=== PATIENT | male | born 1970 | race Caucasian/White ===

== ENCOUNTER 2020-06-04 15:12 | Outpatient (REF) | payer OTHER, SELFPAY | END 2020-06-04 15:13 | disposition home or self-care (01) | LOC: HO.LAB 15:12 | PROVIDERS: Visit Provider Internal Medicine | DX: Z20.822 Contact with and (suspected) exposure to COVID-19 (principal) | CPT/HCPCS: 36415; C9803; U0003 ==

== ENCOUNTER 2020-06-11 20:03 | Emergency (ER) | payer OTHER, SELFPAY ==
[2020-06-11 21:06] VITALS: BP 132/78; PULSE 81; RESP 17; TEMP 36.4; O2SAT 95; BMI 33.2
--- NOTE | 2020-06-11 21:37 | CT_ITS ---
EXAMINATION: CT ABDOMEN AND PELVIS WITHOUT CONTRAST CLINICAL INFORMATION: Left flank pain and hematuria. COMPARISON: None TECHNIQUE: Multidetector volumetric imaging was performed from the superior aspect of the liver through the pubic symphysis. Sagittal and coronal reformatted images were obtained on the technologist's workstation. This CT examination was performed using dose optimization techniques as appropriate, variously including the following: *Automated exposure control. *Adjustment of mA and/or kV according to patient size (this includes techniques or standardized protocols for targeted exams where dose is matched to indication/reason for exam; i.e. extremities or head). *Use of iterative reconstruction technique. DLP: 806 mGy-cm FINDINGS: LUNG BASES: The visualized lung bases are unremarkable. LIVER, GALLBLADDER, AND BILIARY TREE: The liver is normal in size, shape, and attenuation. No focal hepatic lesion or biliary ductal dilatation is present. The gallbladder is unremarkable with no evidence of radiopaque gallstones, gallbladder wall thickening, or obvious pericholecystic inflammatory changes. PANCREAS: Unremarkable. SPLEEN: Unremarkable. ADRENAL GLANDS: There is mild asymmetric thickening of the left adrenal gland along with a 1.5 cm nodule at the apex. This measures about 15 Hounsfield units and is consistent with a benign adenoma. KIDNEYS AND URETERS: The kidneys are normal in size, shape, and attenuation. No hydronephrosis, hydroureter, or calculi seen. No perinephric stranding. BLADDER: Nearly empty but otherwise unremarkable. No bladder calculi are seen. A tiny urachal remnant is present. GASTROINTESTINAL TRACT: The small and large bowel are unremarkable. The appendix is unremarkable. ABDOMINAL WALL: No significant hernia is appreciated. Tiny bilateral inguinal hernias are present with only fat. LYMPH NODES: No retroperitoneal lymphadenopathy. Some minimally prominent precaval node seen in the peripancreatic region. VASCULAR: Minimal calcific atherosclerotic changes are present without aneurysm. PELVIC VISCERA: Prostate and seminal vesicles appear normal. OSSEOUS STRUCTURES: Degenerative changes present in the spine most marked at L1-L2 with large Schmorl's node superior endplate of L2. No gross bony destructive lesions seen. There is mild anterior wedging of T10 and T11. CT/CT abdomen pelvis wo con IMPRESSION: 1. An acute cause for the patient's left flank pain and hematuria has not been found. No renal calculi or hydronephrosis is present. 2. Incidental note made of benign left adrenal adenoma, degenerative changes in the spine, mildly prominent peripancreatic lymph node.
--- NOTE | 2020-06-11 21:42 | ED.GENADULT ---
HPI - General Adult General Chief complaint: Extremity Problem Stated complaint: leg pain Time Seen by Provider: 06/11/20 21:27 Source: patient Mode of arrival: ambulatory Limitations: no limitations History of Present Illness HPI narrative: 50 yo male with past medical history of bells palsy, hypoglycemia, cardiac disease here with complaints of left buttocks pain which radiates to left groin/thigh x 2 weeks. Also c/o hematuria. NO clots or difficulty urinating or dysuria. No fevers/chills. No vomiting or diarrhea. No incontinence. Onset (ago): week(s) Related Data Previous Rx's Medication Instructions Recorded cyclobenzaprine 10 mg PO TID PRN #20 tab 06/11/20 dexamethasone [Decadron] 4 mg PO DAILY #5 tab 06/11/20 lidocaine [Lidoderm] 1 patch TOPICAL DAILY #15 ea 06/11/20 oxycodone 5 mg PO Q6H PRN #10 tab 06/11/20 Allergies Allergy/AdvReac Type Severity Reaction Status Date / Time aspirin AdvReac Gastrointestinal Verified 06/11/20 21:05 Upset Review of Systems Review of Systems: Yes all other systems are reviewed and are negative Constitutional: Constitutional: Reports no additional constitutional complaints, Denies body ache(s), Denies chills, Denies fever(s), Denies headache(s) and Denies weakness Eyes: Eyes: Reports no additional eye complaints and Denies change in vision ENT: Reports system reviewed and no additional complaints, except as documented, Denies dizziness, Denies headache(s), Denies nasal congestion, Denies nasal discharge and Denies neck pain Cardiovascular: Cardiovascular: Reports no additional cardiovascular complaints, Denies chest pain, Denies leg edema and Denies dyspnea Respiratory: Respiratory: Reports no additional respiratory complaints, Denies cough and Denies dyspnea Gastrointestinal: Gastrointestinal: Reports no additional gastrointestinal complaints, Denies abdominal pain, Denies diarrhea, Denies nausea and Denies vomiting Genitourinary: Genitourinary: Reports hematuria and Denies urinary incontinence Musculoskeletal: Musculoskeletal: Reports no additional musculoskeletal complaints, Reports back pain, Denies arthralgias, Denies joint swelling, Denies neck pain, Reports numbness and Denies tingling Integumentary/Breasts: Skin/Breast: Reports system reviewed and no additional complaints, except as docu and Denies rash Neurologic: Reports system reviewed and no additional complaints, except as documented, Denies Abnormal speech present, Denies dizziness, Denies headache(s), Reports numbness, Denies tingling and Denies weakness PMFSH Past Medical History Attestation statement: The following information was validated with the patient. Source: old records reviewed and nursing notes reviewed Medical History Valverde's palsy Heart disease Hypoglycemia Surgical History H/O right knee surgery Social History Social History Smoking Status: Never smoker Use of substances other than those prescribed or required for medical reasons: Yes Substance Use Type: Marijuana Substance Use Type Other:: BUYS PAIN MED OCCASSIONALLY ON THE STREETS. Advance Directives: No Advance Directives Information Provided: Yes Physical Exam Vital Signs: Vital Signs: Last Vital Signs Temp 97.1 F 06/11/20 22:36 Pulse 66 06/11/20 22:36 Resp 17 06/11/20 22:36 BP 140/67 H 06/11/20 22:36 Pulse Ox 97 06/11/20 22:36 Body Mass Index 33.2 Const: General: cooperative, healthy appearing, comfortable and no acute distress Orientation/consciousness: patient oriented x3 Limitations: no limitations HENMT: Head: Yes normal to inspection Ears: hearing grossly normal bilaterally General nose exam: Normal external nose present Face and sinus: Yes normal facial exam Mouth: Normal oral and palatal mucosa present Throat: Yes posterior oropharynx normal Eyes: General: appearance normal, both eyes and all related structures Pupils: Equal, round and reactive pupils present Neck: Neck: Yes normal visual inspection Chest: Chest palpation & inspection: normal inspection of the chest Resp: Effort & Inspection: normal respiratory effort Auscultation: clear to auscultation bilaterally Cardio: Rate: regular rate Rhythm: regular rhythm Peripheral pulses: Peripheral pulses 2+ throughout GI: Inspection: Yes normal to inspection Palpation (GI): Soft to palpation and nontender Auscultation: normal bowel sounds : Other: deferred exam by patient General: Yes no CVA tenderness Back/Spine/Pelvis: Other: pain on palpation over left buttocks and left lateral hip, worsened with straight leg raise Back: no CVA tenderness Thoracic/Lumbar Spine: thoracic and lumbar spine normal to inspection Skin: General skin exam: no rashes or lesions noted Neuro: General: patient oriented x3, no focal motor deficits and normal sensation to monofilament Cranial nerves: Yes CN's II-XII intact bilaterally, Yes Equal, round and reactive pupils present, Yes Bilaterally intact EOM present, Yes Nystagmus not present, Yes Normal facial strength present, Yes Midline tongue present and Yes Normal gag reflex present Cognition (Neuro): normal cognition Speech: No Abnormal speech present Gait exam (Neuro): Normal gait present Motor exam (neuro): 5/5 motor strength present throughout Sensory Exam: Normal double simultaneous stimulation for sensation Extrem: General: Yes normal to inspection Course Course Course Narrative: 50 yo male here with left buttocks/low back pain which radiates to left hip/thigh x 2 weeks with intermittent hematuria. No fevers, chills, vomiting, diarrhea. No injury or trauma. Will need UA, CT A/P and analgesia. 2340-UA shows no signs of microscopic hematuria. CT shows 1. An acute cause for the patient's left flank pain and hematuria has not been found. No renal calculi or hydronephrosis is present. 2. Incidental note made of benign left adrenal adenoma, degenerative changes in the spine, mildly prominent peripancreatic lymph node. Pain is improved after receiving IM Toradol, IM morphine and Lidoderm patch here. Likely lumbar sprain vs hip flexor strain vs psoas strain. Radiation of pain with intermittent paresthesias also raise concern for sciatica. No neurological deficits or red flag symptoms. Reviewed worrisome signs and symptoms when to return to the emergency department. Comfortable discharge home. Medical Decision Making MDM Narrative Medical decision making narrative: renal colic, lumbar strain, uti, pyelo, sciatica, hip flexor vs psoas strain Lab Data Labs: Lab Results 06/11/20 Range/Units 22:26 Urine Color YELLOW Urine Appearance CLEAR Urine pH 6.0 (5.0-8.0) Ur Specific [place] >= 1.030 H (1.005-1.025) Urine Protein NEG (NEG-TRACE) MG/DL Urine Glucose (UA) NEG (NEG) MG/DL Urine Ketones NEG (NEG) MG/DL Urine Blood NEG (NEG) Urine Nitrite NEG (NEG) Ur Leukocyte Esterase NEG (NEG) Imaging Data CT scan - abdomen: Attestation: I personally reviewed and interpreted this imaging study as follows: Radiologist's impression: EXAMINATION: CT ABDOMEN AND PELVIS WITHOUT CONTRAST CLINICAL INFORMATION: Left flank pain and hematuria. COMPARISON: None TECHNIQUE: Multidetector volumetric imaging was performed from the superior aspect of the liver through the pubic symphysis. Sagittal and coronal reformatted images were obtained on the technologist's workstation. This CT examination was performed using dose optimization techniques as appropriate, variously including the following: *Automated exposure control. *Adjustment of mA and/or kV according to patient size (this includes techniques or standardized protocols for targeted exams where dose is matched to indication/reason for exam; i.e. extremities or head). *Use of iterative reconstruction technique. DLP: 806 mGy-cm FINDINGS: LUNG BASES: The visualized lung bases are unremarkable. LIVER, GALLBLADDER, AND BILIARY TREE: The liver is normal in size, shape, and attenuation. No focal hepatic lesion or biliary ductal dilatation is present. The gallbladder is unremarkable with no evidence of radiopaque gallstones, gallbladder wall thickening, or obvious pericholecystic inflammatory changes. PANCREAS: Unremarkable. SPLEEN: Unremarkable. ADRENAL GLANDS: There is mild asymmetric thickening of the left adrenal gland along with a 1.5 cm nodule at the apex. This measures about 15 Hounsfield units and is consistent with a benign adenoma. KIDNEYS AND URETERS: The kidneys are normal in size, shape, and attenuation. No hydronephrosis, hydroureter, or calculi seen. No perinephric stranding. BLADDER: Nearly empty but otherwise unremarkable. No bladder calculi are seen. A tiny urachal remnant is present. GASTROINTESTINAL TRACT: The small and large bowel are unremarkable. The appendix is unremarkable. ABDOMINAL WALL: No significant hernia is appreciated. Tiny bilateral inguinal hernias are present with only fat. LYMPH NODES: No retroperitoneal lymphadenopathy. Some minimally prominent precaval node seen in the peripancreatic region. VASCULAR: Minimal calcific atherosclerotic changes are present without aneurysm. PELVIC VISCERA: Prostate and seminal vesicles appear normal. OSSEOUS STRUCTURES: Degenerative changes present in the spine most marked at L1-L2 with large Schmorl's node superior endplate of L2. No gross bony destructive lesions seen. There is mild anterior wedging of T10 and T11. CT/CT abdomen pelvis wo con IMPRESSION: 1. An acute cause for the patient's left flank pain and hematuria has not been found. No renal calculi or hydronephrosis is present. 2. Incidental note made of benign left adrenal adenoma, degenerative changes in the spine, mildly prominent peripancreatic lymph node. Discharge Plan Discharge Clinical Impression: Sciatica, Strain of flexor muscle of left hip Patient Disposition: Home, Self-Care Instructions: Sciatica (ED), Hip Sprain (ED) Additional Instructions: Heat or ice Gentle stretching Prescriptions: New lidocaine [Lidoderm] 5 % adhesive patch,medicated 1 patch topical DAILY Qty: 15 RF: 0 cyclobenzaprine 10 mg tablet 10 mg PO TID PRN (Reason: muscle spasm) Qty: 20 RF: 0 oxycodone 5 mg tablet 5 mg PO Q6H PRN (Reason: pain) Qty: 10 RF: 0 dexamethasone [Decadron] 4 mg tablet 4 mg PO DAILY Qty: 5 RF: 0 Referrals: Christopher Mercado MD [Physician] - 2 days Interventions: ED Discharge Assessment Last Done: 06/11/20 23:40 Discharge Date/Time: 06/11/20 23:40
[2020-06-11 22:17] VITALS: RESP 18
[2020-06-11] MEDS: Morphine Sulfate 4 MG/ML CARTRIDGE IM (22:17)
[2020-06-11] MEDS: Ketorolac Tromethamine 60 MG/2 ML VIAL IM (22:17)
[2020-06-11] MEDS: Lidocaine 4 % Patch ADH..PATCH 1 PATCH TRANSDERMA (22:18)
[2020-06-11 22:35] LABS: Glucose Urine UA NEG (NEG); Leukocyte Esterase Urine NEG (NEG); Nitrite Urine NEG (NEG); Specific Gravity - Urine >= 1.030 (1.005-1.025); Urine Blood NEG (NEG); Urine Ketones NEG (NEG); Urine Protein NEG (NEG-TRACE)
[2020-06-11 22:36] VITALS: BP 140/67; PULSE 66; RESP 17; TEMP 36.2; O2SAT 97
[2020-06-11 22:36] LABS: Appearance Urine CLEAR; Color Urine YELLOW
== END 2020-06-11 23:40 | disposition home or self-care (01) ==
PROVIDERS: Nurse Practitioner Family; Emergency Provider Emergency Medicine Emergency Medical Services; PCP Internal Medicine
DX: M54.32 Sciatica, left side (principal); S76.012A Strain of muscle, fascia and tendon of left hip, initial encounter; X58.XXXA Exposure to other specified factors, initial encounter; Y93.9 Activity, unspecified; Y92.9 Unspecified place or not applicable; Y99.9 Unspecified external cause status
CPT/HCPCS: 74176; 81003; 96372; 99284; J1885; J2270

== ENCOUNTER 2020-10-18 10:03 | Emergency (ER) | payer OTHER, SELFPAY ==
--- NOTE | ~2020-10-18 | XR_ITS ---
EXAMINATION: XR CHEST CLINICAL INFORMATION: Shortness of breath. COMPARISON: None TECHNIQUE: 2 views of the chest were obtained. FINDINGS: No significant abnormality is noted involving the heart, lungs, mediastinum, bony thorax or soft tissues. XR/XR chest 2V IMPRESSION: No acute cardiopulmonary process.
--- NOTE | ~2020-10-18 | CT_ITS ---
EXAMINATION: CT ANGIOGRAM OF THE CHEST WITH AND WITHOUT CONTRAST (CT PULMONARY ANGIOGRAM FOR PE) CLINICAL INFORMATION: Reason for Exam pt c chest tightness/sob/le edema ? pe COMPARISON: None TECHNIQUE: Prior to contrast administration, noncontrast localization images were obtained. Subsequently, multidetector volumetric imaging was performed from the thoracic inlet to below the diaphragms following the administration of 80 mL Omnipaque 350 intravenous contrast. No contrast reaction reported Sagittal, coronal, and MIP oblique sagittal reformatted images were obtained on the CT workstation, uploaded to PACS, and reviewed. This CT examination was performed using dose optimization techniques as appropriate, variously including the following: *Automated exposure control *Adjustment of mA and/or kV according to patient size (this includes techniques or standardized protocols for targeted exams where dose is matched to indication/reason for exam; i.e. extremities or head) *Use of iterative reconstruction technique Total exam dose-length product 558 mGy-cm FINDINGS: QUALITY OF STUDY/CONTRAST BOLUS: Satisfactory. PULMONARY ARTERIES: No central or segmental pulmonary emboli. THORACIC AORTA: No aneurysm or dissection. LUNG: There is mild centrilobular emphysema without any acute process. There are a few scattered pulmonary nodules. A 2 mm nodule right upper lobe anterior segment image 122/8, 3 mm nodule right upper lobe image 164/8, 3 mm nodular thickening along the right minor fissure axial image 239/8, 4 mm pleural-based nodule left lower lobe axial image 303/8, 3 mm nodule right middle lobe axial image 312/8, 4 mm nodule right lower lobe axial image 339/8 and tumor nodule right lower lobe axial image 355/8. PLEURA: No pleural effusion or pneumothorax. MEDIASTINUM: Normal heart size. No pericardial effusion. No hilar or mediastinal lymphadenopathy. No evidence of septal bowing or right heart strain. CHEST WALL/AXILLA: No axillary or internal mammary lymphadenopathy. There is bilateral mild gynecomastia. OSSEOUS STRUCTURES: Degenerative disc changes and ventral spondylosis dorsal spine. UPPER ABDOMEN: Visualized liver, spleen, pancreas and bilateral adrenal glands are unremarkable. No reflux of contrast into the hepatic veins to suggest elevated right heart pressures. CT/CT angio chest PE protocol IMPRESSION: No evidence of PE. No evidence of aortic dissection or aneurysm. Multiple small pulmonary nodules in the range of 2 to 4 mm. This could be inflammatory or infectious etiology. Recommend follow-up as per Jacob guidelines. Mild bilateral gynecomastia. VTE: negative
--- NOTE | ~2020-10-18 | US_ITS ---
EXAMINATION: US VENOUS ULTRASOUND WITH DOPPLER LOWER EXTREMITY, BILATERAL CLINICAL INFORMATION: SOB, chest tightness and edema. COMPARISON: None TECHNIQUE: Ultrasound of the deep veins is performed from the hip to the calf with compression sonography and color and pulse Doppler assessment. Spectral analysis with color-flow imaging is performed. FINDINGS: RIGHT: There is normal venous compression and respiratory variation and augmented flow. The visualized common femoral vein, superficial femoral vein, profunda femoral vein, popliteal vein, and the trifurcation region shows no evidence of deep venous thrombosis. There is no significant popliteal fossa cyst. LEFT: There is normal venous compression and respiratory variation and augmented flow. The visualized common femoral vein, superficial femoral vein, profunda femoral vein, popliteal vein, and the trifurcation region shows no evidence of deep venous thrombosis. There is no significant popliteal fossa cyst. If the patient's symptoms persist, followup ultrasound in 5 days 7 days might be of value to exclude proximal propagation from a non-visualized calf vein. US/US venous duplex LE BI IMPRESSION: No DVT demonstrated in the bilateral lower extremity.
[2020-10-18 10:42] VITALS: BP 181/86; PULSE 86; RESP 16; TEMP 36.9; O2SAT 97; BMI 36.4
--- NOTE | 2020-10-18 10:47 | ECG_ITS ---
Test Reason : SOB Blood Pressure : / mmHG Vent. Rate : 084 BPM Atrial Rate : 084 BPM P-R Int : 124 ms QRS Dur : 092 ms QT Int : 380 ms P-R-T Axes : 054 047 036 degrees QTc Int : 449 ms Normal sinus rhythm Normal ECG No previous ECGs available Referred By: Ana Loera Electronically Signed By:Noe Berman
[2020-10-18 10:50] VITALS: BP 181/86; PULSE 81; RESP 16; O2SAT 96
[2020-10-18 11:34] LABS: MANUAL DIFF FLAG NO
[2020-10-18 11:38] LABS: Basophils Absolute Auto 0.1 X10*3/uL (0.0-0.2); Basophils Percent Auto 0.6 % (0-2); Eosinophils Absolute Auto 0.3 X10*3/uL (0.0-0.4); Eosinophils Percent Auto 2.9 % (0-4); Hematocrit 39.7 % (42-52); Hemoglobin 13.6 g/dl (14.0-18.0); Imm Gran Abs Auto 0.03 X10*3/uL (0.00-0.03); Imm Gran Pct Auto 0.3 % (0.0-0.4); Lymphocytes Absolute Auto 1.6 X10*3/uL (1.2-4.9); Lymphocytes Percent Auto 17.6 % (20-40); Mean Corpuscular HGB Conc 34.3 g/dl (31.0-36.0); Mean Corpuscular Hemoglobin 29.2 pg (27.0-33.0); Mean Corpuscular Volume 85.2 fL (80-98); Mean Platelet Volume 11.3 fL (9.4-12.4); Monocytes Absolute Auto 0.7 X10*3/uL (0.1-1.2); Monocytes Percent Auto 7.5 % (2-11); Neutrophils Absolute Auto 6.4 X10*3/uL (2.0-8.3); Neutrophils Percent Auto 71.1 % (45-73); Platelet Count 224 X10*3/uL (160-400); Red Blood Count 4.66 X10*6/uL (4.60-5.80); Red Cell Distribution Width 13.2 % (11.0-16.0); White Blood Count 8.9 X10*3/uL (4.8-10.8)
[2020-10-18] MEDS: Furosemide 40 MG/4 ML VIAL IVPUSH (11:42)
[2020-10-18] MEDS: methylPREDNISolone Sod Succ 125 MG/2 ML VIAL IVPUSH (11:42)
[2020-10-18] MEDS: Ketorolac Tromethamine 30 MG/ML VIAL IVPUSH (11:42)
[2020-10-18 11:43] LABS: INTERNATIONAL NORM RATIO 1.1 (0.9-1.1); Prothrombin Time 13.2 SEC (10.8-13.0)
[2020-10-18 12:02] LABS: Alanine Aminotransferase 26 U/L (0-40); Albumin Level 4.6 g/dL (3.5-5.0); Alkaline Phosphatase 86 U/L (39-117); Anion Gap 11 (12-20); Aspartate Amino Transferase 21 U/L (5-37); Bilirubin Total 0.5 mg/dL (0.0-1.0); Blood Urea Nitrogen 13 mg/dL (9-16); Calcium 9.9 mg/dL (8.4-10.2); Carbon Dioxide 30 mmol/L (22-29); Chloride 104 mmol/L (96-108); Creatinine Clr Calc Pharmacy 159.7; Estimated Glomerular Filt Rate > 60; Glucose Random 95 mg/dL (60-115); Magnesium 1.8 mg/dL (1.6-2.6); Potassium 4.4 mmol/L (3.3-5.1); Sodium 141 mmol/L (135-145); Total Protein 7.4 g/dL (6.5-8.0)
[2020-10-18 12:05] LABS: B Type Natriuretic Peptide 70 pg/mL (<100); Troponin-I High Sensitivity < 3.5 ng/L (<3.5-35.0)
[2020-10-18 13:17] LABS: Glucose Urine UA NEG (NEG); Leukocyte Esterase Urine NEG (NEG); Nitrite Urine NEG (NEG); Specific Gravity - Urine 1.015 (1.005-1.025); Urine Blood NEG (NEG); Urine Ketones NEG (NEG); Urine Protein NEG (NEG-TRACE)
[2020-10-18 13:19] LABS: Appearance Urine CLEAR; Color Urine YELLOW
[2020-10-18] MEDS: iohexoL 350 MG/ML 100 ML INFUS..BTL IV (13:34)
--- NOTE | 2020-10-18 13:35 | ED.SOB ---
HPI - SOB/Dyspnea General Chief Complaint: Dyspnea Stated Complaint: SOB Time Seen by Provider: 10/18/20 10:37 Source: patient Mode of arrival: ambulatory Limitations: no limitations History of Present Illness HPI Narrative: 50-year-old male with a past medical history of hypertension who has not taken his blood pressure medication in over a year presenting to the ED with complaints of shortness of breath, dyspnea on exertion, orthopnea with associated lower extremity edema, weight gain unsure how many lb and unable to button his pants for the past 3 days worse today. Denies any dizziness, lightheadedness, change in vision, nausea/vomiting, abdominal pain, diarrhea, constipation, black or bloody stools. Patient denies recent travel on long plane train or car ride, recent immobilization, recent surgery, hypercoagulation disorder, cancer, estrogen usage or any other symptoms complaints or concerns at this time. MD elicited complaint: shortness of breath, pain with inspiration and chest pain Pertinent past history: other (Hypertension) Onset (ago): day(s) (Three days) Timing: constant Severity: moderate Exacerbating factors: lying flat, exertion, movement, inspiration, talking and deep breaths Relieving factors: nothing Known history of: other (Hypertension) Associated symptoms: chest pain, pain with inspiration and orthopnea Treatment prior to arrival: none Related Data Home oxygen amount: none Previous Rx's Medication Instructions Recorded cyclobenzaprine 10 mg PO TID PRN #20 tab 06/11/20 dexamethasone [Decadron] 4 mg PO DAILY #5 tab 06/11/20 lidocaine [Lidoderm] 1 patch TOPICAL DAILY #15 ea 06/11/20 oxycodone 5 mg PO Q6H PRN #10 tab 06/11/20 azithromycin See Rx Instructions .ROUTE 10/18/20 .COMPLEX #6 tab cyclobenzaprine 10 mg PO Q8H #10 tab 10/18/20 furosemide [Lasix] 20 mg PO QAM #30 tab 10/18/20 lidocaine HCl [Aspercreme 1 appl TOPICAL BID PRN #120 g 10/18/20 (lidocaine HCl)] prednisone 40 mg PO DAILY 5 Days #10 tab 10/18/20 Allergies Allergy/AdvReac Type Severity Reaction Status Date / Time aspirin AdvReac Gastrointestinal Verified 06/11/20 21:05 Upset Review of Systems Review of Systems: Constitutional : No Weight loss, No Fever, No Chills, No Night Sweats, No Fatigue, No Malaise ENT/Mouth : No Hearing loss, No Ear Pain, No Nasal Congestion, No Sinus Pain, No Hoarseness, No sore throat, No Rhinorrhea, No Swallowing Difficulty Eyes: No Eye Pain, No Swelling, No Redness, No Foreign Body, No Discharge, No Vision Changes Cardiovascular : Positive shortness of breath/dyspnea on exertion/orthopnea/lower extremity edema/swelling, No Palpitations Respiratory : No Cough, No Sputum, No Wheezing, No Dyspnea Gastrointestinal : No Nausea, No Vomiting, No Diarrhea, No abdominal Pain, No Hematochezia, No Melena Genitourinary : No irregular bleeding, No Dysuria, No Urinary Frequency, No Hematuria, No Urinary Incontinence, No Urgency, No Flank Pain, No Urinary Flow Changes, No Hesitancy Musculoskeletal : No joint pain, No Myalgias, No Joint Swelling Skin : No Skin Lesions, No rash Neuro : No Weakness, No Numbness, No Paresthesias, No Loss of Consciousness, No Dizziness, No Headache Psych : No Anxiety/Panic, No Depression, No SI/HI/AH/VH Heme/Lymph: No Bruising, No Bleeding,No Lymphadenopathy Endocrine : No Polyuria, No Polydipsia, No Temperature Intolerance Yes all other systems are reviewed and are negative [facility] Past Medical History Attestation statement: The following information was validated with the patient. Medical History Valverde's palsy Heart disease Hypoglycemia Surgical History H/O right knee surgery Social History Social History Alcohol intake: never Smoked in Last 30 Days: No Use of substances other than those prescribed or required for medical reasons: Yes Substance Use Type: Marijuana Substance Use Frequency: Daily Advance Directives: Yes Advance Directives Information Provided: No Advance Directives on File: No Physical Exam Vital Signs: Vital Signs: Last Vital Signs Temp 98.4 F 10/18/20 10:42 Pulse 66 10/18/20 14:28 Resp 15 10/18/20 14:28 BP 158/75 H 10/18/20 14:28 Pulse Ox 96 10/18/20 14:28 Body Mass Index 36.4 vital signs have been reviewed as normal and appeared to be correct. Blood pressure hypertensive at 181/86. Heart rate normal. Respiration rate normal. Temperature normal. Oxygen saturation normal. Appearance: Alert. Oriented X3. No acute distress. Head: Normal external exam. Normocephalic. Eyes: PERRLA. EOMI. Conjunctiva and sclera normal. Eyelids normal. ENT: Pharynx normal. Uvula midline. Moist mucous membranes. Neck: Normal inspection. Neck supple. FROM. No adenopathy. No meningeal signs. CVS: Normal heart rate and rhythm. Heart sound normal. No murmurs noted. Pulses normal throughout. Respiratory: No respiratory distress. Painless inspiration. Breath sounds normal. No wheezes/rales/rhonchi noted. Chest nontender. No accessory muscle usage noted or decreased air movement noted. Abdomen: Soft and nontender. Nondistended. No guarding. No rigidity. Bowel sounds normal in all 4 quadrants. No distention noted. No organomegaly noted. No visible injury noted. No rebound tenderness. Negative Rovsing sign. Negative obturator's sign. Negative psoas sign. Negative Pink sign. Back: No CVA tenderness. Full range of motion noted. Skin: Skin warm and dry. Normal skin color. Normal skin turgor. No rashes/lesions/lacerations noted. Extremities: Positive bilateral +3 lower extremity pitting edema. No calf tenderness noted bilaterally. Extremities exhibit normal range of motion. Extremities nontender. Neuro: Oriented X 3. No motor deficit. No sensory deficit. Reflexes normal. Normal steady gait. Course Course Course Narrative: 14:40pm - labs returned and all within normal limits including troponin and BNP. UA within normal limits no evidence of UTI. COVID/RSV/flu negative. EKG normal sinus rhythm no acute ischemic changes are noted. CTA of chest for PE revealed pulmonary nodules otherwise no evidence of a PE or any other acute processes. Therefore print the CT scan results out and gave a copy to the patient reported that he needs to follow up with his PCP for repeat imaging due to the pulmonary nodules. Bilateral venous duplex ultrasound of lower extremity negative for DVT or any other acute processes. - therefore patient most likely pedal edema blood pressure improved after the 40 mg of Lasix. I will start the patient back on Lasix and instructed to follow up with primary care provider. Patient understands agrees with this plan. MDM - SOB/Dyspnea MDM Narrative Medical decision making narrative: 10:47am - 50-year-old male with a past medical history of uncontrolled hypertension presenting to the ED with complaints of shortness of breath, dyspnea on exertion, orthopnea, chest tightness with associated lower extremity edema, weight gain unsure how many lb and unable to button his pants for the past 3 days worse today. Plan: Labs, chest x-ray, CT angio of chest for PE, EKG, bilateral venous duplex ultrasound then re-evaluate. Medical Records Attestation: I reviewed the patient's medical records. Lab Data Attestation: I reviewed the patient's lab results. Result diagrams: 10/18/20 11:26 10/18/20 11:26 Labs: Lab Results 10/18/20 10/18/20 10/18/20 Range/Units 11:26 11:26 11:26 WBC 8.9 (4.8-10.8) X10*3/uL RBC 4.66 (4.60-5.80) X10*6/uL Hgb 13.6 L (14.0-18.0) g/dl Hct 39.7 L (42-52) % MCV 85.2 (80-98) fL MCH 29.2 (27.0-33.0) pg MCHC 34.3 (31.0-36.0) g/dl RDW 13.2 (11.0-16.0) % Plt Count 224 (160-400) X10*3/uL MPV 11.3 (9.4-12.4) fL Immature Gran % (Auto) 0.3 (0.0-0.4) % Neut % (Auto) 71.1 (45-73) % Lymph % (Auto) 17.6 L (20-40) % [place] % (Auto) 7.5 (2-11) % Eos % (Auto) 2.9 (0-4) % Baso % (Auto) 0.6 (0-2) % Lymph # (Auto) 1.6 (1.2-4.9) X10*3/uL [place] # (Auto) 0.7 (0.1-1.2) X10*3/uL Eos # (Auto) 0.3 (0.0-0.4) X10*3/uL Baso # (Auto) 0.1 (0.0-0.2) X10*3/uL Abs Immat Gran (auto) 0.03 (0.00-0.03) X10*3/uL Absolute Neuts (auto) 6.4 (2.0-8.3) X10*3/uL Absolute Nucleated RBC 0.000 (0.0-0.012) X10*3/uL Nucleated RBC % (auto) 0.0 (0.0-0.2) /100WBC PT 13.2 H (10.8-13.0) SEC INR 1.1 (0.9-1.1) Sodium (135-145) mmol/L Potassium (3.3-5.1) mmol/L Chloride (96-108) mmol/L Carbon Dioxide (22-29) mmol/L Anion Gap (12-20) BUN (9-16) mg/dL Creatinine (0.5-1.4) mg/dL Estim Creat Clear Calc Estimated GFR Random Glucose (60-115) mg/dL Calcium (8.4-10.2) mg/dL Magnesium 1.8 (1.6-2.6) mg/dL Total Bilirubin (0.0-1.0) mg/dL AST (5-37) U/L ALT (0-40) U/L Alkaline Phosphatase (39-117) U/L Troponin I High Sens (<3.5-35.0) ng/L B-Natriuretic Peptide (<100) pg/mL Total Protein (6.5-8.0) g/dL Albumin (3.5-5.0) g/dL Urine Color Urine Appearance Urine pH (5.0-8.0) Ur Specific [place] (1.005-1.025) Urine Protein (NEG-TRACE) MG/DL Urine Glucose (UA) (NEG) MG/DL Urine Ketones (NEG) MG/DL Urine Blood (NEG) Urine Nitrite (NEG) Ur Leukocyte Esterase (NEG) Coronavirus (PCR) (Negative) Influenza Type A (PCR) (Negative) Influenza Type B (PCR) (Negative) RSV RNA Qual (PCR) (Negative) 10/18/20 10/18/20 10/18/20 Range/Units 11:26 11:26 13:03 WBC (4.8-10.8) X10*3/uL RBC (4.60-5.80) X10*6/uL Hgb (14.0-18.0) g/dl Hct (42-52) % MCV (80-98) fL MCH (27.0-33.0) pg MCHC (31.0-36.0) g/dl RDW (11.0-16.0) % Plt Count (160-400) X10*3/uL MPV (9.4-12.4) fL Immature Gran % (Auto) (0.0-0.4) % Neut % (Auto) (45-73) % Lymph % (Auto) (20-40) % [place] % (Auto) (2-11) % Eos % (Auto) (0-4) % Baso % (Auto) (0-2) % Lymph # (Auto) (1.2-4.9) X10*3/uL [place] # (Auto) (0.1-1.2) X10*3/uL Eos # (Auto) (0.0-0.4) X10*3/uL Baso # (Auto) (0.0-0.2) X10*3/uL Abs Immat Gran (auto) (0.00-0.03) X10*3/uL Absolute Neuts (auto) (2.0-8.3) X10*3/uL Absolute Nucleated RBC (0.0-0.012) X10*3/uL Nucleated RBC % (auto) (0.0-0.2) /100WBC PT (10.8-13.0) SEC INR (0.9-1.1) Sodium 141 (135-145) mmol/L Potassium 4.4 (3.3-5.1) mmol/L Chloride 104 (96-108) mmol/L Carbon Dioxide 30 H (22-29) mmol/L Anion Gap 11 L (12-20) BUN 13 (9-16) mg/dL Creatinine 0.69 (0.5-1.4) mg/dL Estim Creat Clear Calc 159.7 Estimated GFR > 60 Random Glucose 95 (60-115) mg/dL Calcium 9.9 (8.4-10.2) mg/dL Magnesium (1.6-2.6) mg/dL Total Bilirubin 0.5 (0.0-1.0) mg/dL AST 21 (5-37) U/L ALT 26 (0-40) U/L Alkaline Phosphatase 86 (39-117) U/L Troponin I High Sens < 3.5 (<3.5-35.0) ng/L B-Natriuretic Peptide 70 (<100) pg/mL Total Protein 7.4 (6.5-8.0) g/dL Albumin 4.6 (3.5-5.0) g/dL Urine Color YELLOW Urine Appearance CLEAR Urine pH 6.0 (5.0-8.0) Ur Specific [place] 1.015 (1.005-1.025) Urine Protein NEG (NEG-TRACE) MG/DL Urine Glucose (UA) NEG (NEG) MG/DL Urine Ketones NEG (NEG) MG/DL Urine Blood NEG (NEG) Urine Nitrite NEG (NEG) Ur Leukocyte Esterase NEG (NEG) Coronavirus (PCR) (Negative) Influenza Type A (PCR) (Negative) Influenza Type B (PCR) (Negative) RSV RNA Qual (PCR) (Negative) 10/18/20 Range/Units 13:04 WBC (4.8-10.8) X10*3/uL RBC (4.60-5.80) X10*6/uL Hgb (14.0-18.0) g/dl Hct (42-52) % MCV (80-98) fL MCH (27.0-33.0) pg MCHC (31.0-36.0) g/dl RDW (11.0-16.0) % Plt Count (160-400) X10*3/uL MPV (9.4-12.4) fL Immature Gran % (Auto) (0.0-0.4) % Neut % (Auto) (45-73) % Lymph % (Auto) (20-40) % [place] % (Auto) (2-11) % Eos % (Auto) (0-4) % Baso % (Auto) (0-2) % Lymph # (Auto) (1.2-4.9) X10*3/uL [place] # (Auto) (0.1-1.2) X10*3/uL Eos # (Auto) (0.0-0.4) X10*3/uL Baso # (Auto) (0.0-0.2) X10*3/uL Abs Immat Gran (auto) (0.00-0.03) X10*3/uL Absolute Neuts (auto) (2.0-8.3) X10*3/uL Absolute Nucleated RBC (0.0-0.012) X10*3/uL Nucleated RBC % (auto) (0.0-0.2) /100WBC PT (10.8-13.0) SEC INR (0.9-1.1) Sodium (135-145) mmol/L Potassium (3.3-5.1) mmol/L Chloride (96-108) mmol/L Carbon Dioxide (22-29) mmol/L Anion Gap (12-20) BUN (9-16) mg/dL Creatinine (0.5-1.4) mg/dL Estim Creat Clear Calc Estimated GFR Random Glucose (60-115) mg/dL Calcium (8.4-10.2) mg/dL Magnesium (1.6-2.6) mg/dL Total Bilirubin (0.0-1.0) mg/dL AST (5-37) U/L ALT (0-40) U/L Alkaline Phosphatase (39-117) U/L Troponin I High Sens (<3.5-35.0) ng/L B-Natriuretic Peptide (<100) pg/mL Total Protein (6.5-8.0) g/dL Albumin (3.5-5.0) g/dL Urine Color Urine Appearance Urine pH (5.0-8.0) Ur Specific [place] (1.005-1.025) Urine Protein (NEG-TRACE) MG/DL Urine Glucose (UA) (NEG) MG/DL Urine Ketones (NEG) MG/DL Urine Blood (NEG) Urine Nitrite (NEG) Ur Leukocyte Esterase (NEG) Coronavirus (PCR) NEGATIVE (Negative) Influenza Type A (PCR) NEGATIVE (Negative) Influenza Type B (PCR) NEGATIVE (Negative) RSV RNA Qual (PCR) NEGATIVE (Negative) Imaging Data Chest x-ray: Attestation: I personally reviewed and interpreted this imaging study as follows: Radiologist's impression: FINDINGS: No significant abnormality is noted involving the heart, lungs, mediastinum, bony thorax or soft tissues. XR/XR chest 2V IMPRESSION: No acute cardiopulmonary process. Bilateral venous duplex ultrasound of lower extremity: Attestation: I personally reviewed and interpreted this imaging study as follows: Radiologist's impression: RIGHT: There is normal venous compression and respiratory variation and augmented flow. The visualized common femoral vein, superficial femoral vein, profunda femoral vein, popliteal vein, and the trifurcation region shows no evidence of deep venous thrombosis. There is no significant popliteal fossa cyst. LEFT: There is normal venous compression and respiratory variation and augmented flow. The visualized common femoral vein, superficial femoral vein, profunda femoral vein, popliteal vein, and the trifurcation region shows no evidence of deep venous thrombosis. There is no significant popliteal fossa cyst. If the patient's symptoms persist, followup ultrasound in 5 days 7 days might be of value to exclude proximal propagation from a non-visualized calf vein. US/US venous duplex LE BI IMPRESSION: No DVT demonstrated in the bilateral lower extremity. CT angio chest for PE: Attestation: I personally reviewed and interpreted this imaging study as follows: Radiologist's impression: FINDINGS: QUALITY OF STUDY/CONTRAST BOLUS: Satisfactory. PULMONARY ARTERIES: No central or segmental pulmonary emboli. THORACIC AORTA: No aneurysm or dissection. LUNG: There is mild centrilobular emphysema without any acute process. There are a few scattered pulmonary nodules. A 2 mm nodule right upper lobe anterior segment image 122/8, 3 mm nodule right upper lobe image 164/8, 3 mm nodular thickening along the right minor fissure axial image 239/8, 4 mm pleural-based nodule left lower lobe axial image 303/8, 3 mm nodule right middle lobe axial image 312/8, 4 mm nodule right lower lobe axial image 339/8 and tumor nodule right lower lobe axial image 355/8. PLEURA: No pleural effusion or pneumothorax. MEDIASTINUM: Normal heart size. No pericardial effusion. No hilar or mediastinal lymphadenopathy. No evidence of septal bowing or right heart strain. CHEST WALL/AXILLA: No axillary or internal mammary lymphadenopathy. There is bilateral mild gynecomastia. OSSEOUS STRUCTURES: Degenerative disc changes and ventral spondylosis dorsal spine. UPPER ABDOMEN: Visualized liver, spleen, pancreas and bilateral adrenal glands are unremarkable. No reflux of contrast into the hepatic veins to suggest elevated right heart pressures. CT/CT angio chest PE protocol IMPRESSION: No evidence of PE. No evidence of aortic dissection or aneurysm. Multiple small pulmonary nodules in the range of 2 to 4 mm. This could be inflammatory or infectious etiology. Recommend follow-up as per Jacob guidelines. Mild bilateral gynecomastia. VTE: negative ECG Data Attestation: I personally reviewed and interpreted this ECG as follows: ECG interpretation date: 10/18/20 ECG interpretation time: 10:09 Interpretation: Normal sinus rhythm with ventricular rate of 84 with normal SD interval normal QRS duration and the QT/QTC interval. No acute ischemic changes are noted. No prior EKGs in our system to Compare to at this time. Discharge Plan Discharge Clinical Impression: Pedal edema, Incidental pulmonary nodule Patient Disposition: Home, Self-Care Instructions: Pulmonary Nodules (ED), Edema (ED) Additional Instructions: I gave you a copy of your CT scan results. You had incidental finding of pulmonary nodules. I am treating you with antibiotics although you should follow-up with the honeycomb blanket maker for repeat imaging in 6-12 weeks. Return if any new or worsening symptoms. You should also follow-up with Dr. Pettit the nurse esthetician for hypertension/pedal edema. Prescriptions: New furosemide [Lasix] 20 mg tablet 20 mg PO QAM Qty: 30 RF: 0 lidocaine HCl [Aspercreme (lidocaine HCl)] 4 % cream 1 appl topical BID PRN (Reason: pain) Qty: 120 RF: 0 cyclobenzaprine 10 mg tablet 10 mg PO Q8H Qty: 10 RF: 0 azithromycin 250 mg tablet See Rx Instructions .ROUTE .COMPLEX Qty: 6 RF: 0 prednisone 20 mg tablet 40 mg PO DAILY 5 Days Qty: 10 RF: 0 No Action lidocaine [Lidoderm] 5 % adhesive patch,medicated 1 patch topical DAILY Qty: 15 RF: 0 cyclobenzaprine 10 mg tablet 10 mg PO TID PRN (Reason: muscle spasm) Qty: 20 RF: 0 oxycodone 5 mg tablet 5 mg PO Q6H PRN (Reason: pain) Qty: 10 RF: 0 dexamethasone [Decadron] 4 mg tablet 4 mg PO DAILY Qty: 5 RF: 0 Referrals: Noel Dallas MD [Physician] - 2 days Jorge A Pettit MD [Physician] - 2 days Stand Alone Forms: Work/School Release Print Language: Pashto
[2020-10-18 14:28] VITALS: BP 158/75; PULSE 66; RESP 15; O2SAT 96
[2020-10-18 14:30] LABS: Influenza A PCR NEGATIVE (Negative); Influenza B PCR NEGATIVE (Negative); Resp Syncy Virus RNA Qual PCR NEGATIVE (Negative); SARS COV2 PCR INHOUSE NEGATIVE (Negative)
== END 2020-10-18 15:29 | disposition home or self-care (01) ==
PROVIDERS: Physician Assistant Medical; Emergency Provider Emergency Medicine
DX: R60.0 Localized edema (principal); R91.8 Other nonspecific abnormal finding of lung field; Z20.822 Contact with and (suspected) exposure to COVID-19; N62 Hypertrophy of breast; I10 Essential (primary) hypertension
CPT/HCPCS: 0241U; 36415; 71046; 71275; 80053; 81003; 83735; 83880; 84484; 85025; 85610; 93005; 93970; 96374; 96375; 99285; J1885; J1940; J2930; Q9967

== ENCOUNTER → 2020-10-25 09:43 | Outpatient (BNVA) | payer OTHER, SELFPAY | PROVIDERS: Visit Provider Internal Medicine Pulmonary Disease | DX: R06.00 Dyspnea, unspecified (principal); R91.8 Other nonspecific abnormal finding of lung field; J43.9 Emphysema, unspecified | CPT/HCPCS: 99202 ==

== ENCOUNTER 2020-11-06 15:56 | Outpatient (REF) | payer OTHER, SELFPAY | END 2020-11-06 15:57 | disposition home or self-care (01) | LOC: HO.RESP 15:56 | PROVIDERS: Visit Provider Internal Medicine Pulmonary Disease | DX: R06.00 Dyspnea, unspecified (principal) | CPT/HCPCS: 94060; 94727; 94729 ==

== ENCOUNTER → 2020-11-08 07:49 | Outpatient (REF) | payer OTHER, SELFPAY ==
--- NOTE | 2020-11-08 07:51 | CA_ITS ---
Transthoracic Echocardiogram Patient (Last, First, Middle): Anthony Cartwright M Gender: Male Date of : 1970 Age: 50 Procedure Date: 11/08/2020 Procedure Type: Transthoracic Echocardiogram Location: OP Height: 175.26 cm Weight: 102.06 kg BSA: 2.17 m2 Heart Rate: bpm BP: 150 / 90 mmHg Tax Clerk: LATA Referring MD: Maximilian Armenta MD Elevator Examiner And Adjuster: Jorge A Pettit MD Symptoms: R06.00 - Dyspnea, unspecified Study Quality: Fair ECG Rhythm: Sinus Conclusions: - 1. Normal LV systolic function with impaired relaxation filling pattern with regional wall motion abnormality in the RCA territory 2. Normal cardiac valvular Doppler 3. Normal RV systolic pressure 4. No gross pericardial effusion Findings Left Ventricle Normal left ventricular size, thickness, and systolic function. The visually estimated ejection fraction is between 55-60%. Spectral Doppler is indicative of an impaired relaxation filling pattern. E/E prime ratio is <8, consistent with normal filling pressures. Evidence suggests grade I (mild) diastolic dysfunction. Wall Motion Rest Echo Findings The basal inferior, mid inferior, basal inferoseptal, and basal inferolateral segments are akinetic. All other scored wall segments showed normal motion. Right Ventricle Normal right ventricular cavity size and systolic function. Atria Both atria are normal in size. There is lipomatous hypertrophy of the interatrial septum. There is no evidence of interatrial shunt. Aortic Valve There is mild calcification of the aortic valve. There is no aortic valve stenosis. There is no aortic valve regurgitation. Mitral Valve Normal mitral valve structure and function. There is no mitral valve regurgitation. There is no mitral valve stenosis. Pulmonic Valve The pulmonic valve was not well visualized. Tricuspid Valve Likely normal tricuspid valve structure and function. There is trace tricuspid valve regurgitation. The right ventricular systolic pressure is normal. The right ventricular systolic pressure is 17 mmHg. Normal right atrial pressure. There is no evidence of pulmonary hypertension. Great Vessels All visible segments of the aorta are normal in size. The pulmonary artery was not well visualized. Small plaque is seen in the sino tubular ridge. Venous The inferior vena cava is normal in size and collapses greater than 50% with inspiration. Pericardium/Pleural There is no evidence of pericardial effusion. Prior Study Comparison No prior study available for comparison. Measurements M-Mode Liner Measurements Normals - Women/Men AOV Cusps: 1.80 1.5-2.6 cm/m2 2D Linear Measurements IVSd: 1.24 0.6-0.9/0.6-1.0 cm LVIDd: 5.59 3.9-5.3/4.2-5.9 cm LVIDd Index: 2.58 2.4-3.2/2.2-3.1 cm/m2 LVIDs: 4.09 2.0-3.6 cm LVPWd: 1.07 0.7-1.1 cm Ao Root: 3.40 2.1-3.5 cm LA Diam: 4.20 2.7-3.8/3.0-4.0 cm LAIDs Index: 1.94 1.5-2.3 cm/m2 LV Mass: 331.10 67-162/88-224 g LV Mass Index: 152.58 43-95/49-115 g/m2 LVOT Diam: 2.50 3.0+(-)1.3 cm 2D Systolic Function EF 4C: 58.50 >55% EF 2C: 63.10 >55% EF BiP: 60.90 >55% Mitral Valve MV Pk E: 0.73 MV PK A: 0.72 MV Decel Time: 246.00 E/A: 1.00 E'Lateral: 15.20 E'Medial: 9.46 E/E' Med: 7.70 E/E' Lat: 4.80 PHT: 72.00 MVA PHT: 3.06 Decel Travis: 2.97 Aortic Valve AoV Pk Ramón: 1.75 AoV Mn Ramón: 1.28 AoV VTI: 0.38 AoV Pk Grad: 12.00 Aov Mn Grad: 7.00 MATEO Cont.VTI: 2.60 LVOT LVOT Pk Ramón: 1.10 LVOT Mn Ramón: 0.66 LVOT VTI: 0.20 LVOT Pk Grad: 5.00 LVOT Mn Grad: 2.00 LVOT Diam: 2.50 LVOT Area: 4.91 Diastolic Function MV Pk E: 0.73 MV Pk A: 0.72 E/A: 1.00 E'Medial: 9.46 E/E' Med: 7.70 E' Laterial: 15.20 E/E' Lat: 4.80 Tricuspid Valve TR Pk Ramón: 1.86 TR Pk Grad: 14.00 RA Press: 3.00 RVSP: 17.00 Great Vessels Aorta Ao Root-2D: 3.40 2.0-3.7 cm Ao Asc: 3.00 2.1-3.4 cm Pulmonary Valve PV Pk Ramón: 1.07 Peak PV Grad: 5.00 Updated in Other Vendor System with Status of Final Jorge A Pettit MD electronically signed on 11/08/2020 12:02:47 PM with status of Final
== END ==
LOC: HO.CARD 07:49
PROVIDERS: Visit Provider Internal Medicine Pulmonary Disease
DX: R06.00 Dyspnea, unspecified (principal)
CPT/HCPCS: 93306

== ENCOUNTER → 2020-11-21 15:42 | Outpatient (BNVA) | payer OTHER, SELFPAY | PROVIDERS: Visit Provider Internal Medicine Pulmonary Disease | DX: J43.9 Emphysema, unspecified (principal); R91.8 Other nonspecific abnormal finding of lung field; R06.00 Dyspnea, unspecified; R60.0 Localized edema; Z87.891 Personal history of nicotine dependence; Z88.6 Allergy status to analgesic agent | CPT/HCPCS: 99212 ==

== ENCOUNTER → 2021-03-05 15:38 | Outpatient (BNVA) | payer OTHER, SELFPAY | PROVIDERS: Visit Provider Internal Medicine Pulmonary Disease | DX: J43.9 Emphysema, unspecified (principal); R60.0 Localized edema; R91.8 Other nonspecific abnormal finding of lung field; R06.00 Dyspnea, unspecified | CPT/HCPCS: 99212 ==

== ENCOUNTER 2021-04-23 14:39 | Outpatient (REF) | payer OTHER, SELFPAY ==
--- NOTE | ~2021-04-23 | CT_ITS ---
EXAMINATION: CT CHEST WITHOUT CONTRAST CLINICAL INFORMATION: Follow-up pulmonary nodules COMPARISON: Previous chest x-ray and chest CTA October 2020 TECHNIQUE: Multidetector volumetric CT imaging of the chest was done. Axial MIP volume rendering provided. Sagittal and coronal reformatted images were obtained. This CT examination was performed using dose optimization techniques as appropriate, variously including the following: *Automated exposure control *Adjustment of mA and/or kV according to patient size (this includes techniques or standardized protocols for targeted exams where dose is matched to indication/reason for exam; i.e. extremities or head) *Use of iterative reconstruction technique DLP: 247 mGy-cm FINDINGS: LUNGS: The small pulmonary nodules are stable. Largest pulmonary nodule measures 4 mm in the right lower lobe axial image 371 series 5. No new pulmonary nodule is seen. MEDIASTINUM: There is a 1.9 cm left thyroid nodule that is stable. The heart does not appear enlarged. There is coronary artery calcification. There is no pericardial effusion. The thoracic aorta is normal in caliber. PLEURA: There is no pleural effusion. No pleural mass or thickening. AXILLA: There are are small bilateral axillary lymph nodes. There is bilateral gynecomastia. This appears unchanged. UPPER ABDOMEN: Unremarkable. OSSEOUS STRUCTURES: There are severe degenerative changes of the spine. CT/CT chest wo con IMPRESSION: Stable small pulmonary nodules or micronodules. According to the UPDATED 2017 Fleischner Society recommendations, the advised follow-up imaging for a 6 mm nodule: Low risk, no chest CT follow-up and high risk, optional chest CT follow-up in one year. 1.9 cm left thyroid nodule. Follow-up thyroid ultrasound recommended. Coronary artery calcification. Fleischner guidelines were followed.
== END 2021-04-23 14:40 | disposition home or self-care (01) ==
LOC: HO.CT 14:39
PROVIDERS: Visit Provider Internal Medicine Pulmonary Disease
DX: R91.8 Other nonspecific abnormal finding of lung field (principal)
CPT/HCPCS: 71250

== ENCOUNTER 2021-04-30 15:55 | Outpatient (REF) | payer OTHER, SELFPAY ==
[2021-04-30 17:12] LABS: Anion Gap 18 (12-20); Blood Urea Nitrogen 16 mg/dL (9-16); Calcium 9.9 mg/dL (8.4-10.2); Carbon Dioxide 30 mmol/L (22-29); Chloride 96 mmol/L (96-108); Estimated Glomerular Filt Rate > 60; Glucose Random 93 mg/dL (60-115); Potassium 3.5 mmol/L (3.3-5.1); Sodium 140 mmol/L (135-145)
== END 2021-04-30 15:56 | disposition home or self-care (01) ==
LOC: HO.LAB 15:55
PROVIDERS: Visit Provider Internal Medicine Pulmonary Disease
DX: J43.9 Emphysema, unspecified (principal); R60.0 Localized edema; R91.8 Other nonspecific abnormal finding of lung field
CPT/HCPCS: 36415; 80048; 99212

== ENCOUNTER 2021-06-14 06:29 | Emergency (ER) | payer OTHER, SELFPAY ==
--- NOTE | 2021-06-14 | ECG_ITS ---
Test Reason : ABDOMINAL PAIN Blood Pressure : / mmHG Vent. Rate : 078 BPM Atrial Rate : 078 BPM P-R Int : 134 ms QRS Dur : 090 ms QT Int : 400 ms P-R-T Axes : 074 053 033 degrees QTc Int : 456 ms Normal sinus rhythm Normal ECG When compared with ECG of 18-OCT-2020 10:09, No significant change was found Referred By: Generic ED Physician Electronically Signed By:CHARISSA KEVIN MD
--- NOTE | ~2021-06-14 | CT_ITS ---
EXAMINATION: CT ABDOMEN AND PELVIS WITHOUT CONTRAST CLINICAL INFORMATION: Left flank pain COMPARISON: Previous CT of the abdomen and pelvis May 2020 TECHNIQUE: Multidetector volumetric imaging was performed from the superior aspect of the liver through the pubic symphysis. Sagittal and coronal reformatted images were obtained on the technologist's workstation. This CT examination was performed using dose optimization techniques as appropriate, variously including the following: *Automated exposure control *Adjustment of mA and/or kV according to patient size (this includes techniques or standardized protocols for targeted exams where dose is matched to indication/reason for exam; i.e. extremities or head) *Use of iterative reconstruction technique DLP: 897 mGy-cm FINDINGS: LUNG BASES: The visualized lung bases are unremarkable. LIVER, GALLBLADDER, AND BILIARY TREE: The liver is normal in size, shape, and attenuation. No focal hepatic lesion or biliary ductal dilatation is present. The gallbladder is unremarkable with no evidence of radiopaque gallstones, gallbladder wall thickening, or obvious pericholecystic inflammatory changes. PANCREAS: Unremarkable. SPLEEN: Unremarkable. ADRENAL GLANDS: There is a stable 1.2 x 1.5 cm low-attenuation left adrenal nodule axial image 23 series 3. This probably represents a benign adenoma. The right adrenal gland is normal. KIDNEYS AND URETERS: The kidneys are normal in size, shape, and attenuation. No hydronephrosis, hydroureter, or calculi seen. No perinephric stranding. BLADDER: Unremarkable. GASTROINTESTINAL TRACT: The small and large bowel are unremarkable. The appendix is unremarkable. ABDOMINAL WALL: There is a small umbilical hernia containing fat. There is fat seen in both inguinal canals. LYMPH NODES: Normal. VASCULAR: Unremarkable. PELVIC VISCERA: Unremarkable. OSSEOUS STRUCTURES: There is scoliosis and degenerative changes of the spine. There is question of a Schmorl's node versus mild compression fracture of the left superior endplate of the L2 vertebral body that is unchanged. CT/CT abdomen pelvis wo con IMPRESSION: No acute findings. Stable small low-attenuation left adrenal nodule probably representing a benign adenoma. Fleischner guidelines were followed.
[2021-06-14 07:01] VITALS: BP 166/84; PULSE 92; RESP 18; TEMP 36.5; O2SAT 95; BMI 38.4
[2021-06-14 07:33] LABS: MANUAL DIFF FLAG NO
[2021-06-14 07:35] LABS: Basophils Absolute Auto 0.1 X10*3/uL (0.0-0.2); Basophils Percent Auto 0.8 % (0-2); Eosinophils Absolute Auto 0.2 X10*3/uL (0.0-0.4); Hematocrit 42.3 % (42.0-52.0); Hemoglobin 14.3 g/dl (14.0-18.0); Imm Gran Abs Auto 0.04 X10*3/uL (0.00-0.03); Imm Gran Pct Auto 0.4 % (0.0-0.4); Lymphocytes Absolute Auto 1.4 X10*3/uL (1.2-4.9); Lymphocytes Percent Auto 13.4 % (20-40); Mean Corpuscular HGB Conc 33.8 g/dl (31.0-36.0); Mean Corpuscular Hemoglobin 28.7 pg (27.0-33.0); Mean Corpuscular Volume 84.8 fL (80.0-98.0); Monocytes Absolute Auto 0.4 X10*3/uL (0.1-1.2); Monocytes Percent Auto 3.8 % (2-11); Neutrophils Absolute Auto 8.1 x10*3/uL (2.0-8.3); Neutrophils Percent Auto 79.6 % (45-73); Platelet Count 248 X10*3/uL (160-400); Red Blood Count 4.99 X10*6/uL (4.60-5.80); Red Cell Distribution Width 13.8 % (11.0-16.0); White Blood Count 10.1 X10*3/uL (4.8-10.8)
--- NOTE | 2021-06-14 07:42 | ED_ITS ---
HPI - General Adult General Chief complaint: General Medical Stated complaint: lower back pain into stomach & testicles Time Seen by Provider: 06/14/21 07:42 Source: patient Mode of arrival: ambulatory Limitations: no limitations History of Present Illness HPI narrative: left back pain radiating into the left groin. Patient had a similar problem. 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 He has had back pain for a year but at 6pm last night his pain went into his abdomen and left lower abdominal pain. The abdominal pain is new. Patient has a cardiac nurse, told he has renal failure. Onset (ago): week(s) Location: back Radiation: abdomen and flank Severity: moderate Quality: aching and sharp Pain Consistency: constant Associated symptoms: denies other symptoms Related Data Previous Rx's Medication Instructions Recorded cyclobenzaprine 10 mg tablet 10 mg PO TID PRN #20 tab 06/11/20 lidocaine 5 % topical patch 1 patch TOPICAL DAILY #15 ea 06/11/20 (Lidoderm) oxycodone 5 mg tablet 5 mg PO Q6H PRN #10 tab 06/11/20 cyclobenzaprine 10 mg tablet 10 mg PO Q8H #10 tab 10/18/20 lidocaine HCl 4 % topical cream 1 appl TOPICAL BID PRN #120 g 10/18/20 (Aspercreme (lidocaine HCl)) umeclidinium 62.5 mcg-vilanterol 1 inh INHALATION DAILY 30 Days #1 10/25/20 25 mcg/actuation powdr for ea inhalation (Anoro Ellipta) furosemide 40 mg tablet 80 mg PO DAILY 90 Days #180 tab 04/30/21 potassium chloride 10 mEq 10 meq PO DAILY #30 cap 06/04/21 capsule,extended release cyclobenzaprine 10 mg tablet 10 mg PO TID #10 tab 06/14/21 naproxen 500 mg tablet (Naprosyn) 500 mg PO BID #20 tab 06/14/21 Allergies Allergy/AdvReac Type Severity Reaction Status Date / Time aspirin AdvReac Gastrointestinal Verified 06/14/21 07:01 Upset Review of Systems Verdana 4l Constitutional: Verdana 4d Constitutional: Verdana 4d Verdana 4d Reports no additional constitutional complaints Verdana 4l Eyes: Verdana 4d Verdana 4d Eyes: Verdana 4d Reports no additional eye complaints Verdana 4l ENT: Verdana 4d Denies dizziness Verdana 4l Cardiovascular: Verdana 4d Cardiovascular: Verdana 4d Verdana 4d Reports no additional cardiovascular complaints Verdana 4l Respiratory: Verdana 4d Verdana 4d Respiratory: Verdana 4d Reports as per HPI Verdana 4l Gastrointestinal: Verdana 4d Gastrointestinal: Verdana 4d Verdana 4d Reports no additional gastrointestinal complaints Verdana 4l Musculoskeletal: Verdana 4d Musculoskeletal: Verdana 4d Verdana 4d Reports no additional musculoskeletal complaints Verdana 4l Integumentary/Breasts: Verdana 4d Skin/Breast: Verdana 4d Verdana 4d Denies rash Verdana 4l Neurologic: Verdana 4d Reports system reviewed and no additional complaints, except as documented, Denies dizziness and Denies Sensory deficit (Neuro) Verdana 4l Psychiatric: Verdana 4d Verdana 4d Psychiatric: Verdana 4d Denies anxiety PMFSH Past Medical History Medical History Valverde's palsy Congestive heart failure Heart disease Hypoglycemia Surgical History H/O right knee surgery Social History Social History Alcohol intake: current Alcohol intake frequency: does not drink Smoked in Last 30 Days: No Substance Use Type: Marijuana Advance Directives: No Advance Directives Information Provided: No Physical Exam Verdana 4l Vital Signs: Verdana 4d Verdana 4d Vital Signs: Verdana 4d Verdana 4Bd Last Vital Signs Verdana 4d Medical Manager New 4d Medical Manager New 4d Temp 97.7 F 06/14/21 07:01 Medical Manager New 4d Pulse 56 06/14/21 09:43 Medical Manager New 4d Resp 18 06/14/21 09:43 BP 130/68 06/14/21 09:43 Pulse Ox 95 06/14/21 09:43 BMI result Body Mass Index 38.4 Const: Other: obese male in pain, leaning forward Nutritional Appearance: obese Orientation/consciousness: oriented to person and patient oriented x3 Limitations: no limitations HENMT: Head: Yes normal to inspection Ears: external ears normal General nose exam: Normal external nose present Mouth: Normal oral and palatal mucosa present and oropharynx normal Throat: Yes posterior oropharynx normal Eyes: General: appearance normal, both eyes and all related structures Neck: Other: supple Neck: Yes normal visual inspection Chest: Chest palpation & inspection: normal inspection of the chest Resp: Auscultation: clear to auscultation bilaterally Cardio: Jugular venous distension: no JVD Rate: regular rate Rhythm: regular rhythm Heart sounds: S1 normal heart sound present and S2 normal heart sound present GI: Inspection: Yes normal to inspection Palpation (GI): Soft to palpation, nontender and No hepatosplenomegaly present Auscultation: normal bowel sounds : General: Yes no CVA tenderness Back/Spine/Pelvis: Back: no CVA tenderness Skin: General skin exam: no rashes or lesions noted Neuro: General: oriented to person and patient oriented x3 Cranial nerves: Yes CN's II-XII intact bilaterally Motor exam (neuro): 5/5 motor strength present throughout Sensory Exam: No Sensory deficit (Neuro) Extrem: General: Yes normal to inspection Psych: Appearance: grossly normal Course Course Course Narrative: CT/CT abdomen pelvis wo con IMPRESSION: No acute findings. Stable small low-attenuation left adrenal nodule probably representing a benign adenoma. ? Fleischner guidelines were followed. Reevaluation(s) Reevaluation #1: Patient with negative labs, UA and CT. My impression is muscular pain, will dc on NSAIDs and flexeril Time: 10:42 Medical Decision Making Lab Data Result diagrams: 06/14/21 07:57 06/14/21 07:29 Labs: Lab Results 06/14/21 06/14/21 06/14/21 Range/Units 07:29 07:29 07:29 WBC 10.1 (4.8-10.8) X10*3/uL RBC 4.99 (4.60-5.80) X10*6/uL Hgb 14.3 (14.0-18.0) g/dl Hct 42.3 (42.0-52.0) % MCV 84.8 (80.0-98.0) fL MCH 28.7 (27.0-33.0) pg MCHC 33.8 (31.0-36.0) g/dl RDW 13.8 (11.0-16.0) % Plt Count 248 (160-400) X10*3/uL MPV 11.0 (9.4-12.4) fL Immature Gran % (Auto) 0.4 (0.0-0.4) % Neut % (Auto) 79.6 H (45-73) % Lymph % (Auto) 13.4 L (20-40) % Emanuel % (Auto) 3.8 (2-11) % Eos % (Auto) 2.0 (0-4) % Baso % (Auto) 0.8 (0-2) % Lymph # (Auto) 1.4 (1.2-4.9) X10*3/uL Emanuel # (Auto) 0.4 (0.1-1.2) X10*3/uL Eos # (Auto) 0.2 (0.0-0.4) X10*3/uL Baso # (Auto) 0.1 (0.0-0.2) X10*3/uL Abs Immat Gran (auto) 0.04 H (0.00-0.03) X10*3/uL Absolute Neuts (auto) 8.1 (2.0-8.3) x10*3/uL Absolute Nucleated RBC 0.000 (0.0-0.012) X10*3/uL Nucleated RBC % (auto) 0.0 (0.0-0.2) /100WBC Sodium 140 (135-145) mmol/L Potassium 4.3 D (3.3-5.1) mmol/L Chloride 104 (96-108) mmol/L Carbon Dioxide 29 (22-29) mmol/L Anion Gap 11 L (12-20) BUN 19 H (9-16) mg/dL Creatinine 0.92 (0.5-1.4) mg/dL Estim Creat Clear Calc 121.7 Estimated GFR > 60 Random Glucose 122 H (60-115) mg/dL Calcium 9.6 (8.4-10.2) mg/dL Total Bilirubin 0.4 (0.0-1.0) mg/dL Direct Bilirubin < 0.2 (0.0-0.5) mg/dL AST 17 (5-37) U/L ALT 19 (0-40) U/L Alkaline Phosphatase 108 D (39-117) U/L B-Natriuretic Peptide 14 (<100) pg/mL Total Protein 7.9 (6.5-8.0) g/dL Albumin 4.5 (3.5-5.0) g/dL Urine Color Urine Appearance Urine pH (5.0-8.0) Ur Specific [place] (1.005-1.025) Urine Protein (NEG-TRACE) MG/DL Urine Glucose (UA) (NEG) MG/DL Urine Ketones (NEG) MG/DL Urine Blood (NEG) Urine Nitrite (NEG) Ur Leukocyte Esterase (NEG) COVID-19 (PAWAN) (Negative) COVID-19 Clin Com 06/14/21 06/14/21 06/14/21 Range/Units 07:29 07:57 09:28 WBC 9.6 (4.8-10.8) X10*3/uL RBC 4.88 (4.60-5.80) X10*6/uL Hgb 13.9 L (14.0-18.0) g/dl Hct 41.2 L (42.0-52.0) % MCV 84.4 (80.0-98.0) fL MCH 28.5 (27.0-33.0) pg MCHC 33.7 (31.0-36.0) g/dl RDW 13.8 (11.0-16.0) % Plt Count 239 (160-400) X10*3/uL MPV 11.3 (9.4-12.4) fL Immature Gran % (Auto) 0.4 (0.0-0.4) % Neut % (Auto) 80.3 H (45-73) % Lymph % (Auto) 13.1 L (20-40) % Emanuel % (Auto) 3.3 (2-11) % Eos % (Auto) 2.3 (0-4) % Baso % (Auto) 0.6 (0-2) % Lymph # (Auto) 1.3 (1.2-4.9) X10*3/uL Emanuel # (Auto) 0.3 (0.1-1.2) X10*3/uL Eos # (Auto) 0.2 (0.0-0.4) X10*3/uL Baso # (Auto) 0.1 (0.0-0.2) X10*3/uL Abs Immat Gran (auto) 0.04 H (0.00-0.03) X10*3/uL Absolute Neuts (auto) 7.7 (2.0-8.3) x10*3/uL Absolute Nucleated RBC 0.000 (0.0-0.012) X10*3/uL Nucleated RBC % (auto) 0.0 (0.0-0.2) /100WBC Sodium (135-145) mmol/L Potassium (3.3-5.1) mmol/L Chloride (96-108) mmol/L Carbon Dioxide (22-29) mmol/L Anion Gap (12-20) BUN (9-16) mg/dL Creatinine (0.5-1.4) mg/dL Estim Creat Clear Calc Estimated GFR Random Glucose (60-115) mg/dL Calcium (8.4-10.2) mg/dL Total Bilirubin (0.0-1.0) mg/dL Direct Bilirubin (0.0-0.5) mg/dL AST (5-37) U/L ALT (0-40) U/L Alkaline Phosphatase (39-117) U/L B-Natriuretic Peptide (<100) pg/mL Total Protein (6.5-8.0) g/dL Albumin (3.5-5.0) g/dL Urine Color YELLOW Urine Appearance CLEAR Urine pH 6.5 (5.0-8.0) Ur Specific [place] 1.020 (1.005-1.025) Urine Protein NEG (NEG-TRACE) MG/DL Urine Glucose (UA) NEG (NEG) MG/DL Urine Ketones NEG (NEG) MG/DL Urine Blood NEG (NEG) Urine Nitrite NEG (NEG) Ur Leukocyte Esterase NEG (NEG) COVID-19 (PAWAN) Negative (Negative) COVID-19 Clin Com See Note Imaging Data CT scan - abdomen: Radiologist's impression: CT/CT abdomen pelvis wo con IMPRESSION: No acute findings. Stable small low-attenuation left adrenal nodule probably representing a benign adenoma. ? Fleischner guidelines were followed. Discharge Plan Discharge Clinical Impression: Back pain Patient Disposition: Home, Self-Care Instructions: Acute Low Back Pain (ED) Prescriptions: New naproxen [Naprosyn] 500 mg tablet 500 mg PO BID Qty: 20 0RF cyclobenzaprine 10 mg tablet 10 mg PO TID Qty: 10 0RF No Action potassium chloride 10 mEq capsule, extended release 10 meq PO DAILY Qty: 30 0RF lidocaine [Lidoderm] 5 % adhesive patch,medicated 1 patch topical DAILY Qty: 15 0RF Rx Instructions: leave on most painful area for up to 12 hrs cyclobenzaprine 10 mg tablet 10 mg PO TID PRN (Reason: muscle spasm) Qty: 20 0RF oxycodone 5 mg tablet 5 mg PO Q6H PRN (Reason: pain) Qty: 10 0RF lidocaine HCl [Aspercreme (lidocaine HCl)] 4 % cream 1 appl topical BID PRN (Reason: pain) Qty: 120 0RF cyclobenzaprine 10 mg tablet 10 mg PO Q8H Qty: 10 0RF Anoro Ellipta 62.5-25 mcg/actuation blister with device 1 inh inhalation DAILY 30 Days Qty: 1 6RF furosemide 40 mg tablet 80 mg PO DAILY 90 Days Qty: 180 2RF Referrals: Physician,None [Primary Care Provider] - 1 week
[2021-06-14 07:51] LABS: COVID-19 Test Negative (Negative)
[2021-06-14 08:00] VITALS: RESP 18
[2021-06-14 08:01] LABS: MANUAL DIFF FLAG NO
[2021-06-14 08:04] LABS: Basophils Absolute Auto 0.1 X10*3/uL (0.0-0.2); Basophils Percent Auto 0.6 % (0-2); Eosinophils Absolute Auto 0.2 X10*3/uL (0.0-0.4); Eosinophils Percent Auto 2.3 % (0-4); Hematocrit 41.2 % (42.0-52.0); Hemoglobin 13.9 g/dl (14.0-18.0); Imm Gran Abs Auto 0.04 X10*3/uL (0.00-0.03); Imm Gran Pct Auto 0.4 % (0.0-0.4); Lymphocytes Absolute Auto 1.3 X10*3/uL (1.2-4.9); Lymphocytes Percent Auto 13.1 % (20-40); Mean Corpuscular HGB Conc 33.7 g/dl (31.0-36.0); Mean Corpuscular Hemoglobin 28.5 pg (27.0-33.0); Mean Corpuscular Volume 84.4 fL (80.0-98.0); Mean Platelet Volume 11.3 fL (9.4-12.4); Monocytes Absolute Auto 0.3 X10*3/uL (0.1-1.2); Monocytes Percent Auto 3.3 % (2-11); Neutrophils Absolute Auto 7.7 x10*3/uL (2.0-8.3); Neutrophils Percent Auto 80.3 % (45-73); Platelet Count 239 X10*3/uL (160-400); Red Blood Count 4.88 X10*6/uL (4.60-5.80); Red Cell Distribution Width 13.8 % (11.0-16.0); White Blood Count 9.6 X10*3/uL (4.8-10.8)
[2021-06-14 08:05] LABS: Alanine Aminotransferase 19 U/L (0-40); Albumin Level 4.5 g/dL (3.5-5.0); Alkaline Phosphatase 108 U/L (39-117); Anion Gap 11 (12-20); Aspartate Amino Transferase 17 U/L (5-37); Bilirubin Direct < 0.2 mg/dL (0.0-0.5); Bilirubin Total 0.4 mg/dL (0.0-1.0); Blood Urea Nitrogen 19 mg/dL (9-16); Calcium 9.6 mg/dL (8.4-10.2); Carbon Dioxide 29 mmol/L (22-29); Chloride 104 mmol/L (96-108); Creatinine Clr Calc Pharmacy 121.7; Estimated Glomerular Filt Rate > 60; Glucose Random 122 mg/dL (60-115); Potassium 4.3 mmol/L (3.3-5.1); Sodium 140 mmol/L (135-145); Total Protein 7.9 g/dL (6.5-8.0)
[2021-06-14 08:09] LABS: B Type Natriuretic Peptide 14 pg/mL (<100)
[2021-06-14] MEDS: 0.9 % Sodium Chloride 1,000 ML 250 ML IVCONT (08:09)
[2021-06-14] MEDS: Ketorolac Tromethamine 30 MG/ML VIAL IVPUSH (08:10)
[2021-06-14 09:41] LABS: Appearance Urine CLEAR; Color Urine YELLOW; Glucose Urine UA NEG (NEG); Leukocyte Esterase Urine NEG (NEG); Nitrite Urine NEG (NEG); PH 6.5 (5.0-8.0); Urine Blood NEG (NEG); Urine Ketones NEG (NEG); Urine Protein NEG (NEG-TRACE)
[2021-06-14 09:43] VITALS: BP 130/68; PULSE 56; RESP 18; O2SAT 95
[2021-06-14 10:51] VITALS: BP 145/77; PULSE 53; RESP 18; O2SAT 96
== END 2021-06-14 11:03 | disposition home or self-care (01) ==
PROVIDERS: Emergency Provider Emergency Medicine
DX: M54.50 Low back pain, unspecified (principal); N50.812 Left testicular pain; N50.811 Right testicular pain; R10.9 Unspecified abdominal pain; Z20.822 Contact with and (suspected) exposure to COVID-19; Z79.899 Other long term (current) drug therapy
CPT/HCPCS: 36415; 74176; 80053; 81003; 82248; 83880; 85025; 87635; 93005; 96361; 96374; 99284; J1885

== ENCOUNTER → 2021-09-06 14:36 | Outpatient (BNVA) | payer SELFPAY | PROVIDERS: Visit Provider Physician Assistant | DX: Z02.79 Encounter for issue of other medical certificate (principal) ==

== ENCOUNTER 2022-02-17 07:50 | Emergency (ER) | payer OTHER, SELFPAY ==
--- NOTE | ~2022-02-17 | US_ITS ---
EXAMINATION: US VENOUS ULTRASOUND WITH DOPPLER LOWER EXTREMITY, RIGHT CLINICAL INFORMATION: Right leg pain and swelling. COMPARISON: None TECHNIQUE: Ultrasound of the deep veins is performed from the hip to the calf with compression sonography and color and pulse Doppler assessment. Spectral analysis with color-flow imaging is performed. FINDINGS: There is normal venous compression and respiratory variation and augmented flow. The visualized common femoral vein, superficial femoral vein, profunda femoral vein, popliteal vein, and the trifurcation region shows no evidence of deep venous thrombosis. No right popliteal cyst. Right inguinal/proximal thigh reniform lymph node measures up to 4.2 cm in long axis. Mild to moderate subcutaneous edema in the right calf. US/US venous duplex LE RT IMPRESSION: 1. No evidence for deep venous thrombosis in the visualized veins of the right lower extremity. 2. Mild to moderate subcutaneous edema. 3. Enlarged right inguinal/proximal thigh lymph nodes are nonspecific. These could be reactive, but clinical correlation and correlation with physical exam is recommended. * If these findings persist or enlarge, short-term repeat targeted soft tissue ultrasound can be performed as clinically indicated to assess for change.
[2022-02-17 07:52] VITALS: BP 122/92; PULSE 98; RESP 18; TEMP 37.5; O2SAT 99; BMI 36.9
--- NOTE | 2022-02-17 08:02 | ED.SKABFB ---
HPI - Skin/Abscess/Foreign Bdy General Chief complaint: Skin/Abscess/Foreign Body Stated complaint: R swollen/red leg Time Seen by Provider: 02/17/22 07:55 Source: patient Mode of arrival: ambulatory Limitations: no limitations History of Present Illness HPI narrative: 51 yo male with hx of HTN, on diuretics for chronic LE edema, notes since yesterday R leg is much more swollen and it is erythematous. He does wear shorts at work. He denies prior skin infection. No known hx of blood clots. Patient notes from arrival he cannot stay in the hospital due to having a sick . He agrees to treatment in ED but will not be admitted to the hospital. MD complaint: rash, lesion and discoloration Onset (ago): day(s) (1) Tetanus up to date: yes Location: RLE Severity: moderate Quality: aching and dull Pain Consistency: constant Relieving factors: immobilization Exacerbating factors: palpation Context: none Treatments prior to arrival: none Related Data Previous Rx's Medication Instructions Recorded cyclobenzaprine 10 mg tablet 10 mg PO TID PRN muscle spasm #20 06/11/20 tabs lidocaine 5 % topical patch 1 patch topical DAILY #15 ea 06/11/20 (Lidoderm) oxycodone 5 mg tablet 5 mg PO Q6H PRN pain #10 tabs 06/11/20 cyclobenzaprine 10 mg tablet 10 mg PO Q8H Muscle spasm #10 tabs 10/18/20 lidocaine HCl 4 % topical cream 1 appl topical BID PRN pain #120 10/18/20 (Aspercreme (lidocaine HCl)) grams umeclidinium 62.5 mcg-vilanterol 1 inh inhalation DAILY 30 days #1 10/25/20 25 mcg/actuation powdr for ea inhalation (Anoro Ellipta) potassium chloride 10 mEq 10 meq PO DAILY #30 caps 06/04/21 capsule,extended release cyclobenzaprine 10 mg tablet 10 mg PO TID #10 tabs 06/14/21 naproxen 500 mg tablet (Naprosyn) 500 mg PO BID #20 tabs 06/14/21 furosemide 40 mg tablet 80 mg PO DAILY 90 days #180 tabs 01/15/22 cephalexin 500 mg capsule 500 mg PO QID 7 days #28 caps 02/17/22 doxycycline monohydrate 100 mg 100 mg PO BID 7 days #14 tabs 02/17/22 tablet Allergies Allergy/AdvReac Type Severity Reaction Status Date / Time aspirin AdvReac Gastrointestinal Verified 06/14/21 07:01 Upset Review of Systems Review of Systems: Constitutional : No Fever, No Chills ENT/Mouth : No sore throat, No Rhinorrhea Eyes: No Eye Pain, No Swelling, No Redness Cardiovascular : No Chest Pain, No SOB, pos leg swelling Respiratory : No Cough, No Sputum Gastrointestinal : No Nausea, No Vomiting, No Diarrhea, No abdominal Pain Genitourinary : No Dysuria, No Hematuria Musculoskeletal : No joint pain, No Myalgias, No Joint Swelling Skin : No Skin Lesions, positive skin rash Neuro : No Weakness, No Numbness, No Headache Psych : No Anxiety, No Depression Heme/Lymph: No Bruising, No Bleeding,No Lymphadenopathy Endocrine : No Polyuria, No Polydipsia All other systems reviewed and are negative [facility] Past Medical History Attestation statement: The following information was validated with the patient. Medical History Valverde's palsy Congestive heart failure Heart disease Hypoglycemia Surgical History H/O right knee surgery Social History Social History (Updated 02/17/22 @ 08:12 by Sho Serra DO) Alcohol intake: current Alcohol intake frequency: does not drink Patient Tobacco Use Status: Never used Tobacco Substance Use Type: Marijuana Advance Directives: No Advance Directives Information Provided: Yes Physical Exam Vital Signs: Vital Signs: Last Vital Signs Temp 99.5 F 02/17/22 07:52 Pulse 98 02/17/22 07:52 Resp 18 02/17/22 07:52 BP 122/92 H 02/17/22 07:52 Pulse Ox 99 02/17/22 07:52 O2 Del Method 02/17/22 07:52 BMI result Body Mass Index 36.9 Appearance: Alert. Oriented X3. No acute distress. Eyes: Pupils equal, round and reactive to light. ENT: Pharynx normal. Neck: Normal inspection. Neck supple. CVS: Normal heart rate and rhythm. Pulses normal. Respiratory: No respiratory distress. Breath sounds normal. Abdomen: Soft and nontender. Skin: Skin warm and dry. Normal skin color. Normal skin turgor. Extremities: R leg 2+ pitting edema from knee down - erythema and hot to touch, circumferental no fluctuance or crepitus felt pain not out of proportion, distal pulses felt, L leg trace edema no rash noted Neuro: Oriented X 3. No motor deficit. No sensory deficit. MDM - Skin/Abscess/Foreign Bdy MDM Narrative Medical decision making narrative: 51 yo male with hx of HTN, on diuretics for chronic LE edema, notes since yesterday R leg is much more swollen and it is erythematous at thsi time will need labs, IV antibiotics, US to evaluate for DVT - likely cellulitis as source of issues. Patient states he is not going to stay in the hospital regardless of findings due to ill . Lab Data Result diagrams: 02/17/22 08:24 02/17/22 08:24 Labs: Lab Results 02/17/22 02/17/22 02/17/22 Range/Units 08:24 08:24 08:24 WBC 15.3 H (4.8-10.8) X10*3/uL RBC 4.59 L (4.60-5.80) X10*6/uL Hgb 13.1 L (14.0-18.0) g/dl Hct 39.5 L (42.0-52.0) % MCV 86.1 (80.0-98.0) fL MCH 28.5 (27.0-33.0) pg MCHC 33.2 (31.0-36.0) g/dl RDW 13.2 (11.0-16.0) % Plt Count 215 (160-400) X10*3/uL MPV 10.6 (9.4-12.4) fL Immature Gran % (Auto) 0.3 (0.0-0.4) % Neut % (Auto) 87.9 H (45-73) % Lymph % (Auto) 5.6 L (20-40) % [place] % (Auto) 5.6 (2-11) % Eos % (Auto) 0.3 (0-4) % Baso % (Auto) 0.3 (0-2) % Lymph # (Auto) 0.9 L (1.2-4.9) X10*3/uL [place] # (Auto) 0.9 (0.1-1.2) X10*3/uL Eos # (Auto) 0.1 (0.0-0.4) X10*3/uL Baso # (Auto) 0.0 (0.0-0.2) X10*3/uL Abs Immat Gran (auto) 0.04 H (0.00-0.03) X10*3/uL Absolute Neuts (auto) 13.5 H (2.0-8.3) x10*3/uL Absolute Nucleated RBC 0.000 (0.0-0.012) X10*3/uL Nucleated RBC % (auto) 0.0 (0.0-0.2) /100WBC Sodium 137 (135-145) mmol/L Potassium 3.9 (3.3-5.1) mmol/L Chloride 98 (96-108) mmol/L Carbon Dioxide 26 (22-29) mmol/L Anion Gap 17 (12-20) BUN 12 (9-16) mg/dL Creatinine 0.68 (0.5-1.4) mg/dL Estim Creat Clear Calc 161.3 Estimated GFR > 60 Random Glucose 146 H (60-115) mg/dL Lactic Acid 1.5 (0.5-2.0) mmol/L Calcium 9.0 D (8.4-10.2) mg/dL Total Bilirubin 0.6 (0.0-1.0) mg/dL Direct Bilirubin 0.3 (0.0-0.5) mg/dL AST 16 (5-37) U/L ALT 24 (0-40) U/L Alkaline Phosphatase 83 D (39-117) U/L B-Natriuretic Peptide (<100) pg/mL Total Protein 7.4 (6.5-8.0) g/dL Albumin 4.4 (3.5-5.0) g/dL 02/17/22 Range/Units 08:24 WBC (4.8-10.8) X10*3/uL RBC (4.60-5.80) X10*6/uL Hgb (14.0-18.0) g/dl Hct (42.0-52.0) % MCV (80.0-98.0) fL MCH (27.0-33.0) pg MCHC (31.0-36.0) g/dl RDW (11.0-16.0) % Plt Count (160-400) X10*3/uL MPV (9.4-12.4) fL Immature Gran % (Auto) (0.0-0.4) % Neut % (Auto) (45-73) % Lymph % (Auto) (20-40) % [place] % (Auto) (2-11) % Eos % (Auto) (0-4) % Baso % (Auto) (0-2) % Lymph # (Auto) (1.2-4.9) X10*3/uL [place] # (Auto) (0.1-1.2) X10*3/uL Eos # (Auto) (0.0-0.4) X10*3/uL Baso # (Auto) (0.0-0.2) X10*3/uL Abs Immat Gran (auto) (0.00-0.03) X10*3/uL Absolute Neuts (auto) (2.0-8.3) x10*3/uL Absolute Nucleated RBC (0.0-0.012) X10*3/uL Nucleated RBC % (auto) (0.0-0.2) /100WBC Sodium (135-145) mmol/L Potassium (3.3-5.1) mmol/L Chloride (96-108) mmol/L Carbon Dioxide (22-29) mmol/L Anion Gap (12-20) BUN (9-16) mg/dL Creatinine (0.5-1.4) mg/dL Estim Creat Clear Calc Estimated GFR Random Glucose (60-115) mg/dL Lactic Acid (0.5-2.0) mmol/L Calcium (8.4-10.2) mg/dL Total Bilirubin (0.0-1.0) mg/dL Direct Bilirubin (0.0-0.5) mg/dL AST (5-37) U/L ALT (0-40) U/L Alkaline Phosphatase (39-117) U/L B-Natriuretic Peptide 15 (<100) pg/mL Total Protein (6.5-8.0) g/dL Albumin (3.5-5.0) g/dL Discharge Plan Discharge Clinical Impression: Leukocytosis Qualifiers: Leukocytosis type: unspecified Qualified Code(s): D72.829 - Elevated white blood cell count, unspecified Cellulitis Qualifiers: Site of cellulitis: extremity Site of cellulitis of extremity: lower extremity Laterality: right Qualified Code(s): L03.115 - Cellulitis of right lower limb Patient Disposition: Home, Self-Care Instructions: Cellulitis (ED), Leukocytosis (ED) Additional Instructions: return to ED for any worsening symptoms or concerns no blood clot on ultrasound given the degree of swelling and redness you likely would benefit from IV antibiotics - if you do not improve on oral medications please return at any time take your medications, wear a compressive soccer sock Prescriptions: New cephalexin 500 mg capsule 500 mg PO QID 7 Days Qty: 28 0RF doxycycline monohydrate 100 mg tablet 100 mg PO BID 7 Days Qty: 14 0RF No Action potassium chloride 10 mEq capsule, extended release 10 meq PO DAILY Qty: 30 0RF furosemide 40 mg tablet 80 mg PO DAILY 90 Days Qty: 180 2RF lidocaine [Lidoderm] 5 % adhesive patch,medicated 1 patch topical DAILY Qty: 15 0RF Rx Instructions: leave on most painful area for up to 12 hrs cyclobenzaprine 10 mg tablet 10 mg PO TID PRN (Reason: muscle spasm) Qty: 20 0RF oxycodone 5 mg tablet 5 mg PO Q6H PRN (Reason: pain) Qty: 10 0RF lidocaine HCl [Aspercreme (lidocaine HCl)] 4 % cream 1 appl topical BID PRN (Reason: pain) Qty: 120 0RF cyclobenzaprine 10 mg tablet 10 mg PO Q8H Qty: 10 0RF naproxen [Naprosyn] 500 mg tablet 500 mg PO BID Qty: 20 0RF cyclobenzaprine 10 mg tablet 10 mg PO TID Qty: 10 0RF Anoro Ellipta 62.5-25 mcg/actuation blister with device 1 inh inhalation DAILY 30 Days Qty: 1 6RF Stand Alone Forms: Work/School Release
--- OUTSIDE RECORDS SUMMARY | 2022-02-17 08:09 | XMS_ITS | Continuity of Care Document ---
:1970 Author Organization [facility] Address [address] [place] [address]- Care Team Providers Name Role Phone Not on Staff, PCP Primary Care Physician Unavailable Encounter [facility] Date(s): 02/28/20 - 02/28/[address] [address]- [facility] Discharge Disposition: A-D/C Walkout Attending Physician: Not on Staff, Attending MD Admitting Physician: Not on Staff, Admitting MD Referring Physician: Not on Staff, Referring MD Allergies, Adverse Reactions, Alerts Substance Reaction Severity Status aspirin Active morphine HIVES Active Medications oxycodone 20 mg oral tablet 1 tablet = 20 mg, By Mouth, 4 times a day, 0 Refills, Maintenance, Tablet Start Date: 10/17/11 Status: OrderedOxyContin 60 mg oral tablet, extended release 1 tablet = 60 mg, By Mouth, Every 12 hours, 0 Refills, Maintenance, ER Tablet Start Date: 10/17/11 Status: Ordered Problem List Condition Effective Dates Status Health Status Informant Cellulitis(Confirmed) 10/17/11 Active Social History Social History Type Response Smoking Status Never smoker entered on: 01/26/18 Sex
[2022-02-17 08:30] LABS: MANUAL DIFF FLAG NO
[2022-02-17 08:31] LABS: Basophils Percent Auto 0.3 % (0-2); Eosinophils Absolute Auto 0.1 X10*3/uL (0.0-0.4); Eosinophils Percent Auto 0.3 % (0-4); Hematocrit 39.5 % (42.0-52.0); Hemoglobin 13.1 g/dl (14.0-18.0); Imm Gran Abs Auto 0.04 X10*3/uL (0.00-0.03); Imm Gran Pct Auto 0.3 % (0.0-0.4); Lymphocytes Absolute Auto 0.9 X10*3/uL (1.2-4.9); Lymphocytes Percent Auto 5.6 % (20-40); Mean Corpuscular HGB Conc 33.2 g/dl (31.0-36.0); Mean Corpuscular Hemoglobin 28.5 pg (27.0-33.0); Mean Corpuscular Volume 86.1 fL (80.0-98.0); Mean Platelet Volume 10.6 fL (9.4-12.4); Monocytes Absolute Auto 0.9 X10*3/uL (0.1-1.2); Monocytes Percent Auto 5.6 % (2-11); Neutrophils Absolute Auto 13.5 x10*3/uL (2.0-8.3); Neutrophils Percent Auto 87.9 % (45-73); Platelet Count 215 X10*3/uL (160-400); Red Blood Count 4.59 X10*6/uL (4.60-5.80); Red Cell Distribution Width 13.2 % (11.0-16.0); White Blood Count 15.3 X10*3/uL (4.8-10.8)
[2022-02-17 08:45] LABS: Lactic Acid 1.5 mmol/L (0.5-2.0)
[2022-02-17 08:55] LABS: B Type Natriuretic Peptide 15 pg/mL (<100)
[2022-02-17 09:09] LABS: Alanine Aminotransferase 24 U/L (0-40); Albumin Level 4.4 g/dL (3.5-5.0); Alkaline Phosphatase 83 U/L (39-117); Anion Gap 17 (12-20); Aspartate Amino Transferase 16 U/L (5-37); Bilirubin Direct 0.3 mg/dL (0.0-0.5); Bilirubin Total 0.6 mg/dL (0.0-1.0); Blood Urea Nitrogen 12 mg/dL (9-16); Carbon Dioxide 26 mmol/L (22-29); Chloride 98 mmol/L (96-108); Creatinine Clr Calc Pharmacy 161.3; Estimated Glomerular Filt Rate > 60; Glucose Random 146 mg/dL (60-115); Potassium 3.9 mmol/L (3.3-5.1); Sodium 137 mmol/L (135-145); Total Protein 7.4 g/dL (6.5-8.0)
[2022-02-17] MEDS: Piperacillin Sodium/Tazobactam 3.375 GM in 0.9 % Sodium Chloride 50 ML IV (09:50)
[2022-02-17 09:57] LABS: INTERNATIONAL NORM RATIO 1.2 (0.9-1.1); Prothrombin Time 13.4 SEC (10.0-13.1)
== END 2022-02-17 12:31 | disposition home or self-care (01) ==
PROVIDERS: Emergency Provider Emergency Medicine
DX: L03.115 Cellulitis of right lower limb (principal); D72.829 Elevated white blood cell count, unspecified; R60.0 Localized edema; I10 Essential (primary) hypertension; M79.661 Pain in right lower leg
CPT/HCPCS: 36415; 80048; 80076; 83605; 83880; 85025; 85610; 87040; 93971; 96365; 96367; 99284; J2543; J3370

== ENCOUNTER 2022-03-02 21:31 | Emergency (ER) | payer OTHER, SELFPAY ==
--- NOTE | ~2022-03-02 | US_ITS ---
EXAMINATION: US VENOUS ULTRASOUND WITH DOPPLER LOWER EXTREMITY, RIGHT CLINICAL INFORMATION: Redness COMPARISON: 02/17/2022 TECHNIQUE: Ultrasound of the deep veins is performed from the hip to the calf with compression sonography and color and pulse Doppler assessment. Spectral analysis with color-flow imaging is performed. FINDINGS: There is normal venous compression and respiratory variation and augmented flow. The visualized common femoral vein, superficial femoral vein, profunda femoral vein, popliteal vein, and the trifurcation region shows no evidence of deep venous thrombosis. There is no significant popliteal fossa cyst. Subcutaneous edema noted in the calf which limits evaluation of the calf vessels in this region. Prominent lymph node noted in the right groin measuring 4.5 x 1.6 x 4.5 cm, which may be reactive. If the patient's symptoms persist, followup ultrasound in 5 days 7 days might be of value to exclude proximal propagation from a non-visualized calf vein. US/US venous duplex LE RT IMPRESSION: 1. No DVT demonstrated in the right lower extremity. 2. Subcutaneous edema in the calf. 3. Prominent lymph node in the right groin, which may be reactive.
[2022-03-02 22:15] VITALS: BP 154/88; PULSE 93; RESP 16; TEMP 36.5; O2SAT 99; BMI 38.4
[2022-03-02 22:30] LABS: Imm Gran Abs Auto 0.05 X10*3/uL (0.00-0.03); Imm Gran Pct Auto 0.4 % (0.0-0.4); MANUAL DIFF FLAG SCAN; PLT CLUMP 1; Red Cell Distribution Width 13.3 % (11.0-16.0); SCAN SMEAR FLAG 1
[2022-03-02 22:32] LABS: Basophils Absolute Auto 0.1 X10*3/uL (0.0-0.2); Basophils Percent Auto 0.4 % (0-2); Eosinophils Absolute Auto 0.2 X10*3/uL (0.0-0.4); Eosinophils Percent Auto 1.2 % (0-4); Hematocrit 38.6 % (42.0-52.0); Lymphocytes Percent Auto 15.8 % (20-40); Mean Corpuscular HGB Conc 33.7 g/dl (31.0-36.0); Mean Corpuscular Hemoglobin 28.3 pg (27.0-33.0); Mean Corpuscular Volume 84.1 fL (80.0-98.0); Monocytes Absolute Auto 0.8 X10*3/uL (0.1-1.2); Monocytes Percent Auto 6.3 % (2-11); Neutrophils Absolute Auto 9.8 x10*3/uL (2.0-8.3); Neutrophils Percent Auto 75.9 % (45-73); Red Blood Count 4.59 X10*6/uL (4.60-5.80)
[2022-03-02 22:36] LABS: White Blood Count 12.9 X10*3/uL (4.8-10.8)
[2022-03-02 22:47] LABS: Alanine Aminotransferase 32 U/L (0-40); Albumin Level 4.5 g/dL (3.5-5.0); Alkaline Phosphatase 83 U/L (39-117); Anion Gap 18 (12-20); Aspartate Amino Transferase 20 U/L (5-37); Bilirubin Total 0.6 mg/dL (0.0-1.0); Blood Urea Nitrogen 11 mg/dL (9-16); Calcium 9.5 mg/dL (8.4-10.2); Carbon Dioxide 26 mmol/L (22-29); Chloride 102 mmol/L (96-108); Creatinine Clr Calc Pharmacy 151.3; Estimated Glomerular Filt Rate > 60; Glucose Random 129 mg/dL (60-115); Potassium 3.7 mmol/L (3.3-5.1); Sodium 142 mmol/L (135-145); Total Protein 7.5 g/dL (6.5-8.0)
[2022-03-02 22:50] LABS: Mean Platelet Volume 11.3 fL (9.4-12.4); Platelet Count 208 X10*3/uL (160-400)
[2022-03-02 22:51] LABS: SLIDE REVIEW VERIFIED
[2022-03-03 00:34] VITALS: BP 148/86; PULSE 89; RESP 16; O2SAT 100
--- NOTE | 2022-03-03 03:04 | ED_ITS ---
HPI - General Adult General Chief complaint: Extremity Injury, Lower Stated complaint: cellulitis, black holes appearing, feeling ill Time Seen by Provider: 03/03/22 01:56 Source: patient Mode of arrival: ambulatory History of Present Illness HPI narrative: 51-year-old male with history of hypertension on diuretics for chronic lower extremity edema but states that after he completed his antibiotics from his prior visit his leg is become more red and inflamed. He denies any shortness of breath or chest pain/palpitations Related Data Previous Rx's Medication Instructions Recorded cyclobenzaprine 10 mg tablet 10 mg PO TID PRN muscle spasm #20 06/11/20 tabs lidocaine 5 % topical patch 1 patch topical DAILY #15 ea 06/11/20 (Lidoderm) oxycodone 5 mg tablet 5 mg PO Q6H PRN pain #10 tabs 06/11/20 cyclobenzaprine 10 mg tablet 10 mg PO Q8H Muscle spasm #10 tabs 10/18/20 lidocaine HCl 4 % topical cream 1 appl topical BID PRN pain #120 10/18/20 (Aspercreme (lidocaine HCl)) grams umeclidinium 62.5 mcg-vilanterol 1 inh inhalation DAILY 30 days #1 10/25/20 25 mcg/actuation powdr for ea inhalation (Anoro Ellipta) potassium chloride 10 mEq 10 meq PO DAILY #30 caps 06/04/21 capsule,extended release cyclobenzaprine 10 mg tablet 10 mg PO TID #10 tabs 06/14/21 naproxen 500 mg tablet (Naprosyn) 500 mg PO BID #20 tabs 06/14/21 furosemide 40 mg tablet 80 mg PO DAILY 90 days #180 tabs 01/15/22 cephalexin 500 mg capsule 500 mg PO QID 7 days #28 caps 02/17/22 doxycycline monohydrate 100 mg 100 mg PO BID 7 days #14 tabs 02/17/22 tablet cephalexin 500 mg capsule 500 mg PO BID 10 days #20 caps 03/03/22 doxycycline hyclate 100 mg tablet 100 mg PO BID 10 days #20 tabs 03/03/22 Allergies Allergy/AdvReac Type Severity Reaction Status Date / Time aspirin AdvReac Gastrointestinal Verified 06/14/21 07:01 Upset Review of Systems Review of Systems: Pertinent positives and negatives as stated in HPI 10 point review of systems is otherwise negative. PMFSH Past Medical History Source: nursing notes reviewed Medical History Valverde's palsy Congestive heart failure Heart disease Hypoglycemia Surgical History H/O right knee surgery Social History Social History Alcohol intake: current Alcohol intake frequency: does not drink Patient Tobacco Use Status: Never used Tobacco Substance Use Type: Marijuana Advance Directives: No Advance Directives Information Provided: No Physical Exam ED Vital Signs: Vital Signs - 24 hr 03/02/22 22:15 03/03/22 00:34 03/03/22 03:17 Temperature 97.7 F 97.9 F Pulse Rate 93 89 59 Respiratory Rate 16 16 18 Blood Pressure 154/88 H 148/86 H 121/69 Pulse Oximetry 99 100 94 Oxygen Delivery Method Room Air Room Air Room Air BMI result Body Mass Index 38.4 VITAL SIGNS: Reviewed. GENERAL: Elevated BMI, Well developed, well nourished, in no acute distress. HEAD: Normocephalic/atraumatic EYES: PERRLA, EOMI EARS: Ext canals without abnormality OROPHARYNX: no oral lesions noted, posterior pharynx clear LUNGS: Normal breath sounds. No adventitious sounds or accessory muscle use. SpO2<99> CARDIOVASCULAR: Regular rate and rhythm without noted murmurs, no JVD but noted right lower extremity edema that is minimal pitting in nature ABDOMEN: Soft, non-tender, non-distended with bowel sounds. MUSCULOSKELETAL: No tenderness, deformities, or effusions noted on gross inspection. EXTREMITIES: No cyanosis, clubbing or edema; RIGHT LOWER EXTREMITY: Calf is much greater in size when compared to the left, although there is noted erythema to the lateral aspect of the right lower leg there is no warmth to touch, skin blanches well. SKIN: Inspection of the skin reveals no rashes NEUROLOGIC: Alert and oriented x 4. Strength and sensation to light touch were grossly intact x 4. Course Course Course Narrative: 51-year-old male with history and clinical presentation suggestive of cellulitis but likely resolution limited by poor circulation. Patient does have a persistent leukocytosis but denies any systemic symptoms such as fever or chill s. He completed a course of doxycycline and cephalexin. Will try patient on 2nd course and at this time increase it to 10 days. Will strongly encourage patient to follow-up with his primary care provider for further evaluation. Patient states he will not agree to admission, similar to prior presentation. Review of all investigations consistent with persistent cellulitis, will give patient course of antibiotics for 10 days and strict instructions to follow-up with his primary care provider. Medical Decision Making Lab Data Result diagrams: 03/02/22 22:23 03/02/22 22:23 Labs: Lab Results 03/02/22 03/02/22 03/02/22 Range/Units 22:23 22:23 22:23 WBC 12.9 H (4.8-10.8) X10*3/uL RBC 4.59 L (4.60-5.80) X10*6/uL Hgb 13.0 L (14.0-18.0) g/dl Hct 38.6 L (42.0-52.0) % MCV 84.1 (80.0-98.0) fL MCH 28.3 (27.0-33.0) pg MCHC 33.7 (31.0-36.0) g/dl RDW 13.3 (11.0-16.0) % Plt Count 208 (160-400) X10*3/uL MPV 11.3 (9.4-12.4) fL Immature Gran % (Auto) 0.4 (0.0-0.4) % Neut % (Auto) 75.9 H (45-73) % Lymph % (Auto) 15.8 L (20-40) % [place] % (Auto) 6.3 (2-11) % Eos % (Auto) 1.2 (0-4) % Baso % (Auto) 0.4 (0-2) % Lymph # (Auto) 2.0 (1.2-4.9) X10*3/uL [place] # (Auto) 0.8 (0.1-1.2) X10*3/uL Eos # (Auto) 0.2 (0.0-0.4) X10*3/uL Baso # (Auto) 0.1 (0.0-0.2) X10*3/uL Abs Immat Gran (auto) 0.05 H (0.00-0.03) X10*3/uL Absolute Neuts (auto) 9.8 H (2.0-8.3) x10*3/uL Absolute Nucleated RBC 0.000 (0.0-0.012) X10*3/uL Nucleated RBC % (auto) 0.0 (0.0-0.2) /100WBC Smear Tech's Comments VERIFIED D-Dimer High Sensitivty NG/ML Sodium 142 (135-145) mmol/L Potassium 3.7 (3.3-5.1) mmol/L Chloride 102 (96-108) mmol/L Carbon Dioxide 26 (22-29) mmol/L Anion Gap 18 (12-20) BUN 11 (9-16) mg/dL Creatinine 0.74 (0.5-1.4) mg/dL Estim Creat Clear Calc 151.3 Estimated GFR > 60 Random Glucose 129 H (60-115) mg/dL Calcium 9.5 (8.4-10.2) mg/dL Total Bilirubin 0.6 (0.0-1.0) mg/dL AST 20 (5-37) U/L ALT 32 (0-40) U/L Alkaline Phosphatase 83 (39-117) U/L B-Natriuretic Peptide 22 (<100) pg/mL Total Protein 7.5 (6.5-8.0) g/dL Albumin 4.5 (3.5-5.0) g/dL 03/03/22 Range/Units 03:23 WBC (4.8-10.8) X10*3/uL RBC (4.60-5.80) X10*6/uL Hgb (14.0-18.0) g/dl Hct (42.0-52.0) % MCV (80.0-98.0) fL MCH (27.0-33.0) pg MCHC (31.0-36.0) g/dl RDW (11.0-16.0) % Plt Count (160-400) X10*3/uL MPV (9.4-12.4) fL Immature Gran % (Auto) (0.0-0.4) % Neut % (Auto) (45-73) % Lymph % (Auto) (20-40) % [place] % (Auto) (2-11) % Eos % (Auto) (0-4) % Baso % (Auto) (0-2) % Lymph # (Auto) (1.2-4.9) X10*3/uL [place] # (Auto) (0.1-1.2) X10*3/uL Eos # (Auto) (0.0-0.4) X10*3/uL Baso # (Auto) (0.0-0.2) X10*3/uL Abs Immat Gran (auto) (0.00-0.03) X10*3/uL Absolute Neuts (auto) (2.0-8.3) x10*3/uL Absolute Nucleated RBC (0.0-0.012) X10*3/uL Nucleated RBC % (auto) (0.0-0.2) /100WBC Smear Tech's Comments D-Dimer High Sensitivty 454 NG/ML Sodium (135-145) mmol/L Potassium (3.3-5.1) mmol/L Chloride (96-108) mmol/L Carbon Dioxide (22-29) mmol/L Anion Gap (12-20) BUN (9-16) mg/dL Creatinine (0.5-1.4) mg/dL Estim Creat Clear Calc Estimated GFR Random Glucose (60-115) mg/dL Calcium (8.4-10.2) mg/dL Total Bilirubin (0.0-1.0) mg/dL AST (5-37) U/L ALT (0-40) U/L Alkaline Phosphatase (39-117) U/L B-Natriuretic Peptide (<100) pg/mL Total Protein (6.5-8.0) g/dL Albumin (3.5-5.0) g/dL Discharge Plan Discharge Clinical Impression: Cellulitis Patient Disposition: Home, Self-Care Instructions: Cellulitis (ED) Additional Instructions: 1. Resume all home medications as prescribed. 2. Complete the entire course of antibiotics as ordered. 3. It is very important that you follow-up with your primary care provider in the next 1-2 days for re-evaluation and further outpatient management. Return to the ER for worsening symptoms. Prescriptions: New doxycycline hyclate 100 mg tablet 100 mg PO BID 10 Days Qty: 20 0RF cephalexin 500 mg capsule 500 mg PO BID 10 Days Qty: 20 0RF No Action potassium chloride 10 mEq capsule, extended release 10 meq PO DAILY Qty: 30 0RF furosemide 40 mg tablet 80 mg PO DAILY 90 Days Qty: 180 2RF lidocaine [Lidoderm] 5 % adhesive patch,medicated 1 patch topical DAILY Qty: 15 0RF Rx Instructions: leave on most painful area for up to 12 hrs cyclobenzaprine 10 mg tablet 10 mg PO TID PRN (Reason: muscle spasm) Qty: 20 0RF oxycodone 5 mg tablet 5 mg PO Q6H PRN (Reason: pain) Qty: 10 0RF lidocaine HCl [Aspercreme (lidocaine HCl)] 4 % cream 1 appl topical BID PRN (Reason: pain) Qty: 120 0RF cyclobenzaprine 10 mg tablet 10 mg PO Q8H Qty: 10 0RF naproxen [Naprosyn] 500 mg tablet 500 mg PO BID Qty: 20 0RF cyclobenzaprine 10 mg tablet 10 mg PO TID Qty: 10 0RF cephalexin 500 mg capsule 500 mg PO QID 7 Days Qty: 28 0RF doxycycline monohydrate 100 mg tablet 100 mg PO BID 7 Days Qty: 14 0RF Anoro Ellipta 62.5-25 mcg/actuation blister with device 1 inh inhalation DAILY 30 Days Qty: 1 6RF
[2022-03-03 03:17] VITALS: BP 121/69; PULSE 59; RESP 18; TEMP 36.6; O2SAT 94
[2022-03-03 03:33] LABS: B Type Natriuretic Peptide 22 pg/mL (<100)
[2022-03-03 03:36] LABS: D Dimer High Sensitivity 454 NG/ML
[2022-03-03] MEDS: cephALEXin 500 MG CAPSULE PO (05:55)
== END 2022-03-03 05:59 | disposition home or self-care (01) ==
PROVIDERS: Emergency Provider Student in an Organized Health Care Education/Training Program
DX: L03.115 Cellulitis of right lower limb (principal); R60.0 Localized edema; D72.829 Elevated white blood cell count, unspecified; I11.0 Hypertensive heart disease with heart failure; I50.9 Heart failure, unspecified; Z79.899 Other long term (current) drug therapy; F12.90 Cannabis use, unspecified, uncomplicated
CPT/HCPCS: 36415; 80053; 83880; 85025; 85379; 87040; 93971; 99284

== ENCOUNTER 2022-04-09 20:27 | Emergency (ER) | payer OTHER, SELFPAY ==
--- NOTE | ~2022-04-09 | XR_ITS ---
EXAMINATION: XR pelvis 1-2V XR hip RT min 2V XR femur LT 2V XR tibia fibula LT 2V CLINICAL INFORMATION: Reason for Exam PAIN FOLLOWING FALL COMPARISON: None. TECHNIQUE: Single AP view of the pelvis 2 views of the right hip 3 views of the left femur 2 views of the left tib-fib XR/XR pelvis 1-2V FINDINGS/IMPRESSION: Pelvis: No acute fracture or traumatic malalignment. Pelvic ring intact. Mild bilateral sacroiliac arthrosis. Femoral heads are spherical. Soft tissues unremarkable. Right hip: No acute fracture or dislocation. Left femur: Intact left hip and knee joints. No fractures. Soft tissues unremarkable Left tib-fib: No fractures. Imaged ankle joint unremarkable. Diffuse soft tissue swelling.
--- NOTE | ~2022-04-09 | XR_ITS ---
EXAMINATION: XR pelvis 1-2V XR hip RT min 2V XR femur LT 2V XR tibia fibula LT 2V CLINICAL INFORMATION: Reason for Exam PAIN FOLLOWING FALL COMPARISON: None. TECHNIQUE: Single AP view of the pelvis 2 views of the right hip 3 views of the left femur 2 views of the left tib-fib XR/XR femur LT 2V FINDINGS/IMPRESSION: Pelvis: No acute fracture or traumatic malalignment. Pelvic ring intact. Mild bilateral sacroiliac arthrosis. Femoral heads are spherical. Soft tissues unremarkable. Right hip: No acute fracture or dislocation. Left femur: Intact left hip and knee joints. No fractures. Soft tissues unremarkable Left tib-fib: No fractures. Imaged ankle joint unremarkable. Diffuse soft tissue swelling.
--- NOTE | ~2022-04-09 | XR_ITS ---
EXAMINATION: XR pelvis 1-2V XR hip RT min 2V XR femur LT 2V XR tibia fibula LT 2V CLINICAL INFORMATION: Reason for Exam PAIN FOLLOWING FALL COMPARISON: None. TECHNIQUE: Single AP view of the pelvis 2 views of the right hip 3 views of the left femur 2 views of the left tib-fib XR/XR hip RT min 2V FINDINGS/IMPRESSION: Pelvis: No acute fracture or traumatic malalignment. Pelvic ring intact. Mild bilateral sacroiliac arthrosis. Femoral heads are spherical. Soft tissues unremarkable. Right hip: No acute fracture or dislocation. Left femur: Intact left hip and knee joints. No fractures. Soft tissues unremarkable Left tib-fib: No fractures. Imaged ankle joint unremarkable. Diffuse soft tissue swelling.
--- NOTE | ~2022-04-09 | XR_ITS ---
EXAMINATION: XR pelvis 1-2V XR hip RT min 2V XR femur LT 2V XR tibia fibula LT 2V CLINICAL INFORMATION: Reason for Exam PAIN FOLLOWING FALL COMPARISON: None. TECHNIQUE: Single AP view of the pelvis 2 views of the right hip 3 views of the left femur 2 views of the left tib-fib XR/XR tibia fibula LT 2V FINDINGS/IMPRESSION: Pelvis: No acute fracture or traumatic malalignment. Pelvic ring intact. Mild bilateral sacroiliac arthrosis. Femoral heads are spherical. Soft tissues unremarkable. Right hip: No acute fracture or dislocation. Left femur: Intact left hip and knee joints. No fractures. Soft tissues unremarkable Left tib-fib: No fractures. Imaged ankle joint unremarkable. Diffuse soft tissue swelling.
[2022-04-09 20:42] VITALS: BP 131/64; PULSE 85; RESP 14; TEMP 36.7; O2SAT 93; BMI 34.0
--- NOTE | 2022-04-09 21:47 | ED_ITS ---
HPI - General Adult General Chief complaint: Extremity Injury, Lower Stated complaint: Fall 04/04, R Hip, L leg pain Time Seen by Provider: 04/09/22 21:39 Source: patient Mode of arrival: ambulatory Limitations: no limitations History of Present Illness HPI narrative: 52-year-old male history of hypertension, substance abuse, cellulitis, pulmonary emphysema, Valverde's palsy, CHF presenting to the emergency department with complaints of right hip pain, left lower extremity pain x6 days after tripping over a railroad tracks. Patient tells me pain started status post falling while in a wright 6 days ago he tells me he fell from standing. Left foot was stuck under a railroad track, right knee and right hip fell on railroad track. Not up-to-date on tetanus. Pain is also in the lower lumbar region, patient desc ribes pain as colicky, and similar to a muscle spasm bilaterally sparing the midline. Has been able to ambulate, however reports feeling stiff. Is using no assistive devices at home. Pain has increased since the accident, taking ibuprofen at home with minimal relief. Patient admits to using 2 bags of fentanyl this morning to help relieve the pain. Denies fever, chills, shortness of breath, chest pain, numbness or tingling of any of the extremities, saddle paresthesia, incontinence of urine or feces, nausea, vomiting, diarrhea, headache, visual changes, issues with balance. Does not have a PCP. To note, when patient fell he did not hit his head or lose consciousness. Not on thinners Related Data Previous Rx's Medication Instructions Recorded cyclobenzaprine 10 mg tablet 10 mg PO TID PRN muscle spasm #20 06/11/20 tabs lidocaine 5 % topical patch 1 patch topical DAILY #15 ea 06/11/20 (Lidoderm) oxycodone 5 mg tablet 5 mg PO Q6H PRN pain #10 tabs 06/11/20 cyclobenzaprine 10 mg tablet 10 mg PO Q8H Muscle spasm #10 tabs 10/18/20 lidocaine HCl 4 % topical cream 1 appl topical BID PRN pain #120 10/18/20 (Aspercreme (lidocaine HCl)) grams umeclidinium 62.5 mcg-vilanterol 1 inh inhalation DAILY 30 days #1 10/25/20 25 mcg/actuation powdr for ea inhalation (Anoro Ellipta) potassium chloride 10 mEq 10 meq PO DAILY #30 caps 06/04/21 capsule,extended release cyclobenzaprine 10 mg tablet 10 mg PO TID #10 tabs 06/14/21 naproxen 500 mg tablet (Naprosyn) 500 mg PO BID #20 tabs 06/14/21 furosemide 40 mg tablet 80 mg PO DAILY 90 days #180 tabs 01/15/22 cephalexin 500 mg capsule 500 mg PO QID 7 days #28 caps 02/17/22 doxycycline monohydrate 100 mg 100 mg PO BID 7 days #14 tabs 02/17/22 tablet cephalexin 500 mg capsule 500 mg PO BID 10 days #20 caps 03/03/22 doxycycline hyclate 100 mg tablet 100 mg PO BID 10 days #20 tabs 03/03/22 cephalexin 500 mg tablet 500 mg PO Q6H 10 days #40 tabs 04/09/22 cyclobenzaprine 10 mg tablet 10 mg PO BEDTIME PRN muscle spasm 04/09/22 #7 tabs doxycycline hyclate 100 mg capsule 100 mg PO BID 10 days #20 caps 04/09/22 Allergies Allergy/AdvReac Type Severity Reaction Status Date / Time aspirin AdvReac Gastrointestinal Verified 06/14/21 07:01 Upset Review of Systems Review of Systems: Constitutional : No Weight loss, No Fever, No Chills, No Fatigue, No Malaise ENT/Mouth : No sore throat, No Rhinorrhea Eyes: No Eye Pain, No Swelling, No Redness Cardiovascular : No Chest Pain, No SOB, No Dyspnea on Exertion, No Orthopnea, No Edema, No Palpitations Respiratory : No Cough, No Sputum, No Wheezing Gastrointestinal : No Nausea, No Vomiting, No Diarrhea, No Constipation, No abdominal Pain, No Hematochezia, No Melena Genitourinary : No Dysuria, No Urinary Frequency, No Hematuria, Musculoskeletal : + joint pain, No Myalgias, + Joint Swelling Skin : no skin lesions, No rash, + abrasions to lower left extremities Neuro : No Weakness, No Numbness, No Dizziness, No Headache Psych : No Anxiety/Panic, No Depression All other systems reviewed and are negative Yes all other systems are reviewed and are negative PMFSH Past Medical History Attestation statement: The following information was validated with the patient. Source: old records reviewed and nursing notes reviewed Medical History Valverde's palsy Congestive heart failure Heart disease Hypoglycemia Surgical History H/O right knee surgery Social History Social History Alcohol intake: current Alcohol intake frequency: does not drink Patient Tobacco Use Status: Never used Tobacco Substance Use Type: Marijuana Advance Directives: No Advance Directives Information Provided: No Physical Exam ED Vital Signs: Vital Signs - 24 hr 04/09/22 20:42 Temperature 98.1 F Pulse Rate 85 Respiratory Rate 14 Blood Pressure 131/64 Pulse Oximetry 93 Oxygen Delivery Method Room Air BMI result Body Mass Index 34.0 vss Appearance: Alert.? Oriented X3.? No acute distress.? Head: Normocephalic, atraumatic, no step-offs or deformities. Fluctuant mass to the left maxilla. Eyes: Pupils equal, round and reactive to light.? Extraocular eye movements intact. CVS: Normal heart rate and rhythm.? Pulses normal.? Respiratory: No respiratory distress.? Breath sounds normal.? Abdomen: Soft and nontender.? Skin: Skin warm and dry.? Normal skin color.? Normal skin turgor.? Extremities: Right and left lower extremity edema, with no associated erythema on the left and very mild erythema on the right.? No calf ttp. 5/5 strength to bilateral upper and lower extremities. Reduced flexion and extension right knee joint, secondary to pain. No wrist or footdrop bilaterally. Paraspinous muscles bilaterally tender to palpation. Neuro: Oriented X 3.? No motor deficit.? No sensory deficit. CN 2-12 intact . Patient ambulating with steady gait normal coordination. Cerebellar function intact. Able to perform [id number], [id number] without difficulty. 2+ DT Rs to patellar region bilaterally. No saddle paresthesias. Course Reevaluation(s) Reevaluation #1: X-ray of tibia-fibula, pelvis, hip, femur reveals no acute fracture dislocation of the right hip. No acute fracture traumatic misalignment of the pelvic ring. No soft tissue swelling of the pelvis. Intact left hip and knee joints. No fractures of left hip and knee. Soft tissues unremarkable of the left femur. Left tib-fib no fractures imaging of ankle unremarkable. Diffuse soft tissue swelling to left tib-fib. Time: 22:26 Reevaluation #2: At this time patient will be discharged home educated on imaging results. I educated him on risk versus benefits of not obtaining imaging, explained to him that there could be missed diagnoses such as intracranial hemorrhage, stroke, fractures, dislocations or blood clots. Patient verbalizes understanding tells me he does not think he has either of these he tells me he feels fine and would like to leave without them. Educated on worrisome signs and symptoms and when t o return. Comfortable discharge home Time: 22:36 Medical Decision Making MDM Narrative Medical decision making narrative: 2144 52-year-old male presents with pain to his right hip, left thigh and pain to left lower leg s/p fall 6 days ago. When patient fell he did not his head, or lose consciousness. Not on blood thinners. Physical exam remarkable for right and left lower extremity edema without erythema. Several abrasion to left lower extremity. Lower lumbar back p araspinous muscles bilaterally tender to palpation. Reduced flexion and extension to right knee, secondary to palpation. No wrist or footdrop bilaterally. Neurovascularly intact. Ambulating with steady gait normal coordination. Neuro nonfocal. No saddle paresthesias. Likely soft tissue swelling, will obtain imaging to rule out fractures or dislocation. Unlikely cauda equina, septic joint, herniated disc, compartment syndrome, epidural abscess, cord compression. Patient's right lower extremity appears to be slightly more swollen than the left however patient recently had cellulitis he had a lower extremity DVT study done which was negative. Suggested he get a repeat ultrasound to rule out DVT however patient refusing. Due to the mechanism of injury also explained to patient he should get a head CT and cervical spine CT patient refusing. Low suspicion for stroke, posterior stroke, intracranial hemorrhage. No signs of traumatic fracture dislocation of skull or cervical spine. There is concerns for slight mild cellulitis to right lower extremity as it is erythematous and slightly warm to the touch, patient was recently treated for cellulitis of right lower extremity completed course of antibiotics however patient unlikely med compliant, reports he took most doses, will start him on doxycycline and Keflex. Advised to follow-up with PCP. Advised him to return if he changes his mind about DVT study are head CT and cervical spine CT. GCS of 15 NIH stroke scale 0 Plan at this time imaging (was ordered from triage). Medical Records Medical records reviewed: Yes I reviewed the patient's medical records. Lab Data Lab results reviewed: Yes I reviewed the patient's lab results. Critical Care Time Critical Care Time Critical Care Time: No Discharge Plan Discharge Clinical Impression: Cellulitis, Hip pain, Knee pain, Fall, Edema of both lower extremities, Left against medical advice Patient Disposition: Home, Self-Care Instructions: Cellulitis (ED), Leg Edema (ED), Knee Pain (ED), Fall Prevention (ED), Edema (ED) Additional Instructions: Take your medications as prescribed. If you were prescribed antibiotics today, it is important that you take your medication to their entirety, do not skip any doses, do not finish them early. Follow-up with your primary care provider this week. Follow-up with orthopedics. Return to the emergency department with new or worsening symptoms. Such as fevers, chills, chest pain, shortness of breath, nausea, vomiting, dizziness, headache, vision changes, lethargy In case of emergency call [address] and lower extremity DVT study. If you change your mind please return for imaging. You can take ibuprofen every 6 hours, Tylenol every 4 as needed for pain or discomfort. Cyclobenzaprine muscle relaxer has been sent to her pharmacy, please take this as prescribed can make you drowsy, please do not take while driving or operating machinery. Pelvis: No acute fracture or traumatic malalignment. Pelvic ring intact. Mild bilateral sacroiliac arthrosis. Femoral heads are spherical. Soft tissues unremarkable. ? Right hip: No acute fracture or dislocation. ? Left femur: Intact left hip and knee joints. No fractures. Soft tissues unremarkable ? Left tib-fib: No fractures. Imaged ankle joint unremarkable. Diffuse soft tissue swelling. Prescriptions: New cyclobenzaprine 10 mg tablet 10 mg PO BEDTIME PRN (Reason: muscle spasm) Qty: 7 0RF doxycycline hyclate 100 mg capsule 100 mg PO BID 10 Days Qty: 20 0RF cephalexin 500 mg tablet 500 mg PO Q6H 10 Days Qty: 40 0RF No Action potassium chloride 10 mEq capsule, extended release 10 meq PO DAILY Qty: 30 0RF furosemide 40 mg tablet 80 mg PO DAILY 90 Days Qty: 180 2RF lidocaine [Lidoderm] 5 % adhesive patch,medicated 1 patch topical DAILY Qty: 15 0RF Rx Instructions: leave on most painful area for up to 12 hrs cyclobenzaprine 10 mg tablet 10 mg PO TID PRN (Reason: muscle spasm) Qty: 20 0RF oxycodone 5 mg tablet 5 mg PO Q6H PRN (Reason: pain) Qty: 10 0RF lidocaine HCl [Aspercreme (lidocaine HCl)] 4 % cream 1 appl topical BID PRN (Reason: pain) Qty: 120 0RF cyclobenzaprine 10 mg tablet 10 mg PO Q8H Qty: 10 0RF naproxen [Naprosyn] 500 mg tablet 500 mg PO BID Qty: 20 0RF cyclobenzaprine 10 mg tablet 10 mg PO TID Qty: 10 0RF cephalexin 500 mg capsule 500 mg PO QID 7 Days Qty: 28 0RF doxycycline monohydrate 100 mg tablet 100 mg PO BID 7 Days Qty: 14 0RF doxycycline hyclate 100 mg tablet 100 mg PO BID 10 Days Qty: 20 0RF cephalexin 500 mg capsule 500 mg PO BID 10 Days Qty: 20 0RF Anoro Ellipta 62.5-25 mcg/actuation blister with device 1 inh inhalation DAILY 30 Days Qty: 1 6RF Referrals: Physician,None [Primary Care Provider] - 2 days Stand Alone Forms: Work/School Release, Against Medical Advice
[2022-04-09 22:48] VITALS: BP 137/70; PULSE 66; RESP 20; TEMP 37.2; O2SAT 999
[2022-04-09] MEDS: Ketorolac Tromethamine 30 MG/ML VIAL IM (22:51)
[2022-04-09] MEDS: Diphth,Pertus(ACell),Tet Adult 0.5 ML SYRINGE IM (22:52)
== END 2022-04-09 22:59 | disposition home or self-care (01) ==
PROVIDERS: Emergency Provider Internal Medicine
DX: S90.812A Abrasion, left foot, initial encounter (principal); R60.0 Localized edema; L03.116 Cellulitis of left lower limb; L03.115 Cellulitis of right lower limb; M25.552 Pain in left hip; M25.551 Pain in right hip; X58.XXXA Exposure to other specified factors, initial encounter; Y93.9 Activity, unspecified; Y92.9 Unspecified place or not applicable; Y99.9 Unspecified external cause status; Z79.899 Other long term (current) drug therapy
CPT/HCPCS: 72170; 73502; 73552; 73590; 90471; 90715; 96372; 99284; J1885

== ENCOUNTER 2022-09-27 19:37 | Emergency (ER) | payer OTHER, SELFPAY ==
--- NOTE | ~2022-09-27 | XR_ITS ---
EXAMINATION: XR HAND, LEFT CLINICAL INFORMATION: Left hand pain COMPARISON: None available. TECHNIQUE: PA, lateral, and oblique views of the left hand. FINDINGS: There is no evidence of acute fracture or dislocation. Mild osteoarthritic changes are noted at the first interphalangeal joint. No focal erosion. No evidence of soft tissue calcifications. Remainder of the osseous structures, joints and soft tissues are grossly unremarkable. XR/XR hand LT min 3V IMPRESSION: No evidence of acute fracture or dislocation in the left hand. 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
[2022-09-27 19:59] VITALS: BP 167/73; PULSE 82; RESP 18; TEMP 36.7; O2SAT 97; BMI 38.4
--- NOTE | 2022-09-27 20:05 | ED_ITS ---
HPI - General Adult General Chief complaint: Extremity Injury, Upper Stated complaint: fell on Left hand Time Seen by Provider: 09/27/22 21:43 History of Present Illness HPI narrative: Patient is a 52-year-old male status post accidental fall. Hit his left hand. The worse pain is over the index finger metacarpophalangeal joint. Patient denies any head injury. Not on blood thinners. No nausea no vomiting. No systemic complaints. Related Data Previous Rx's Medication Instructions Recorded cyclobenzaprine 10 mg tablet 10 mg PO TID PRN muscle spasm #20 06/11/20 tabs lidocaine 5 % topical patch 1 patch topical DAILY #15 ea 06/11/20 (Lidoderm) oxycodone 5 mg tablet 5 mg PO Q6H PRN pain #10 tabs 06/11/20 cyclobenzaprine 10 mg tablet 10 mg PO Q8H Muscle spasm #10 tabs 10/18/20 lidocaine HCl 4 % topical cream 1 appl topical BID PRN pain #120 10/18/20 (Aspercreme (lidocaine HCl)) grams umeclidinium 62.5 mcg-vilanterol 1 inh inhalation DAILY 30 days #1 10/25/20 25 mcg/actuation powdr for ea inhalation (Anoro Ellipta) potassium chloride 10 mEq 10 meq PO DAILY #30 caps 06/04/21 capsule,extended release cyclobenzaprine 10 mg tablet 10 mg PO TID #10 tabs 06/14/21 naproxen 500 mg tablet (Naprosyn) 500 mg PO BID #20 tabs 06/14/21 furosemide 40 mg tablet 80 mg PO DAILY 90 days #180 tabs 01/15/22 cephalexin 500 mg capsule 500 mg PO QID 7 days #28 caps 02/17/22 doxycycline monohydrate 100 mg 100 mg PO BID 7 days #14 tabs 02/17/22 tablet cephalexin 500 mg capsule 500 mg PO BID 10 days #20 caps 03/03/22 doxycycline hyclate 100 mg tablet 100 mg PO BID 10 days #20 tabs 03/03/22 cephalexin 500 mg tablet 500 mg PO Q6H 10 days #40 tabs 04/09/22 cyclobenzaprine 10 mg tablet 10 mg PO BEDTIME PRN muscle spasm 04/09/22 #7 tabs doxycycline hyclate 100 mg capsule 100 mg PO BID 10 days #20 caps 04/09/22 ibuprofen 400 mg tablet 400 mg PO Q6H PRN pain #20 tabs 09/27/22 Allergies Allergy/AdvReac Type Severity Reaction Status Date / Time aspirin AdvReac Gastrointestinal Verified 09/27/22 20:07 Upset Review of Systems Review of Systems: Positive pain to the left 1st MCP. No fever no chills. Yes all other systems are reviewed and are negative [facility] Past Medical History Attestation statement: The following information was validated with the patient. Medical History Valverde's palsy Congestive heart failure Heart disease Hypoglycemia Surgical History H/O right knee surgery Social History Social History Alcohol intake: current Alcohol intake frequency: does not drink Patient Tobacco Use Status: Never used Tobacco Substance Use Type: Marijuana Advance Directives: No Advance Directives Information Provided: No Physical Exam ED Vital Signs: Vital Signs - 24 hr 09/27/22 19:59 Temperature 98.1 F Pulse Rate 82 Respiratory Rate 18 Blood Pressure 167/73 H Pulse Oximetry 97 Oxygen Delivery Method Room Air BMI result Body Mass Index 38.4 Appearance: Alert. Oriented X3. No acute distress. Eyes: Pupils equal, round and reactive to light. ENT: Pharynx normal. Neck: Normal inspection. Neck supple. No lymph nodes noted. No crepitus CVS: Normal heart rate and rhythm. Pulses normal. Normal S1 and S2 Respiratory: No respiratory distress. Breath sounds normal. No Wheezing. No rales Abdomen: Soft and nontender. No rigidity. No distention. good BS x4 Skin: Skin warm and dry. Normal skin color. Normal skin turgor. Extremities: Positive minimal swelling to the left index MCP. Pain on movement flexion and extension at index MCP. More distally flexion extension at proximal IP and distal IP joint intact. Capillary refill less than 2 seconds. Skin intact. Neuro: Oriented X 3. No motor deficit. No sensory deficit. Moving all extermities. No slurred speech Course Course Course Narrative: RME- 52-year-old male presents for evaluation of left hand pain after falling by tripping over something on the ground. Patient is right handed. X-ray left hand ordered. He has a minor abrasion to left shoulder but no significant deformity. No other injuries noted Medical Decision Making Medical Decision Making MDM Narrative: X-ray of the hand was ordered as patient has pain over the index finger MCP joint on the left side. The x-ray did not show any acute fracture no malalignment. Will discharge patient home on Motrin. Rest. Close follow-up on an outpatient basis. In stable condition. Cannot rule out ligamentous injury. Motrin for pain. Follow-up with hand. Differential Diagnosis Contusion sprain of the hand fracture of the hand Independent Interpretation I performed an independent interpretation of an: Plain X-Ray Interpretation: X-ray of the hand was grossly negative Radiology Impression Discussion of test interpretation with radiology: I have reviewed the radiologist's reading. Chronic Conditions Emphysema Discharge Plan Discharge Clinical Impression: Finger sprain Patient Disposition: Home, Self-Care Instructions: Finger Sprain (ED) Prescriptions: New ibuprofen 400 mg tablet 400 mg PO Q6H PRN (Reason: pain) Qty: 20 0RF No Action potassium chloride 10 mEq capsule, extended release 10 meq PO DAILY Qty: 30 0RF furosemide 40 mg tablet 80 mg PO DAILY 90 Days Qty: 180 2RF lidocaine [Lidoderm] 5 % adhesive patch,medicated 1 patch topical DAILY Qty: 15 0RF Rx Instructions: leave on most painful area for up to 12 hrs cyclobenzaprine 10 mg tablet 10 mg PO TID PRN (Reason: muscle spasm) Qty: 20 0RF oxycodone 5 mg tablet 5 mg PO Q6H PRN (Reason: pain) Qty: 10 0RF lidocaine HCl [Aspercreme (lidocaine HCl)] 4 % cream 1 appl topical BID PRN (Reason: pain) Qty: 120 0RF cyclobenzaprine 10 mg tablet 10 mg PO Q8H Qty: 10 0RF naproxen [Naprosyn] 500 mg tablet 500 mg PO BID Qty: 20 0RF cyclobenzaprine 10 mg tablet 10 mg PO TID Qty: 10 0RF cephalexin 500 mg capsule 500 mg PO QID 7 Days Qty: 28 0RF doxycycline monohydrate 100 mg tablet 100 mg PO BID 7 Days Qty: 14 0RF doxycycline hyclate 100 mg tablet 100 mg PO BID 10 Days Qty: 20 0RF cephalexin 500 mg capsule 500 mg PO BID 10 Days Qty: 20 0RF cyclobenzaprine 10 mg tablet 10 mg PO BEDTIME PRN (Reason: muscle spasm) Qty: 7 0RF doxycycline hyclate 100 mg capsule 100 mg PO BID 10 Days Qty: 20 0RF cephalexin 500 mg tablet 500 mg PO Q6H 10 Days Qty: 40 0RF Anoro Ellipta 62.5-25 mcg/actuation blister with device 1 inh inhalation DAILY 30 Days Qty: 1 6RF Referrals: Gila Blackman MD [Physician] - 09/30/22
[2022-09-27 23:16] VITALS: BP 158/62; PULSE 78; RESP 18; O2SAT 98
== END 2022-09-27 23:14 | disposition home or self-care (01) ==
PROVIDERS: Emergency Provider Emergency Medicine Emergency Medical Services
DX: S63.651A Sprain of metacarpophalangeal joint of left index finger, initial encounter (principal); S40.212A Abrasion of left shoulder, initial encounter; W01.0XXA Fall on same level from slipping, tripping and stumbling without subsequent striking against object, initial encounter; Y93.01 Activity, walking, marching and hiking; Y92.480 Sidewalk as the place of occurrence of the external cause; Y99.9 Unspecified external cause status
CPT/HCPCS: 73130; 99283

== ENCOUNTER → 2022-12-03 07:22 | Outpatient (BNV) | payer OTHER, SELFPAY | PROVIDERS: Admitting Provider Internal Medicine; Emergency Provider Emergency Medicine; Visit Provider Internal Medicine Cardiovascular Disease | DX: I45.81 Long QT syndrome (principal) | CPT/HCPCS: 93010 ==

== ENCOUNTER 2022-12-03 07:24 | Inpatient (IN) | payer OTHER, SELFPAY ==
--- NOTE | 2022-12-03 | ECG_ITS ---
Test Reason : CHEST PAIN Blood Pressure : / mmHG Vent. Rate : 073 BPM Atrial Rate : 073 BPM P-R Int : 144 ms QRS Dur : 110 ms QT Int : 450 ms P-R-T Axes : 056 057 029 degrees QTc Int : 495 ms Normal sinus rhythm Prolonged QT Abnormal ECG When compared with ECG of 14-JUN-2021 07:19, QT has lengthened Referred By: Generic ED Physician Electronically Signed By:Noe Berman
--- NOTE | ~2022-12-03 | US_ITS ---
EXAMINATION: US VENOUS ULTRASOUND WITH DOPPLER LOWER EXTREMITY, RIGHT CLINICAL INFORMATION: Right lower extremity swelling COMPARISON: Right lower extremity DVT study 03/03/[address] abdomen pelvis 06/14/2021 TECHNIQUE: Ultrasound of the deep veins is performed from the hip to the calf with compression sonography and color and pulse Doppler assessment. Spectral analysis with color-flow imaging is performed. FINDINGS: There is normal venous compression and respiratory variation and augmented flow. The visualized common femoral vein, superficial femoral vein, profunda femoral vein, popliteal vein, and the trifurcation region shows no evidence of deep venous thrombosis. Left common femoral vein appears normal. There is no significant popliteal fossa cyst. Again seen is right groin lymph node measuring 4.3 x 1.1 x 2.6 cm within normal fatty parvez. If the patient's symptoms persist, followup ultrasound in 5 days 7 days might be of value to exclude proximal propagation from a non-visualized calf vein. US/US venous duplex LE RT IMPRESSION: No DVT demonstrated in the right lower extremity.
--- NOTE | ~2022-12-03 | XR_ITS ---
EXAMINATION: XR CHEST CLINICAL INFORMATION: Chest pain and shortness of breath COMPARISON: Chest radiograph 10/18/2020 TECHNIQUE: Frontal view of the chest was obtained. FINDINGS: No significant abnormality is noted involving the heart, lungs, mediastinum, bony thorax or soft tissues. XR/XR chest 1V IMPRESSION: Unremarkable examination.
[2022-12-03 07:26] VITALS: BP 172/71; PULSE 80; RESP 20; TEMP 36.6; O2SAT 97; BMI 36.9
--- NOTE | 2022-12-03 07:53 | ED_ITS ---
HPI - Chest Pain General Chief Complaint: Chest Pain Stated Complaint: Diff Breathing Chest Discomfort Swollen Legs Time Seen by Provider: 12/03/22 07:37 Source: patient Mode of arrival: ambulatory Limitations: no limitations History of Present Illness HPI narrative: Patient is a 52-year-old male with a past medical history of hypertension, emphysema, heart disease presenting with shortness of breath and chest pain starting last night. Patient reports in the past he has had some chest pressure with exertion that goes away after rest however now pain doesnt improve with rest, pressure is substernal non radiating. Patient reports that this chest pain/pressure started last night and has not resolved with rest. Patient reports associated nausea and vomiting, shortness of breath, chills. Patient denies fever, numbness, tingling, vision changes. Significant family cardiac history twin brother at the age of 49 from [place] and mother at a young age as well. Related Data Home Medications Medication Instructions Recorded Confirmed clonidine HCl 0.1 mg tablet 0.1 mg PO TID PRN anxiety 12/03/22 12/03/22 furosemide 40 mg tablet 80 mg PO DAILY 12/03/22 12/03/22 methadone 10 mg/mL oral 100 mg PO DAILY 12/03/22 concentrate (Methadone Intensol) Allergies Allergy/AdvReac Type Severity Reaction Status Date / Time aspirin AdvReac Gastrointestinal Verified 09/27/22 20:07 Upset Review of Systems Review of Systems: Constitutional : No Weight loss, No Fever, + Chills ENT/Mouth :? No sore throat, No Rhinorrhea Eyes: No Eye Pain, No Swelling Cardiovascular : + Chest Pain, pos SOB, + Dyspnea on Exertion, No Orthopnea, + Edema, No Palpitations Respiratory : No Cough, No Sputum Gastrointestinal :+ Nausea, + Vomiting, No Diarrhea, No abdominal Pain, No Hematochezia, No Melena Genitourinary : No Dysuria, No Urinary Frequency Musculoskeletal : No joint pain, No Myalgias, No Joint Swelling Skin : No Skin Lesions, No rash Neuro : No Weakness, No Numbness, No Dizziness, No Headache All other systems reviewed and are negative Yes all other systems are reviewed and are negative [facility] Past Medical History Attestation statement: The following information was validated with the patient. Source: old records reviewed and nursing notes reviewed Medical History Valverde's palsy Congestive heart failure Heart disease Hypoglycemia Surgical History H/O right knee surgery Social History Social History Alcohol intake: never Patient Tobacco Use Status: Never used Tobacco Smoked in Last 30 Days: No Use of substances other than those prescribed or required for medical reasons: No Substance Use Type: Marijuana Advance Directives: No Advance Directives Information Provided: Yes Physical Exam Vital Signs: Vital Signs: Last Vital Signs Temp 97.9 F 12/03/22 11:02 Pulse 67 12/03/22 14:27 Resp 14 12/03/22 14:27 BP 149/78 H 12/03/22 14:27 Pulse Ox 95 12/03/22 14:27 O2 Del Method Room Air 12/03/22 14:27 BMI result Body Mass Index 36.9 vss Appearance: Alert.? Oriented X3.? No acute distress.? Head: Normocephalic, atraumatic, no step-offs or deformities Eyes: Pupils equal, round and reactive to light.? ENT: Pharynx normal.? Neck: Normal inspection.? Neck supple.? CVS: Normal heart rate and rhythm.? Pulses normal.? Respiratory: No respiratory distress.? Breath sounds normal.? Abdomen: Soft and nontender.? Skin: Skin warm and dry.? Normal skin color.? Normal skin turgor.? Extremities:2+ non pitting edema to LLE and 3+ non piting edema to RLE.? No calf ttp. 5/5 strength to bilateral upper and lower extremities Neuro: Oriented X 3.? No motor deficit.? No sensory deficit. CN 2-12 intact Course Reevaluation(s) Reevaluation #1: CBC appears to be around patient's baseline with normocytic anemia. Chemistry potassium 3.3 oral repletion given at this time. Patient's troponin 17.4 will be repeated, EKG nonischemic however low suspicion for ACS. Patient's BNP 56, no signs of CHF or pulmonary congestion at this time on my exam. D-dimer negative. Unlikely that this is a pulmonary embolism, ultrasound of right lower extremity with no acute findings, no blood clot. Right lower extremity likely more swollen than the left likely secondary to cellulitis. Time: 09:24 Reevaluation #2: Repeat trop elevated however not meeting delta criteria, however supicious history and fam hx reached out to cardiology waiting for response. Time: 14:14 Reevaluation #3: I did speak to Cardiology who tells me that EKG is nonischemic appearing, recommends repeat EKG and troponin and these change the should be informed to discuss further plan however the stay about the same patient can be admitted to the hospital will likely require a stress test. Time: 14:15 Additional Reevaluation(s): Will start patient on oral Keflex for cellulitis to right lower extremity. Patients third trop went down will admit at this time. Medications Administered Discontinued Medications Generic Name Dose Route Start Last Admin Trade Name John PRN Reason Stop Dose Admin Aspirin 650 mg 12/03/22 14:06 12/03/22 14:30 Aspirin 325 Mg Tablet PO 12/03/22 14:07 Not Given ONCE ONE Cephalexin HCl 500 mg 12/03/22 14:16 12/03/22 14:39 Cephalexin 500 Mg Capsule PO 12/03/22 14:17 500 mg ONCE ONE Administration Enoxaparin Sodium 120 mg 12/03/22 14:34 12/03/22 15:02 Enoxaparin Sodium 120 Mg/0.8 Ml Syringe 1 mg/kg (120 mg) 12/03/22 14:35 120 mg SUBCUT Administration ONCE ONE Morphine Sulfate 2 mg 12/03/22 14:07 12/03/22 14:29 Morphine Sulfate 2 Mg/Ml Cartridge IVPUSH 12/03/22 14:08 2 mg ONCE ONE Administration Protocol Nitroglycerin 0.5 inch 12/03/22 14:07 12/03/22 14:29 Nitroglycerin 2 % Oint 1 Gm Packet TRANSDERMA 12/03/22 14:08 0.5 inch ONCE ONE Administration Potassium Chloride 40 meq 12/03/22 08:37 12/03/22 09:12 Potassium Chloride Packet 20 Meq Packet PO 12/03/22 08:38 40 meq ONCE ONE Administration Medical Decision Making Medical Decision Making [facility] Narrative: 0800 52-year-old male presents with shortness of breath and chest pain since last night. Physical exam positive for lower extremity edema bilaterally, dyspnea on exertion. Chest pain is not reproducible with palpation. Right lower extremity from the knee to the foot with erythema and warmth. Palpable pulses to the posterior tibialis and dorsalis pedis and anterior tibialis equal bilaterally.. Concerns for ACS due to patient's history and family history. Other differentials include heart failure versus pulmonary embolism versus DVT. Unlikely arterial occlusion, threatened limb, neurovascular compromise. Will rule out dysrhythmia, electrolyte abnormality, effusion, pneumonia. PERC- negative Plan: EKG, urine, troponin Differential Diagnosis Differential Diagnoses: The differential diagnosis associated with the prese ntation includes Concerns for ACS due to patient's history and family history. Other di fferentials include heart failure versus pulmonary embolism versus DVT. Unlikely arterial occlusion, threatened limb, neurovascular compromise. Will rule out dysrhythmia, electrolyte abnormality, effusion, pneumonia. Admission/Observation Consideration of admission/observation: Escalation of care including admission/observation considered unlikely Consult Healthcare Provider Management of the patient was discussed with: [employer]ning [employer]ender Lab Data MDM Lab Attestation statement: I reviewed the patient's lab results. 12/03/22 08:04 12/03/22 08:04 Labs: Lab Results 12/03/22 12/03/22 12/03/22 Range/Units 08:04 08:04 08:04 WBC 8.3 (4.8-10.8) X10*3/uL RBC 4.76 (4.60-5.80) X10*6/uL Hgb 13.3 L (14.0-18.0) g/dl Hct 39.9 L (42.0-52.0) % MCV 83.8 (80.0-98.0) fL MCH 27.9 (27.0-33.0) pg MCHC 33.3 (31.0-36.0) g/dl RDW 13.5 (11.0-16.0) % Plt Count 263 D (160-400) X10*3/uL MPV 11.1 (9.4-12.4) fL Immature Gran % (Auto) 0.4 (0.0-0.4) % Neut % (Auto) 72.3 (45-73) % Lymph % (Auto) 17.2 L (20-40) % Coffee % (Auto) 7.8 (2-11) % Eos % (Auto) 1.6 (0-4) % Baso % (Auto) 0.7 (0-2) % Lymph # (Auto) 1.4 (1.2-4.9) X10*3/uL Coffee # (Auto) 0.6 (0.1-1.2) X10*3/uL Eos # (Auto) 0.1 (0.0-0.4) X10*3/uL Baso # (Auto) 0.1 (0.0-0.2) X10*3/uL Abs Immat Gran (auto) 0.03 (0.00-0.03) X10*3/uL Absolute Neuts (auto) 6.0 (2.0-8.3) x10*3/uL Absolute Nucleated RBC 0.000 (0.0-0.012) X10*3/uL Nucleated RBC % (auto) 0.0 (0.0-0.2) /100WBC PT (10.0-13.1) SEC INR (0.9-1.1) APTT (26.0-36.4) SEC D-Dimer High Sensitivty 191 NG/ML Sodium 140 (135-145) mmol/L Potassium 3.0 L (3.3-5.1) mmol/L Chloride 100 (96-108) mmol/L Carbon Dioxide 28 (22-29) mmol/L Anion Gap 15 (12-20) BUN 9 (9-16) mg/dL Creatinine 0.83 (0.5-1.4) mg/dL Estim Creat Clear Calc 130.7 Estimated GFR > 60 Random Glucose 154 H (60-115) mg/dL Calcium 9.6 (8.4-10.2) mg/dL Magnesium 1.9 (1.6-2.6) mg/dL Total Bilirubin 0.6 (0.0-1.0) mg/dL AST 16 (5-37) U/L ALT 16 (0-40) U/L Alkaline Phosphatase 88 (39-117) U/L Troponin I High Sens (<3.5-35.0) ng/L B-Natriuretic Peptide (<100) pg/mL Total Protein 7.3 (6.5-8.0) g/dL Albumin 4.3 (3.5-5.0) g/dL Urine Color Urine Appearance Urine pH (5.0-9.0) Ur Specific [place] (1.005-1.025) Urine Protein (Neg-Trace) mg/dL Urine Glucose (UA) (Negative) mg/dL Urine Ketones (Negative) mg/dL Urine Blood (Negative) Urine Nitrite (Negative) Ur Leukocyte Esterase (Negative) Urine RBC (0-2) /HPF Urine WBC (0-5) /HPF Ur Squamous Epith Cells (0-2) /HPF Urine Bacteria (None Seen) Hyaline Casts (0-2) /LPF COVID-19 ([facility]AN) (Negative) COVID-19 Clin Com 12/03/22 12/03/22 12/03/22 Range/Units 08:04 08:04 08:39 WBC (4.8-10.8) X10*3/uL RBC (4.60-5.80) X10*6/uL Hgb (14.0-18.0) g/dl Hct (42.0-52.0) % MCV (80.0-98.0) fL MCH (27.0-33.0) pg MCHC (31.0-36.0) g/dl RDW (11.0-16.0) % Plt Count (160-400) X10*3/uL MPV (9.4-12.4) fL Immature Gran % (Auto) (0.0-0.4) % Neut % (Auto) (45-73) % Lymph % (Auto) (20-40) % Coffee % (Auto) (2-11) % Eos % (Auto) (0-4) % Baso % (Auto) (0-2) % Lymph # (Auto) (1.2-4.9) X10*3/uL Coffee # (Auto) (0.1-1.2) X10*3/uL Eos # (Auto) (0.0-0.4) X10*3/uL Baso # (Auto) (0.0-0.2) X10*3/uL Abs Immat Gran (auto) (0.00-0.03) X10*3/uL Absolute Neuts (auto) (2.0-8.3) x10*3/uL Absolute Nucleated RBC (0.0-0.012) X10*3/uL Nucleated RBC % (auto) (0.0-0.2) /100WBC PT (10.0-13.1) SEC INR (0.9-1.1) APTT (26.0-36.4) SEC D-Dimer High Sensitivty NG/ML Sodium (135-145) mmol/L Potassium (3.3-5.1) mmol/L Chloride (96-108) mmol/L Carbon Dioxide (22-29) mmol/L Anion Gap (12-20) BUN (9-16) mg/dL Creatinine (0.5-1.4) mg/dL Estim Creat Clear Calc Estimated GFR Random Glucose (60-115) mg/dL Calcium (8.4-10.2) mg/dL Magnesium (1.6-2.6) mg/dL Total Bilirubin (0.0-1.0) mg/dL AST (5-37) U/L ALT (0-40) U/L Alkaline Phosphatase (39-117) U/L Troponin I High Sens 17.4 (<3.5-35.0) ng/L B-Natriuretic Peptide 56 (<100) pg/mL Total Protein (6.5-8.0) g/dL Albumin (3.5-5.0) g/dL Urine Color Urine Appearance Urine pH (5.0-9.0) Ur Specific [place] (1.005-1.025) Urine Protein (Neg-Trace) mg/dL Urine Glucose (UA) (Negative) mg/dL Urine Ketones (Negative) mg/dL Urine Blood (Negative) Urine Nitrite (Negative) Ur Leukocyte Esterase (Negative) Urine RBC (0-2) /HPF Urine WBC (0-5) /HPF Ur Squamous Epith Cells (0-2) /HPF Urine Bacteria (None Seen) Hyaline Casts (0-2) /LPF COVID-19 ([facility]AN) Negative (Negative) COVID-19 Clin Com See Note 12/03/22 12/03/22 12/03/22 Range/Units 08:39 11:32 14:27 WBC (4.8-10.8) X10*3/uL RBC (4.60-5.80) X10*6/uL Hgb (14.0-18.0) g/dl Hct (42.0-52.0) % MCV (80.0-98.0) fL MCH (27.0-33.0) pg MCHC (31.0-36.0) g/dl RDW (11.0-16.0) % Plt Count (160-400) X10*3/uL MPV (9.4-12.4) fL Immature Gran % (Auto) (0.0-0.4) % Neut % (Auto) (45-73) % Lymph % (Auto) (20-40) % Coffee % (Auto) (2-11) % Eos % (Auto) (0-4) % Baso % (Auto) (0-2) % Lymph # (Auto) (1.2-4.9) X10*3/uL Coffee # (Auto) (0.1-1.2) X10*3/uL Eos # (Auto) (0.0-0.4) X10*3/uL Baso # (Auto) (0.0-0.2) X10*3/uL Abs Immat Gran (auto) (0.00-0.03) X10*3/uL Absolute Neuts (auto) (2.0-8.3) x10*3/uL Absolute Nucleated RBC (0.0-0.012) X10*3/uL Nucleated RBC % (auto) (0.0-0.2) /100WBC PT (10.0-13.1) SEC INR (0.9-1.1) APTT (26.0-36.4) SEC D-Dimer High Sensitivty NG/ML Sodium (135-145) mmol/L Potassium (3.3-5.1) mmol/L Chloride (96-108) mmol/L Carbon Dioxide (22-29) mmol/L Anion Gap (12-20) BUN (9-16) mg/dL Creatinine (0.5-1.4) mg/dL Estim Creat Clear Calc Estimated GFR Random Glucose (60-115) mg/dL Calcium (8.4-10.2) mg/dL Magnesium (1.6-2.6) mg/dL Total Bilirubin (0.0-1.0) mg/dL AST (5-37) U/L ALT (0-40) U/L Alkaline Phosphatase (39-117) U/L Troponin I High Sens 22.2 14.5 (<3.5-35.0) ng/L B-Natriuretic Peptide (<100) pg/mL Total Protein (6.5-8.0) g/dL Albumin (3.5-5.0) g/dL Urine Color Yellow Urine Appearance Clear Urine pH 6.0 (5.0-9.0) Ur Specific [place] <= 1.005 (1.005-1.025) Urine Protein Negative (Neg-Trace) mg/dL Urine Glucose (UA) Negative (Negative) mg/dL Urine Ketones Negative (Negative) mg/dL Urine Blood Negative (Negative) Urine Nitrite Negative (Negative) Ur Leukocyte Esterase Trace H (Negative) Urine RBC 0-2 (0-2) /HPF Urine WBC 0-5 (0-5) /HPF Ur Squamous Epith Cells 6-10 (0-2) /HPF Urine Bacteria None Seen (None Seen) Hyaline Casts 0-2 (0-2) /LPF COVID-19 ([facility]) (Negative) COVID-19 Clin Com 12/03/22 12/03/22 Range/Units 14:54 14:54 WBC 8.5 (4.8-10.8) X10*3/uL RBC 4.69 (4.60-5.80) X10*6/uL Hgb 13.2 L (14.0-18.0) g/dl Hct 39.5 L (42.0-52.0) % MCV 84.2 (80.0-98.0) fL MCH 28.1 (27.0-33.0) pg MCHC 33.4 (31.0-36.0) g/dl RDW 13.7 (11.0-16.0) % Plt Count 255 (160-400) X10*3/uL MPV 11.0 (9.4-12.4) fL Immature Gran % (Auto) (0.0-0.4) % Neut % (Auto) (45-73) % Lymph % (Auto) (20-40) % Coffee % (Auto) (2-11) % Eos % (Auto) (0-4) % Baso % (Auto) (0-2) % Lymph # (Auto) (1.2-4.9) X10*3/uL Coffee # (Auto) (0.1-1.2) X10*3/uL Eos # (Auto) (0.0-0.4) X10*3/uL Baso # (Auto) (0.0-0.2) X10*3/uL Abs Immat Gran (auto) (0.00-0.03) X10*3/uL Absolute Neuts (auto) (2.0-8.3) x10*3/uL Absolute Nucleated RBC 0.000 (0.0-0.012) X10*3/uL Nucleated RBC % (auto) 0.0 (0.0-0.2) /100WBC PT 12.1 (10.0-13.1) SEC INR 1.1 (0.9-1.1) APTT 31.5 (26.0-36.4) SEC D-Dimer High Sensitivty NG/ML Sodium (135-145) mmol/L Potassium (3.3-5.1) mmol/L Chloride (96-108) mmol/L Carbon Dioxide (22-29) mmol/L Anion Gap (12-20) BUN (9-16) mg/dL Creatinine (0.5-1.4) mg/dL Estim Creat Clear Calc Estimated GFR Random Glucose (60-115) mg/dL Calcium (8.4-10.2) mg/dL Magnesium (1.6-2.6) mg/dL Total Bilirubin (0.0-1.0) mg/dL AST (5-37) U/L ALT (0-40) U/L Alkaline Phosphatase (39-117) U/L Troponin I High Sens (<3.5-35.0) ng/L B-Natriuretic Peptide (<100) pg/mL Total Protein (6.5-8.0) g/dL Albumin (3.5-5.0) g/dL Urine Color Urine Appearance Urine pH (5.0-9.0) Ur Specific [place] (1.005-1.025) Urine Protein (Neg-Trace) mg/dL Urine Glucose (UA) (Negative) mg/dL Urine Ketones (Negative) mg/dL Urine Blood (Negative) Urine Nitrite (Negative) Ur Leukocyte Esterase (Negative) Urine RBC (0-2) /HPF Urine WBC (0-5) /HPF Ur Squamous Epith Cells (0-2) /HPF Urine Bacteria (None Seen) Hyaline Casts (0-2) /LPF COVID-19 ([facility]) (Negative) COVID-19 Clin Com Independent Interpretation I performed an independent interpretation of an: EKG (Ventricular rate of 73, CO normal, QRS normal, QT/QTC slightly prolonged, no ST elevations or inversions concerning for acute ischemia.), Plain X-Ray and Ultrasound (US/US venous duplex LE RT IMPRESSION: No DVT demonstrated in the right lower extremity.) Radiology Impression Discussion of test interpretation with radiology: I have reviewed the radiologist's reading. Core Measures AMI core measures followed: Yes Measure exclusions: not indicated Critical Care Time Critical Care Time Critical Care Time: Yes Total Critical Care Time: 45 Attestation: I attest to this time spent taking care of the patient, obtaining history, physical, reviewing labs, imaging, speaking to my attending, speaking to specialist. Discharge Plan Discharge Clinical Impression: Angina pectoris, unstable, Shortness of breath, Cellulitis, Lower extremity edema Patient Disposition: Admitted As Inpatient Additional Instructions: Take your medications as prescribed. If you were prescribed antibiotics today, it is important that you take your medication to their entirety, do not skip any doses, do not finish them early. Follow-up with your primary care provider this week. Follow up with cardiology Return to the emergency department with new or worsening symptoms. Such as fevers, chills, chest pain, shortness of breath, nausea, vomiting, dizziness, headache, vision changes, lethargy In case of emergency call 911
[2022-12-03 08:11] LABS: MANUAL DIFF FLAG NO
[2022-12-03 08:12] LABS: Basophils Absolute Auto 0.1 X10*3/uL (0.0-0.2); Basophils Percent Auto 0.7 % (0-2); Eosinophils Absolute Auto 0.1 X10*3/uL (0.0-0.4); Eosinophils Percent Auto 1.6 % (0-4); Hematocrit 39.9 % (42.0-52.0); Hemoglobin 13.3 g/dl (14.0-18.0); Imm Gran Abs Auto 0.03 X10*3/uL (0.00-0.03); Imm Gran Pct Auto 0.4 % (0.0-0.4); Lymphocytes Absolute Auto 1.4 X10*3/uL (1.2-4.9); Lymphocytes Percent Auto 17.2 % (20-40); Mean Corpuscular HGB Conc 33.3 g/dl (31.0-36.0); Mean Corpuscular Hemoglobin 27.9 pg (27.0-33.0); Mean Corpuscular Volume 83.8 fL (80.0-98.0); Mean Platelet Volume 11.1 fL (9.4-12.4); Monocytes Absolute Auto 0.6 X10*3/uL (0.1-1.2); Monocytes Percent Auto 7.8 % (2-11); Neutrophils Percent Auto 72.3 % (45-73); Platelet Count 263 X10*3/uL (160-400); Red Blood Count 4.76 X10*6/uL (4.60-5.80); Red Cell Distribution Width 13.5 % (11.0-16.0); White Blood Count 8.3 X10*3/uL (4.8-10.8)
[2022-12-03 08:22] LABS: D Dimer High Sensitivity 191 NG/ML
[2022-12-03 08:25] LABS: Alanine Aminotransferase 16 U/L (0-40); Albumin Level 4.3 g/dL (3.5-5.0); Alkaline Phosphatase 88 U/L (39-117); Anion Gap 15 (12-20); Aspartate Amino Transferase 16 U/L (5-37); Bilirubin Total 0.6 mg/dL (0.0-1.0); Blood Urea Nitrogen 9 mg/dL (9-16); Calcium 9.6 mg/dL (8.4-10.2); Carbon Dioxide 28 mmol/L (22-29); Chloride 100 mmol/L (96-108); Creatinine Clr Calc Pharmacy 130.7; Estimated Glomerular Filt Rate > 60; Glucose Random 154 mg/dL (60-115); Magnesium 1.9 mg/dL (1.6-2.6); Sodium 140 mmol/L (135-145); Total Protein 7.3 g/dL (6.5-8.0)
[2022-12-03 08:31] LABS: B Type Natriuretic Peptide 56 pg/mL (<100)
[2022-12-03 08:32] LABS: Troponin-I High Sensitivity 17.4 ng/L (<3.5-35.0)
[2022-12-03 08:36] VITALS: BP 139/79; PULSE 64; RESP 12; O2SAT 95
[2022-12-03 08:47] LABS: Appearance Urine Clear; Color Urine Yellow; Glucose Urine UA Negative (Negative); Leukocyte Esterase Urine Trace (Negative); Nitrite Urine Negative (Negative); Specific Gravity - Urine <= 1.005 (1.005-1.025); UMIC TRIGGER UACC YES; Urine Blood Negative (Negative); Urine Ketones Negative (Negative); Urine Protein Negative (Neg-Trace)
[2022-12-03 08:53] LABS: Bacteria Urine None Seen (None Seen); Hyaline Casts Urine 0-2 /LPF (0-2); RBC Urine 0-2 /HPF (0-2); WBC Urine 0-5 /HPF (0-5)
[2022-12-03 09:12] LABS: COVID-19 Test Negative (Negative); IDNOW Serial# BCCEAD1C
[2022-12-03] MEDS: Potassium Chloride Packet 20 MEQ PACKET 40 MEQ PO (09:12)
[2022-12-03 11:02] VITALS: BP 116/71; PULSE 56; RESP 16; TEMP 36.6; O2SAT 95
[2022-12-03 12:01] LABS: Troponin-I High Sensitivity 22.2 ng/L (<3.5-35.0)
[2022-12-03 13:39] VITALS: BP 153/83; PULSE 64; RESP 12; O2SAT 96
--- NOTE | 2022-12-03 14:13 | ECG_ITS ---
Test Reason : chest pain Blood Pressure : / mmHG Vent. Rate : 062 BPM Atrial Rate : 062 BPM P-R Int : 136 ms QRS Dur : 100 ms QT Int : 480 ms P-R-T Axes : 039 037 016 degrees QTc Int : 487 ms Normal sinus rhythm Prolonged QT Abnormal ECG When compared with ECG of 03-DEC-2022 07:22, No significant change was found Referred By: Maddi Mejía Electronically Signed By:Noe Berman
[2022-12-03 14:27] VITALS: BP 149/78; PULSE 67; RESP 14; O2SAT 95
[2022-12-03] MEDS: Nitroglycerin 2 % Oint 1 GM Packet 0.5 INCH TRANSDERMA (14:29)
[2022-12-03] MEDS: Morphine Sulfate 2 MG/ML CARTRIDGE IVPUSH (14:29)
[2022-12-03] MEDS: cephALEXin 500 MG CAPSULE PO (14:39)
[2022-12-03 15:00] LABS: Hematocrit 39.5 % (42.0-52.0); Hemoglobin 13.2 g/dl (14.0-18.0); Mean Corpuscular HGB Conc 33.4 g/dl (31.0-36.0); Mean Corpuscular Hemoglobin 28.1 pg (27.0-33.0); Mean Corpuscular Volume 84.2 fL (80.0-98.0); Platelet Count 255 X10*3/uL (160-400); Red Blood Count 4.69 X10*6/uL (4.60-5.80); Red Cell Distribution Width 13.7 % (11.0-16.0); White Blood Count 8.5 X10*3/uL (4.8-10.8)
[2022-12-03] MEDS: Enoxaparin Sodium 120 MG/0.8 ML SYRINGE SUBCUT (15:02)
[2022-12-03 15:03] LABS: Troponin-I High Sensitivity 14.5 ng/L (<3.5-35.0)
[2022-12-03 15:07] LABS: INTERNATIONAL NORM RATIO 1.1 (0.9-1.1); Prothrombin Time 12.1 SEC (10.0-13.1)
[2022-12-03 15:09] LABS: Partial Thromboplastin Time 31.5 SEC (26.0-36.4)
--- NOTE | 2022-12-03 15:12 | PHA.MEDREC ---
Pharmacy Consult ? Medication Reconciliation Pharmacy has completed the medication reconciliation.
--- NOTE | 2022-12-03 15:25 | PM.IMHP ---
History of Present Illness Date of Service: 12/03/22 Chief Complaint: chest pain 52 year old male with HTN, codp, unspecified heart disease, chronic lower extremity eleanor on lasix ? heart failure, strong family history of CAD, twin brother at 49 with heart attack, mother 3 years ago with heart attack, father of heart attack as well. He is here with intermitten chest pain/presure in the precordium and has been ongoing since yesterday. ECG is normal, normal troponin x 3 Review of Systems Review of Systems: Gen: no fever Resp: no sob, no cough CV: no chest, no SHEIKH, + leg edema GI: No n/v, no abd pain Neuro: No confusion PMFSH Medical History Valverde's palsy Congestive heart failure Heart disease Hypoglycemia Surgical History H/O right knee surgery Social History Alcohol intake: never Patient Tobacco Use Status: Never used Tobacco Smoked in Last 30 Days: No Use of substances other than those prescribed or required for medical reasons: No Substance Use Type: Marijuana Advance Directives: No Advance Directives Information Provided: Yes Meds Allergies Allergy/AdvReac Type Severity Reaction Status Date / Time aspirin AdvReac Gastrointestinal Verified 09/27/22 20:07 Upset Active Medications: Current Medications Cephalexin HCl (Cephalexin 500 Mg Capsule) 500 mg PO QID [facility] Pharmacy Consult (Consult Rx Perform Med Rec) 1 each MISCELLANE ONCE PRN PRN Reason: Consult order Home Medications Medication Instructions Recorded Confirmed Last Taken Type clonidine HCl 0.1 mg tablet 0.1 mg PO TID PRN anxiety 12/03/22 12/03/22 Unknown History furosemide 40 mg tablet 80 mg PO DAILY 12/03/22 12/03/22 Unknown History methadone 10 mg/mL oral 100 mg PO DAILY 12/03/22 Unknown History concentrate (Methadone Intensol) Physical Exam Vital Signs and Narrative: Vital Signs: Last Vital Signs Temp 97.9 F 12/03/22 11:02 Pulse 67 12/03/22 14:27 Resp 14 12/03/22 14:27 BP 149/78 H 12/03/22 14:27 Pulse Ox 95 12/03/22 14:27 O2 Del Method Room Air 12/03/22 14:27 BMI result Body Mass Index 36.9 Const: Other: General: AO X 3, no acute distress Resp: CTA bilateral CVS: S1,S2,RRR GI: +BS, NT, no distention Skin: No rash Neuro: motor grossly intact Psych: appropriate affect Results Labs 12/03/22 14:54 12/03/22 08:04 Labs: Laboratory Results - last 24 hr 12/03/22 12/03/22 12/03/22 08:04 08:04 08:04 MCV 83.8 MCH 27.9 MCHC 33.3 RDW 13.5 Plt Count 263 D MPV 11.1 Immature Gran % (Auto) 0.4 Neut % (Auto) 72.3 Lymph % (Auto) 17.2 L [place] % (Auto) 7.8 Eos % (Auto) 1.6 Baso % (Auto) 0.7 Lymph # (Auto) 1.4 [place] # (Auto) 0.6 Eos # (Auto) 0.1 Baso # (Auto) 0.1 Abs Immat Gran (auto) 0.03 Absolute Neuts (auto) 6.0 Absolute Nucleated RBC 0.000 Nucleated RBC % (auto) 0.0 PT INR APTT D-Dimer High Sensitivty 191 Anion Gap 15 Estim Creat Clear Calc 130.7 Estimated GFR > 60 Random Glucose 154 H Calcium 9.6 Magnesium 1.9 Total Bilirubin 0.6 AST 16 ALT 16 Alkaline Phosphatase 88 Troponin I High Sens B-Natriuretic Peptide Total Protein 7.3 Albumin 4.3 Urine Color Urine Appearance Urine pH Ur Specific [place] Urine Protein Urine Glucose (UA) Urine Ketones Urine Blood Urine Nitrite Ur Leukocyte Esterase Urine RBC Urine WBC Ur Squamous Epith Cells Urine Bacteria Hyaline Casts COVID-19 ([facility]) COVID-19 Clin Com 12/03/22 12/03/22 12/03/22 08:04 08:04 08:39 MCV MCH MCHC RDW Plt Count MPV Immature Gran % (Auto) Neut % (Auto) Lymph % (Auto) [place] % (Auto) Eos % (Auto) Baso % (Auto) Lymph # (Auto) [place] # (Auto) Eos # (Auto) Baso # (Auto) Abs Immat Gran (auto) Absolute Neuts (auto) Absolute Nucleated RBC Nucleated RBC % (auto) PT INR APTT D-Dimer High Sensitivty Anion Gap Estim Creat Clear Calc Estimated GFR Random Glucose Calcium Magnesium Total Bilirubin AST ALT Alkaline Phosphatase Troponin I High Sens 17.4 B-Natriuretic Peptide 56 Total Protein Albumin Urine Color Urine Appearance Urine pH Ur Specific [place] Urine Protein Urine Glucose (UA) Urine Ketones Urine Blood Urine Nitrite Ur Leukocyte Esterase Urine RBC Urine WBC Ur Squamous Epith Cells Urine Bacteria Hyaline Casts COVID-19 ([facility]AN) Negative COVID-19 Clin Com See Note 12/03/22 12/03/22 12/03/22 08:39 11:32 14:27 MCV MCH MCHC RDW Plt Count MPV Immature Gran % (Auto) Neut % (Auto) Lymph % (Auto) [place] % (Auto) Eos % (Auto) Baso % (Auto) Lymph # (Auto) [place] # (Auto) Eos # (Auto) Baso # (Auto) Abs Immat Gran (auto) Absolute Neuts (auto) Absolute Nucleated RBC Nucleated RBC % (auto) PT INR APTT D-Dimer High Sensitivty Anion Gap Estim Creat Clear Calc Estimated GFR Random Glucose Calcium Magnesium Total Bilirubin AST ALT Alkaline Phosphatase Troponin I High Sens 22.2 14.5 B-Natriuretic Peptide Total Protein Albumin Urine Color Yellow Urine Appearance Clear Urine pH 6.0 Ur Specific [place] <= 1.005 Urine Protein Negative Urine Glucose (UA) Negative Urine Ketones Negative Urine Blood Negative Urine Nitrite Negative Ur Leukocyte Esterase Trace H Urine RBC 0-2 Urine WBC 0-5 Ur Squamous Epith Cells 6-10 Urine Bacteria None Seen Hyaline Casts 0-2 COVID-19 ([facility]AN) COVID-19 Clin Com 12/03/22 12/03/22 14:54 14:54 MCV 84.2 MCH 28.1 MCHC 33.4 RDW 13.7 Plt Count 255 MPV 11.0 Immature Gran % (Auto) Neut % (Auto) Lymph % (Auto) [place] % (Auto) Eos % (Auto) Baso % (Auto) Lymph # (Auto) [place] # (Auto) Eos # (Auto) Baso # (Auto) Abs Immat Gran (auto) Absolute Neuts (auto) Absolute Nucleated RBC 0.000 Nucleated RBC % (auto) 0.0 PT 12.1 INR 1.1 APTT 31.5 D-Dimer High Sensitivty Anion Gap Estim Creat Clear Calc Estimated GFR Random Glucose Calcium Magnesium Total Bilirubin AST ALT Alkaline Phosphatase Troponin I High Sens B-Natriuretic Peptide Total Protein Albumin Urine Color Urine Appearance Urine pH Ur Specific [place] Urine Protein Urine Glucose (UA) Urine Ketones Urine Blood Urine Nitrite Ur Leukocyte Esterase Urine RBC Urine WBC Ur Squamous Epith Cells Urine Bacteria Hyaline Casts COVID-19 ([facility]AN) COVID-19 Clin Com Imaging Radiologist's Impressions: Impressions Venous Duplex 12/03/22 08:40 IMPRESSION: No DVT demonstrated in the right lower extremity. Chest X-Ray 12/03/22 09:35 IMPRESSION: Unremarkable examination. Assessment and Plan (1) ACS (acute coronary syndrome): Status: Acute Plan 52/m with +family history of CAD, HTN, heart disease here with chest pain with typical and atypical feature--normal ecg and negative trops x 3 plan: ACS work-up, cardiology consult, start asa, anticoagulation, check lipids opioid dependent--continue methadone after dose verified chronic leg edema not sure if heart failure, continue lasix, need for inpatient: ACS management Time Spent With Patient Time: Total time managing care of this patient today ____ minutes. Quality Stroke Does the patient have a stroke diagnosis?: No VTE Prior VTE?: No VTE Risk Level:: Medical - moderate - high VTE Device Contraindication: Treatment Not Indicated VTE Drug Contraindication: N/A - Med Ordered
[2022-12-03 16:05] VITALS: BP 128/70; PULSE 57; RESP 16; TEMP 36.8; O2SAT 95
--- NOTE | 2022-12-03 17:07 | P.DS_ITS ---
DS: Providers Provider Date of Service: 12/03/22 Date of admission: 12/03/22 15:33 Date of discharge: 12/03/22 Primary care physician: None Physician Attending physician on admission: Yoav Ford Attending physician on discharge: Yoav Ford Discharging clinician: Hina Post DS: Diagnosis Discharge Diagnosis (1) ACS (acute coronary syndrome): Status: Acute DS: Summary Hospital Course Hospital Course: HPI on admission by Dr. Ford earlier today: Chief Complaint: chest pain 52 year old male with HTN, codp, unspecified heart disease, chronic lower extremity eleanor on lasix ? heart failure, strong family history of CAD, twin brother at 49 with heart attack, mother 3 years ago with heart attack, father of heart attack as well. He is here with intermitten chest pain/presure in the precordium and has been ongoing since yesterday. ECG is normal, normal troponin x 3 Hospital course: Hospital course uneventful. Pt started on empiric lovenox and given one dose for suspected unstable angina given symptoms and concern over significant family history. Unfortunately less than 2 hours after admission, patient desires to leave. He alert and oriented x3, and is aware that he is leaving against medical advice. Chest pain has improved. He is counseled on the risk of his current condition progression to an VT which untreated could result in . He expresses understanding and AMA form is signed. He is advised to return for persistent or worsening symptoms. He is also given keflex and doxycycline x 1 week for cellutlitis RLE. Status at Discharge Functional status at discharge: independent ambulation Overall status at discharge: patient is progressing back to baseline Time Spent with Patient Time attestation: Total time managing care of this patient today ____ minutes. Discharge coordination time: Greater than 30 minutes Quality: Safe Use of Opioids Does Pt have an Active Cancer Diagnosis on the Problem List?: No Quality: Stroke Does the patient have a stroke diagnosis?: No Physical Exam Vital Signs: Vital Signs: Last Vital Signs Temp 98.3 F 12/03/22 16:05 Pulse 57 12/03/22 16:05 Resp 16 12/03/22 16:05 BP 128/70 12/03/22 16:05 Pulse Ox 95 12/03/22 16:05 O2 Del Method Room Air 12/03/22 16:05 BMI result Body Mass Index 36.9 DS: Data Data Completed and Pending Labs on day of discharge: Laboratory Results - last 24 hr 12/03/22 12/03/22 12/03/22 08:04 08:04 08:04 WBC 8.3 RBC 4.76 Hgb 13.3 L Hct 39.9 L MCV 83.8 MCH 27.9 MCHC 33.3 RDW 13.5 Plt Count 263 D MPV 11.1 Immature Gran % (Auto) 0.4 Neut % (Auto) 72.3 Lymph % (Auto) 17.2 L [place] % (Auto) 7.8 Eos % (Auto) 1.6 Baso % (Auto) 0.7 Lymph # (Auto) 1.4 [place] # (Auto) 0.6 Eos # (Auto) 0.1 Baso # (Auto) 0.1 Abs Immat Gran (auto) 0.03 Absolute Neuts (auto) 6.0 Absolute Nucleated RBC 0.000 Nucleated RBC % (auto) 0.0 PT INR APTT D-Dimer High Sensitivty 191 Sodium 140 Potassium 3.0 L Chloride 100 Carbon Dioxide 28 Anion Gap 15 BUN 9 Creatinine 0.83 Estim Creat Clear Calc 130.7 Estimated GFR > 60 Random Glucose 154 H Calcium 9.6 Magnesium 1.9 Total Bilirubin 0.6 AST 16 ALT 16 Alkaline Phosphatase 88 Troponin I High Sens B-Natriuretic Peptide Total Protein 7.3 Albumin 4.3 Urine Color Urine Appearance Urine pH Ur Specific [place] Urine Protein Urine Glucose (UA) Urine Ketones Urine Blood Urine Nitrite Ur Leukocyte Esterase Urine RBC Urine WBC Ur Squamous Epith Cells Urine Bacteria Hyaline Casts COVID-19 ([facility]) COVID-19 Clin Com 12/03/22 12/03/22 12/03/22 08:04 08:04 08:39 WBC RBC Hgb Hct MCV MCH MCHC RDW Plt Count MPV Immature Gran % (Auto) Neut % (Auto) Lymph % (Auto) [place] % (Auto) Eos % (Auto) Baso % (Auto) Lymph # (Auto) [place] # (Auto) Eos # (Auto) Baso # (Auto) Abs Immat Gran (auto) Absolute Neuts (auto) Absolute Nucleated RBC Nucleated RBC % (auto) PT INR APTT D-Dimer High Sensitivty Sodium Potassium Chloride Carbon Dioxide Anion Gap BUN Creatinine Estim Creat Clear Calc Estimated GFR Random Glucose Calcium Magnesium Total Bilirubin AST ALT Alkaline Phosphatase Troponin I High Sens 17.4 B-Natriuretic Peptide 56 Total Protein Albumin Urine Color Urine Appearance Urine pH Ur Specific [place] Urine Protein Urine Glucose (UA) Urine Ketones Urine Blood Urine Nitrite Ur Leukocyte Esterase Urine RBC Urine WBC Ur Squamous Epith Cells Urine Bacteria Hyaline Casts COVID-19 ([facility]) Negative COVID-19 Clin Com See Note 12/03/22 12/03/22 12/03/22 08:39 11:32 14:27 WBC RBC Hgb Hct MCV MCH MCHC RDW Plt Count MPV Immature Gran % (Auto) Neut % (Auto) Lymph % (Auto) [place] % (Auto) Eos % (Auto) Baso % (Auto) Lymph # (Auto) [place] # (Auto) Eos # (Auto) Baso # (Auto) Abs Immat Gran (auto) Absolute Neuts (auto) Absolute Nucleated RBC Nucleated RBC % (auto) PT INR APTT D-Dimer High Sensitivty Sodium Potassium Chloride Carbon Dioxide Anion Gap BUN Creatinine Estim Creat Clear Calc Estimated GFR Random Glucose Calcium Magnesium Total Bilirubin AST ALT Alkaline Phosphatase Troponin I High Sens 22.2 14.5 B-Natriuretic Peptide Total Protein Albumin Urine Color Yellow Urine Appearance Clear Urine pH 6.0 Ur Specific [place] <= 1.005 Urine Protein Negative Urine Glucose (UA) Negative Urine Ketones Negative Urine Blood Negative Urine Nitrite Negative Ur Leukocyte Esterase Trace H Urine RBC 0-2 Urine WBC 0-5 Ur Squamous Epith Cells 6-10 Urine Bacteria None Seen Hyaline Casts 0-2 COVID-19 ([facility]) COVID-19 Clin Com 12/03/22 12/03/22 14:54 14:54 WBC 8.5 RBC 4.69 Hgb 13.2 L Hct 39.5 L MCV 84.2 MCH 28.1 MCHC 33.4 RDW 13.7 Plt Count 255 MPV 11.0 Immature Gran % (Auto) Neut % (Auto) Lymph % (Auto) [place] % (Auto) Eos % (Auto) Baso % (Auto) Lymph # (Auto) [place] # (Auto) Eos # (Auto) Baso # (Auto) Abs Immat Gran (auto) Absolute Neuts (auto) Absolute Nucleated RBC 0.000 Nucleated RBC % (auto) 0.0 PT 12.1 INR 1.1 APTT 31.5 D-Dimer High Sensitivty Sodium Potassium Chloride Carbon Dioxide Anion Gap BUN Creatinine Estim Creat Clear Calc Estimated GFR Random Glucose Calcium Magnesium Total Bilirubin AST ALT Alkaline Phosphatase Troponin I High Sens B-Natriuretic Peptide Total Protein Albumin Urine Color Urine Appearance Urine pH Ur Specific [place] Urine Protein Urine Glucose (UA) Urine Ketones Urine Blood Urine Nitrite Ur Leukocyte Esterase Urine RBC Urine WBC Ur Squamous Epith Cells Urine Bacteria Hyaline Casts COVID-19 ([facility]) COVID-19 Clin Com Discharge Plan Discharge Anticipated Discharge Date/Time: 12/03/22 16:52 Patient Disposition: Left Against Medical Advice Discharge Diagnosis: unstable angina, cellulitis right lower extremity [place] [facility] [place] [facility] [place] Group] - 2 days Physician,None [Primary Care Provider] - Discharge Medications: Continued furosemide 40 mg tablet 80 mg PO DAILY clonidine HCl 0.1 mg tablet 0.1 mg PO TID PRN (Reason: anxiety) methadone [Methadone Intensol] 10 mg/mL Concentrate 100 mg PO DAILY No Action lisinopril 10 mg tablet 10 mg PO DAILY Qty: 30 5RF Discharge Orders: Discharge Order (Routine); Ordered 12/03/22 Ordered By: Hina Post Diet: Advance to usual diet Activity on Discharge: As tolerated Activity Restrictions/Additional Instructions: You are leaving against medical advice. You have been advised that unstable angina which your chest pain is consistent with, can progress to a heart attack or . Please return if symptoms worsen. Take keflex and doxycycline and prescribed for skin infection of the right lower leg. If worsening, please return. Take your medications as prescribed. If you were prescribed antibiotics today, it is important that you take your medication to their entirety, do not skip any doses, do not finish them early. Follow-up with your primary care provider this week. Follow up with cardiology Return to the emergency department with new or worsening symptoms. Such as fevers, chills, chest pain, shortness of breath, nausea, vomiting, dizziness, headache, vision changes, lethargy In case of emergency call 911 Care Plan Goals: as above Health Concerns: unstable angina cellultis right lower leg Plan of Treatment: leaving ama return if symptoms persist or worsen take antibiotics as prescribed as above Assessment: as above Patient Instructions: Chest Pain (ED), Cellulitis (ED), Warm Compress or Soak (ED), Shortness of Breath (ED) Discharge Date/Time: 12/03/22 17:00
--- NOTE | 2022-12-03 17:08 | PC.NURSE ---
marco arabella down to sign pt out ama, he says he cannot tolerate the noise and environment of ER
--- NOTE | 2022-12-03 17:33 | PC.NURSE ---
Pt left unit AMA, signed form with jorge bell. pt informed of risks of leaving. pt agreeable to picking up his prescriptions this evening. ambulatory to exit
[2022-12-04 07:31] LABS: Amphetamine Screen Urine Not Detected (Not Detect); Barbiturates, Urine Not Detected (Not Detect); Benzodiazepines Screen Urine Not Detected (Not Detect); Cannabinoid Screen Urine POSITIVE (Not Detect); Cocaine Screen Urine Not Detected (Not Detect); Fentanyl, urine POSITIVE (Not Detect); Opiate Screen Urine Not Detected (Not Detect); Phencyclidine Screen Urine Not Detected (Not Detect)
== END 2022-12-03 17:00 | disposition left against medical advice (07) | DRG 198 ==
LOC: HO.ED 14:18 → HO.EDOVER 15:52
PROVIDERS: Internal Medicine; Physician Assistant; Admitting Provider Internal Medicine; Emergency Provider Emergency Medicine; Visit Provider Internal Medicine
DX: I20.0 Unstable angina (principal); F11.20 Opioid dependence, uncomplicated; J43.9 Emphysema, unspecified; Z20.822 Contact with and (suspected) exposure to COVID-19; Z79.899 Other long term (current) drug therapy
CPT/HCPCS: 36415; 71045; 80053; 80307; 81001; 83735; 83880; 84484; 85025; 85027; 85379; 85610; 85730; 87635; 93005; 93971; 99219; 99285; J1650; J2270

== ENCOUNTER → 2022-12-03 15:33 | Outpatient (BNV) | payer OTHER, SELFPAY | PROVIDERS: Admitting Provider Internal Medicine; Emergency Provider Emergency Medicine; Visit Provider Internal Medicine | DX: I24.9 Acute ischemic heart disease, unspecified (principal); Z53.29 Procedure and treatment not carried out because of patient's decision for other reasons | CPT/HCPCS: 99235; 99499 ==

== ENCOUNTER 2023-01-09 13:31 | Outpatient (AMB) | payer OTHER, SELFPAY ==
[2023-01-09 13:50] VITALS: BP 160/80; PULSE 89; BMI 39.1
--- NOTE | 2023-01-09 13:50 | MHC.OFFVIS ---
Intake Vital Signs 01/09/23 13:50 Height 5 ft 9 in Weight 264 lb 8.875 oz BMI 39.1 BP 160/80 H Blood Pressure Location Lt brachial Position Sitting Pulse 89 Pulse Source Pulse Oximeter Intake Visit Reasons: [facility] ([facility])/SOB/Angina Pectoris Intake Note: npv/[facility] [place]/ed km SOB/Angina pectosis pt having chest pain and leg swelling Server Security Administrator Required: No Allergies aspirin Adverse Reaction (Verified 01/09/23 13:57) Gastrointestinal Upset Medication List - Last Reconciled 01/09/23 by DEENA Chahal clonidine HCl 0.1 mg PO TID PRN furosemide 80 mg PO DAILY lisinopril 10 mg PO DAILY methadone (Methadone Intensol) 100 mg PO DAILY HPI NPV/[facility] (KM)/SOB/Angina Pectoris HPI Details Anthony is a 52-year-old male with past medical history of hypertension, COPD, reported sleep apnea, unspecified heart disease, reported history of heart failure, family history of early CAD who was recently seen in the [facility] emergency room for chest discomfort. His troponins were negative however symptoms were suspicious and inpatient admission was being planned prior to him signing out AMA. He did have some cellulitis of his right lower extremity and was given Keflex and doxycycline. He was referred to Cardiology for further evaluation. Today he reports that has not been doing well over the last year. He tells me he is taking care of his who has a terminal illness and he has not followed through with his own medical care. He has been getting increasing shortness of breath with activity. 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 He tells me that when he walks a lot it is hard for him to breathe and talk then he will pass out. He says that he has had 2 or 3 dozen fainting episodes in the last year. When he has an episode he describes having urinary incontinence. No known history of seizures. No reported witnessed abnormal movements during his syncopal events. He has been getting tightness across his chest which occurs randomly when he is anxious or upset. When he goes for a walk or does physical activity at times he will feel zapping pains in his anterior chest and discomfort in his back between his shoulder blades. He has strong heart palpitations which occur randomly and not necessarily with his other symptoms. He has chronic swelling in his legs which he says has been for several years. His right leg swells more than his left. He describes having a history of sleep apnea and was previously told he needs to wear oxygen at night which he does not. He says in the past he was told he had heart problems but he is unclear exactly what they are. He says in the past he was on multiple medications but no longer takes any of them. He is only taking Lasix at present. He has clonidine 0.1 mg tablets which she uses for anxiety a few times a week. He tells me that his twin brother of an NM age 49. He says his mother of heart disease as well a few years ago. He states all the men on his mother side have from heart disease prior to the age of 60. Prior cigarette smoker, quit approximately 10 years ago. He does smoke marijuana daily. Denies any routine alcohol use. [facility] Medical History Valverde's palsy Congestive heart failure Heart disease Hypoglycemia Surgical History H/O right knee surgery Family History Mother CHF (congestive heart failure) Social History Alcohol intake: never Patient Tobacco Use Status: Never used Tobacco Substance Use Type: Marijuana Review of Systems Const All systems reviewed & are unremarkable except as noted in HPI and below ENT Details: Syncope Denies dizziness Card Reports chest pain, Reports chest pain at rest, Reports chest pain with activity, Denies rapid heart rate, Denies pedal edema, Denies edema, Denies leg edema, Denies lightheadedness, Denies palpitations, Denies dyspnea, Reports dyspnea on exertion and Denies orthopnea Resp Denies cough, Denies dyspnea and Reports dyspnea on exertion GI Denies hematochezia and Denies change in stool character Musc Details: Leg swelling Denies abnormal gait, Denies limited range of motion, Denies muscle cramps, Denies muscle weakness, Denies numbness, Denies radiating pain into limb, Denies stiffness and Denies tingling Neuro Denies abnormal gait, Denies dizziness, Denies numbness and Denies tingling Endo Denies palpitations Physical Exam Vital Signs: Last Vital Signs Pulse 89 01/09/23 13:50 BP 160/80 H 01/09/23 13:50 BMI result Body Mass Index 39.1 Const Other: Morbidly obese General: cooperative and no acute distress Orientation/consciousness: patient oriented x3 HEENT Head: Yes normal to inspection Neck Neck: Yes normal visual inspection and Yes no JVD Carotids: normal carotid upstroke Resp Effort & Inspection: normal respiratory effort Auscultation: clear to auscultation bilaterally, no crackles, no rales, no rhonchi and no wheezes Cardio Jugular venous distension: no JVD Rate: regular rate Rhythm: regular rhythm Heart sounds: S1 normal heart sound present, S2 normal heart sound present, no murmurs and no rubs Neuro General: patient oriented x3 Extrem Other: Nonpitting edema in lower extremities, right greater than left, mild pinkness to the skin of the right lower extremity however no concern for cellulitis at present Psych Appearance: grossly normal Mental Status: mental status grossly normal Speech and movement: Normal speech and movement present Assessment & Plan Assessment & Plan (1) Chest discomfort: Code(s): R07.89 - Other chest pain Plan: Patient describes chest discomfort as a tightness across his chest when upset or anxious. With physical activity he will get stabbing pains in his anterior chest and a discomfort between his shoulder blades. ER evaluation for chest discomfort on 12/03/2022 and he ruled out for ACS with normal troponins. EKG showed sinus rhythm with no acute ST or T-wave abnormalities, rate 62. Further evaluation with inpatient admission was planned however he signed out AMA. He does have cardiac risk factors of hypertension, smoking, family history of early CAD including his twin brother dying of NM age 49. Today he reports that he has been getting symptoms over the last year. He has not been seeking medical care until recently. He describes having a cardiac history and was on multiple meds in the past however he does not know the details of his diagnosis. At this time will update his cardiac testing including echocardiogram to assess for structural heart disease. A pharmacological nuclear stress test to evaluate for any ischemia. He reports bilateral knee discomfort and shortness of breath with walking. Also has reports of syncope when he gets very short of breath. Will check a Holter monitor to assess for any arrhythmia, bradycardia, pauses. Blood pressure is elevated today. Will add lisinopril 10 mg daily. Will plan to have him obtain a basic metabolic profile on the day he comes for his testing. Signs and symptoms of angina reviewed with him. Cardiology follow-up in 4-6 weeks, as soon as results are available. I emergency care if needed for symptoms. Instructed on light physical activity until testing is known. 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 Recommended he stay out of work until cardiac evaluation is completed. (2) Dyspnea on exertion: Code(s): R06.00 - Dyspnea, unspecified Plan: Reports of shortness of breath with physical activity including walking. BNP was 56 during recent ER evaluation. Chest x-ray was unremarkable. He does report smoking history and currently smokes marijuana daily. He also has morbid obesity. Each of these factors can contribute to shortness of breath. On examination he does not appear to have signs of decompensated heart failure however he is on Lasix 80 mg daily. Cardiac testing as above (3) Syncope: Code(s): R55 - Syncope and collapse Plan: Patient describes multiple syncopal events in the last year and even having events prior to that time. He has not sought medical attention for this. He says when he walks he gets short of breath and when he tries to talk he then passes out. Unclear if this is hypoxia related or arrhythmia related. Will check echo and Holter monitor as stated above. (4) Palpitation: Code(s): R00.2 - Palpitations Plan: As above, strong pounding heartbeats. Echo and Holter pending (5) Sleep apnea: Code(s): G47.30 - Sleep apnea, unspecified Plan: He reports prior diagnosis of sleep apnea. Was told he needed to wear oxygen at night but does not. That was years ago. He tells me he does not sleep and has to be in an upright position due to chronic back pain. He leans against the counter. He states he would not be able to do an in-hospital sleep study. Will order a home sleep study to start re-evaluation of his sleep apnea/ sleep hypoxia problem. Orders: Orders CA lexiscan stress w wandy Today R06.00 - Dyspnea, unspecified, R07.89 - Other chest pain, R55 - Syncope and collapse NM cardiolite stress test Today R06.00 - Dyspnea, unspecified, R07.89 - Other chest pain, R55 - Syncope and collapse CA echo transthoracic complete Today R06.00 - Dyspnea, unspecified, R07.89 - Other chest pain, R55 - Syncope and collapse RT home sleep study Today G47.10 - Hypersomnia, unspecified, G47.30 - Sleep apnea, unspecified ECG 3 day holter monitor Today R00.2 - Palpitations, R55 - Syncope and collapse Medications: New lisinopril 10 mg PO DAILY 30 tabs 5RF Coding Level of Care Code Est Pt Level 4 (56350) Diagnoses Chest discomfort R07.89 Dyspnea on exertion R06.00 Syncope R55 Palpitation R00.2 Sleep apnea G47.30 Time Spent (min) 40 Comment Chart review, documentation, interview, assess
== END 2023-01-09 14:57 | disposition home or self-care (01) ==
PROVIDERS: Visit Provider Nurse Practitioner Family
DX: R07.89 Other chest pain (principal); R06.00 Dyspnea, unspecified; R55 Syncope and collapse; R00.2 Palpitations; G47.30 Sleep apnea, unspecified
CPT/HCPCS: 99214

== ENCOUNTER → 2023-01-09 13:31 | Outpatient (BNVA) | payer OTHER, SELFPAY | PROVIDERS: Visit Provider Nurse Practitioner Family | DX: R07.89 Other chest pain (principal); R06.00 Dyspnea, unspecified; R55 Syncope and collapse; R00.2 Palpitations; G47.30 Sleep apnea, unspecified; Z79.899 Other long term (current) drug therapy | CPT/HCPCS: 99212 ==

== ENCOUNTER → 2023-02-12 07:48 | Outpatient (REF) | payer OTHER, SELFPAY ==
--- NOTE | ~2023-02-12 | NM_ITS ---
Lexiscan Myocardial perfusion study Indication: Chest pain, shortness of breath, assess for coronary disease and ischemia Technique: The patient was brought in for a Lexiscan perfusion study on 02/12/2023 and was injected 0.4 mg of Lexiscan intravenously. Within a minute of this injection 40 mCi of sestamibi was given intravenously. Images were obtained using the SPECT gamma camera interlaced with the gating device. Images were obtained in supine position. Resting perfusion was not performed as patient did not return after multiple attempts at scheduling. Images were processed with the software and compared side to side in short axis, horizontal long axis and vertical long axis views. Findings: Raw acquisition reviewed. The stress perfusion study showed no significant perfusion abnormality. Both uncorrected as well as CT attenuation corrected images were reviewed. The gated study shows normal LV systolic function with calculated LVEF of 58%. LV cavity is normal in size. The gated study shows normal wall thickening and contraction of segments. Resting perfusion not performed as patient did not return after multiple requests. The findings are consistent with no clear perfusion defects during stress. NM/NM wanyd perf SPECT rest or str Impression: 1. Myocardial perfusion imaging study shows probably normal myocardial perfusion based on stress acquisition only. 2. Gated LVEF is 58% during stress. EKG component of the test reported separately.
--- NOTE | 2023-02-12 07:57 | CA_ITS ---
Transthoracic Echocardiogram Patient (Last, First, Middle): Anthony Cartwright M Gender: Male Date of : 1970 Age: 52 Procedure Date: 02/12/2023 Procedure Type: Transthoracic Echocardiogram Location: OP Height: 175.26 cm Weight: 113.4 kg BSA: 2.27 m2 Heart Rate: bpm BP: 148 / 70 mmHg Slot Technician: TO Referring MD: Florecita Manning DISABILITY ATTORNEYPham General Manager Road Production: Jorge A Pettit MD Symptoms: R06.00 - Dyspnea, unspecified Study Quality: Fair/Contrast ECG Rhythm: Sinus Conclusions: - Essentially normal study Findings Procedure Information Contrast agent, definity, is being given per protocol without apparent complications. Left Ventricle Normal left ventricular size, thickness, and systolic function. The visually estimated ejection fraction is between 60-65%. Spectral Doppler is indicative of a normal filling pattern. Right Ventricle Normal right ventricular cavity size and systolic function. Atria The left atrium is likely dilated. Interatrial shunt cannot be excluded. The right atrium is normal in size. Aortic Valve The aortic valve structure and function is likely normal. There is no aortic valve stenosis. There is no aortic valve regurgitation. Mitral Valve Likely normal mitral valve structure and function. There is trace mitral valve regurgitation. There is no mitral valve stenosis. Pulmonic Valve The pulmonic valve was not well visualized. Tricuspid Valve The tricuspid valve was not well visualized. Tricuspid regurgitation envelope is inadequate for calculation of right ventricular systolic pressure. Normal right atrial pressure. Great Vessels All visible segments of the aorta are normal in size. The pulmonary artery was not well visualized. Venous The inferior vena cava is normal in size and collapses greater than 50% with inspiration. Pericardium/Pleural There is no evidence of pericardial effusion. Prior Study Comparison Changes noted compared to prior study dated: 11/08/2020. Wall motion is not apparent on this study Measurements 2D Linear Measurements IVSd: 1.10 0.6-0.9/0.6-1.0 cm LVIDd: 5.50 3.9-5.3/4.2-5.9 cm LVIDd Index: 2.42 2.4-3.2/2.2-3.1 cm/m2 LVIDs: 3.40 2.0-3.6 cm LVPWd: 1.10 0.7-1.1 cm LA Diam: 4.50 2.7-3.8/3.0-4.0 cm LAIDs Index: 1.98 1.5-2.3 cm/m2 LV Mass: 301.76 67-162/88-224 g LV Mass Index: 132.94 43-95/49-115 g/m2 LVOT Diam: 2.50 3.0+(-)1.3 cm 2D Systolic Function EF 4C: 64.10 >55% Mitral Valve MV Pk E: 0.86 MV PK A: 0.74 MV Decel Time: 233.00 E/A: 1.20 E'Lateral: 12.00 E'Medial: 11.10 E/E' Med: 7.70 E/E' Lat: 7.10 PHT: 68.00 MVA PHT: 3.24 Decel [place]: 3.68 Aortic Valve AoV Pk Ramón: 1.95 AoV Mn Ramón: 1.35 AoV VTI: 0.40 AoV Pk Grad: 15.00 Aov Mn Grad: 8.00 MATEO Cont.VTI: 3.38 LVOT LVOT Pk Ramón: 1.34 LVOT Mn Ramón: 0.89 LVOT VTI: 0.28 LVOT Pk Grad: 7.00 LVOT Mn Grad: 4.00 LVOT Diam: 2.50 LVOT Area: 4.91 Diastolic Function MV Pk E: 0.86 MV Pk A: 0.74 E/A: 1.20 E'Medial: 11.10 E/E' Med: 7.70 E' Laterial: 12.00 E/E' Lat: 7.10 Right Ventricle TAPSE (mm): 41.70 TVS' Ramón: 16.60 Tricuspid Valve RA Press: 3.00 Great Vessels Aorta Sinus of Valsalva: 3.80 2.0-3.[address] [place]: 2.80 1.7-3.4 cm Ao Asc: 3.40 2.1-3.4 cm Updated in Other Vendor System with Status of Final Jorge A Pettit MD electronically signed on 02/12/2023 12:23:50 PM with status of Final
--- NOTE | 2023-02-12 07:57 | CA_ITS ---
Acquisition Time: 2023-02-12 09:28:48 Total Exercise Time: 00:02:00 Test Indications: CP, SOB Medications: SEE H Protocol: LEXISCAN Max HR: 083 BPM 49% of Pred: 169 BPM Max BP: 148/070 mmHG Max Work Load: 1.0 METS Pharmacological stress test with Lexiscan injection, while sitting and marching in place, with mild SOB, no chest discomfort, with pause 33 sec post Lexiscan, with normotensive response to injection, with nondiagnoistic EKGs. Aminophylline 75mg IVP given to reverse Lexiscan. Nuclear images pending. Test reviewed with Dr. Pettit Referred By: Florecita Manning Overread By: Riana Cmaejo
== END ==
LOC: HO.CARD 07:48
PROVIDERS: Visit Provider Nurse Practitioner Family
DX: R07.89 Other chest pain (principal); R06.00 Dyspnea, unspecified; R55 Syncope and collapse; R00.2 Palpitations
CPT/HCPCS: 78451; 93017; 93306; A9500; J0280; J2785; Q9957

== ENCOUNTER → 2023-02-12 07:57 | Outpatient (BNV) | payer OTHER, SELFPAY | PROVIDERS: Visit Provider Internal Medicine Cardiovascular Disease | DX: R06.02 Shortness of breath (principal) | CPT/HCPCS: 93016; 93018; 93306 ==

== ENCOUNTER → 2023-08-10 08:24 | Outpatient (REF) | payer OTHER, SELFPAY ==
--- NOTE | 2023-08-10 08:28 | HM_ITS ---
* Total monitoring time 3 days. * Underlying rhythm is sinus with an average rate of 69/Min. Range 41 to 106/Min. * 2 isolated premature ventricular beats, but otherwise no significant ectopy or arrhythmias. * No significant pauses or AV blocks. * Patient marker used 9 times in association with sinus rhythm and sinus bradycardia. * Diary mentions shortness of breath on 2 occasions but no associated findings on Holter. MTDD
== END ==
LOC: HO.CARD 08:24
PROVIDERS: Visit Provider Nurse Practitioner Family
DX: R00.2 Palpitations (principal); R55 Syncope and collapse
CPT/HCPCS: 93242

== ENCOUNTER → 2023-08-10 08:28 | Outpatient (BNV) | payer OTHER, SELFPAY | PROVIDERS: Visit Provider Internal Medicine | DX: R00.1 Bradycardia, unspecified (principal) | CPT/HCPCS: 93244 ==

== ENCOUNTER 2023-08-27 08:41 | Outpatient (AMB) | payer OTHER, SELFPAY ==
[2023-08-27 09:21] VITALS: BP 150/62; PULSE 71; BMI 45.2
--- NOTE | 2023-08-27 09:21 | MHC.OFFVIS ---
Intake Vital Signs 08/27/23 09:21 Height 5 ft 9 in Weight 306 lb 0.026 oz BMI 45.2 BP 150/62 H Blood Pressure Location Rt brachial Position Sitting Pulse 71 Pulse Source Monitor Intake Visit Reasons: overdue f/u needs refill Litigation Support Analyst Required: No Allergies aspirin Adverse Reaction (Verified 08/27/23 09:23) Gastrointestinal Upset Medication List - Last Reconciled 08/27/23 by DEENA Chahal clonidine HCl 0.1 mg PO TID PRN furosemide 80 mg PO DAILY lisinopril 10 mg PO DAILY methadone (Methadone Intensol) 100 mg PO DAILY HPI overdue f/u needs refill HPI Details Anthony is a 53-year-old male with past medical history of hypertension, COPD, reported sleep apnea, unspecified heart disease, reported history of heart failure, family history of early CAD who was [place] [facility] [place] for chest discomfort. His troponins were negative however symptoms were suspicious and inpatient admission was being planned prior to him signing out AMA. He did have some cellulitis of his right lower extremity and was given Keflex and doxycycline. He was seen in outpatient cardiology consultation and a echocardiogram, stress test, Holter monitor and sleep study were ordered. On last visit he did report having syncopal type events. His last visit was 01/09/2023. Today he reports that since his last visit his , who had a terminal illness, in February 2023. He has not been taking care of himself fully since that time. He describes having approximately 12 fainting episodes since his last visit in December. He states his episodes 1st start with a strong urge to urinate then he has been told he makes a strange breathing sound. He has loss of consciousness without witnessed movements of his extremities. He does have urinary incontinence. He says after his events will remain cloudy and confused for approximately 30 minutes. He says he can bring on an episode by walking and talking at the same time. He has never seen a neurologist before. He has increasing shortness of breath with activity. He tells me that in the last year he is gained about 70 lb. He still gets zapping pains in his anterior chest and discomfort in his back between his shoulder blades. He also has pain in his low back which is chronic. He and feel strong heart palpitations which occur randomly and not necessarily with his other symptoms. He has chronic swelling in his legs which he says has been for several years. His right leg swells more than his left. He describes having a history of sleep apnea and was previously told he needs to wear oxygen at night which he does not. Prior cigarette smoker, quit approximately 10 years ago. He does smoke marijuana daily. Denies any routine alcohol use. - he does not have a PCP at this time. [facility] Medical History Congestive heart failure Heart disease Hypoglycemia Valverde's palsy Surgical History H/O right knee surgery Family History Mother CHF (congestive heart failure) Social History Alcohol intake: never Patient Tobacco Use Status: Never used Tobacco Substance Use Type: Marijuana Review of Systems Const Details: LOC episodes All systems reviewed & are unremarkable except as noted in HPI and below ENT Denies dizziness Card Reports chest pain, Denies chest pain at rest, Denies chest pain with activity, Denies rapid heart rate, Reports pedal edema, Denies edema, Reports leg edema, Denies lightheadedness, Denies palpitations, Reports dyspnea, Reports dyspnea on exertion and Denies orthopnea Resp Denies cough, Reports dyspnea and Reports dyspnea on exertion GI Denies hematochezia and Denies change in stool character Musc Details: Chronic low and mid back discomfort Denies abnormal gait, Reports limited range of motion, Reports muscle cramps, Denies muscle weakness, Denies numbness, Denies radiating pain into limb, Denies stiffness and Denies tingling Neuro Denies abnormal gait, Denies dizziness, Denies numbness and Denies tingling Endo Denies palpitations Physical Exam Vital Signs: Last Vital Signs Pulse 71 08/27/23 09:21 BP 150/62 H 08/27/23 09:21 BMI result Body Mass Index 45.2 Const Other: Morbidly obese General: cooperative and no acute distress Orientation/consciousness: patient oriented x3 HEENT Head: Yes normal to inspection Neck Neck: Yes normal visual inspection and Yes no JVD Carotids: normal carotid upstroke Resp Effort & Inspection: normal respiratory effort Auscultation: clear to auscultation bilaterally, no crackles, no rales, no rhonchi and no wheezes Cardio Jugular venous distension: no JVD Rate: regular rate Rhythm: regular rhythm Heart sounds: S1 normal heart sound present, S2 normal heart sound present, no murmurs and no rubs Neuro General: patient oriented x3 Extrem Other: Nonpitting edema in lower extremities, right greater than left, mild pinkness to the skin of the right lower extremity however no concern for cellulitis at present Psych Appearance: grossly normal Mental Status: mental status grossly normal Speech and movement: Normal speech and movement present Office Procedures EKG Details: Today, read by me, normal sinus rhythm, rate 71, QTC 452 milliseconds [id number], Complete Assessment & Plan Assessment & Plan (1) Chest discomfort: Code(s): R07.89 - Other chest pain Plan: On last visit he described chest discomfort as a tightness across his chest when upset or anxious. His discomfort can radiate through to the back between the shoulder blades. Today he reports getting zapping pains in his left chest that occur randomly. 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 ER evaluation for chest discomfort on 12/03/2022 and he ruled out for ACS with normal troponins. EKG showed sinus rhythm with no acute ST or T-wave abnormalities, rate 62. Further evaluation with inpatient admission was planned however he signed out AMA. He does have cardiac risk factors of hypertension, smoking, family history of early CAD including his twin brother dying of MS age 49. On last visit he reported having a cardiac history and was on multiple meds in the past however he does not know the details of his diagnosis or take those meds. A pharmacological nuclear stress test was done on 03/05/2023 showing normal myocardial perfusion imaging, EF 58%. An echocardiogram was done on 02/07/2023 showing normal myocardial perfusion imaging. These tests are reassuring. Reviewed results with him in detail. Will continue with risk factor modification. Benefits a weight loss reviewed with him. Increasing physical activity as tolerated. His blood pressure is elevated today at 150/62. Will increase lisinopril from 10 mg daily up to 20 mg daily. BMP and lipids in 1 week. Signs and symptoms of angina reviewed with him. Cardiology follow-up in 3 months, as soon as results are available. (2) Dyspnea on exertion: Code(s): R06.00 - Dyspnea, unspecified Plan: Reports of shortness of breath with physical activity including walking. BNP was 56 during November 2022 ER evaluation. Chest x-ray was unremarkable. He does report smoking history and currently smokes marijuana daily. He also has morbid obesity. Each of these factors can contribute to shortness of breath. On examination he does not appear to have signs of decompensated heart failure however he does have chronic leg edema which could be from venous stasis. He is on Lasix 80 mg daily. (3) Syncope: Code(s): R55 - Syncope and collapse Plan: Patient describes multiple fainting events in the last year and even having events prior to that time. Since his last visit in December he describes having at least 12 episodes. The episodes are described as above. Her symptom is usually the urge to urinate. While unconscious he does have urinary incontinence He does report being out of it for approximately 30 minutes after each event. He says he can bring on an episode by walking and talking at the same time. Holter monitor does not show arrhythmia. Echocardiogram is normal. He has not hypotensive. No clear cardiac findings for these episodes. Upon further description his episodes sound more like seizures. He has no seizure history. Will refer him to Neurology for further evaluation. Informed him that he should not be driving with a possible seizure diagnosis. (4) Palpitation: Code(s): R00.2 - Palpitations Plan: As above, strong pounding heartbeats. No concerning findings on Holter monitor. He says the Holter monitor fell off when he was having a fainting type event. Will order a cardiac event monitor for further evaluation. (5) Sleep apnea: Code(s): G47.30 - Sleep apnea, unspecified Plan: He reports prior diagnosis of sleep apnea. Was told he needed to wear oxygen at night but does not. That was years ago. He tells me he does not sleep and has to be in an upright position due to chronic back pain. He leans against the counter and sleeps on a love seat. He states he would not be able to do an in-hospital sleep study. Will order a home sleep study to start re-evaluation of his sleep apnea/ sleep hypoxia problem. Plan Time spent on chart review, documentation, interview and assessment Orders: Orders ECG 30 day event monitor Today R55 - Syncope and collapse Referrals Neurology Referral G47.30 - Sleep apnea, unspecified, R55 - Syncope and collapse, R56.9 - Unspecified convulsions Medications: New lisinopril 20 mg PO DAILY 90 tabs 1RF 90 days Discontinued lisinopril Keep cardiology appt on 08/27/23 at 9:15 AM, [address] [place] [address] Dr. Mcc[facility] Discontinued Reason: Doctor's Order 10 mg PO DAILY 30 tabs 0RF Coding Level of Care Code Est Pt Level 4 (44016) Diagnoses Chest discomfort R07.89 Dyspnea on exertion R06.00 Syncope R55 Palpitation R00.2 Sleep apnea G47.30 CPT Codes EKG - CPT: [id number], Complete ([id number]) Time Spent (min) 36
== END 2023-08-27 10:02 | disposition home or self-care (01) ==
PROVIDERS: Visit Provider Nurse Practitioner Family
DX: R07.89 Other chest pain (principal); R06.00 Dyspnea, unspecified; R55 Syncope and collapse; R00.2 Palpitations; G47.30 Sleep apnea, unspecified
CPT/HCPCS: 93010; 99214

== ENCOUNTER → 2023-08-27 08:41 | Outpatient (BNVA) | payer OTHER, SELFPAY | PROVIDERS: Visit Provider Nurse Practitioner Family | DX: R07.89 Other chest pain (principal); R06.00 Dyspnea, unspecified; R55 Syncope and collapse; R00.2 Palpitations; G47.30 Sleep apnea, unspecified | CPT/HCPCS: 93005; 99212 ==

== ENCOUNTER → 2023-09-09 10:40 | Outpatient (REF) | payer OTHER, SELFPAY ==
--- NOTE | 2023-09-09 10:43 | HM_ITS ---
* Procedure length 30 days. Wear time 20 days. * Underlying rhythm is sinus with an average rate of 70/Min. * Rare supraventricular ectopy. * Five pauses noted greater than 3 seconds; longest 5.8 seconds-during daytime hours. There is also mention of possible lead disconnect at those times, but these could be rather true pauses based on the strips. * Patient's symptoms including chest pain, fainting correlate with sinus rhythm. MTDD
== END ==
LOC: HO.CARD 10:40
PROVIDERS: Visit Provider Nurse Practitioner Family
DX: R55 Syncope and collapse (principal)
CPT/HCPCS: 93270

== ENCOUNTER → 2023-09-09 10:43 | Outpatient (BNV) | payer OTHER, SELFPAY | PROVIDERS: Visit Provider Internal Medicine | DX: I47.10 Supraventricular tachycardia, unspecified (principal); R07.9 Chest pain, unspecified | CPT/HCPCS: 93272 ==

== ENCOUNTER 2023-10-06 22:21 | Emergency (ER) | payer OTHER, SELFPAY ==
--- NOTE | ~2023-10-06 | XR_ITS ---
EXAMINATION: XR CHEST CLINICAL INFORMATION: Shortness of breath. COMPARISON: 02/03/2023 TECHNIQUE: Frontal view of the chest was obtained. FINDINGS: The cardiomediastinal silhouette is stable. There is no focal lung consolidation or pleural effusion. The bony structures and soft tissues are unremarkable. XR/XR chest 1V IMPRESSION: No acute cardiopulmonary process.
[2023-10-06 22:29] VITALS: BP 171/80; PULSE 85; RESP 20; TEMP 36.7; O2SAT 96; BMI 38.7
--- NOTE | 2023-10-06 22:36 | ECG_ITS ---
Test Reason : CHEST PAIN Blood Pressure : / mmHG Vent. Rate : 081 BPM Atrial Rate : 081 BPM P-R Int : 128 ms QRS Dur : 096 ms QT Int : 394 ms P-R-T Axes : 043 044 029 degrees QTc Int : 457 ms Normal sinus rhythm Normal ECG When compared with ECG of 03-DEC-2022 14:29, No significant change was found Referred By: Generic ED Physician Electronically Signed By:CHARISSA KEVIN MD
[2023-10-06 22:51] LABS: MANUAL DIFF FLAG NO
[2023-10-06 22:53] LABS: Basophils Absolute Auto 0.1 X10*3/uL (0.0-0.2); Basophils Percent Auto 0.9 % (0-2); Eosinophils Absolute Auto 0.5 X10*3/uL (0.0-0.4); Eosinophils Percent Auto 4.1 % (0-4); Hematocrit 38.8 % (42.0-52.0); Hemoglobin 13.4 g/dl (14.0-18.0); Imm Gran Abs Auto 0.07 X10*3/uL (0.00-0.03); Imm Gran Pct Auto 0.6 % (0.0-0.4); Lymphocytes Absolute Auto 2.9 X10*3/uL (1.2-4.9); Lymphocytes Percent Auto 23.5 % (20-40); Mean Corpuscular HGB Conc 34.5 g/dl (31.0-36.0); Mean Corpuscular Hemoglobin 29.6 pg (27.0-33.0); Mean Corpuscular Volume 85.7 fL (80.0-98.0); Mean Platelet Volume 10.2 fL (9.4-12.4); Monocytes Absolute Auto 0.9 X10*3/uL (0.1-1.2); Monocytes Percent Auto 7.3 % (2-11); Neutrophils Absolute Auto 7.7 x10*3/uL (2.0-8.3); Neutrophils Percent Auto 63.6 % (45-73); Platelet Count 263 X10*3/uL (160-400); Red Blood Count 4.53 X10*6/uL (4.60-5.80); Red Cell Distribution Width 13.5 % (11.0-16.0); White Blood Count 12.1 X10*3/uL (4.8-10.8)
[2023-10-06 23:13] LABS: Anion Gap 16 (12-20); Blood Urea Nitrogen 15 mg/dL (9-16); Calcium 9.2 mg/dL (8.4-10.2); Carbon Dioxide 28 mmol/L (22-29); Chloride 101 mmol/L (96-108); Estimated Glomerular Filt Rate > 60; Glucose Random 109 mg/dL (60-115); Potassium 3.9 mmol/L (3.3-5.1); Sodium 141 mmol/L (135-145)
[2023-10-06 23:22] LABS: Troponin-I High Sensitivity 43.5 ng/L (<3.5-35.0)
[2023-10-07 03:01] VITALS: BP 128/69; PULSE 66; RESP 12; TEMP 36.6; O2SAT 95
[2023-10-07 03:26] LABS: Troponin-I High Sensitivity 44.3 ng/L (<3.5-35.0)
[2023-10-07 04:00] VITALS: BP 142/84; PULSE 66; RESP 16; TEMP 36.4; O2SAT 95
--- NOTE | 2023-10-07 04:13 | MHC.EDTECH ---
Late Entry, Patient brought from ,changed into hospital attire,placed on the director of cardiac rehabilitation ,vitals taken.Call potter in reach
--- NOTE | 2023-10-07 05:12 | ED_ITS ---
HPI - Chest Pain General Chief Complaint: Chest Pain Stated Complaint: leg infection? 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 Patient apparently has this leg swelling for a while on 80 mg of Lasix a day ran out of his medication for last 2 days patient has loop monitor placed 1 week ago and noticed pauses about 5.5 seconds with near-syncope episode plan for pacemaker but unable to place it because of cellulitis of the right leg Related Data Home Medications ?Medication ?Instructions ?Recorded ?Confirmed clonidine HCl 0.1 mg tablet 0.1 mg PO TID PRN anxiety 12/03/22 08/27/23 furosemide 40 mg tablet 80 mg PO DAILY 12/03/22 08/27/23 methadone 10 mg/mL oral 100 mg PO DAILY 12/03/22 10/07/23 concentrate (Methadone Intensol) Previous Rx's ?Medication ?Instructions ?Recorded lisinopril 20 mg tablet 20 mg PO DAILY 90 days #90 tabs 08/27/23 doxycycline hyclate 100 mg capsule 100 mg PO BID 10 days #20 caps 10/07/23 furosemide 80 mg tablet (Lasix) 80 mg PO DAILY #30 tabs 10/07/23 Allergies Allergy/AdvReac Type Severity Reaction Status Date / Time aspirin AdvReac Gastrointestinal Verified 10/06/23 22:30 Upset PMFSH Past Medical History Medical History Congestive heart failure Heart disease Hypoglycemia Valverde's palsy Surgical History H/O right knee surgery Family History Family History Mother CHF (congestive heart failure) Social History Social History Alcohol intake: never Patient Tobacco Use Status: Never used Tobacco Smoked in Last 30 Days: No Use of substances other than those prescribed or required for medical reasons: No Substance Use Type: Marijuana Advance Directives: No Advance Directives Information Provided: No Physical Exam 2 Vital Signs: Vital Signs: Last Vital Signs Temp 0 F L 10/07/23 10:10 Pulse 0 L 10/07/23 10:10 Resp 0 L 10/07/23 10:10 BP 0/0 L 10/07/23 10:10 Pulse Ox 0 L 10/07/23 10:10 O2 Del Method Room Air 10/07/23 08:11 BMI result Body Mass Index 38.7 Appearance: Alert. Oriented X3. No acute distress. Obese falling asleep often Eyes: No pallor or icterus ENT: Pharynx normal. Oral Mucosa moist Neck: Normal inspection. Neck supple. CVS: Normal heart rate and rhythm. Pulses normal. Respiratory: No respiratory distress. Equal air entry bilateral, no wheezing/rales/rhonchi Abdomen: Soft and nontender. Bowel sounds are present, no mass palpable, Skin: Skin warm and dry. Normal skin color. Normal skin turgor. Extremities: 3+ lower extremity edema. No calf tenderness Neuro: Oriented X 3. No motor deficit. No sensory deficit.No cerebellar signs , cranial nerves II-XII intact Course Reevaluation(s) Reevaluation #1: Patient aggressive with staff, does not want to be admitted, knows that his heart is pausing and he could Time: 08:47 Medications Administered Discontinued Medications Generic Name Dose Route Start Last Admin Trade Name Freq PRN Reason Stop Dose Admin Furosemide 40 mg 10/07/23 06:34 10/07/23 10:21 Furosemide 40 Mg/4 Ml Vial IVPUSH 10/07/23 06:35 Not Given ONCE ONE Protocol Vancomycin HCl 2,000 mg in 500 mls @ 250 mls/hr 10/07/23 05:32 10/07/23 10:22 Vancomycin/Ns IV 10/07/23 07:31 Infused ONCE ONE Infusion Methadone HCl 100 mg 10/07/23 08:18 10/07/23 10:22 Methadone Hcl 20 Mg/2 Ml Oral.Conc PO 10/07/23 08:19 Not Given ONCE ONE Medical Decision Making Medical Decision Making MDM Narrative: Patient with sinus pauses up to 5.5 seconds with dizziness episodes with right leg cellulitis with leg edema will admit patient for cellulitis and pacemaker placement D-dimer was negative for DVT. Patient does have this episode whether he is awake or sleep during stay in the ER no pauses was noticed case discussed Dr. Berman will evaluate the patient and discussed the case with Dr. 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 Lab Attestation statement: I reviewed the patient's lab results. 10/06/23 22:47 10/06/23 22:47 Labs: Lab Results 10/06/23 10/07/23 10/07/23 Range/Units 22:47 02:58 06:10 WBC 12.1 H (4.8-10.8) X10*3/uL RBC 4.53 L (4.60-5.80) X10*6/uL Hgb 13.4 L (14.0-18.0) g/dl Hct 38.8 L (42.0-52.0) % MCV 85.7 (80.0-98.0) fL MCH 29.6 (27.0-33.0) pg MCHC 34.5 (31.0-36.0) g/dl RDW 13.5 (11.0-16.0) % Plt Count 263 (160-400) X10*3/uL MPV 10.2 (9.4-12.4) fL Immature Gran % (Auto) 0.6 H (0.0-0.4) % Neut % (Auto) 63.6 (45-73) % Lymph % (Auto) 23.5 (20-40) % Gila % (Auto) 7.3 (2-11) % Eos % (Auto) 4.1 H (0-4) % Baso % (Auto) 0.9 (0-2) % Lymph # (Auto) 2.9 (1.2-4.9) X10*3/uL Gila # (Auto) 0.9 (0.1-1.2) X10*3/uL Eos # (Auto) 0.5 H (0.0-0.4) X10*3/uL Baso # (Auto) 0.1 (0.0-0.2) X10*3/uL Abs Immat Gran (auto) 0.07 H (0.00-0.03) X10*3/uL Absolute Neuts (auto) 7.7 (2.0-8.3) x10*3/uL Absolute Nucleated RBC 0.000 (0.0-0.012) X10*3/uL Nucleated RBC % (auto) 0.0 (0.0-0.2) /100WBC PT 12.0 (11.1-13.3) SEC INR 1.0 (0.9-1.1) APTT 32.3 (26.0-36.8) SEC D-Dimer High Sensitivty 186 NG/ML VBG pH (7.32-7.43) VBG pCO2 mmHg VBG pO2 mmHg VBG HCO3 (22-26) mmol/L VBG O2 Saturation % VBG Base Excess mmol/L Sodium 141 (135-145) mmol/L Potassium 3.9 (3.3-5.1) mmol/L Chloride 101 (96-108) mmol/L Carbon Dioxide 28 (22-29) mmol/L Anion Gap 16 (12-20) BUN 15 (9-16) mg/dL Creatinine 0.81 (0.5-1.4) mg/dL Estim Creat Clear Calc 140.0 Estimated GFR > 60 Random Glucose 109 (60-115) mg/dL Lactic Acid 0.9 (0.5-2.0) mmol/L Calcium 9.2 (8.4-10.2) mg/dL Magnesium 2.0 (1.6-2.6) mg/dL Troponin I High Sens 43.5 H D 44.3 H (<3.5-35.0) ng/L B-Natriuretic Peptide < 10 (<100) pg/mL TSH 1.33 (0.32-4.0) uIU/mL 10/07/23 Range/Units 06:12 WBC (4.8-10.8) X10*3/uL RBC (4.60-5.80) X10*6/uL Hgb (14.0-18.0) g/dl Hct (42.0-52.0) % MCV (80.0-98.0) fL MCH (27.0-33.0) pg MCHC (31.0-36.0) g/dl RDW (11.0-16.0) % Plt Count (160-400) X10*3/uL MPV (9.4-12.4) fL Immature Gran % (Auto) (0.0-0.4) % Neut % (Auto) (45-73) % Lymph % (Auto) (20-40) % Gila % (Auto) (2-11) % Eos % (Auto) (0-4) % Baso % (Auto) (0-2) % Lymph # (Auto) (1.2-4.9) X10*3/uL Gila # (Auto) (0.1-1.2) X10*3/uL Eos # (Auto) (0.0-0.4) X10*3/uL Baso # (Auto) (0.0-0.2) X10*3/uL Abs Immat Gran (auto) (0.00-0.03) X10*3/uL Absolute Neuts (auto) (2.0-8.3) x10*3/uL Absolute Nucleated RBC (0.0-0.012) X10*3/uL Nucleated RBC % (auto) (0.0-0.2) /100WBC PT (11.1-13.3) SEC INR (0.9-1.1) APTT (26.0-36.8) SEC D-Dimer High Sensitivty NG/ML VBG pH 7.36 (7.32-7.43) VBG pCO2 56 mmHg VBG pO2 46 mmHg VBG HCO3 31 H (22-26) mmol/L VBG O2 Saturation 76.0 % VBG Base Excess 4.8 mmol/L Sodium (135-145) mmol/L Potassium (3.3-5.1) mmol/L Chloride (96-108) mmol/L Carbon Dioxide (22-29) mmol/L Anion Gap (12-20) BUN (9-16) mg/dL Creatinine (0.5-1.4) mg/dL Estim Creat Clear Calc Estimated GFR Random Glucose (60-115) mg/dL Lactic Acid (0.5-2.0) mmol/L Calcium (8.4-10.2) mg/dL Magnesium (1.6-2.6) mg/dL Troponin I High Sens (<3.5-35.0) ng/L B-Natriuretic Peptide (<100) pg/mL TSH (0.32-4.0) uIU/mL Independent Interpretation I performed an independent interpretation of an: EKG Interpretation: Normal sinus rhythm ventricular rate 81 beats per minute normal interval normal axis no acute ST T wave changes no acute ischemia Critical Care Time Critical Care Time Critical Care Time: Yes Total Critical Care Time: 55 Attestation: The patient was critically ill with a high probability of imminent or life threatening deterioration. I spent greater than ?60??minutes of discontinuous time evaluating the patient,delivering critical care at the bedside, discussing and evaluating pertinent data with consultants. Critical care time does not include time spent performing separately billable procedures or teaching. Total time spent performing critical care was 55???minutes. Discharge Plan Discharge Clinical Impression: Sick sinus syndrome, Cellulitis of leg, right Patient Disposition: Left Against Medical Advice Prescriptions: New furosemide [Lasix] 80 mg tablet 80 mg PO DAILY Qty: 30 0RF doxycycline hyclate 100 mg capsule 100 mg PO BID 10 Days Qty: 20 0RF No Action furosemide 40 mg tablet 80 mg PO DAILY clonidine HCl 0.1 mg tablet 0.1 mg PO TID PRN (Reason: anxiety) methadone [Methadone Intensol] 10 mg/mL Concentrate 100 mg PO DAILY lisinopril 20 mg tablet 20 mg PO DAILY 90 Days Qty: 90 1RF Interventions: ED Discharge Assessment Last Done: 10/07/23 10:10 Discharge Date/Time: 10/07/23 10:45 Print Language: Indonesian
[2023-10-07 06:00] VITALS: BP 131/62; PULSE 55; RESP 20; TEMP 36.5; O2SAT 95
--- NOTE | 2023-10-07 06:13 | MHC.EDTECH ---
Hourly rounds and vitals completed,Blood Cultures,and labs obtained and sent to lab. Belongings list completed and copy placed in chart.
[2023-10-07] MEDS: vancomycin/NS 2,000 MG/500 ML PLAST..BAG 250 MG IV (06:14)
[2023-10-07 06:17] LABS: Venous Blood Gas Refer to POC result
[2023-10-07 06:18] LABS: Thyroid Stimulating Hormone 1.33 uIU/mL (0.32-4.0)
[2023-10-07 06:26] LABS: VBG Base Excess 4.8 mmol/L; VBG HCO3 31 mmol/L (22-26); VBG pCO2 56 mmHg; VBG pH 7.36 (7.32-7.43); VBG pO2 46 mmHg
[2023-10-07 06:32] LABS: D Dimer High Sensitivity 186 NG/ML; Partial Thromboplastin Time 32.3 SEC (26.0-36.8)
[2023-10-07 06:43] LABS: Lactic Acid 0.9 mmol/L (0.5-2.0)
[2023-10-07 06:55] LABS: B Type Natriuretic Peptide < 10 pg/mL (<100)
[2023-10-07 08:11] VITALS: BP 132/66; PULSE 54; RESP 12; TEMP 36.4; O2SAT 92
--- NOTE | 2023-10-07 08:22 | HE.PHANOTE ---
Methadone Receives from [facility], , Ariella Celis RN. Patient receives 100mg, last received 09/22/23, and given 27 take home bottles. Per Taina, patient last took take home bottle yesterday 10/05 @ 0600.
--- NOTE | 2023-10-07 09:43 | PC.NURSE ---
This RN resumed care of patient at 0700, the patient was sitting up in a chair at this time. Dr. Peres approached this RN and asked to place pt on Cardiac pads. At this time pads placed on patient, however patient became very agitated, started voicing his frustrations about his care, and what the plan was. This RN provided emotional support to patient, and got MD/director involved Director went to bedside, at this time he started to threaten he was going to harm staff, security aware and at bedside. Pt wanting to leave AMA at this time. Pt also upset that he has not gotten his methadone, this RN got methadone ordered, and verified however patient wanted to take his home dose once he was out of here. This RN had MD send order in for lasix as patient was out at home. This RN provided emotional support in regards that I understand he does not want to worry about his heart at this time, but that we can not unfortunately ignore what is happening and just pay attention to his leg like he would wish. Pt was able to calm down with this RN, he did end up leaving ama, a rx was sent for his lasix, and pt was able to ambulate out of ED stable on RA, pt refused our methadone here as he was going to take his own at home
[2023-10-07 10:10] VITALS: BP 0/0; PULSE 0; RESP 0; TEMP -17.7; TEMP 0; O2SAT 0
--- NOTE | 2023-10-07 13:25 | P.EN_ITS ---
Event Note Date of Service: 10/07/23 Event Note: Went to see patient for admission to the hospital. Pt seen and examined around 830AM. Pt seemed upset and did not want to talk. He stated he was ready for discharged from the hospital. Explained to him the reason for hospitalization: suspected leg infection and ab normal heart rhythm. Explained to him the risks of leaving the hospital prior to treatment which include worsening infection and possible sepsis, as well as complete heart block and . Explained to him the need for evaluation by cardiology for possible pacemaker + IV antibiotics for his infection. Despite mulitple attempts, the patient does not want to be admitted to the hospital. He was able to relay back to me in layman's terms the risks of leaving prior to completion of treatment. ED provider informed of above conversation. Time Spent With Patient Time: Total time managing care of this patient today ____ minutes.
== END 2023-10-07 10:45 | disposition left against medical advice (07) ==
PROVIDERS: Emergency Provider Internal Medicine
DX: I49.5 Sick sinus syndrome (principal); L03.115 Cellulitis of right lower limb; R55 Syncope and collapse; M79.89 Other specified soft tissue disorders; J44.9 Chronic obstructive pulmonary disease, unspecified; I11.0 Hypertensive heart disease with heart failure; I50.9 Heart failure, unspecified; Z79.899 Other long term (current) drug therapy
CPT/HCPCS: 36415; 71045; 80048; 82803; 83605; 83735; 83880; 84443; 84484; 85025; 85379; 85610; 85730; 87040; 93005; 96365; 96366; 99285; J3370

== ENCOUNTER → 2023-10-06 22:36 | Outpatient (BNV) | payer OTHER, SELFPAY | PROVIDERS: Emergency Provider Internal Medicine; Visit Provider Internal Medicine Cardiovascular Disease | DX: R07.9 Chest pain, unspecified (principal) | CPT/HCPCS: 93010 ==

== ENCOUNTER 2023-12-03 08:46 | Outpatient (AMB) | payer OTHER, SELFPAY ==
[2023-12-03 08:48] VITALS: BP 134/62; PULSE 94; BMI 42.3
--- NOTE | 2023-12-03 08:48 | MHC.OFFVIS ---
Vital Signs 12/03/23 08:48 Height 5 ft 10 in Weight 294 lb 8.601 oz BMI 42.3 BP 134/62 Blood Pressure Location Lt brachial Position Sitting Pulse 94 Pulse Source Pulse Oximeter Intake Visit Reasons: 3 mth fu Allergies aspirin Adverse Reaction (Verified 12/03/23 08:50) Gastrointestinal Upset Medication List - Last Reconciled 12/03/23 by Florecita Manning, REGULATOR OPERATOR-C aspirin 81 mg PO DAILY atorvastatin 40 mg PO BEDTIME clonidine HCl 0.1 mg PO TID PRN clopidogrel 75 mg PO DAILY furosemide (Lasix) 80 mg PO DAILY lisinopril 20 mg PO DAILY metformin 500 mg PO BID methadone (Methadone Intensol) 100 mg PO DAILY HPI HPI 3 mth fu: Details: Anthony is a 53-year-old male with past medical history of hypertension, COPD, reported sleep apnea, unspecified heart disease, reported history of heart failure, family history of early CAD who was seen in the [facility] emergency room November 2022 for chest discomfort. His troponins were negative however symptoms were suspicious and inpatient admission was being planned prior to him signing out AMA. He did have some cellulitis of his right lower extremity and was given Keflex and doxycycline. He was seen in outpatient cardiology consultation and a echocardiogram, stress test which were normal. A, Holter monitor showed no concerning findings. A sleep study was ordered and not completed by him. Last December he did report having syncopal type events. He was not seen in the office between 01/09/23 and 04/10. On last visit a cardiac event monitor was ordered and it did show Sinus pauses, max 5.8 sec and he was referred to EP. Today he reports that since his last visit, He had a episode of mid chest discomfort and went to [facility] with NSTEMI, stent was placed. He also has had issues with cellulitis in his right lower extremety and recent completed a course of antibiotics. He says he had a fainting episode while at [facility] after getting up and bending over following his cardiac catheterization. He said he was told that it was just from him having the recent procedure. He was not told of any heart pauses at that time. He did see Dr. Clemente while he was at [facility]. Says he does have a follow-up with him as outpatient and is still discussing possible pacemaker placement. He says he feels faint most days. If he tries to fight it that is when he gets the urinary incontinence. Has found that if he just sits down and relaxes the loss of consciousness can be averted. He says after a fainting event he will remain cloudy and confused for approximately 30 minutes. He previously says he can bring on an episode by walking and talking at the same time. He has never seen a neurologist before. He has had issues with increasing shortness of breath with activity. He tells me that in the last year he is gained about 70 lb. He is taking diuretics daily. Since his coronary stent placement he still gets anterior chest discomfort, which can occur in the mid chest or left side. He describes it as sharp pain that comes and goes. He has no known aggravating or alleviating factors. He continues to have chronic low back pain. He has chronic swelling in his legs which he says has been for several years but recently they have increased. His right leg swells more than his left. He currently has some draining wounds on the left leg and was recently treated for cellulitis. He describes having a history of sleep apnea and was previously told he needs to wear oxygen at night which he does not. He was supposed to roll picker his equipment for home sleep study yesterday but says his car broke down. Prior cigarette smoker, quit approximately 10 years ago. He does smoke marijuana daily. Denies any routine alcohol use. - he still does not have a PCP at this time [facility] Medical History Congestive heart failure Heart disease Hypoglycemia Valverde's palsy Surgical History H/O heart artery stent H/O right knee surgery Family History Mother CHF (congestive heart failure) Social History Alcohol intake: never Patient Tobacco Use Status: Never used Tobacco Substance Use Type: Marijuana Review of Systems Const All systems reviewed & are unremarkable except as noted in HPI and below ENT Denies dizziness Card Reports chest pain, Denies chest pain at rest, Denies chest pain with activity, Denies rapid heart rate, Reports pedal edema, Denies edema, Reports leg edema, Denies lightheadedness, Denies palpitations, Reports dyspnea, Denies dyspnea on exertion and Denies orthopnea Resp Denies cough, Reports dyspnea and Denies dyspnea on exertion GI Denies hematochezia and Denies change in stool character Musc Denies abnormal gait, Reports limited range of motion, Reports muscle cramps, Denies muscle weakness, Denies numbness, Denies radiating pain into limb, Denies stiffness and Denies tingling Neuro Denies abnormal gait, Denies dizziness, Denies numbness and Denies tingling Endo Denies palpitations Physical Exam Vital Signs: Last Vital Signs Pulse 94 12/03/23 08:48 BP 134/62 12/03/23 08:48 BMI result Body Mass Index 42.3 Const Other: Morbidly obese General: cooperative and no acute distress Orientation/consciousness: patient oriented x3 HEENT Head: Yes normal to inspection Neck Neck: Yes normal visual inspection and Yes no JVD Carotids: normal carotid upstroke Resp Effort & Inspection: normal respiratory effort Auscultation: clear to auscultation bilaterally, no crackles, no rales, no rhonchi and no wheezes Cardio Jugular venous distension: no JVD Rate: regular rate Rhythm: regular rhythm Heart sounds: S1 normal heart sound present, S2 normal heart sound present, no murmurs and no rubs Neuro General: patient oriented x3 Extrem Other: bilateral tight edema of each lower leg, right > Left, with serous oozing of skin wound right lateral lower leg, some redness, recently off antibiotics. Right radial cath site well healed - palp radial pulse Psych Appearance: grossly normal Mental Status: mental status grossly normal Speech and movement: Normal speech and movement present Office Procedures EKG Details: Today, read by me, normal sinus rhythm, no acute ST or T-wave abnormalities, rate 78, QTC 471 millisecond [id number], Complete Assessment & Plan Assessment & Plan (1) Chest discomfort: Code(s): R07.89 - Other chest pain Category: Medical Plan: On prior visit he described chest discomfort as a tightness across his chest when upset or anxious. His discomfort can radiate through to the back between the shoulder blades. On last visit he reported getting zapping pains in his left chest that occur randomly. 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 ER evaluation for chest discomfort on 12/03/2022 and he ruled out for ACS with normal troponins. EKG showed sinus rhythm with no acute ST or T-wave abnormalities, rate 62. Further evaluation with inpatient admission was planned however he signed out AMA. He does have cardiac risk factors of hypertension, smoking, family history of early CAD including his twin brother dying of SC age 49. A pharmacological nuclear stress test was done on 03/05/2023 showing normal myocardial perfusion imaging, EF 58%. An echocardiogram was done on 02/07/2023 showing normal study. These tests were reassuring at that time. He was last seen here in August then tells me in October he was admitted to [facility] with chest discomfort which he describes as a cold feeling in his mid chest that persisted. He ruled in for ACS and underwent cardiac catheterization showing mid RCA 99% stenosis, angioplasty, arthrectomy and RINA placed. He does have residual PDA stenosis and ostial circumflex/ OM1 stenosis- these lesions were noted to be not ideal for PCI and recommendation was for medical therapy. He was put on aspirin and Plavix. Moderate dose atorvastatin. Today he reports that he does still get pains in his chest which he describes as mid and left-sided, intermittent, similar to some of the pain he has described in the past. This is not like the cold sensation that he presented with at the time of SC. EKG done today showing sinus rhythm with no acute ST or T-wave abnormalities, rate 78. With his known residual CAD, will add Isosorbide 30mg daily. He says at the time of his admission he was diagnosed with diabetes and was put on metformin. He has known cardiac pauses and was not put on beta-tara. At this time will have him continue with risk factor modification. Benefits a weight loss reviewed with him. Will order cardiac rehab. Signs and symptoms of angina reviewed with him. Cardiology follow-up in 1 month, sooner if needed. (2) Dyspnea on exertion: Code(s): R06.00 - Dyspnea, unspecified Category: Medical Plan: Prior Reports of shortness of breath with physical activity including walking. BNP was 56 during November 2022 ER evaluation. Chest x-ray was unremarkable. He does report smoking history and smokes marijuana daily. He also has morbid obesity. Recheck a pro BNP during recent [facility] admission was less than 36. On examination today he does appear fluid overloaded with pitting edema in his legs which has been chronic however seems more so. He is currently on Lasix 80 mg daily. He says that prior to his [facility] admission he was taking 80 mg twice daily. Will have him increase his Lasix up to b.i.d. and plan for labs in 1 week. Patient informed of this plan. Instructed on eating foods with potassium in them and keeping fluid restriction at 48 oz daily. (3) Syncope: Code(s): R55 - Syncope and collapse Category: Medical Plan: Patient describes multiple fainting events in the last year and even having events prior to that time. He states the 1st episode of a symptom is a strong urge to urinate, then he goes out. He has not had witnessed seizure-type activity. While unconscious he does have urinary incontinence He does report being out of it for approximately 30 minutes after each event. He says he can bring on an episode by walking and talking at the same time. More recently he has been able to control the symptoms somewhat if he sits and fully relaxes. Prior Holter monitor did not show arrhythmia. Echocardiogram was normal. He has not been hypotensive. A cardiac event monitor was done on 09/09/2023 for 30 days, patient wore it for 20 days and there were 5 cardiac pauses ranging from 3-5.8 seconds during daytime hours. No clear correlation to a syncopal event at this time. He also has suspected sleep apnea and unclear if he was sleeping during the daytime hours. He was referred to electrophysiology, Dr Clemente. Patient states that he have a pending follow-up with Dr Clemente and he may be having pacemaker placed. I had concerns that his episodes were related to seizures due to the urinary incontinence and prolonged recovery after events. He was referred to Neurology and does not have an appointment until February. Will keep that appointment at this time. He has no seizure history. Patient informed that he should not be driving. (4) Sleep apnea: Code(s): G47.30 - Sleep apnea, unspecified Category: Medical Plan: He reports prior diagnosis of sleep apnea. Was told he needed to wear oxygen at night but does not. That was years ago. He tells me he does not sleep and has to be in an upright position due to chronic back pain. He leans against the counter and sleeps on a love seat. He states he would not be able to do an in-hospital sleep study. Home sleep study has been ordered however patient has not completed as of yet. He says he was scheduled to pick it up yesterday and his car broke down. Will try to see if we can arrange for him to roll picker the equipment today. The importance of sleep apnea/ nocturnal hypoxia treatment reviewed with him. (5) Hospital discharge follow-up: Code(s): Z09 - Encounter for follow-up examination after completed treatment for conditions other than malignant neoplasm Category: Medical Plan: [facility] admission (6) Sinus pause: Code(s): I45.5 - Other specified heart block Category: Medical Plan: As above (7) S/P cardiac cath: Comment: 10/19/2023 left main minimal irregularities, lad mild diffuse disease, left circumflex proximal ostial 85% stenosis, 1st OM mid subsection 70% stenosis, mid RCA 99% stenosis, culprit lesion, right PDA ostial 75% stenosis, angioplasty and arthrectomy to the RCA, RINA placed, significant ostial PDA stenosis, severe ostial circumflex stenosis and OM 1 disease lesions are not ideal for PCI, recommend medical therapy and optimizing antianginal. Code(s): Z98.890 - Other specified postprocedural states Category: Surgical Plan: As above (8) NSTEMI (non-ST elevated myocardial infarction): Code(s): I21.4 - Non-ST elevation (NSTEMI) myocardial infarction Category: Medical Plan: As above (9) CAD (coronary artery disease): Code(s): I25.10 - Atherosclerotic heart disease of [place] coronary artery without angina pectoris Category: Medical Plan: New finding as above Plan Time spent on chart review, documentation, interview and assessment Orders: Orders Comprehensive [place]. Panel Fast Today I21.4 - Non-ST elevation (NSTEMI) myocardial infarction B Type Natriuretic Peptide Today R60.0 - Localized edema Complete Blood Count Auto Diff Today I25.10 - Atherosclerotic heart disease of [place] coronary artery without angina pectoris Cardiac Rehab Today I21.4 - Non-ST elevation (NSTEMI) myocardial infarction, Z98.890 - Other specified postprocedural states Lipid Panel Today I21.4 - Non-ST elevation (NSTEMI) myocardial infarction Medications: New isosorbide mononitrate ER take one daily to help with chest discomfort 30 mg PO DAILY 30 tabs 5RF Changed From furosemide (Lasix) 80 mg PO DAILY 30 tabs 0RF To furosemide (Lasix) 80 mg PO BID 90 days 180 tabs 1RF Coding Level of Care Code Est Pt Level 5 (70726) Diagnoses Chest discomfort R07.89 Dyspnea on exertion R06.00 Syncope R55 Sleep apnea G47.30 Hospital discharge follow-up Z09 Sinus pause I45.5 S/P cardiac cath Z98.890 NSTEMI (non-ST elevated myocardial infarction) I21.4 CAD (coronary artery disease) I25.10 CPT Codes EKG - CPT: 13414-[id number], Complete ([id number]) Time Spent (min) 45 Comment Complex case
== END 2023-12-03 09:37 | disposition home or self-care (01) ==
PROVIDERS: Visit Provider Nurse Practitioner Family
DX: I21.4 Non-ST elevation (NSTEMI) myocardial infarction (principal); I25.10 Atherosclerotic heart disease of native coronary artery without angina pectoris; I45.5 Other specified heart block; R07.89 Other chest pain; R06.00 Dyspnea, unspecified; R55 Syncope and collapse; G47.30 Sleep apnea, unspecified; Z09 Encounter for follow-up examination after completed treatment for conditions other than malignant neoplasm; Z98.890 Other specified postprocedural states
CPT/HCPCS: 93010; 99215

== ENCOUNTER → 2023-12-03 08:46 | Outpatient (BNVA) | payer OTHER, SELFPAY | PROVIDERS: Visit Provider Nurse Practitioner Family | DX: I45.5 Other specified heart block (principal); I21.4 Non-ST elevation (NSTEMI) myocardial infarction; I25.10 Atherosclerotic heart disease of native coronary artery without angina pectoris; R07.89 Other chest pain; R06.00 Dyspnea, unspecified; R55 Syncope and collapse; G47.30 Sleep apnea, unspecified; R60.0 Localized edema; Z99.81 Dependence on supplemental oxygen; Z98.890 Other specified postprocedural states | CPT/HCPCS: 93005; 99212 ==

== ENCOUNTER 2024-01-25 14:50 | Outpatient (AMB) | payer OTHER, SELFPAY ==
[2024-01-25 14:52] VITALS: BP 122/60; PULSE 86; BMI 40.9
--- NOTE | 2024-01-25 14:52 | A.OFFVIS_ITS ---
Vital Signs 01/25/24 14:52 Height 5 ft 10 in Weight 285 lb 4.45 oz BMI 40.9 BP 122/60 Blood Pressure Location Lt brachial Position Sitting Pulse 86 Pulse Source Pulse Oximeter Intake Visit Reasons: 3/4 wk f/up- r/s 01/06 Cook Manager Required: No Allergies aspirin Adverse Reaction (Verified 01/25/24 14:54) Gastrointestinal Upset Medication List - Last Reconciled 01/25/24 by YISEL ChahalC aspirin 81 mg PO DAILY atorvastatin 40 mg PO BEDTIME clopidogrel 75 mg PO DAILY furosemide (Lasix) 80 mg PO BID 90 days isosorbide mononitrate ER 30 mg PO DAILY lisinopril 20 mg PO DAILY metformin 500 mg PO BID methadone (Methadone Intensol) 100 mg PO DAILY HPI HPI 3/4 wk f/up- r/s 01/06: Details: Anthony is a 53-year-old male with past medical history of hypertension, COPD, reported sleep apnea, unspecified heart disease, reported history of heart failure, family history of early CAD who was seen in the [facility] emergency room November 2022 for chest discomfort. His troponins were negative however symptoms were suspicious and inpatient admission was being planned prior to him signing out AMA. He did have some cellulitis of his right lower extremity and was given Keflex and doxycycline. He was seen in outpatient cardiology consultation and a echocardiogram, stress test which were normal. A, Holter monitor showed no concerning findings. A sleep study was ordered and not completed by him. December 2022 he did report having syncopal type events. He was not seen in the office between 01/09/23 and 08/27/23. Then a cardiac event monitor was ordered and it did show Sinus pauses, max 5.8 sec and he was referred to EP. Then in November 2023 he presented to [facility] with chest discomfort, ruled in for ACS and was transferred to [facility] where he had cardiac catheterization and RINA placed to the RCA. Today he reports that he has not had any issues with recurrent chest discomfort like what he was experiencing at the time of his NSTEMI. Since last visit he has issues with recurrent cellulitis in his right lower extremety and recent again just completed a course of antibiotics. He has open wounds on his right lower extremity which drain at times. He still has episodes of brief loss of consciousness. He says the episodes still occur with a sudden urge to urinate and it feels like his breathing stops then he loses consciousness. He does get urinary incontinence and says he feels confused after the episodes for up to a half an hour. His roommate has witnessed his episodes and has told him he does not have any body movements that are seizure-like. He is still following with Dr. Clemente and says that he is going to have a pacemaker placed in [place]. They intend on doing 1 without wires. This point his episodes are occurring a few times a week. He previously stated that if he tries to just sits down and relaxes the loss of consciousness can be averted. He previously says he can bring on an episode by walking and talking at the same time. He has never seen a neurologist before. He continues to have some shortness of breath with activity. He admits to being mostly sedentary. Has gained significant weight in the last year. He is taking diuretics daily. Since his coronary stent placement he still gets anterior chest discomfort, which can occur in the mid chest or left side. He describes it as sharp pain that comes and goes. This has not increased in frequency over the last 2 months. He has no known aggravating or alleviating factors. He continues to have chronic low back pain. He has chronic swelling in right leg which he says has been for several years. He currently has some draining wounds on the right leg and was recently treated for cellulitis. He describes having a history of sleep apnea and was previously told he needs to wear oxygen at night which he does not. He did not pursue having the home sleep study. down. Prior cigarette smoker, quit approximately 10 years ago. He does smoke marijuana daily. Denies any routine alcohol use. - he still does not have a PCP at this time. [facility] Medical History Congestive heart failure Heart disease Hypoglycemia Valverde's palsy Surgical History H/O heart artery stent H/O right knee surgery Family History Mother CHF (congestive heart failure) Social History Alcohol intake: never Patient Tobacco Use Status: Never used Tobacco Substance Use Type: Marijuana Review of Systems Const All systems reviewed & are unremarkable except as noted in HPI and below ENT Denies dizziness Card Denies chest pain, Denies chest pain at rest, Denies chest pain with activity, Reports syncope, Denies rapid heart rate, Denies pedal edema, Denies edema, D enies leg edema, Denies lightheadedness, Denies palpitations, Denies dyspnea, Reports dyspnea on exertion and Denies orthopnea Resp Denies cough, Denies dyspnea and Reports dyspnea on exertion GI Denies hematochezia and Denies change in stool character Musc Details: Chronic swelling of the right lower extremity with slow healing wound, prior cellulitis Denies abnormal gait, Denies limited range of motion, Denies muscle cramps, Denies muscle weakness, Denies numbness, Denies radiating pain into limb, Denies stiffness and Denies tingling Neuro Denies abnormal gait, Denies dizziness, Reports syncope, Denies numbness and Denies tingling Endo Denies palpitations Physical Exam Vital Signs: Last Vital Signs Pulse 86 01/25/24 14:52 BP 122/60 01/25/24 14:52 BMI result Body Mass Index 40.9 Assessment & Plan Assessment & Plan (1) Chest discomfort: Code(s): R07.89 - Other chest pain Category: Medical Plan: On prior visit he described chest discomfort as a tightness across his chest when upset or anxious. His discomfort can radiate through to the back between the shoulder blades. On last visit he reported getting zapping pains in his left chest that occur randomly. 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 ER evaluation for chest discomfort on 12/03/2022 and he ruled out for ACS with normal troponins. EKG showed sinus rhythm with no acute ST or T-wave abnormalities, rate 62. Further evaluation with inpatient admission was planned however he signed out AMA. He does have cardiac risk factors of hypertension, smoking, family history of early CAD including his twin brother dying of AL age 49. A pharmacological nuclear stress test was done on 03/05/2023 showing normal myocardial perfusion imaging, EF 58%. An echocardiogram was done on 02/07/2023 showing normal study. These tests were reassuring at that time. In November 2023 he presented to [facility] with chest discomfort and ruled in for ACS. He described it as a cold feeling in his mid chest that persisted. He underwent cardiac catheterization showing mid RCA 99% stenosis, angioplasty, arthrectomy and RINA placed. He does have residual PDA stenosis and ostial circumflex/ OM1 stenosis- these lesions were noted to be not ideal for PCI and recommendation was for medical therapy. He was put on aspirin and Plavix. Moderate dose atorvastatin. Today he reports that he does still get random pains in his chest which he describes as mid and left-sided, intermittent, similar to some of the pain he has described in the past. This is not like the cold sensation that he presented with at the time of AL. Isosorbide was added last visit without significant change in his symptom. Cardiac rehab was ordered on him but they did not feel he was ready at that time. With his syncope issues will hold off on rehab presently. Will continue with med management including aspirin indefinitely. Plavix uninterrupted for at least 1 year. Continue atorvastatin with ideal LDL goal less than 70. Continue isosorbide and lisinopril. With known cardiac pauses he was not put on a beta- tara. Blood pressure today 122/60. Signs and symptoms of angina, cardiac risk factor modification discussed. Cardiology follow-up in 3 month, sooner if needed. (2) Syncope: Code(s): R55 - Syncope and collapse Category: Medical Plan: Patient describes multiple fainting events in the last year and even having events prior to that time. He states the 1st episode of a symptom is a strong urge to urinate, his feels like he can not take a breath in and then he goes out . His events have been witnessed by his current roommate and no seizure like movements reported. While unconscious he does have urinary incontinence He does report being out of it for approximately 30 minutes after each event. He says he can bring on an episode by walking and talking at the same time. More recently he has been able to control the symptoms somewhat if he sits and fully relaxes. Prior Holter monitor did not show arrhythmia. Echocardiogram was normal. He has not been hypotensive. A cardiac event monitor was done on 09/09/2023 for 30 days, patient wore it for 20 days and there were 5 cardiac p auses ranging from 3-5.8 seconds during daytime hours. No clear correlation to a syncopal event at this time. He also has suspected sleep apnea and unclear if he was sleeping during the daytime hours. He was referred to electrophysiology, Dr Clemente. Patient tells me he is going to be having a leadless pacemaker placed however no date is known yet. It is possible that these episodes are related to his cardiac pauses however patient is having more episodes than pauses seen on his event monitor. He currently tells me he will have 3-4 episodes each week. He did not report episodes at the time of the pauses were documented. I had concerns that his episodes were related to seizures due to the urinary incontinence and prolonged recovery after events. He was referred to Neurology and does not have an appointment until February. Will keep that appointment at this time. He has no seizure history. Patient informed that he should not be driving. (3) Sleep apnea: Code(s): G47.30 - Sleep apnea, unspecified Category: Medical Plan: He reports prior diagnosis of sleep apnea. Was told he needed to wear oxygen at night but does not. That was years ago. He tells me he does not sleep and has to be in an upright position due to chronic back pain. He leans against the counter and sleeps on a love seat. He states he would not be able to do an in- hospital sleep study. Home sleep study has been ordered however patient has not completed as of yet. The importance of sleep apnea/ nocturnal hypoxia treatment reviewed with him. (4) Sinus pause: Code(s): I45.5 - Other specified heart block Category: Medical Plan: As above (5) S/P cardiac cath: Comment: 10/19/2023 left main minimal irregularities, lad mild diffuse disease, left circumflex proximal ostial 85% stenosis, 1st OM mid subsection 70% stenosis, mid RCA 99% stenosis, culprit lesion, right PDA ostial 75% stenosis, angioplasty and arthrectomy to the RCA, RINA placed, significant ostial PDA stenosis, severe ostial circumflex stenosis and OM 1 disease lesions are not ideal for PCI, recommend medical therapy and optimizing antianginal. Code(s): Z98.890 - Other specified postprocedural states Category: Surgical Plan: As above (6) NSTEMI (non-ST elevated myocardial infarction): Code(s): I21.4 - Non-ST elevation (NSTEMI) myocardial infarction Category: Medical Plan: As above (7) CAD (coronary artery disease): Code(s): I25.10 - Atherosclerotic heart disease of [place] coronary artery without angina pectoris Category: Medical Plan: as above (8) Lower extremity edema: Code(s): R60.0 - Localized edema Category: Medical Plan: Patient has issues with chronic edema in his lower extremities, right greater than left. He also has had recurrent cellulitis in the right lower leg and has open wounds that are draining at times. He is self treating it with alcohol and peroxide. He tells me he typically goes to urgent care because he does not have a PCP. He has been trying to get a PCP for several months. He just finished a course of antibiotics. His right lower extremity has pinkness to the skin but does not appear overly inflamed. He has open wounds that are not draining at the moment but he says later today they will be. To help him with this I will refer him to the wound clinic as he is diabetic and has had no consistent care plan for his open skin areas. (9) Wound of lower extremity: Code(s): S81.809A - Unspecified open wound, unspecified lower leg, initial encounter Category: Medical Plan: As above Plan Time spent on chart review, documentation, interview and assessment Orders: Referrals Wound Care Referral R60.0 - Localized edema, S81.809A - Unspecified open wound, unspecified lower leg, initial encounter Coding Level of Care Code Est Pt Level 5 (45934) Diagnoses Chest discomfort R07.89 Syncope R55 Sleep apnea G47.30 Sinus pause I45.5 S/P cardiac cath Z98.890 NSTEMI (non-ST elevated myocardial infarction) I21.4 CAD (coronary artery disease) I25.10 Lower extremity edema R60.0 Wound of lower extremity S81.809A Time Spent (min) 45
== END 2024-01-25 15:22 | disposition home or self-care (01) ==
PROVIDERS: Visit Provider Nurse Practitioner Family
DX: R07.89 Other chest pain (principal); R55 Syncope and collapse; G47.30 Sleep apnea, unspecified; I45.5 Other specified heart block; Z98.890 Other specified postprocedural states; I21.4 Non-ST elevation (NSTEMI) myocardial infarction; I25.10 Atherosclerotic heart disease of native coronary artery without angina pectoris; R60.0 Localized edema; S81.809A Unspecified open wound, unspecified lower leg, initial encounter
CPT/HCPCS: 99215

== ENCOUNTER → 2024-01-25 14:50 | Outpatient (BNVA) | payer OTHER, SELFPAY | PROVIDERS: Visit Provider Nurse Practitioner Family | DX: R55 Syncope and collapse (principal); R07.89 Other chest pain; I45.5 Other specified heart block; S81.809A Unspecified open wound, unspecified lower leg, initial encounter; I25.10 Atherosclerotic heart disease of native coronary artery without angina pectoris; I25.2 Old myocardial infarction; G47.30 Sleep apnea, unspecified; R60.0 Localized edema; Z98.890 Other specified postprocedural states | CPT/HCPCS: 99212 ==

== ENCOUNTER 2024-02-01 12:45 | Outpatient (REF) | payer OTHER, SELFPAY ==
--- NOTE | 2024-02-01 12:48 | EEG_ITS ---
FINDINGS: The waking background activity consists of low voltage fast frequencies seen anteriorly intermixed posteriorly with a moderate-voltage, 9 hertz alpha. Recurrent episodes of slowing are seen in the right temporal region in the 4 to 6 hertz range of moderate voltage. Very sharp transients were seen with phase reversal at T6. There was occasional bilateral spread of the sharp activity. Photic stimulation is without activation. Drowsiness is characterized with diffuse theta slowing and light sleep stages are entered briefly. IMPRESSION: This EEG is considered mildly abnormal due to intermittent right temporal slowing and rare sharp transients in the right posterior temporal region that may correlate with an underlying structural abnormality with a seizure potential. Clinical correlation is suggested. MD DALLAS Muro/RENO / [id number]
== END 2024-02-01 12:46 | disposition home or self-care (01) ==
LOC: HO.NEURO 12:45
PROVIDERS: Visit Provider Psychiatry & Neurology Neurology
DX: R56.9 Unspecified convulsions (principal)
CPT/HCPCS: 95816

== ENCOUNTER 2024-02-02 07:30 | Outpatient (AMB) | payer OTHER, SELFPAY ==
--- NOTE | 2024-02-02 07:35 | A.OFFVIS_ITS ---
Vital Signs 02/02/24 07:36 Height 5 ft 10 in Weight 285 lb BMI 40.9 BP 134/70 Blood Pressure Location Rt brachial Position Sitting Respiration 16 Pulse 80 Pulse Source Pulse Oximeter Pulse Oximetry (%) 96 Oxygen Delivery Method Room Air Intake Visit Reasons: INP-Unspecified convulsions - Pt aware Intake Note: New pt presents for consultation for unspecified convulsions. Contract Lead Required: No Allergies aspirin Adverse Reaction (Verified 02/02/24 07:36) Gastrointestinal Upset HPI Comments Details: 53y/o Right handed male with coronary heard disease, heart failure comes for evaluation of syncope.He started having episodes of syncope about 1 year ago. It is usually when he is fatigued,urge to urinate , breath holding followed by passing out. The episode lasts for few seconds - when he wakes up he feels exhau sted. He used to be confused of why he passed out but now he knows it is due to his heart and is waiting for pacemaker.He has 2-4 episodes a week. He has urinary incontinence and tongue biting with some episodes. No abnormal movements indicative of convulsions. He has an uncle who is an epileptic and knows how seizures looks like. Most episodes are when he is sitting or standing in his house. He reports severe fatigue and daytime sleepiness. He has loud snoring , gasping arousals, insomnia - sleeps in his chair due to hip pain. He had EEG yesterday. he has h/o few concussions.No h/o heavy alcohol use. He smokes marijuana He is methadone for pain as he did not respond to other meds. [facility] Medical History (Updated 02/02/24 @ 08:15 by Dory Romo MD) Snoring Congestive heart failure Heart disease Hypoglycemia Valverde's palsy Surgical History H/O heart artery stent H/O right knee surgery Family History Mother CHF (congestive heart failure) Social History Alcohol intake: never Patient Tobacco Use Status: Never used Tobacco Substance Use Type: Marijuana Physical Exam Vital Signs: Last Vital Signs Pulse 80 02/02/24 07:36 Resp 16 02/02/24 07:36 BP 134/70 02/02/24 07:36 Pulse Ox 96 02/02/24 07:36 Oxygen Delivery Method Room Air 02/02/24 07:36 BMI result Body Mass Index 40.9 Const General: cooperative and comfortable Nutritional Appearance: obese Orientation/consciousness: patient oriented x3 Eyes Pupils: Equal, round and reactive pupils present Neuro Other: right leg edema venous stasis General: patient oriented x3, tone normal and moves all extremities Cranial nerves: Yes Facial sensation intact/muscles of mastication intact, Yes Equal, round and reactive pupils present, Yes Bilaterally intact EOM present, Yes Nystagmus not present, Yes Normal facial strength present, Yes Midline tongue present and Yes Ability to bilaterally elevate shoulders present Cognition (Neuro): normal cognition Gait exam (Neuro): Antalgic gait present Motor exam (neuro): 5/5 motor strength present throughout and Normal motor muscle tone present throughout Deep tendon reflexes (DTR's): Right triceps reflex intensity grade: 2+, Left triceps reflex intensity grade: 2+, Rt Biceps (C5, C6): 2+, Left biceps reflex intensity grade: 2+, Right brachioradialis reflex intensity grade: 2+, Left brachioradialis reflex intensity grade: 2+, Right patellar reflex intensity grade: 2+ and Left patellar reflex intensity grade: 2+ Coordination: [id number] test normal Assessment & Plan Assessment & Plan (1) Syncope: Comment: Likely cardiac ? seizure Code(s): R55 - Syncope and collapse Category: Medical Qualifiers: Encounter type: initial encounter (2) Hypersomnia: Code(s): G47.10 - Hypersomnia, unspecified Category: Medical (3) Snoring: Code(s): R06.83 - Snoring Category: Medical Plan EEG reports to review He is waiting for a pacemaker- will monitor episodes . If his episodes does not decrease with pacemaker- will do a longer EEG for evaluation. NO DRIVING F/u with cardiology Sleep study to r/o sleep apnea. Orders: Orders RT home sleep study Today G47.10 - Hypersomnia, unspecified, R06.83 - Snoring Coding Level of Care Code New Pt Level 4 (37134) Complex EM visit Add On G2211 Diagnoses Syncope R55 Encounter type: initial encounter Hypersomnia G47.10 Snoring R06.83
[2024-02-02 07:36] VITALS: BP 134/70; PULSE 80; RESP 16; O2SAT 96; BMI 40.9
== END 2024-02-02 08:20 | disposition home or self-care (01) ==
PROVIDERS: Visit Provider Psychiatry & Neurology Neurology
DX: R55 Syncope and collapse (principal); G47.10 Hypersomnia, unspecified; R06.83 Snoring
CPT/HCPCS: 99204; G2211

== ENCOUNTER → 2024-02-02 07:30 | Outpatient (BNVA) | payer OTHER, SELFPAY | PROVIDERS: Visit Provider Psychiatry & Neurology Neurology | DX: G47.10 Hypersomnia, unspecified (principal); R55 Syncope and collapse; R06.83 Snoring; Z95.0 Presence of cardiac pacemaker | CPT/HCPCS: 99202 ==

== ENCOUNTER 2024-02-24 11:06 | Outpatient (REF) | payer OTHER, SELFPAY ==
--- NOTE | ~2024-02-24 | MR_ITS ---
EXAMINATION: MR BRAIN WITHOUT CONTRAST CLINICAL INFORMATION: Unspecified convulsions; abnormal EEG ; syncopal episodes; possible seizures. COMPARISON: No priors. TECHNIQUE: MRI of the brain was obtained using routine sequences in seizure protocol without contrast. Exam performed on a 1.5 Miladys Siemens magnet. Exam submitted for review 04/26/2024 9:49 AM ENERGY EFFICIENCY SPECIALIST. FINDINGS: There is no diffusion restriction. There is no intracranial hemorrhage, acute infarction, mass effect, or edema. Ventricles, sulci, and cisterns are normal in size and configuration for patient age. No shift of midline. No abnormal hemosiderin deposition is identified. There are a numerous scattered punctate and minimally confluent foci of white matter T2 hyperintensity in the periventricular, subcortical, and hemispheric deep white matter, an central mike, nonspecific. Findings most likely represent mild to moderate small vessel ischemic changes. Configuration is not typical for inflammatory demyelination. Hippocampi bilaterally are normal in volume and signal, and are symmetric. There bilateral tiny hippocampal remnant cysts present. No heterotopic verdugo matter identified. No gross cortical dysplasia identified. No abnormal signal in the mesial temporal lobes. Midline structures appear normally formed. The pituitary gland appears normal. Posterior fossa structures appear normal. Cerebellar tonsils are appropriately located. Major flow voids are preserved within the skull base. The globes and orbital contents demonstrate no abnormalities. Paranasal sinuses are clear bilaterally. Nasal septum is midline without spur. The mastoids and tympanic cavities are normally aerated. Extracranial soft tissues demonstrate a T1 hypointense, T2 hyperintense mass in the left cheek, measuring 2.9 x 3.1 cm in axial plane, most likely a large sebaceous cyst. There is a subgaleal frontal vertex lipoma measuring approximately 2.6 x 0.3 x 2.6 cm. Immediately to the right of this and as well as posterior to this are small scalp sebaceous cysts measuring up to 0.9 cm. No suspicious bone marrow changes are evident. Mild right greater than left TM joint degenerative changes are present. Atlantoaxial joint is normal. MR/MR head/brain wo con IMPRESSION: 1. No evidence of acute intracranial hemorrhage, acute infarction, mass effect, or edema. 2. Mesial temporal lobes image normally. No hippocampal atrophy, abnormal signal, cortical dysplasia, or evidence of heterotopic verdugo matter. No imaging explanation for seizures. 3. [id number] changes of small vessel ischemia. 4. Large sebaceous cyst/epidermal inclusion cyst left cheek subcutaneous soft tissues measuring up to 2.9 x 3.1 cm. 5. Additional ancillary findings as discussed. Electronically signed by: Etienne Camejo MD 04/26/2024 11:28 AM VU
[2024-02-24 11:31] LABS: MANUAL DIFF FLAG NO
[2024-02-24 12:10] LABS: Hematocrit 37.7 % (42.0-52.0); Hemoglobin 12.7 g/dl (14.0-18.0); Red Blood Count 4.26 X10*6/uL (4.60-5.80); White Blood Count 11.2 X10*3/uL (4.8-10.8)
[2024-02-24 12:16] LABS: Basophils Absolute Auto 0.1 X10*3/uL (0.0-0.2); Basophils Percent Auto 0.8 % (0-2); Eosinophils Absolute Auto 0.6 X10*3/uL (0.0-0.4); Eosinophils Percent Auto 5.2 % (0-4); Imm Gran Abs Auto 0.07 X10*3/uL (0.00-0.03); Imm Gran Pct Auto 0.6 % (0.0-0.4); Lymphocytes Absolute Auto 2.3 X10*3/uL (1.2-4.9); Lymphocytes Percent Auto 20.2 % (20-40); Mean Corpuscular HGB Conc 33.7 g/dl (31.0-36.0); Mean Corpuscular Hemoglobin 29.8 pg (27.0-33.0); Mean Corpuscular Volume 88.5 fL (80.0-98.0); Mean Platelet Volume 10.1 fL (9.4-12.4); Monocytes Absolute Auto 0.9 X10*3/uL (0.1-1.2); Monocytes Percent Auto 7.8 % (2-11); Neutrophils Absolute Auto 7.4 x10*3/uL (2.0-8.3); Neutrophils Percent Auto 65.4 % (45-73); Platelet Count 345 X10*3/uL (160-400); Red Cell Distribution Width 14.4 % (11.0-16.0)
[2024-02-24 12:38] LABS: B Type Natriuretic Peptide 21 pg/mL (<100)
[2024-02-24 12:40] LABS: Alanine Aminotransferase 35 U/L (0-40); Albumin Level 4.1 g/dL (3.5-5.0); Alkaline Phosphatase 95 U/L (39-117); Anion Gap 12 (12-20); Aspartate Amino Transferase 24 U/L (5-37); Bilirubin Total 0.2 mg/dL (0.0-1.0); Blood Urea Nitrogen 18 mg/dL (9-16); Calcium 9.5 mg/dL (8.4-10.2); Carbon Dioxide 32 mmol/L (22-29); Chloride 101 mmol/L (96-108); Cholesterol 184 mg/dL (<200); Estimated Glomerular Filt Rate > 60; Glucose Fasting 124 mg/dL (60-99); HDL Cholesterol 30 mg/dL (>40); LDL Cholesterol Calculated 94 mg/dL (<100); Potassium 3.6 mmol/L (3.3-5.1); Sodium 141 mmol/L (135-145); Total Protein 7.9 g/dL (6.5-8.0); Triglycerides 300 mg/dL (<150)
== END 2024-02-24 11:07 | disposition home or self-care (01) ==
LOC: HO.MRI 11:06
PROVIDERS: Referring Provider Nurse Practitioner Family; Visit Provider Psychiatry & Neurology Neurology
DX: R56.9 Unspecified convulsions (principal); I24.9 Acute ischemic heart disease, unspecified; I21.4 Non-ST elevation (NSTEMI) myocardial infarction; I25.10 Atherosclerotic heart disease of native coronary artery without angina pectoris; R60.0 Localized edema; I49.5 Sick sinus syndrome
CPT/HCPCS: 36415; 70551; 80053; 80061; 83880; 85025

== ENCOUNTER → 2024-02-24 19:48 | Outpatient (BNV) | payer OTHER, SELFPAY | PROVIDERS: Referring Provider Nurse Practitioner Family; Visit Provider Radiology Diagnostic Radiology | DX: R94.01 Abnormal electroencephalogram [EEG] (principal) | CPT/HCPCS: 70551 ==

== ENCOUNTER → 2024-03-28 08:52 | Outpatient (REF) | payer OTHER, SELFPAY | LOC: HO.SL 08:52 | PROVIDERS: Visit Provider Psychiatry & Neurology Neurology | DX: R06.83 Snoring (principal); G47.10 Hypersomnia, unspecified | CPT/HCPCS: 95806 ==

== ENCOUNTER 2024-04-13 09:00 | Outpatient (RCR) | payer OTHER, SELFPAY | END 2024-05-10 12:41 | disposition home or self-care (01) | LOC: HO.WCC 09:00 | PROVIDERS: Visit Provider Surgery | DX: I87.331 Chronic venous hypertension (idiopathic) with ulcer and inflammation of right lower extremity (principal); L97.812 Non-pressure chronic ulcer of other part of right lower leg with fat layer exposed; I89.0 Lymphedema, not elsewhere classified; I25.2 Old myocardial infarction; I11.0 Hypertensive heart disease with heart failure; I50.9 Heart failure, unspecified; I73.9 Peripheral vascular disease, unspecified; I25.10 Atherosclerotic heart disease of native coronary artery without angina pectoris; Z86.718 Personal history of other venous thrombosis and embolism; Z87.891 Personal history of nicotine dependence; Z79.899 Other long term (current) drug therapy | CPT/HCPCS: 11042; 11045; 97597; 97598; 99212; 99214 ==

== ENCOUNTER → 2024-04-26 02:11 | Outpatient (BNV) | payer OTHER, SELFPAY | PROVIDERS: Visit Provider Psychiatry & Neurology Neurology | DX: G47.33 Obstructive sleep apnea (adult) (pediatric) (principal) | CPT/HCPCS: 95811 ==

== ENCOUNTER → 2024-04-26 20:30 | Outpatient (REF) | payer OTHER, SELFPAY ==
--- OUTSIDE RECORDS SUMMARY | 2024-04-27 22:34 | XMS_ITS ---
Author Name [facility] Organization Unknown Results Test Name/Text Value Interpretation Date Range Source Glucose Bld-mCnc 133mg/dL Normal [id number] 70 - 199 [facility] History of Medication Use Medication Directions Dispensed Refills Start Date End Date Stat No known medications No known medications 03/26/2024 9 active carBAMazepine XR (Tegretol XR) 200 mg 12 hr tablet Take 1 tablet (200 mg total) by mouth 2 (two) times a day. 03/24/2024 9 active acetaminophen (TYLENOL) tablet 650 mg 650 mg, oral, Every 4 hours PRN, fever - temperature GREATER than 38 C (100.4 F), Starting on Thu03/22/24 at 0829, Recovery (only) 03/24/2024 9 active clopidogreL (PLAVIX) 75 mg tablet Take 1 tablet (75 mg total) by mouth 1 (one) time each day. 03/24/2024 9 active lactated Ringer's infusion 100 mL/hr, intravenous, Continuous, Starting on Thu03/22/24 at 1130, Recovery (only) 03/24/2024 9 active atorvastatin (LIPITOR) 40 mg tablet Take 2 tablets (80 mg total) by mouth at bedtime. 03/24/2024 9 active diphenhydrAMINE (BENADRYL) injection 25 mg 25 mg, intravenous, Every 15 min PRN, itching, Starting on Thu03/22/24 at 1109, Recovery (only) 03/24/2024 9 active promethazine (PHENERGAN) tablet 25 mg [Order 1 Start] Name: promethazine (PHENERGAN) tablet 25 mg Signed Summary: 25 mg, oral, Every 6 hours PRN, nausea, vomiting, Starting on Thu03/22/24 at 1109, Recovery (only), 2nd Line Option: -Give UT if patient is unable to take orally. -If inadequate response within 30 minutes, proceed to next-li 03/24/2024 active metFORMIN (GLUCOPHAGE) 500 mg tablet Take 1 tablet (500 mg total) by mouth 2 (two) times a day with meals. 03/24/2024 active ondansetron ODT (ZOFRAN-ODT) disintegrating tablet 4 mg [Order 1 Start] Name: ondansetron ODT (ZOFRAN-ODT) disintegrating tablet 4 mg Signed Summary: 4 mg, oral, Every 8 hours PRN, vomiting, nausea, Starting on Thu03/22/24 at 1109, Recovery (only), -Give IV if patient is unable to take orally. -If inadequate response within 30 minutes, proceed to next-li 03/24/2024 active meperidine (PF) (DEMEROL) 25 mg/mL injection 12.5 mg 12.5 mg, intravenous, Every 15 min PRN, rigors, shivering, Starting on Thu03/22/24 at 1109, For 4 doses, Recovery (only) 03/24/2024 active lisinopriL (PRINIVIL,ZESTRIL) 10 mg tablet Take 1 tablet (10 mg total) by mouth 1 (one) time each day. 03/24/2024 active isosorbide mononitrate (IMDUR) 30 mg 24 hr tablet Take 1 tablet (30 mg total) by mouth 1 (one) time each day. 03/24/2024 active methadone (DOLOPHINE) 10 mg/5 mL solution Take 50 mL (100 mg total) by mouth 1 (one) time each day. 03/24/2024 active oxyCODONE (ROXICODONE) immediate release tablet 5 mg 5 mg, oral, Every 4 hours PRN, moderate pain or when therapies for mild pain were not effective, Starting on Thu03/22/24 at 1109, For 2 doses, Recovery (only) 03/24/2024 active aspirin 81 mg EC tablet Take 1 tablet (81 mg total) by mouth 1 (one) time. 03/24/2024 12/31/999 9 active furosemide (LASIX) 80 mg tablet Take 1 tablet (80 mg total) by mouth 2 (two) times a day. 03/24/2024 9 active Problems Problem Status Onset Date Problem Type Date of Resoluti on Source SSS (sick sinus syndrome) active 2024-02-[address] [facility]
== END ==
LOC: HO.SL 20:30
PROVIDERS: Visit Provider Psychiatry & Neurology Neurology
DX: G47.33 Obstructive sleep apnea (adult) (pediatric) (principal)
CPT/HCPCS: 95811

== ENCOUNTER 2024-05-02 15:03 | Outpatient (AMB) | payer OTHER, SELFPAY ==
[2024-05-02 15:21] VITALS: BP 100/62; PULSE 79; BMI 41.9
--- NOTE | 2024-05-02 15:21 | A.OFFVIS_ITS ---
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 Required: No Allergies aspirin Adverse Reaction (Verified 05/02/24 15:22) Gastrointestinal Upset Medication List - Last Reconciled 05/02/24 by Florecita Manning, DEENA aspirin 81 mg PO DAILY atorvastatin 80 mg PO BEDTIME carbamazepine ER (Tegretol XR) 200 mg PO BID clopidogrel 75 mg PO DAILY furosemide (Lasix) 80 mg PO BID 90 days isosorbide mononitrate ER 30 mg PO DAILY lisinopril 20 mg PO DAILY metformin 500 mg PO BID methadone (Methadone Intensol) 100 mg PO DAILY HPI HPI 3 mth fu: Details: Anthony is a 54-year-old male with past medical history of hypertension, newer diagnosis of DM, COPD, chronic back pain, CAD, RCA stent 11/2023, Sinus pauses as seen on ANABEL, Sleep apnea which is currently untreated, Syncope/ seizures and being evaluated by neurology who recently had a leadless pacemaker inserted and now presents for follow up. Today he reports that he has been doing better since his pacemaker was placed. He says he has not had any of episodes that include strong urge to urinate then loss of consciousness. He says once he went outside and was very short of breath in the cold air and did pass out. He has had no witnessed seizure activity. He has not had any chest discomfort at rest or with activity. No PND, orthopnea. Leg edema has improved some. He did go [facility] for a few visits. He says the open wounds on his right lower extremity have now healed. He currently has a Marco Antonio wrap on that leg and a compression stocking on his left leg. His weight continues to rise and he says he is not eating much. He has chronic issues with low back pain and continues to sleep in a upright position. He is not using any CPAP or oxygen at night. He has a follow-up with Neurology tomorrow. He overall does light activities. He has not been taking his metformin. He does not have a PCP still. Prior cigarette smoker, quit approximately 10 years ago. He does smoke marijuana daily. Denies any routine alcohol use. Says he missed his follow-up appointment with the surgeon who put his pacemaker in. PFSH Medical History Obstructive sleep apnea hypopnea, severe Snoring Congestive heart failure Heart disease Hypoglycemia Valverde's palsy Surgical History H/O heart artery stent H/O right knee surgery Family History Mother CHF (congestive heart failure) Social History Alcohol intake: never Patient Tobacco Use Status: Never used Tobacco Substance Use Type: Marijuana Review of Systems Const All systems reviewed & are unremarkable except as noted in HPI and below ENT Denies dizziness Card Denies chest pain, Denies chest pain at rest, Denies chest pain with activity, Denies rapid heart rate, Denies pedal edema, Denies edema, Denies leg edema, Denies lightheadedness, Denies palpitations, Denies dyspnea, Reports dyspnea on exertion and Denies orthopnea Resp Denies cough, Denies dyspnea and Reports dyspnea on exertion GI Denies hematochezia and Denies change in stool character Musc Denies abnormal gait, Denies limited range of motion, Denies muscle cramps, Denies muscle weakness, Denies numbness, Denies radiating pain into limb, Denies stiffness and Denies tingling Neuro Denies abnormal gait, Denies dizziness, Denies numbness and Denies tingling Endo Denies palpitations Physical Exam Vital Signs: Last Vital Signs Pulse 79 05/02/24 15:21 BP 100/62 05/02/24 15:21 BMI result Body Mass Index 41.9 Const Other: Morbidly obese General: cooperative and no acute distress Orientation/consciousness: patient oriented x3 HEENT Head: Yes normal to inspection Neck Neck: Yes normal visual inspection and Yes no JVD Carotids: normal carotid upstroke Resp Effort & Inspection: normal respiratory effort Auscultation: clear to auscultation bilaterally, no crackles, no rales, no rhonchi and no wheezes Cardio Jugular venous distension: no JVD Rate: regular rate Rhythm: regular rhythm Heart sounds: S1 normal heart sound present, S2 normal heart sound present, no murmurs and no rubs Neuro General: patient oriented x3 Extrem Other: Marco Antonio wrap to right lower extremity, compression sock to left lower extremity ( he reports open wounds have healed) Pacer site right groin well healed, easily palpable femoral pulse. Psych Appearance: grossly normal Mental Status: mental status grossly normal Speech and movement: Normal speech and movement present Assessment & Plan Assessment & Plan (1) CAD (coronary artery disease): Code(s): I25.10 - Atherosclerotic heart disease of [place] coronary artery without angina pectoris Category: Medical Plan: Prior reports of atypical chest discomfort. He has cardiac risk factors of hypertension, smoking, new diabetes, family history of early CAD including his twin brother dying of [place] age 49. A pharmacological nuclear stress test was done on 03/05/2023 showing normal myocardial perfusion imaging, EF 58%. An echocardiogram was done on 02/07/2023 showing normal study. These tests were reassuring at that time. In November 2023 he presented to [facility] with chest discomfort and ruled in for ACS. He described it as a cold feeling in his mid chest that persisted. He underwent cardiac catheterization showing mid RCA 99% stenosis, angioplasty, arthrectomy and RINA placed. He does have residual PDA stenosis and ostial circumflex/ OM1 stenosis- these lesions were noted to be not ideal for PCI and recommendation was for medical therapy. He was put on aspirin and Plavix. Moderate dose atorvastatin. Since that time he has reported some random atypical symptoms like he did have originally. He was put on isosorbide without significant change in his symptoms. Today he reports no anginal sounding symptoms. Will continue with med management including aspirin indefinitely. Plavix uninterrupted for at least 1 year . Continue atorvastatin with ideal LDL goal less than 70. Continue isosorbide and lisinopril. With known cardiac pauses he was not put on a beta-tara. He now has pacemaker in place. Blood pressure today 100/62. Signs and symptoms of angina, cardiac risk factor modification discussed. (2) Syncope: Comment: Likely cardiac ? seizure Code(s): R55 - Syncope and collapse Category: Medical Qualifiers: Encounter type: initial encounter Plan: Patient describes multiple fainting events in the last year and even having events prior to that time. He states the 1st episode of a symptom is a strong urge to urinate, his feels like he can not take a breath in and then he goes out . His events have been witnessed by his current roommate and no seizure li ke movements reported. While unconscious he does have urinary incontinence He does report being out of it for approximately 30 minutes after each event. He says he can bring on an episode by walking and talking at the same time. More recently he has been able to control the symptoms somewhat if he sits and fully relaxes. Prior Holter monitor did not show arrhythmia. Echocardiogram was normal. He has not had significant hypotension. A cardiac event monitor was done on 09/09/2023 for 30 days, patient wore it for 20 days and there were 5 cardiac pauses ranging from 3-5.8 seconds during daytime hours. No clear correlation to a syncopal event at this time. He was suspected to have sleep apnea. He was referred to Dr Romo for evaluation ( syncope vs seizures) and sleep study. He has undergone evaluation and has a follow up visit with her tomorrow. He was seen by EP and did have a leadless pacemaker placed on 03/22/24. He now feels that his episodes have decreased. It is possible that his syncope/seizure episodes are related to his cardiac pauses however patient was having more episodes than pauses seen on his event monitor. I had concerns that his episodes were related to seizures due to the urinary incontinence and prolonged recovery after events. He will follow with Neurology as planned. Patient informed that he should not be driving. (3) Sleep apnea: Code(s): G47.30 - Sleep apnea, unspecified Category: Medical Plan: He reports prior diagnosis of sleep apnea. Was told he needed to wear oxygen at night but does not. That was years ago. He tells me he does not sleep and has to be in an upright position due to chronic back pain. He leans against the counter and sleeps on a love seat. He states he would not be able to do an in- hospital sleep study. Home sleep study done on 04/05/24 shows severe sleep ap sadie with hypoxia. He has follow up with Dr Ariella Romo tomorrow. (4) Sinus pause: Code(s): I45.5 - Other specified heart block Category: Medical Plan: As above (5) S/P cardiac cath: Comment: 10/19/2023 left main minimal irregularities, lad mild diffuse disease, left circumflex proximal ostial 85% stenosis, 1st OM mid subsection 70% stenosis, mid RCA 99% stenosis, culprit lesion, right PDA ostial 75% stenosis, angioplasty and arthrectomy to the RCA, RINA placed, significant ostial PDA stenosis, severe ostial circumflex stenosis and OM 1 disease lesions are not ideal for PCI, rec ommend medical therapy and optimizing antianginal. Code(s): Z98.890 - Other specified postprocedural states Category: Surgical Plan: As above. Continue Plavix uninterrupted until 10/18/24 (6) NSTEMI (non-ST elevated myocardial infarction): Code(s): I21.4 - Non-ST elevation (NSTEMI) myocardial infarction Category: Medical Plan: As above (7) Lower extremity edema: Code(s): R60.0 - Localized edema Category: Medical Plan: Patient has issues with chronic edema in his lower extremities, right greater than left. He also has had recurrent cellulitis in the right lower leg and on last visit he had open wounds that are draining at times. He was self treating it with alcohol and peroxide. He had gone to urgent care in recent past and was on antibiotics for this. Last visit he was referred to the wound clinic. He says he did not get an appnt for another 6 week - then he was able to get treatment. His wounds are reported to be healed at this time. His edema has improved some. Continue lasix. Will try to help him get a PCP so that his general care can be better managed. (8) Pacemaker: Code(s): Z95.0 - Presence of cardiac pacemaker Category: Medical Plan: New Leadless pacemaker placed on 03/22/24. [facility] device. Right groin insertion site is well healed. Will arrange for an office interrogation - set up for 05/23/24 (9) Obesity: Code(s): E66.9 - Obesity, unspecified Category: Medical Plan: Morbidly obese. Has not been able to lose weight on his own. He has chronic back pain which limits his physical activity. He is asking about diet plans and weight loss programs. Will refer him [place] [facility] [place]. (10) Hyperlipidemia: Code(s): E78.5 - Hyperlipidemia, unspecified Category: Medical Plan: LDL goal <70. Labs done 02/24/24 shows LDL 94. Will add Zetia to his high dose atorvastatin. Plan for recheck of fasting lipid in 2 mo Plan Time spent on chart review, documentation, interview and assessment, Referral, seeking out PCP, care management - complex case Orders: Referrals Bariatric Surgery Referral E66.9 - Obesity, unspecified Medications: New ezetimibe (Zetia) Cholesteroling lowering medication: take along with Atorvastatin 10 mg PO DAILY 30 tabs 5RF Coding Level of Care Code Est Pt Level 5 (35846) Complex EM visit Add On G2211 Diagnoses CAD (coronary artery disease) I25.10 Syncope R55 Encounter type: initial encounter Sleep apnea G47.30 Sinus pause I45.5 S/P cardiac cath Z98.890 NSTEMI (non-ST elevated myocardial infarction) I21.4 Lower extremity edema R60.0 Pacemaker Z95.0 Obesity E66.9 Hyperlipidemia E78.5 Time Spent (min) 50 Comment
== END 2024-05-02 16:11 | disposition home or self-care (01) ==
PROVIDERS: Visit Provider Nurse Practitioner Family
DX: I21.4 Non-ST elevation (NSTEMI) myocardial infarction (principal); I25.10 Atherosclerotic heart disease of native coronary artery without angina pectoris; I45.5 Other specified heart block; Z95.0 Presence of cardiac pacemaker; R55 Syncope and collapse; G47.30 Sleep apnea, unspecified; Z98.890 Other specified postprocedural states; R22.43 Localized swelling, mass and lump, lower limb, bilateral; E78.5 Hyperlipidemia, unspecified; E66.9 Obesity, unspecified
CPT/HCPCS: 99215; G2211

== ENCOUNTER → 2024-05-02 15:03 | Outpatient (BNVA) | payer OTHER, SELFPAY | PROVIDERS: Visit Provider Nurse Practitioner Family | DX: I10 Essential (primary) hypertension (principal); I25.10 Atherosclerotic heart disease of native coronary artery without angina pectoris; R55 Syncope and collapse; I45.5 Other specified heart block; I21.4 Non-ST elevation (NSTEMI) myocardial infarction; R60.0 Localized edema; E66.9 Obesity, unspecified; E78.5 Hyperlipidemia, unspecified; G47.30 Sleep apnea, unspecified; Z95.0 Presence of cardiac pacemaker; Z98.890 Other specified postprocedural states | CPT/HCPCS: 99212 ==

== ENCOUNTER 2024-05-03 12:59 | Outpatient (AMB) | payer OTHER, SELFPAY ==
[2024-05-03 13:04] VITALS: BP 115/58; PULSE 70; O2SAT 96; BMI 41.9
--- NOTE | 2024-05-03 13:04 | A.OFFVIS_ITS ---
Vital Signs 05/03/24 13:04 Height 5 ft 10 in Weight 292 lb BMI 41.9 BP 115/58 L Blood Pressure Location Rt brachial Position Sitting Pulse 70 Pulse Source Pulse Oximeter Pulse Oximetry (%) 96 Oxygen Delivery Method Room Air Intake Visit Reasons: f/u appt with Bobby per MD Account Resolution Specialist Required: No Accompanied by: Self / Same As Patient Allergies aspirin Adverse Reaction (Verified 05/03/24 13:07) Gastrointestinal Upset Medication List - Last Reconciled 05/03/24 by Bobby Camara PA-C aspirin 81 mg PO DAILY atorvastatin 80 mg PO BEDTIME carbamazepine ER (Tegretol XR) 200 mg PO BID clopidogrel 75 mg PO DAILY ezetimibe (Zetia) 10 mg PO DAILY furosemide (Lasix) 80 mg PO BID 90 days isosorbide mononitrate ER 30 mg PO DAILY lisinopril 20 mg PO DAILY metformin 500 mg PO BID methadone (Methadone Intensol) 100 mg PO DAILY Do you need a note to return to daycare/school/sports/work: No HPI Comments Details: 53y/o Right handed male with coronary heart disease, heart failure comes for evaluation of sleep apnea. CPAP Titration 04/26/2024 PSG 04/05/2024 Severe obstructive Sleep Apnea SARA 65 and Oxygen Galen 73% MRI Reviewed Normal Study EEG was Normal 22 Mar 2024 pacemaker leadless, 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 Sleep is terrible, he is in pain and continues to have daytime excessive sleepiness. Continues to snore loudly, gasping for air, and choking. 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 Denies Syncope. Twitches and abnormal movements of entire body, and he drops things from his hands, L. hand is worse than R. He reports severe fatigue and daytime sleepiness. He has h/o few concussions. No h/o heavy alcohol use. He smokes marijuana, 8 joints a day. [facility] Medical History Obstructive sleep apnea hypopnea, severe Snoring Congestive heart failure Heart disease Hypoglycemia Valverde's palsy Surgical History H/O heart artery stent H/O right knee surgery Family History Mother CHF (congestive heart failure) Social History Alcohol intake: never Patient Tobacco Use Status: Never used Tobacco Substance Use Type: Marijuana Review of Systems Const All systems reviewed & are unremarkable except as noted in HPI and below Physical Exam Vital Signs: Last Vital Signs Pulse 70 05/03/24 13:04 BP 115/58 L 05/03/24 13:04 Pulse Ox 96 05/03/24 13:04 Oxygen Delivery Method Room Air 05/03/24 13:04 BMI result Body Mass Index 41.9 Const General: cooperative and comfortable Nutritional Appearance: obese Orientation/consciousness: patient oriented x3 Eyes Pupils: Equal, round and reactive pupils present Neuro Other: right leg edema venous stasis General: patient oriented x3, tone normal and moves all extremities Cranial nerves: Yes Facial sensation intact/muscles of mastication intact, Yes Equal, round and reactive pupils present, Yes Bilaterally intact EOM present, Ye s Nystagmus not present, Yes Normal facial strength present, Yes Midline tongue present and Yes Ability to bilaterally elevate shoulders present Cognition (Neuro): normal cognition Gait exam (Neuro): Antalgic gait present Motor exam (neuro): 5/5 motor strength present throughout and Normal motor muscle tone present throughout Deep tendon reflexes (DTR's): Right triceps reflex intensity grade: 2+, Left triceps reflex intensity grade: 2+, Rt Biceps (C5, C6): 2+, Left biceps reflex intensity grade: 2+, Right brachioradialis reflex intensity grade: 2+, Left brachioradialis reflex intensity grade: 2+, Right patellar reflex intensity grade: 2+ and Left patellar reflex intensity grade: 2+ Coordination: [id number] test normal Results Reviewed Results Reviewed: MRI EEG Labs PSG 04/05/2024 Severe obstructive Sleep Apnea SARA 65 and Oxygen Galen 73% Assessment & Plan Assessment & Plan (1) Obesity: Code(s): E66.9 - Obesity, unspecified Category: Medical Qualifiers: Obesity type: due to excess calories Serious obesity comorbidity presence: with serious comorbidity Body mass index: BMI 40.0-44.9 (2) Obstructive sleep apnea hypopnea, severe: Code(s): G47.33 - Obstructive sleep apnea (adult) (pediatric) Category: Medical (3) Snoring: Code(s): R06.83 - Snoring Category: Medical (4) Palpitation: Code(s): R00.2 - Palpitations Category: Medical Plan CPAP Titration was submitted in Mar 2024, 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 PSG 04/05/2024 Severe obstructive Sleep Apnea SARA 65 and Oxygen Galen 73% Continue taking Tegretol 200mg PO BID for LUE twitches. Will f/u in 3 months once patient has started the CPAP therapy and adjusted for pressures accordingly. Coding Level of Care Code Est Pt Level 4 (42299) Complex EM visit Add On G2211 Diagnoses Obesity E66.9 Obesity type: due to excess calories Serious obesity comorbidity presence: with serious comorbidity Body mass index: BMI 40.0-44.9 Obstructive sleep apnea hypopnea, severe G47.33 Snoring R06.83 Palpitation R00.2
== END 2024-05-03 14:04 | disposition home or self-care (01) ==
LOC: HO.HSMS 12:59
PROVIDERS: Visit Provider Physician Assistant Medical
DX: E66.9 Obesity, unspecified (principal); G47.33 Obstructive sleep apnea (adult) (pediatric); R06.83 Snoring; R00.2 Palpitations
CPT/HCPCS: 99214; G2211

== ENCOUNTER → 2024-05-03 12:59 | Outpatient (BNVA) | payer OTHER, SELFPAY | PROVIDERS: Visit Provider Physician Assistant Medical | DX: G47.33 Obstructive sleep apnea (adult) (pediatric) (principal); R06.83 Snoring; R00.2 Palpitations; E66.9 Obesity, unspecified; Z68.41 Body mass index [BMI] 40.0-44.9, adult | CPT/HCPCS: 99212 ==

== ENCOUNTER 2024-05-23 13:12 | Outpatient (AMB) | payer OTHER, SELFPAY ==
[2024-05-23 13:31] VITALS: BP 134/58; PULSE 106; BMI 41.9
--- NOTE | 2024-05-23 13:31 | A.OFFVIS_ITS ---
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 Allergies aspirin Adverse Reaction (Verified 05/23/24 13:34) Gastrointestinal Upset Medication List - Last Reconciled 05/23/24 by EDENA Chahal aspirin 81 mg PO DAILY atorvastatin 80 mg PO BEDTIME carbamazepine ER (Tegretol XR) 200 mg PO BID clopidogrel 75 mg PO DAILY ezetimibe (Zetia) 10 mg PO DAILY furosemide (Lasix) 80 mg PO BID 90 days isosorbide mononitrate ER 30 mg PO DAILY lisinopril 10 mg PO DAILY metformin 500 mg PO BID methadone (Methadone Intensol) 100 mg PO DAILY HPI HPI [address] [facility] gusman: Details: Anthony is a 54-year-old male with past medical history of hypertension, newer diagnosis of DM, COPD, chronic back pain, CAD, RCA stent 11/2023, Sinus pauses as seen on ANABEL, Sleep apnea and following with sleep medicine, Syncope/ seizures and being evaluated by neurology who recently had a leadless pacemaker inserted and now presents device check and for follow up. Today he reports that he has been doing better since his pacemaker was placed. He says he has not had any of episodes that include strong urge to urinate then loss of consciousness. He has not had any syncope since I last saw him 1 month ago. He has had no witnessed seizure activity. He is reporting a cold feeling in his chest that occurs randomly causing him discomfort and concern. He is not having this symptom brought on by physical activity. He has gotten the feeling when he was in the house and when he was outside. He has shortness of breath with physical activity which is not new. No PND, orthopnea. Leg edema is stable. He is using Marco Antonio wraps bilaterally. He says he has no open wounds. He no longer needs to go to the [facility]ound [facility]. His weight has been stable the last few weeks. He has not heard yet from the bariatric program. He says he does not eat much. He is mostly sedentary due to issues with chronic low back pain. He continues to sleep in an upright position due to his back pain. He has tried to sleep with his new CPAP mask but says he begins to choke. He believes the settings need to be adjusted and will be contacting that provider. He says he is back on metformin. He is taking all his meds as directed. He has not heard from any PCP office yet. Prior cigarette smoker, quit approximately 10 years ago. Continues to smoke marijuana daily. Denies any routine alcohol use. [facility] Medical History Obstructive sleep apnea hypopnea, severe Snoring Congestive heart failure Heart disease Hypoglycemia Valverde's palsy Surgical History H/O heart artery stent H/O right knee surgery Family History Mother CHF (congestive heart failure) Social History Alcohol intake: never Patient Tobacco Use Status: Never used Tobacco Substance Use Type: Marijuana Review of Systems Const All systems reviewed & are unremarkable except as noted in HPI and below ENT Denies dizziness Card Reports chest pain, Reports chest pain at rest, Denies chest pain with activity, Denies rapid heart rate, Denies pedal edema, Denies edema, Denies leg edema, Denies lightheadedness, Denies palpitations, Denies dyspnea, Reports dyspnea on exertion and Denies orthopnea Resp Denies cough, Denies dyspnea and Reports dyspnea on exertion GI Denies hematochezia and Denies change in stool character Musc Details: bilateral leg swelling - marco antonio wraps on them - denies any open skin on legs Denies abnormal gait, Denies limited range of motion, Denies muscle cramps, Denies muscle weakness, Denies numbness, Denies radiating pain into limb, Denies stiffness and Denies tingling Neuro Denies abnormal gait, Denies dizziness, Denies numbness and Denies tingling Endo Denies palpitations Physical Exam Vital Signs: Last Vital Signs Pulse 106 H 05/23/24 13:31 BP 134/58 L 05/23/24 13:31 BMI result Body Mass Index 41.9 Const Other: Morbidly obese General: cooperative and no acute distress Orientation/consciousness: patient oriented x3 HEENT Other: Mass left cheek - likely cyst Neck Neck: Yes normal visual inspection and Yes no JVD Carotids: normal carotid upstroke Resp Effort & Inspection: normal respiratory effort Auscultation: clear to auscultation bilaterally, no crackles, no rales, no rhonchi and no wheezes Cardio Rate: regular rate Rhythm: regular rhythm Heart sounds: S1 normal heart sound present, S2 normal heart sound present, no murmurs and no rubs Neuro General: patient oriented x3 Extrem Other: Marco Antonio wrap to each lower extremity to help reduce edema Psych Appearance: grossly normal Mental Status: mental status grossly normal Speech and movement: Normal speech and movement present Office Procedures Cardiac Device Check Cardiac Device Check Details: [facility] Leadless Pacemaker, AAI mode, low rate 50, battery 15.3 years, threshold 0.5 v at 0.5 ms, amplitude reduced from 3.5 to 2 volts to preserve battery [id number] Cardiac Device Check, leadless/single lead pacemaker Procedure code (CPT) selection complete Assessment & Plan Assessment & Plan (1) CAD (coronary artery disease): Code(s): I25.10 - Atherosclerotic heart disease of [place] coronary artery without angina pectoris Category: Medical Plan: Prior reports of atypical chest discomfort. He has cardiac risk factors of hypertension, smoking, new diabetes, family history of early CAD including his twin brother dying of [place] age 49. A pharmacological nuclear stress test was done on 03/05/2023 showing normal myocardial perfusion imaging, EF 58%. An echocardiogram was done on 02/07/2023 showing normal study. These tests were reassuring at that time. In November 2023 he presented to [facility] with chest discomfort and ruled in for ACS. He described it as a cold feeling in his mid chest that persisted. He underwent cardiac catheterization showing mid RCA 99% stenosis, angioplasty, arthrectomy and RINA placed. He does have residual PDA stenosis and ostial circumflex/ OM1 stenosis- these lesions were noted to be not ideal for PCI and recommendation was for medical therapy. He was put on aspirin and Plavix. Moderate dose atorvastatin. Since that time he has reported some random atypical symptoms like he did have originally. He was put on isosorbide without significant change in his symptoms. Last echo done 10/18/2023 showed moderately dilated LV, EF greater than 70%, no wall motion abnormalities. Today he reports that in the last few weeks he has noticed increasing random cold feelings in his chest. He describes it as discomfort that can last several minutes. He has no known triggers. He does not get this symptom with walking. His heart rate is mildly elevated today. Will add metoprolol XL 25 mg daily and continue isosorbide as dual antianginals. Continue aspirin and Plavix as dual antianginals for at least 1 year post stent (10/18/24), continue atorvastatin with ideal LDL goal less than 70. Continue lisinopril for good blood pressure control, goal less than 130/85. His current symptom is like his prior angina. Will check a pharmacological nuclear stress test to evaluate for any ischemia. He has shortness of breath with exertion and leg edema and will not be able to exercise on the treadmill. Signs and symptoms of angina reviewed. Emergency care if ever needed for symptoms. Cardiology follow-up 3 months, sooner if needed. (2) S/P cardiac cath: Comment: 10/19/2023 left main minimal irregularities, lad mild diffuse disease, left circumflex proximal ostial 85% stenosis, 1st OM mid subsection 70% stenosis, mid RCA 99% stenosis, culprit lesion, right PDA ostial 75% stenosis, angioplasty and arthrectomy to the RCA, RINA placed, significant ostial PDA stenosis, severe ostial circumflex stenosis and OM 1 disease lesions are not ideal for PCI, recommend medical therapy and optimizing antianginal. Code(s): Z98.890 - Other specified postprocedural states Category: Surgical Plan: As above. Continue Plavix uninterrupted until 10/18/24 (3) Syncope: Comment: Likely cardiac ? seizure Code(s): R55 - Syncope and collapse Category: Medical Qualifiers: Encounter type: initial encounter Plan: Patient describes multiple fainting events in the last year and even having events prior to that time. He states the 1st episode of a symptom is a strong urge to urinate, his feels like he can not take a breath in and then he goes out . His events have been witnessed by his current roommate and no seizure like movements reported. While unconscious he does have urinary incontinence He does report being out of it for approximately 30 minutes after each event. He previously said could bring on an episode by walking and talking at the same time. More recently he has been able to control the symptoms somewhat if he sits and fully relaxes. Prior Holter monitor did not show arrhythmia. Echocardiogram was normal. He has not had significant hypotension. A cardiac event monitor was done on 09/09/2023 for 30 days, patient wore it for 20 days and there were 5 cardiac pauses ranging from 3-5.8 seconds during daytime hours. No clear correlation to a syncopal event at this time of these pauses. He had been referred to Dr Romo for evaluation ( syncope vs seizures) and sleep study. Based on her last no it is unclear if seizure activity was suspected. He was put on Tegretol but he says it is being used for a tremor. He has been confirmed to have sleep apnea and now has a new CPAP mask. He was seen by EP and did have a leadless pacemaker placed on 03/22/24. At this time he tells me that his fainting episodes have improved overall. He has not had any since his last visit with me 1 month ago. He does have the pacemaker in place but only paces less than 1% of the time - so he is not having frequent cardiac pauses. He is on the Tegretol and that may be helping to suppress any seizure activity. Will check with Dr. Romo regarding this. (4) Sinus pause: Code(s): I45.5 - Other specified heart block Category: Medical Plan: As above (5) Obesity: Code(s): E66.9 - Obesity, unspecified Category: Medical Qualifiers: Body mass index: BMI 40.0-44.9 Obesity type: due to excess calories Serious obesity comorbidity presence: with serious comorbidity Plan: Morbidly obese. Has not been able to lose weight on his own. He has chronic back pain which limits his physical activity. He is asking about diet plans and weight loss programs. Will refer him to the [facility] Bariatric program. (6) Sleep apnea: Code(s): G47.30 - Sleep apnea, unspecified Category: Medical Plan: He reports prior diagnosis of sleep apnea. Was told he needed to wear oxygen at night but does not. That was years ago. He tells me he does not sleep and has to be in an upright position due to chronic back pain. He leans against the counter and sleeps on a love seat. He states he would not be able to do an in- hospital sleep study. Home sleep study done on 04/05/24 shows severe sleep apnea with hypoxia. He has follow up with Dr Ariella Romo and now has a CPAP mask. Says he is not using it consistently because he believes the settings need adjusting. He will reach out to Dr. Romo. (7) Obstructive sleep apnea hypopnea, severe: Code(s): G47.33 - Obstructive sleep apnea (adult) (pediatric) Category: Medical Plan: As above (8) NSTEMI (non-ST elevated myocardial infarction): Code(s): I21.4 - Non-ST elevation (NSTEMI) myocardial infarction Category: Medical Plan: As above (9) Lower extremity edema: Code(s): R60.0 - Localized edema Category: Medical Plan: Patient has issues with chronic edema in his lower extremities, right greater than left. He also has had recurrent cellulitis in the right lower leg and prior visit had an open wound that was draining. He had been referred to the [facility] and underwent treatment. At this point he continues to have leg edema however no open or draining wounds. Says his legs are swollen but doing better overall. He uses Marco Antonio wraps on them each day. Continue current Lasix. He says he has been taking extra doses to help with the swelling. Will check BMP, BNP today. (10) Pacemaker: Code(s): Z95.0 - Presence of cardiac pacemaker Category: Medical Plan: New Leadless pacemaker placed on 03/22/24. [facility] device. Office interrogation today shows device is functioning normally. Next office interrogation 6 months, sooner if needed. His device does not have the capability of remote monitoring. (11) Hyperlipidemia: Code(s): E78.5 - Hyperlipidemia, unspecified Category: Medical Plan: LDL goal <70. Labs done 02/24/24 shows LDL 94. Previously added Zetia to his high dose atorvastatin. Will add lipids onto his blood work today. Plan Time spent on chart review, documentation, interviewed assessment Orders: Orders Lipid Panel Today I25.10 - Atherosclerotic heart disease of [place] coronary artery without angina pectoris Basic Metabolic Panel Today I21.4 - Non-ST elevation (NSTEMI) myocardial infarction B Type Natriuretic Peptide Today I25.10 - Atherosclerotic heart disease of [place] coronary artery without angina pectoris Medications: New metoprolol succinate ER 25 mg PO DAILY 90 tabs 1RF Coding Level of Care Code Est Pt Level 4 (85996) Complex EM visit Add On G2211 Diagnoses CAD (coronary artery disease) I25.10 S/P cardiac cath Z98.890 Syncope R55 Encounter type: initial encounter Sinus pause I45.5 Obesity E66.9 Body mass index: BMI 40.0-44.9 Obesity type: due to excess calories Serious obesity comorbidity presence: with serious comorbidity Sleep apnea G47.30 Obstructive sleep apnea hypopnea, severe G47.33 NSTEMI (non-ST elevated myocardial infarction) I21.4 Lower extremity edema R60.0 Pacemaker Z95.0 Hyperlipidemia E78.5 CPT Codes Cardiac Device Check - Cardiac Device 1: [id number] Cardiac Device Check, leadless/single lead pacemaker ([id number]) Time Spent (min) 36
== END 2024-05-23 14:05 | disposition home or self-care (01) ==
PROVIDERS: Visit Provider Nurse Practitioner Family
DX: I25.10 Atherosclerotic heart disease of native coronary artery without angina pectoris (principal); Z98.890 Other specified postprocedural states; R55 Syncope and collapse; I45.5 Other specified heart block; E66.9 Obesity, unspecified; G47.30 Sleep apnea, unspecified; G47.33 Obstructive sleep apnea (adult) (pediatric); I21.4 Non-ST elevation (NSTEMI) myocardial infarction; R60.0 Localized edema; Z95.0 Presence of cardiac pacemaker; E78.5 Hyperlipidemia, unspecified
CPT/HCPCS: 93279; 99214; G2211

== ENCOUNTER → 2024-05-23 13:12 | Outpatient (BNVA) | payer OTHER, SELFPAY | PROVIDERS: Visit Provider Nurse Practitioner Family | DX: Z45.018 Encounter for adjustment and management of other part of cardiac pacemaker (principal); I25.10 Atherosclerotic heart disease of native coronary artery without angina pectoris; I45.5 Other specified heart block; I21.4 Non-ST elevation (NSTEMI) myocardial infarction; R55 Syncope and collapse; E66.9 Obesity, unspecified; G47.30 Sleep apnea, unspecified; G47.33 Obstructive sleep apnea (adult) (pediatric); R60.0 Localized edema; E78.5 Hyperlipidemia, unspecified; Z98.890 Other specified postprocedural states; Z68.41 Body mass index [BMI] 40.0-44.9, adult | CPT/HCPCS: 99212 ==

== ENCOUNTER 2024-05-25 07:08 | Outpatient (REF) | payer OTHER, SELFPAY ==
[2024-05-25 07:55] LABS: B Type Natriuretic Peptide 22 pg/mL (<100)
[2024-05-25 07:59] LABS: Anion Gap 10 (12-20); Blood Urea Nitrogen 16 mg/dL (9-16); Calcium 9.1 mg/dL (8.4-10.2); Carbon Dioxide 30 mmol/L (22-29); Chloride 104 mmol/L (96-108); Cholesterol 131 mg/dL (<200); Estimated Glomerular Filt Rate > 60; Glucose Random 218 mg/dL (60-115); HDL Cholesterol 30 mg/dL (>40); LDL Cholesterol Calculated 70 mg/dL (<100); Potassium 4.1 mmol/L (3.3-5.1); Sodium 140 mmol/L (135-145); Triglycerides 158 mg/dL (<150)
== END 2024-05-25 07:09 | disposition home or self-care (01) ==
LOC: HO.LAB 07:08
PROVIDERS: Visit Provider Nurse Practitioner Family
DX: I21.4 Non-ST elevation (NSTEMI) myocardial infarction (principal); I25.10 Atherosclerotic heart disease of native coronary artery without angina pectoris
CPT/HCPCS: 36415; 80048; 80061; 83880

== ENCOUNTER 2024-08-01 09:58 | Outpatient (AMB) | payer OTHER, SELFPAY ==
--- NOTE | 2024-08-01 10:02 | MHC.OFFVIS ---
Vital Signs 08/01/24 10:04 Height 5 ft 10 in Weight 305 lb BMI 43.8 BP 140/60 H Blood Pressure Location Rt brachial Position Sitting Pulse 60 Pulse Source Pulse Oximeter Pulse Oximetry (%) 93 Oxygen Delivery Method Room Air Intake Visit Reasons: 3 mo follow up Intake Note: Patient presents for 3 month follow up sleep apnea. Titration study in chart 05/24/24. 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 PSG 04/05/2024 Severe obstructive Sleep Apnea SARA 65 and Oxygen Galen 73% 05/24/2024 Titration was completed, with recommendations: CPAP titration [id number], with 3LPM oxygen. 22 Mar 2024 pacemaker leadless, 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 He continues to have poor sleep, he is in pain and continues to have daytime excessive sleepiness. He continues to snore loudly, gasp for air, with choking, has trouble breathing, and getting air in as he recently had Covid. Psoas muscle tear started on methadone 100mg PO BHN, years ago. He denies syncope, he has COPD and dyspnea with exertion, bilateral pitting edema 2+ to the shins. He ran out of his Lasix 80mg PO daily. He is using his 's NC 2 liters, and has some relief. He has tremors of L. hand >R. and abnormal movements entire body as he drops things from his hands. He sleeps in a chair 45min to 1 hour, due to pain and has to be upright. He has a h/o few concussions due to falls. No h/o heavy alcohol use. He smokes marijuana, 3-4 joints a day, and no tobacco use. His BMI is 43.8, weight is 308lbs and asks for a referral to weight management. His mood is irritable and stopped Tegretol use due to concerns of medication s/e. [facility] Medical History Obstructive sleep apnea hypopnea, severe Snoring Congestive heart failure Heart disease Hypoglycemia Valverde's palsy Surgical History H/O heart artery stent H/O right knee surgery Family History Mother CHF (congestive heart failure) Social History Alcohol intake: never Patient Tobacco Use Status: Never used Tobacco Substance Use Type: Marijuana Physical Exam Vital Signs: Last Vital Signs Pulse 60 08/01/24 10:04 BP 140/60 H 08/01/24 10:04 Pulse Ox 93 08/01/24 10:04 Oxygen Delivery Method Room Air 08/01/24 10:04 BMI result Body Mass Index 43.8 Obese man can speak in complete sentences. Const General: cooperative, comfortable and tired appearing Nutritional Appearance: obese (BMI is 43.8) Orientation/consciousness: patient oriented x3 Eyes Pupils: Equal, round and reactive pupils present Resp Effort & Inspection: normal respiratory effort and able to speak in complete sentences Neuro General: patient oriented x3 and moves all extremities Cranial nerves: Yes Facial sensation intact/muscles of mastication intact, Yes Equal, round and reactive pupils present, Yes Normal accommodation reflex present, Yes Bilaterally intact EOM present, Yes Nystagmus not present, Yes Ability to bilaterally rotate head present and Yes Ability to bilaterally elevate shoulders present Motor exam (neuro): 5/5 motor strength present throughout, Tremors during motor activity present (Tremor L>R hands and arms.) and Motor abnormalites present (entire body abnormal movement) Psych Thought process: Normal thought process present Thought content: Normal thought content present Results Reviewed Results Reviewed: Titration study completed 04/2024 Recommendations to start CPAP at [id number] and 3LPM Oxygen. PSG Completed 04/05/2024 Severe obstructive Sleep Apnea SARA 65 and Oxygen Galen 73% Patient is non - compliant with CPAP Assessment & Plan Assessment & Plan (1) Obstructive sleep apnea hypopnea, severe: Code(s): G47.33 - Obstructive sleep apnea (adult) (pediatric) Category: Medical (2) Irritable mood: Comment: Patient declined Tegretol due medication s/e Code(s): R45.4 - Irritability and anger Category: Medical Plan Start using CPAP at [id number] per titration study, with 3LPM supplemental Oxygen therapy. Compression Stockings BMI is elevated patient requests referral to Weight Management. Refer to PCP for Cardio/Pulm evaluation. Orders: Orders PFT pulmonary function test 08/01/24 G47.33 - Obstructive sleep apnea (adult) (pediatric) Referrals Medical Weight Management Referral E66.01 - Morbid (severe) obesity due to excess calories, G47.33 - Obstructive sleep apnea (adult) (pediatric), R60.9 - Edema, unspecified Medications: Refilled furosemide (Lasix) 80 mg PO BID 90 days 180 tabs 1RF Patient Instructions: Start CPAP at 99gxH10 daily and supplement with 3LPM Oxygen as needed. Do not adjust pressures on your own. Dsypnea f/u with PCP and take all medications as directed. Will send for Pulmonology Referral Urgent, as patient is having difficulty breathing, and declines to go to ED, has a f/u with PCP next week. Coding Level of Care Code Est Pt Level 4 (92218) Diagnoses Obstructive sleep apnea hypopnea, severe G47.33 Irritable mood R45.4 Time Spent (min) 30 Comment Worsening apnea
[2024-08-01 10:04] VITALS: BP 140/60; PULSE 60; O2SAT 93; BMI 43.8
--- OUTSIDE RECORDS SUMMARY | 2024-08-01 11:05 | XMS_ITS | Clinical Summary ---
Author Organization [facility] Address [address] [place] [address] Care Team Providers Care Oxygen Equipment Technician Name Role Phone Unavailable Primary Care Provider Unavailabl e Allergies Active Allergy Reactions Criticality Noted Date Comments Aspirin 03/22/2021 Medications Medication Sig Dispensed Refills Start Date End Date Status aspirin 81 MG EC tablet Take 1 tablet (81 mg total) by mouth. 0 10/20/2023 Active atorvastatin (LIPITOR) tablet 40 mg Take 1 tablet (40 mg total) by mouth. 0 10/20/2023 Active TEGretol-XR 200 MG 12 hr tablet Take 1 tablet (200 mg total) by mouth 2 (two) times a day. 0 02/04/2024 Active clopidogrel (Plavix) 75 MG tablet Take 1 tablet (75 mg total) by mouth. 0 10/20/2023 Active furosemide (LASIX) 80 MG tablet Take 1 tablet (80 mg total) by mouth 2 (two) times a day. 0 12/03/2023 Active isosorbide mononitrate (IMDUR) 30 MG 24 hr tablet 1 tablet (30 mg total). 0 02/05/2024 Active lisinopril (PRINIVIL,ZESTRIL) tablet 10 mg 1 tablet (10 mg total). 0 12/01/2023 Active metFORMIN (GLUCOPHAGE) tablet 500 mg Take 1 tablet (500 mg total) by mouth. 0 10/20/2023 Active methadone (DOLOPHINE) 10 MG/5ML solution Take 50 mL (100 mg total) by mouth. 0 10/20/2023 Active Active Problems Problem Noted Date Diagnosed Date SSS (sick sinus syndrome) 02/22/2024 Social History Tobacco Use Types Packs/Day Years Used Date Smoking Tobacco: Former Cigarettes Smokeless Tobacco: Never Tobacco Cessation:Counseling Given: Not Answered Alcohol Use Standard Drinks/Week Comments Never 0 (1 standard drink = 0.6 oz pur e alcohol) Sex and Gender Information Value Date Recorded Sex Assigned at Not on file Gender Identity Not on file Sexual Orientation Not on file Job Start Date Occupation Industry Not on file Not on file Not on file Last Filed Vital Signs Vital Sign Reading Time Taken Comments Blood Pressure 130/70 02/22/2024 2:53 PM EDT Pulse 68 02/22/2024 2:53 PM EDT Temperature - - Respiratory Rate - - Oxygen Saturation - - Inhaled Oxygen Concentration - - Weight 133.8 kg (295 lb) 02/22/2024 2:53 PM EDT Height 175.3 cm (5' 9 ) 02/22/2024 2:53 PM EDT Body Mass Index 43.56 02/22/2024 2:53 PM EDT Plan of Treatment Health Maintenance Due Date Last Done Comments Hepatitis B Vaccines (1 of 3 - 3-dose series) 1971 Hepatitis C Screening 1971 COVID-19 Vaccine (#1) 1971 Depression Screening 1983 BMI Counseling 1989 Preventative Health Evaluation 1989 DTap / Tdap / Td (1 - Tdap) 1990 Colon Cancer Screening (Colonoscopy) 2016 Shingrix-Zoster Vaccine (1 of 2) 2021 Influenza Vaccine (#1) 2024 Pneumococcal Vaccine Aged Out No long er eligible based on patient's age to complete this topic RSV Ped < 20 months Aged Out No longe r eligible based on patient's age to complete this topic
--- OUTSIDE RECORDS SUMMARY | 2024-08-01 11:05 | XMS_ITS | Clinical Summary ---
Author Organization [facility] Address [address] [place] [address] Phone Care Team Providers Care Gastroenterology Technician Name Role Phone Physician, No Pcp Primary Care Provider Unavaila ble Allergies Active Allergy Reactions Criticality Noted Date Comments Aspirin 03/22/2021 Medications atorvastatin (LIPITOR) 40 mg tablet Take 2 tablets (80 mg total) by mouth at bedtime. Active aspirin 81 mg EC tablet Take 1 tablet (81 mg total) by mouth 1 (one) time. Active carBAMazepine XR (Tegretol XR) 200 mg 12 hr tablet Take 1 tablet (200 mg total) by mouth 2 (two) times a day. 02/04/2024 Active clopidogreL (PLAVIX) 75 mg tablet Take 1 tablet (75 mg total) by mouth 1 (one) time each day. Active furosemide (LASIX) 80 mg tablet Take 1 tablet (80 mg total) by mouth 2 (two) times a day. 12/03/2023 Active isosorbide mononitrate (IMDUR) 30 mg 24 hr tablet Take 1 tablet (30 mg total) by mouth 1 (one) time each day. Active lisinopriL (PRINIVIL,ZESTRI L) 10 mg tablet Take 1 tablet (10 mg total) by mouth 1 (one) time each day. Active metFORMIN (GLUCOPHAGE) 500 mg tablet Take 1 tablet (500 mg total) by mouth 2 (two) times a day with meals. Active methadone (DOLOPHINE) 10 mg/5 mL solution Take 50 mL (100 mg total) by mouth 1 (one) time each day. Active Hospital, Clinic, or Other Facility Administered Medication Ordered Dose Route Frequency Start Date End Date Status ceFAZolin (ANCEF) injection 1 gIndications:SSS (sick sinus syndrome) (CMS/HCC),Syncope and collapse 1 g IM Once 03/22/2024 07/20/2024 Ended Active Problems Problem Noted Date Diagnosed Date SSS (sick sinus syndrome) 02/22/2024 Surgical History Surgery Date Site/Laterality Comments CORONARY ANGIOPLASTY PROCEDURE:CORONARY ANGIOPLASTY CARDIAC CATHETERIZATION PROCEDURE:CARDIAC CATHETERIZATION Medical History Medical History Date Comments Coronary artery disease DX:Coron tonja artery disease CHF (congestive heart failure) ([facility]) DX:CHF (congestive heart failure) ([facility]) Hypertension DX:Hypertension Hyperlipidemia DX:Hyperlipidemi a Diabetes mellitus ([facility]) DX:D iabetes mellitus ([facility]) Syncope DX:Syncope Ankle swelling DX:Ankle swellin g Social History Tobacco Use Types Packs/Day Years Used Date Smoking Tobacco: Former Smokeless Tobacco: Never Alcohol Use Standard Drinks/Week Comments Never 0 (1 standard drink = 0.6 oz pur e alcohol) Sex and Gender Information Value Date Recorded Sex Assigned at Not on file Legal Sex Male 12:01 AM EST Gender Identity Not on file Sexual Orientation Not on file Obstetrics History Last Filed Vital Signs Vital Sign Reading Time Taken Comments Blood Pressure 104/57 03/22/2024 2:30 PM EST Pulse 61 03/22/2024 2:30 PM EST Temperature 36 ??C (96.8 ??F) 03/22/2024 11:03 AM EST Respiratory Rate 12 03/22/2024 2:30 PM EST Oxygen Saturation 92% 03/22/2024 2:30 PM EST Inhaled Oxygen Concentration - - Weight 132 kg (290 lb) 03/22/2024 8:49 AM EST Height 175.3 cm (5' 9 ) 03/22/2024 8:49 AM EST Body Mass Index 42.83 03/22/2024 8:49 AM EST Plan of Treatment Health Maintenance Due Date Last Done Comments DTaP,Tdap,and Td Vaccines (1 - Tdap) 1990 Hepatitis A Vaccines (1 of 2 - Risk 2-dose series) 1990 Hepatitis B Vaccines (1 of 3 - 19+ 3-dose series) 1990 Pneumococcal Vaccine: 50+ Ye ars (1 of 1 - PCV) 2021 Zoster Vaccines (1 of 2) 2021 COVID-19 Vaccine ( - 2023-2 5 season) 2024 Influenza Vaccine (#1) 2024 Cholesterol Screening (Lipid Panel) 02/23/2024 Colorectal Cancer Screening: Colonoscopy 02/23/2024 Depression Screening 02/23/2024 HIV Screening 02/23/2024 Hepatitis C Screening 02/23/2024 Social Influencers of Health Screening 02/23/2024 Hypertension/CHF/CAD Annual BMP Blood Test 02/21/2025 02/22/2024 HIB Vaccines Aged Out No longer eligi ble based on patient's age to complete this topic HPV Vaccines Aged Out No longer eligi ble based on patient's age to complete this topic IPV Vaccines Aged Out No longer eligi ble based on patient's age to complete this topic MMR Vaccines Aged Out No longer eligi ble based on patient's age to complete this topic Meningococcal ACWY Vaccine Aged Out N o longer eligible based on patient's age to complete this topic Meningococcal B Vacine Aged Out No lo nger eligible based on patient's age to complete this topic Pneumococcal Vaccine: Pediat rics (0 to 5 Years) and At-Risk Patients (6 to 64 Years) Aged Out No longer eligi ble based on patient's age to complete this topic RSV Immunization Patients Un anneliese 20 months Aged Out No longer eligible b ased on patient's age to complete this topic Varicella Vaccines Aged Out No longer eligible based on patient's age to complete this topic Medical Devices Implanted Type Area Cable Splicer Apprentice Device Identifier Shelf Expiration Date Model / Serial / Lot Pacemaker Leadless 19.5f 32.2mm Ra - [id number] - [id number] Implanted:Qty : 1 on 03/22/2024 by Mikal Lee MD at [facility] Cardiac Pacemaker N/A: Chest [employer] 12/14/2024 [id number] / [id number] / Procedures Procedure Name Priority Date/Time Associated Diagnosis Comments ANNUAL BMP BLOOD TEST Routine 02/22/2024 from Last 3 Months or Most Recently Relevant to Health Maintenance Results * Annual BMP Blood Test (02/22/2024) Annual BMP Blood Test Abstracted Historical Provider MD HEALTH MAINTENANCE Final Result from Last 3 Months or Most Recently Relevant to Health Maintenance Insurance [place]ICAID - [place] [facility] [employer] Advance Directives * Full Code - Default (Latest Code Status on File) Date Activated Date Inactivated Comments 03/22/2024 11:15 AM 03/22/2024 8:15 PM This is ord er is used when code status has not been discussed with the patient, or code status is otherwise unknown/unconfirmed To update the patient's code status, place a code status order. Do not modify or discontinue any currently active code status orders. Care Teams Gastroenterology Technician Relationship Specialty Start Date End Date Physician, No Pcp PCP - General 03/16/24
--- OUTSIDE RECORDS SUMMARY | 2024-08-01 11:05 | XMS_ITS | Encounter Summary ---
Author Organization [facility] [employer] [facility] Address [address] [place] [address] Care Team Providers Care Novelty Twister Tender Name Role Phone Unavailable Primary Care Provider Unavailabl e Reason for Visit * Auth/Cert Inpatient Observation or Outpatient Surgery Specialty Diagnoses / Procedures Referred By Contac t Referred To Contact Diagnoses SSS (sick sinus syndrome) (HCC) Procedures [place] TCAT INSJ PERM 1CHMBR LDLS PACEMAKER R ATRIAL Transcatheter Insertion of Permanent Single-Chamber Leadless Pacemaker, Right Atrial [facility] Electrophysiology [address] [place] [address] Referral ID Status Reason Start Date Expiration Date Visits Re quested Visits Authorized [id number] 1 1 Encounter Details Date Type Department Care Team Description 03/22/2024 10:30 AM [facility] Hospital Encounter Cardiology Services [address] [place] [address] Mikal Lee MD SSS (sick sinus syndrome) (HCC) Social History Tobacco Use Types Packs/Day Years Used Date Smoking Tobacco: Former Cigarettes Smokeless Tobacco: Never Alcohol Use Standard Drinks/Week Comments Never 0 (1 standard drink = 0.6 oz pur e alcohol) Sex and Gender Information Value Date Recorded Sex Assigned at Not on file Gender Identity Not on file Sexual Orientation Not on file Job Start Date Occupation Industry Not on file Not on file Not on file documented as of this encounter Miscellaneous Notes * Pre-Procedure Instructions - Kristin Benton RN - 03/16/2024 5:31 PM EDT Spoke with Pt and he had his labs drawn at [facility]. Pt said he has three wounds on his right lower leg and is being treated for them at Wound care center at [facility] notified [place]. Spoke with Dr Rothman and Pt isnt being treated for an active infection. Called Pt and let him know procedure is on for Mar 22. No outpatient medications have been marked as taking for the 03/22/24 encounter (Hospital Encounter). documented in this encounter Plan of Treatment Scheduled Orders Name Type Priority Associated Diagnoses Order Schedule Electrophysiology Procedure Electrophysiology Routine SSS (sick sinus syndrome) (HCC) Once for 1 Occurrences starting 03/03/2024 until 03/03/2024 documented as of this encounter Visit Diagnoses Diagnosis SSS (sick sinus syndrome) (HCC)- Primary Sinoatrial node dysfunction documented in this encounter Admitting Diagnoses Diagnosis SSS (sick sinus syndrome) (HCC) Sinoatrial node dysfunction documented in this encounter
--- OUTSIDE RECORDS SUMMARY | 2024-08-01 11:05 | XMS_ITS | Encounter Summary ---
Author Organization [facility], Address [address] [place] [address] Phone Care Team Providers Care Daycare Assistant Name Role Phone Unavailable Primary Care Provider Unavailabl e Encounter Details Date Type Department Care Team (Late st Contact Info) Description 06/09/2021 Documentation Only [facility], [address] [place] [address] Dino Plascencia MD [address] [place] [address] Social History Tobacco Use Types Packs/Day Years Used Date Smoking Tobacco: Never Smokeless Tobacco: Never Alcohol Use Standard Drinks/Week Comments Never 0 (1 standard drink = 0.6 oz pur e alcohol) Sex and Gender Information Value Date Recorded Sex Assigned at Not on file Legal Sex Male 10:31 PM EDT Gender Identity Not on file Sexual Orientation Not on file documented as of this encounter Plan of Treatment Not on file documented as of this encounter Visit Diagnoses Not on filedocumented in this encounter
--- OUTSIDE RECORDS SUMMARY | 2024-08-01 11:05 | XMS_ITS | Patient Health Record ---
Author Organization [facility] Address [address] [place] [address] Care Team Providers Care Fountain Vending Mechanic Name Role Phone Hamlet Canseco Primary Care Provider [phone] Reason For Referral No Information Plan Of Treatment No Information Insurance Providers Payer Name Payer Address Payer Phone Subscriber Number Group Number Insured Name Patient Relationship to Insured Coverage Start Date Coverage End Date [place] Medicaid [address] [place] [address] [phone] [id number] Anthony Yoder Self - patient is the insured
--- OUTSIDE RECORDS SUMMARY | 2024-08-01 11:05 | XMS_ITS | Clinical Summary ---
Author Organization [facility], Address [address] [place] [address] [place] [address] Phone Care Team Providers Care Lithograph Printer Name Role Phone Unavailable Primary Care Provider Unavailabl e Allergies Active Allergy Reactions Criticality Noted Date Comments Aspirin 03/22/2021 Medications doxycycline (ADOXA) 100 MG tablet doxycycline monohydrate Take 1 tablet 2 times per day for 10 days [id number] tablet 2 times per day No route recorded 10 days suspended 100 mg 9 Active LISINOPRIL PO lisinopril Take No date recorded No form recorded No frequency recorded No route recorded No set duration recorded No set duration amount recorded suspended No dosage strength recorded No dosage strength units of measure recorded Active predniSONE (DELTASONE) 20 MG tablet prednisone Take 3 tablet (oral) 1 time per day for 5 days [id number] tablet 1 time per day oral 5 days suspended 20 mg 0 Active oxyCODONE (OxyCONTIN) 60 MG 12 hr abuse-deterrent tablet Take 60 mg by mouth 2 Active furosemide (LASIX) 40 MG tablet 1 Active Active Problems Problem Noted Date Diagnosed Date Hypertension 03/22/2021 Edema of foot 10/17/2020 Dyspnea on exertion 10/17/2020 Cardiac murmur 10/17/2020 Social History Tobacco Use Types Packs/Day Years Used Date Smoking Tobacco: Never Smokeless Tobacco: Never Alcohol Use Standard Drinks/Week Comments Never 0 (1 standard drink = 0.6 oz pur e alcohol) Sex and Gender Information Value Date Recorded Sex Assigned at Not on file Legal Sex Male 10:31 PM EDT Gender Identity Not on file Sexual Orientation Not on file Last Filed Vital Signs Vital Sign Reading Time Taken Comments Blood Pressure 158/78 04/15/2021 4:02 PM EST Pulse - - Temperature - - Respiratory Rate - - Oxygen Saturation - - Inhaled Oxygen Concentration - - Weight 120 kg (265 lb) 04/15/2021 4:02 PM EST Height - - Body Mass Index - - Plan of Treatment Health Maintenance Due Date Last Done Comments Hepatitis B Vaccine (1 of 3 - 19+ 3-dose series) 1990 Colorectal Cancer Screening: Annual FOBT 2020 Colorectal Cancer Screening: Colonoscopy 2020 Colorectal Cancer Screening: Sigmoidoscopy 2020 Influenza Vaccine (#1) 2024 Pneumococcal Vaccine: Pediat rics (0 to 5 Years) and At-Risk Patients (6 to 64 Years) Aged Out No longer eligible b ased on patient's age to complete this topic Insurance [address] [address] MEDICAID
== END 2024-08-01 10:54 | disposition home or self-care (01) ==
LOC: HO.HSMS 09:59
PROVIDERS: Visit Provider Physician Assistant Medical
DX: G47.33 Obstructive sleep apnea (adult) (pediatric) (principal); R45.4 Irritability and anger
CPT/HCPCS: 99214

== ENCOUNTER → 2024-08-01 09:58 | Outpatient (BNVA) | payer OTHER, SELFPAY | PROVIDERS: Visit Provider Physician Assistant Medical | DX: G47.33 Obstructive sleep apnea (adult) (pediatric) (principal); R45.4 Irritability and anger | CPT/HCPCS: 99212 ==

== ENCOUNTER → 2024-08-03 08:03 | Outpatient (REF) | payer OTHER, SELFPAY ==
--- NOTE | ~2024-08-03 | NM_ITS ---
Lexiscan Myocardial perfusion study Indication: Chest pain to evaluate for myocardial ischemia Technique: The patient was brought in for a Lexiscan perfusion study on 08/03/2024 and was injected 0.4 mg of Lexiscan intravenously. Within a minute of this injection 45 mCi of sestamibi was given intravenously. Images were obtained using the SPECT gamma camera interlaced with the gating device. Images were obtained in supine position. Resting perfusion study was performed on 08/05/2024. Patient was administered 30 mCi of sestamibi intravenously at rest. Images were then obtained in supine position. Images obtained without without CT attenuation. Total DLP is 157 mGy-cm. Images were processed with the software and compared side to side in short axis, horizontal long axis and vertical long axis views. Findings: Both stress and rest perfusion study are suboptimal due to intense subdiaphragmatic uptake more prominent on the resting perfusion study The stress perfusion study showed nonattenuated images show mildly increased uptake in the basal inferior and mid inferior wall of the LV myocardium. Remainder of the LV myocardium is normally perfused. Attenuated corrected images show normal uptake ordered images in all segments of the LV myocardium. The gated study shows normal LV systolic function with calculated LVEF of 58%. LV cavity is normal in size. The gated study shows normal systolic wall thickening and contraction of segments. Resting study shows nonattenuated images show no change in perfusion pattern compared to stress perfusion study. Gating at rest reveals normal systolic wall motion with ejection fraction at 46%. The findings are consistent with no clear reversible defect suggestive of ischemia. NM/NM cardiolite stress test Impression: 1. Myocardial perfusion imaging study shows likely normal myocardial perfusion 2. Gated LVEF is 58% with stress 3. Transient ischemic dilatation not present Nondiagnostic changes on EKG. Electronically signed by: Jorge A Pettit MD 08/05/2024 03:29 PM EDT
--- NOTE | 2024-08-03 08:07 | CA_ITS ---
Acquisition Time: 2024-08-03 08:10:59 Total Exercise Time: 00:02:00 Test Indications: Syncope Medications: SEE H&P Protocol: LEXISCAN Max HR: 87 BPM 52% of Pred: 167 BPM Max BP: 148/54 mmHG Max Work Load: 1.0 METS Pharmacological stress test with Lexiscan while pt moved his legs and arm, with reports of 6/10 mid chest pressure, 5/10 baseline chest pressure, and reported SOB and nausea, without any arrythmias, with normotensive response to injection. Nondiagnostic EKG for ischemia. In recovery, pt treated with IVP Aminophylline to reverse Lexiscan, after which chest pressure returned to baseline and breathing returned to baseline. Nuclear images pending. Test reviewed with Dr. Berman. Referred By: Florecita Manning Electronically Signed By: Richard Rebolledo
--- OUTSIDE RECORDS SUMMARY | 2024-08-03 08:08 | XMS_ITS | Encounter Summary ---
Author Organization [facility] [employer] [facility] Address [address] [place] [address] Care Team Providers Care Vehicle Glass Technician Name Role Phone Unavailable Primary Care Provider Unavailabl e Reason for Visit * Auth/Cert Inpatient Observation or Outpatient Surgery Specialty Diagnoses / Procedures Referred By Contac t Referred To Contact Diagnoses SSS (sick sinus syndrome) (HCC) Procedures CT TCAT INSJ PERM 1CHMBR LDLS PACEMAKER R ATRIAL Transcatheter Insertion of Permanent Single-Chamber Leadless Pacemaker, Right Atrial [facility] Electrophysiology [address] [place] [address] Referral ID Status Reason Start Date Expiration Date Visits Re quested Visits Authorized [id number] 1 1 Encounter Details Date Type Department Care Team Description 03/22/2024 10:30 AM [facility] Hospital Encounter Cardiology Services [address] [place] [address] Mikal Lee MD SSS (sick sinus syndrome) [...] and he had his labs drawn at [facility]. Pt said he has three wounds on his right lower leg and is being treated for them at Wound care center at [facility] notified [place]. Spoke with Dr Rothman [...]
--- OUTSIDE RECORDS SUMMARY | 2024-08-03 08:08 | XMS_ITS | Clinical Summary ---
Author Organization [facility] Address [address] [place] [address] Phone Care Team Providers Care Caustic Cresylate Shift Superintendent Name Role Phone Physician, No Pcp Primary [...] tonja artery disease CHF (congestive heart failure) ([facility]) DX:CHF (congestive heart failure) ([facility]) Hypertension DX:Hypertension Hyperlipidemia DX:Hyperlipidemi a Diabetes mellitus ([facility]) DX:D iabetes mellitus ([facility]) Syncope DX:Syncope Ankle swelling DX:Ankle swellin [...] this topic Medical Devices Implanted Type Area Flatwork Presser Device Identifier Shelf Expiration Date Model / Serial / Lot Pacemaker Leadless 19.5f 32.2mm Ra - [id number] - [id number] Implanted:Qty : 1 on 03/22/2024 by Mikal Lee MD at [facility] Cardiac Pacemaker N/A: Chest [employer] 12/14/2024 [id number] / [id number] / Procedures Procedure Name Priority Date/Time Associated Diagnosis Comments ANNUAL BMP BLOOD TEST Routine 02/22/2024 from Last 3 Months or Most Recently Relevant to Health Maintenance Results * Annual BMP Blood Test (02/22/2024) Annual BMP Blood Test Abstracted Historical Provider MD HEALTH MAINTENANCE Final Result from Last 3 Months or Most Recently Relevant to Health Maintenance Insurance MEDICAID - [place] [facility] [employer] Advance Directives * Full Code - [...] currently active code status orders. Care Teams Caustic Cresylate Shift Superintendent Relationship Specialty Start Date End Date Physician, No Pcp PCP - General 03/16/24
--- OUTSIDE RECORDS SUMMARY | 2024-08-03 08:08 | XMS_ITS | Clinical Summary ---
Author Organization [facility], Address [address] [place] [address] [place] [address] Phone Care Team Providers Care Character Actor Name Role Phone Unavailable Primary Care Provider Unavailabl e Allergies Active Allergy Reactions Criticality Noted Date Comments Aspirin 03/22/2021 Medications doxycycline (ADOXA) 100 MG tablet doxycycline monohydrate Take 1 tablet 2 times per day for 10 days [id number] tablet 2 times per day No route [...] 1 time per day for 5 days [id number] tablet 1 time per day oral 5 [...] patient's age to complete this topic [place] [address] [place] [address] MEDICAID
--- OUTSIDE RECORDS SUMMARY | 2024-08-03 08:08 | XMS_ITS | Patient Health Record ---
Author Organization [facility] Address [address] [place] [address] Care Team Providers Care Traveler Changer Name Role Phone Hamlet Canseco Primary Care Provider Reason For Referral No Information Plan Of Treatment No Information Insurance Providers Payer Name Payer Address Payer Phone Subscriber Number Group Number Insured Name Patient Relationship to Insured Coverage Start Date Coverage End Date [place] Medicaid [address] [place] [address] [id number] Anthony Yoder Self - patient is the insured
--- OUTSIDE RECORDS SUMMARY | 2024-08-03 08:08 | XMS_ITS | Encounter Summary ---
Author Organization [facility], Address [address] [place] [address] Phone Care Team Providers Care Elementary Instructional Coach Name Role Phone Unavailable Primary Care Provider Unavailabl e Encounter Details Date Type Department Care Team (Late st Contact Info) Description 06/09/2021 Documentation Only [facility], [address] [place] [address] Dino Plascencia MD [address] [place] [address] Social History Tobacco Use Types [...]
--- OUTSIDE RECORDS SUMMARY | 2024-08-03 08:08 | XMS_ITS | Clinical Summary ---
Author Organization [facility] Address [address] [place] [address] Care Team Providers Care Freezing Machine Operator Name Role Phone Unavailable Primary Care Provider [...]
== END ==
LOC: HO.CARD 08:03
PROVIDERS: Visit Provider Nurse Practitioner Family
DX: R07.89 Other chest pain (principal); I24.9 Acute ischemic heart disease, unspecified; Z98.890 Other specified postprocedural states
CPT/HCPCS: 78452; 93017; A9500; J0280; J2785

== ENCOUNTER → 2024-08-03 08:07 | Outpatient (BNV) | payer OTHER, SELFPAY | DX: R07.9 Chest pain, unspecified (principal) | CPT/HCPCS: 78452; 93016; 93018 ==

== ENCOUNTER 2024-09-09 10:28 | Outpatient (AMB) | payer OTHER, SELFPAY ==
--- NOTE | 2024-09-09 10:33 | MHC.PC.OV ---
Vital Signs 09/09/24 10:37 Height 5 ft 5.35 in Weight 287 lb 2 oz BMI 47.3 BP 132/72 Blood Pressure Location Lt brachial Position Sitting Pulse 86 Pulse Source Pulse Oximeter Temp 96.2 F L Temp Source Temporal Artery Scan Pulse Oximetry (%) 96 Oxygen Delivery Method Room Air Intake Visit Reasons: establish care Intake Note: Patient is a new patient here to establish care for HLD, LYN, CAD, Seizure, ACS, HTN, Valverde's palsy, PTSD, Heart attacks, Hypoglyciema . Transferring care from [facility] ([facility]). Medical records have been requested and have not received. Bowling Ball Patcher Required: No Air Cargo Ground Crew Supervisor: Not Required per policy Accompanied by: Self / Same As Patient Allergies carbamazepine [From Tegretol] Allergy (Intermediate, Verified 09/09/24 11:00) Agitated aspirin Adverse Reaction (Verified 09/09/24 11:00) Gastrointestinal Upset Medication List - Last Reconciled 09/09/24 by Rosa King PA-C aspirin 81 mg PO DAILY atorvastatin 80 mg PO BEDTIME clopidogrel 75 mg PO DAILY ezetimibe (Zetia) 10 mg PO DAILY furosemide (Lasix) 80 mg PO BID 90 days isosorbide mononitrate ER 30 mg PO DAILY lisinopril 10 mg PO DAILY methadone (Methadone Intensol) 100 mg PO DAILY Tobacco use date assessed: 09/09/24 Dental Screening Dental Screen Date: 09/09/24 Did you have a dental visit in the last 12 months?: No Did you have a dental problem in the last 6 months where you did not have access to dental care?: No Was dental information given to patient?: No HPI establish care HPI Details 54-year-old male with past medical history of coronary artery disease, unstable angina, pulmonary emphysema, hypertension, seizure, NSTEMI coming to the office for the 1st time.?In review of the notes, patient has been following with weight management clinic. He was seen by Neurology 07/2024 started on CPAP daily with oxygen as needed and referral was placed to pulmonology.? Seen by cardiology 05/2024 who added metoprolol daily and continue on isosorbide and continue on dual antiplatelet until at least 10/18/2024. Presenting with multiple chronic conditions and management of current symptoms. Reports difficult management of sleep apnea, with CPAP intolerance due to associated oxygen desaturation during sleep. He underwent pacemaker placement following episodes of cardiac arrest. Experiences profound grief and depression due to close familial losses, severely impacting mental health. The patient expresses concerns regarding increased weight, with obesity noted post cessation of regular physical activity. Discusses longstanding chronic pain, currently addressed with Methadone, associated with a history of significant orthopedic surgeries. The patient disputes a recent diagnosis suggestive of seizure disorder, attributing symptoms to his cardiac issues. Notable skin masses include a facial cyst and a mole on his back, with plans for further evaluation. The possibility of hypogonadism is mentioned, with reduced testosterone indicated by specific symptoms and past medical advice. [facility] Medical History Hypoglycemia ACS (acute coronary syndrome) Obstructive sleep apnea hypopnea, severe Snoring Congestive heart failure Valverde's palsy Surgical History S/P ACL surgery History of total right knee replacement H/O heart artery stent H/O right knee surgery Family History Mother CHF (congestive heart failure) Social History Housing: Apartment Alcohol intake: never Patient Tobacco Use Status: Former Tobacco user e-Cigarette/Vaping Use: Currently Using Second Hand Smoke Exposure: Yes Substance Use Type: Marijuana service: No Current occupational status: retired Cognitive needs: Yes (Cane, Walker) Hearing needs: No Vision needs: Yes (Glasses) Questionnaire PHQ-9 Over the last 2 weeks, how often have you been bothered by any of the following problems? 1. Little interest or pleasure in doing things: nearly every day 2. Feeling down, depressed, or hopeless: nearly every day 3. Trouble falling or staying asleep, or sleeping too much: nearly every day 4. Feeling tired or having little energy: nearly every day 5. Poor appetite or overeating: more than half the days 6. Feeling bad about yourself - or that you are a failure or have let yourself or your family down: not at all 7. Trouble concentrating on things, such as reading the newspaper or watching television: more than half the days 8. Moving or speaking so slowly that other people could have noticed. Or the opposite - being so fidgety or restless that you have been moving around a lot more than usual: not at all 9. Thoughts that you would be better off or of hurting yourself in some way: not at all Total score: 16 Depression Screening Interpretation: Positive (referral for counseling) Depression Screening Done: Yes Source: Developed by Drs. Emilio Randle, Krystle Noland, Jerry Laughlin and colleagues, with an educational catina from [email or web address]. Thrive Questionnaire Date Thrive assessed: 09/09/24 I am a: Patient What is your living situation today?: I have a steady place to live Within the past 12 months, did the food you bought not last and you didn't have the money to get more?: Never true Within the past 12 months, did you worry whether your food would run out before you got money to buy more?: Never true Do you have trouble paying for medicines?: No Do you have trouble getting transportation to medical appointments?: No Do you have trouble paying your heating and electricity bill?: Yes Do you have trouble taking care of your child, family member or friend?: No Do you have trouble with day-to-day activities such as bathing, preparing meals, shopping, managing finances, etc.?: Yes Are you currently unemployed and looking for a job?: No Are you interested in more education?: No Please select the resources that you would like help with: None Currently or been in a relationship where the following occur: I choose not to answer THRIVE Score: 1 AUDIT C Alcohol Use Questionnaire (AUDIT-C) 1. How often do you have a drink containing alcohol?: Never Total Score: 0 LILIYA-7 AMB Questionnaire LILIYA-7 Date LILIYA - 7 assessed: 09/09/24 Feeling nervous, anxious, or on edge: 3 = Nearly every day Not being able to stop or control worryin = More than half the days Worrying too much about different things: 2 = More than half the days Trouble relaxin = More than half the days Being so restless that it is hard to sit still: 2 = More than half the days Becoming easily annoyed or irritable: 3 = Nearly every day Feeling afraid as if something awful might happen: 0 = Not at all Total LILIYA-7 score (0-4 normal; 5-9 mild; 10-14 moderate; 15-21 severe): 14 Source: Developed by Drs. Emilio Randle, Krystle Noland, Jerry Laughlin and colleagues, with an educational catina from [email or web address]. LILIYA-7 Assessment Billing LILIYA-7 Assessment Tool: LILIYA-7 Assessment 20725 Review of Systems Const Denies body aches, Denies chills, Denies fever(s), Denies headache(s) and Denies poor appetite Eyes Reports no additional complaints ENT Denies dysphagia, Denies dizziness, Denies headache(s) and Denies odynophagia Card Reports chest pain (Intermittent), Denies syncope and Reports dyspnea (Occasional) Resp Denies cough and Reports dyspnea (Occasional) GI Denies abdominal pain, Denies dysphagia, Denies nausea, Denies odynophagia and Denies vomiting Reports no additional complaints Musc Reports no additional complaints and Denies abnormal gait Skin/Breast Reports system reviewed and no additional complaints, except as documented Neuro Denies abnormal gait, Denies dizziness, Denies syncope and Denies headache(s) Psych Reports no additional complaints Physical exam (Primary Care) Vital Signs: Last Vital Signs Temp 96.2 F L 09/09/24 10:37 Pulse 86 09/09/24 10:37 BP 132/72 09/09/24 10:37 Pulse Ox 96 09/09/24 10:37 Oxygen Delivery Method Room Air 09/09/24 10:37 BMI result Body Mass Index 47.3 Tobacco/Smoking Status: Tobacco use Status Tobacco use date assessed 09/09/24 09/09/24 10:48 Patient Tobacco Use Status Former Tobacco user 09/09/24 10:54 e-Cigarette/Vaping Use Currently Using 09/09/24 10:54 PHQ-9: PHQ-9 Score PHQ-9: Total score 16 09/09/24 10:48 Depression Screening Interpretation: Positive (referral for counseling) Thrive Assessment: Date of Thrive Assessment Date Thrive assessed 09/09/24 09/09/24 10:48 Currently or been in a relationship where the following occur: I choose not to answer Const General: cooperative, healthy appearing, comfortable and no acute distress Orientation/consciousness: patient oriented x3 HENMT Head: Yes normocephalic Head images: 1. tender mass with round edges Ears: hearing grossly normal bilaterally General nose exam: Normal external nose present Eyes General: appearance normal, both eyes and all related structures Conjunctivae: conjunctivae normal Neck Neck: Yes full ROM and Yes no lymphadenopathy Resp Effort & Inspection: normal respiratory effort Auscultation: clear to auscultation bilaterally, no crackles, no rales, no rhonchi and no wheezes Cardio Rate: regular rate Rhythm: regular rhythm Back/Spine/Pelvis Back/spine/pelvis image: 1. soft, nontender mass of back Skin General skin exam: no rashes or lesions noted Neuro General: patient oriented x3 Gait exam (Neuro): Normal gait present Extrem Other: Bilateral lower extremity swelling without overlying erythema, warmth or pain. There is dry skin General: Yes normal to inspection, Yes full ROM and Yes edema Psych Affect: normal affect Attitude: cooperative Insight: Good insight present (Psych) Judgement: Good judgement present (Psych) Coding Level of Care Code New Pt Level 4 (48093) Diagnoses Hyperlipidemia E78.5 Obesity E66.9 Body mass index: BMI 40.0-44.9 Obesity type: due to excess calories Serious obesity comorbidity presence: with serious comorbidity Obstructive sleep apnea hypopnea, severe G47.33 CAD (coronary artery disease) I25.10 S/P cardiac cath Z98.890 Hypertension I10 Pulmonary emphysema J43.9 Screening for diabetes mellitus Z13.1 Hypoglycemia E16.2 Facial mass R22.0 Mass on back R22.2 Decreased libido R68.82 Depression F32.A Additional Codes LILIYA-7 Assessment Billing - LILIYA-7 Assessment Tool: LILIYA-7 Assessment 62817 ([id number]) Assessment & Plan Assessment & Plan (1) Hyperlipidemia: Code(s): E78.5 - Hyperlipidemia, unspecified Category: Medical Plan: Avoid foods that are high in cholesterol such as red meat, fried foods, eggs and baked goods. Triglyceride goal of less than 150 and LDL goal of less than 70. Continue on atorvastatin (2) Obesity: Code(s): E66.9 - Obesity, unspecified Category: Medical Qualifiers: Body mass index: BMI 40.0-44.9 Obesity type: due to excess calories Serious obesity comorbidity presence: with serious comorbidity Plan: Healthy diet and regular exercise is encouraged. (3) Obstructive sleep apnea hypopnea, severe: Code(s): G47.33 - Obstructive sleep apnea (adult) (pediatric) Category: Medical Plan: Patient is currently working with Neurology to established on CPAP. (4) CAD (coronary artery disease): Code(s): I25.10 - Atherosclerotic heart disease of [place] coronary artery without angina pectoris Category: Medical Plan: Patient had cardiac cath 10/2023 and has been seeing cardiology. Continue on dual antiplatelet therapy with aspirin and clopidogrel until October 2024 unless otherwise instructed by Cardiology. Patient did miss an appointment with Cardiology recently advised to reschedule this appointment. Advised good control of blood pressure, cholesterol with LDL < 70 and blood sugars. (5) S/P cardiac cath: Comment: 10/19/2023 left main minimal irregularities, lad mild diffuse disease, left circumflex proximal ostial 85% stenosis, 1st OM mid subsection 70% stenosis, mid RCA 99% stenosis, culprit lesion, right PDA ostial 75% stenosis, angioplasty and arthrectomy to the RCA, RINA placed, significant ostial PDA stenosis, severe ostial circumflex stenosis and OM 1 disease lesions are not ideal for PCI, recommend medical therapy and optimizing antianginal. Code(s): Z98.890 - Other specified postprocedural states Category: Surgical Plan: see above (6) Hypertension: Code(s): I10 - Essential (primary) hypertension Category: Medical Plan: Continue on current blood pressure medication. Avoid salt intake and encourage healthy diet and regular exercise. (7) Pulmonary emphysema: Code(s): J43.9 - Emphysema, unspecified Category: Medical Plan: Per neurology patient to see pulmonology. Referral was not placed and so I did place a referral today. (8) Screening for diabetes mellitus: Code(s): Z13.1 - Encounter for screening for diabetes mellitus Category: Medical Plan: Ordered for blood work (9) Hypoglycemia: Code(s): E16.2 - Hypoglycemia, unspecified Category: Medical Plan: Patient having episodes of hypoglycemia. He was interested in she will be 1 injections for weight loss however I did discuss this can potentially lower the blood sugar and patient may not be a candidate for this time. Referral was placed to endocrinology for evaluation of hypoglycemia the side. (10) Facial mass: Code(s): R22.0 - Localized swelling, mass and lump, head Category: Medical Plan: Patient having facial mass on the cheek for over 1 year. States it initially began as a pimple sized lesion and has grown to be the size of a golf ball. He has never had this evaluated. Occasionally he will have pain but otherwise is asymptomatic. Referral was placed to General surgery today. (11) Mass on back: Code(s): R22.2 - Localized swelling, mass and lump, trunk Category: Medical Plan: Patient having small flesh-colored mass in the middle of his back that he would like removed as he often is getting it caught on things which causes pain. He is unsure if it has been growing or changing as it is on his back. Referral was placed to General surgery today. (12) Decreased libido: Code(s): R68.82 - Decreased libido Category: Medical Plan: Patient mentioning decreased libido and difficulty with erections. Plan to obtain testosterone level and can consider referral to Urology. (13) Depression: Code(s): F32.A - Depression, unspecified Category: Medical Plan: Patient endorsing feelings of depression and anxiety. When he would like to hold off on medication management at this time. I did discuss Wellbutrin with him however patient has to speak with Neurology about question of seizure disorder prior to administration of this medication. Discussed SSRIs however patient would like to defer these medications as they do have a side effect of weight gain. Referral was placed to counseling today Plan We will execute a comprehensive management plan addressing both immediate and chronic health issues: managing tendonitis with anti-inflammatory medications, reassessing CPAP therapy for sleep apnea, and ensuring cardiac health via specialist follow-ups. Depression will be addressed with Wellbutrin and therapy. An endocrinology referral will target hypoglycemia and potential diabetes. Surgical consultation will consider removal of skin lesions, and dietary changes will address triglycerides. Testosterone levels will be monitored for potential hormone therapy. Follow-up with pulmonology, and regular reassessment with cardiology, will form the backbone of ongoing care. This note was constructed using voice recognition software. While every effort has been made to ensure accuracy and tire room supervisor, still areas may have been included sometimes these areas may affect the content or meeting of the given symptoms. Total time spent caring for the patient today was 30 minutes. This includes time spent before the visit reviewing the chart, time spent during the visit, and time spent after the visit and documentation. Patient was informed and verbally consented to the use of an ambient scribe for clinic note documentation during this visit. Orders: Orders Testosterone, Total Today R68.82 - Decreased libido Comprehensive Met. Panel Today Z00.00 - Encounter for general adult medical examination without abnormal findings Hemoglobin A1c Today Z13.1 - Encounter for screening for diabetes mellitus Referrals Endocrinology Referral E16.2 - Hypoglycemia, unspecified General Surgery Referral R22.0 - Localized swelling, mass and lump, head, R22.2 - Localized swelling, mass and lump, trunk Pulmonology Referral J43.9 - Emphysema, unspecified Counseling Referral F32.A - Depression, unspecified
[2024-09-09 10:37] VITALS: BP 132/72; PULSE 86; TEMP 35.7; O2SAT 96; BMI 47.3
--- OUTSIDE RECORDS SUMMARY | 2024-09-09 11:00 | XMS_ITS | Encounter Summary ---
Author Organization [facility], Address [address] [place] [address] Phone Care Team Providers Care Parts Clerk Name Role Phone Unavailable Primary Care Provider Unavailabl e Encounter Details Date Type Department Care Team (Late st Contact Info) Description 06/09/2021 Documentation Only [facility], [address] [place] [address] Dino Plascencia MD [address] [place] [address] Social History Tobacco Use Types [...]
--- OUTSIDE RECORDS SUMMARY | 2024-09-09 11:00 | XMS_ITS | Clinical Summary ---
Author Organization [facility] Address [address] [place] [address] Phone Care Team Providers Care Network Operations Center Technician Name Role Phone Physician, No Pcp [...] mouth 1 (one) time each day. Active Active Problems Problem Noted Date Diagnosed Date SSS (sick sinus syndrome) (CMS/HCC V24, CMS/HCC V28) 02/22/2024 Surgical History Surgery Date Site/Laterality Comments CORONARY ANGIOPLASTY PROCEDURE:CORONARY ANGIOPLASTY CARDIAC CATHETERIZATION PROCEDURE:CARDIAC CATHETERIZATION Medical History Medical History Date Comments Coronary artery disease DX:Coron tonja artery disease CHF (congestive heart failur e) ([facility] V24, [facility] V28) DX:CHF (congestive heart kamran lure) ([facility]) Hypertension DX:Hypertension Hyperlipidemia DX:Hyperlipidemi a Diabetes mellitus ([facility] V 24, [facility] V28) DX:Diabetes mellitus ([facility]) Syncope DX:Syncope Ankle swelling DX:Ankle swellin g [...] Td Vaccines (1 - Tdap) 1990 Hepatitis B Vaccines (1 of 3 - 19+ 3-dose series) 1990 Pneumococcal Vaccine: 50+ Ye ars (1 of 1 - PCV) 2021 Zoster Vaccines (1 of 2) 2021 COVID-19 Vaccine ( - 2023-2 5 season) 2024 Cholesterol Screening (Lipid Panel) 02/23/2024 Colorectal Cancer Screening: Colonoscopy 02/23/2024 Depression Screening 02/23/2024 HIV Screening 02/23/2024 Hepatitis C Screening 02/23/2024 Social Influencers of Health Screening 02/23/2024 Influenza Vaccine (Season Ended) 2025 Hypertension/CHF/CAD Annual BMP Blood Test 02/21/2025 02/22/2024 HIB Vaccines Aged Out No longer eligi ble based on patient's age to complete this topic HPV Vaccines Aged Out No longer eligi ble based on patient's age to complete this topic Hepatitis A Vaccines Aged Out No long er eligible based [...] age to complete this topic Meningococcal B Vaccine Aged Out No l onger eligible based on patient's age to complete [...] this topic Medical Devices Implanted Type Area Auto Damage Trainee Device Identifier Shelf Expiration Date Model / Serial / Lot Pacemaker Leadless 19.5f 32.2mm Ra - [id number] - [id number] Implanted:Qty : 1 on 03/22/2024 by Mikal Lee MD at [facility] Cardiac Pacemaker N/A: Chest [employer] [facility] 12/14/2024 [id number] / [id number] / Procedures Procedure Name Priority Date/Time Associated Diagnosis Comments ANNUAL BMP BLOOD TEST Routine 02/22/2024 from Last 3 Months or Most Recently Relevant to Health Maintenance Results * Annual BMP Blood Test (02/22/2024) Annual BMP Blood Test Abstracted Historical Provider MD HEALTH MAINTENANCE Final Result from Last 3 Months or Most Recently Relevant to Health Maintenance Insurance MEDICAID - [place] [facility] Advance Directives * Full Code - Default [...] currently active code status orders. Care Teams Network Operations Center Technician Relationship Specialty Start Date End Date Physician, No Pcp PCP - General 03/16/24
--- OUTSIDE RECORDS SUMMARY | 2024-09-09 11:00 | XMS_ITS | Patient Health Record ---
Author Organization [facility] Address [address] [place] [address] Care Team Providers Care Teacher Lip Reading Name Role Phone Hamlet Canseco Primary Care Provider [phone] Reason For Referral No Information Plan Of Treatment No Information Insurance Providers Payer Name Payer Address Payer Phone Subscriber Number Group Number Insured Name Patient Relationship to Insured Coverage Start Date Coverage End Date [place] Medicaid [address] [place] [address] [id number] Anhtony Yoder Self - patient is the insured
--- OUTSIDE RECORDS SUMMARY | 2024-09-09 11:01 | XMS_ITS | Clinical Summary ---
Author Organization [facility], Address [address] [place] [address] [place] [address] Phone Care Team Providers Care Sales Contracts Analyst Name Role Phone Unavailable Primary Care Provider Unavailabl e Allergies Active Allergy Reactions Criticality Noted Date Comments Aspirin 03/22/2021 Medications doxycycline (ADOXA) 100 MG tablet doxycycline monohydrate Take 1 tablet 2 times per day for 10 days [id number] tablet 2 times per day No route [...] 1 time per day for 5 days [id number] tablet 1 time per day oral 5 [...] (1 of 3 - 19+ 3-dose series) 03/20 Colorectal Cancer Screening: Annual FOBT 2020 Colorectal Cancer Screening: Colonoscopy 2020 Colorectal Cancer Screening: Sigmoidoscopy 2020 Pneumococcal Vaccine: 50+ Years (1 of 1 - PCV) 021 Influenza Vaccine (Season Ended) 2025 Insurance [facility] Medicaid
--- OUTSIDE RECORDS SUMMARY | 2024-09-09 11:01 | XMS_ITS | Clinical Summary ---
Author Organization [facility] Address [address] [place] [address] Care Team Providers Care Senior Business Development Manager Name Role Phone Unavailable Primary Care Provider [...]
--- OUTSIDE RECORDS SUMMARY | 2024-09-09 11:01 | XMS_ITS | Encounter Summary ---
Author Organization [facility] Address [address] [place] [address] Care Team Providers Care Silk Snapper Name Role Phone Unavailable Primary Care Provider Unavailabl e Reason for Visit * Auth/Cert Inpatient Observation or Outpatient Surgery Specialty Diagnoses / Procedures Referred By Contac t Referred To Contact Diagnoses SSS (sick sinus syndrome) (HCC) Procedures MS TCAT INSJ PERM 1CHMBR LDLS PACEMAKER R ATRIAL Transcatheter Insertion of Permanent Single-Chamber Leadless Pacemaker, Right Atrial [facility] Electrophysiology [address] [place] [address] Referral ID Status Reason Start Date Expiration Date Visits Re quested Visits Authorized [id number] 1 1 Encounter Details Date Type Department Care Team Description 03/22/2024 10:30 AM [facility] Hospital Encounter Cardiology Services [address] [place] [address] Mikal Lee MD SSS (sick sinus syndrome) [...] and he had his labs drawn at [facility]. Pt said he has three wounds on his right lower leg and is being treated for them at Wound care center at [facility] notified [place]. Spoke with Dr Rothman [...]
== END 2024-09-09 11:30 | disposition home or self-care (01) ==
LOC: HO.HMCH 10:29
DX: E78.5 Hyperlipidemia, unspecified (principal); J43.9 Emphysema, unspecified; Z68.42 Body mass index [BMI] 45.0-49.9, adult; E66.9 Obesity, unspecified; G47.33 Obstructive sleep apnea (adult) (pediatric); I25.10 Atherosclerotic heart disease of native coronary artery without angina pectoris; Z98.890 Other specified postprocedural states; I10 Essential (primary) hypertension; Z13.1 Encounter for screening for diabetes mellitus; E16.2 Hypoglycemia, unspecified; R22.0 Localized swelling, mass and lump, head; R22.2 Localized swelling, mass and lump, trunk

== ENCOUNTER → 2024-09-09 10:28 | Outpatient (BNVA) | payer OTHER, SELFPAY | DX: Z76.89 Persons encountering health services in other specified circumstances (principal); E78.5 Hyperlipidemia, unspecified; E66.9 Obesity, unspecified; Z68.42 Body mass index [BMI] 45.0-49.9, adult; G47.33 Obstructive sleep apnea (adult) (pediatric); I25.10 Atherosclerotic heart disease of native coronary artery without angina pectoris; I10 Essential (primary) hypertension; J43.9 Emphysema, unspecified; E16.2 Hypoglycemia, unspecified; R22.0 Localized swelling, mass and lump, head; R22.2 Localized swelling, mass and lump, trunk; R68.82 Decreased libido; F32.A Depression, unspecified; Z79.82 Long term (current) use of aspirin; Z79.899 Other long term (current) drug therapy; Z98.890 Other specified postprocedural states | CPT/HCPCS: 96127; 99202 ==

== ENCOUNTER 2024-09-13 08:35 | Outpatient (REF) | payer OTHER, SELFPAY ==
--- OUTSIDE RECORDS SUMMARY | 2024-09-13 09:00 | XMS_ITS | Encounter Summary ---
Author Organization [facility], Address [address] [place] [address] Phone Care Team Providers Care Couture Dressmaker Name Role Phone Unavailable Primary Care Provider Unavailabl e Encounter Details Date Type Department Care Team (Late st Contact Info) Description 06/09/2021 Documentation Only [facility], [address] [place] [address] Dino Plascencia MD [address] [place] [address] Social History Tobacco Use Types [...]
--- OUTSIDE RECORDS SUMMARY | 2024-09-13 09:01 | XMS_ITS | Clinical Summary ---
Author Organization [facility] Address [address] [place] [address] Care Team Providers Care Model Maker Firearms Name Role Phone Unavailable Primary Care Provider [...]
--- OUTSIDE RECORDS SUMMARY | 2024-09-13 09:01 | XMS_ITS | Encounter Summary ---
Author Organization [facility] [employer] [facility] Address [address] [place] [address] Care Team Providers Care Software Project Lead Name Role Phone Unavailable Primary Care Provider Unavailabl e Reason for Visit * Auth/Cert Inpatient Observation or Outpatient Surgery Specialty Diagnoses / Procedures Referred By Contac t Referred To Contact Diagnoses SSS (sick sinus syndrome) (HCC) Procedures SC TCAT INSJ PERM 1CHMBR LDLS PACEMAKER R ATRIAL Transcatheter Insertion of Permanent Single-Chamber Leadless Pacemaker, Right Atrial [facility] Electrophysiology [address] [place] [address] Referral ID Status Reason Start Date Expiration Date Visits Re quested Visits Authorized [id number] 1 1 Encounter Details Date Type Department Care Team Description 03/22/2024 10:30 AM [facility] Hospital Encounter Cardiology Services [address] [place] [address] Mikal Lee MD SSS (sick sinus syndrome) [...] and he had his labs drawn at [facility]. Pt said he has three wounds on his right lower leg and is being treated for them at Wound care center at [facility] notified [place]. Spoke with Dr Rothman and [...]
--- OUTSIDE RECORDS SUMMARY | 2024-09-13 09:01 | XMS_ITS | Clinical Summary ---
Author Organization [facility], Address [address] [place] [address] [place] [address] Phone Care Team Providers Care Sap Security Architect Name Role Phone Unavailable Primary Care Provider Unavailabl e Allergies Active Allergy Reactions Criticality Noted Date Comments Aspirin 03/22/2021 Medications doxycycline (ADOXA) 100 MG tablet doxycycline monohydrate Take 1 tablet 2 times per day for 10 days [id number] tablet 2 times per day No route [...] 1 time per day for 5 days [id number] tablet 1 time per day oral 5 [...] 021 Influenza Vaccine (Season Ended) 2025 Insurance [facility] [place] [address]
--- OUTSIDE RECORDS SUMMARY | 2024-09-13 09:01 | XMS_ITS | Clinical Summary ---
Author Organization [facility] Address [address] [place] [address] Phone Care Team Providers Care Convict Guard Name Role Phone Physician, No Pcp Primary [...] artery disease CHF (congestive heart failur e) ([facility] V24, [facility] V28) DX:CHF (congestive heart kamran lure) ([facility]) Hypertension DX:Hypertension Hyperlipidemia DX:Hyperlipidemi a Diabetes mellitus ([facility] V 24, [facility] V28) DX:Diabetes mellitus ([facility]) Syncope DX:Syncope Ankle swelling DX:Ankle swellin g [...] this topic Medical Devices Implanted Type Area Director Channel Device Identifier Shelf Expiration Date Model / Serial / Lot Pacemaker Leadless 19.5f 32.2mm Ra - [id number] - [id number] Implanted:Qty : 1 on 03/22/2024 by Mikal Lee MD at [facility] Cardiac Pacemaker N/A: Chest [facility] 12/14/2024 [id number] / [id number] / Procedures Procedure Name Priority Date/Time Associated Diagnosis Comments ANNUAL BMP BLOOD TEST Routine 02/22/2024 from Last 3 Months or Most Recently Relevant to Health Maintenance Results * Annual BMP Blood Test (02/22/2024) Annual BMP Blood Test Abstracted Historical Provider MD HEALTH MAINTENANCE Final Result from Last 3 Months or Most Recently Relevant to Health Maintenance [place] [facility] Advance Directives * Full Code - Default [...] currently active code status orders. Care Teams Convict Guard Relationship Specialty Start Date End Date Physician, No Pcp PCP - General 03/16/24
[2024-09-13 10:06] LABS: Estimated Average Glucose 163 mg/dL; Hemoglobin A1c % 7.3 % (<6.0); Total Hemoglobin (HGBA1C) 3299.7873 umol/L
[2024-09-13 10:11] LABS: Alanine Aminotransferase 31 U/L (0-40); Alkaline Phosphatase 108 U/L (39-117); Anion Gap 13 (12-20); Aspartate Amino Transferase 21 U/L (5-37); Bilirubin Total 0.3 mg/dL (0.0-1.0); Blood Urea Nitrogen 14 mg/dL (9-16); Calcium 8.5 mg/dL (8.4-10.2); Carbon Dioxide 32 mmol/L (22-29); Chloride 99 mmol/L (96-108); Estimated Glomerular Filt Rate > 60; Glucose Random 232 mg/dL (60-115); Potassium 3.5 mmol/L (3.3-5.1); Sodium 140 mmol/L (135-145); Total Protein 7.3 g/dL (6.5-8.0)
[2024-09-18 07:59] LABS: Testosterone, Total 12 ng/dL (250-1100)
== END 2024-09-13 08:36 | disposition home or self-care (01) ==
LOC: HO.LAB 08:35
PROVIDERS: Nurse Practitioner Family; PCP Physician Assistant
DX: Z00.00 Encounter for general adult medical examination without abnormal findings (principal); R68.82 Decreased libido; Z13.1 Encounter for screening for diabetes mellitus
CPT/HCPCS: 36415; 80053; 83036; 84403

== ENCOUNTER 2024-09-22 10:48 | Outpatient (REF) | payer OTHER, SELFPAY ==
--- NOTE | 2024-09-22 11:08 | PFT_ITS ---
Indication: LYN Spirometry [FEV1 to FVC 72%; FEV1 2.80 L; FVC 3.99 L. No significant response to bronchodilators noted.] Lung Volumes [Total lung capacity 97% predicted] Diffusion Capacity [DLCO 91% predicted] Comparisons [none] Interpretation [No obstructive nor restrictive ventilatory defects identified. No response to bronchodilators noted. Lung volumes are normal so far trend of air trapping. Diffusing capacity is within normal limits. If asthma is in the differential a methacholine challenge may be helpful hyperreactive airways. Clinical correlation warranted.] MTDD
[2024-09-22 11:49] VITALS: PULSE 58; O2SAT 98
--- OUTSIDE RECORDS SUMMARY | 2024-09-22 12:17 | XMS_ITS | Clinical Summary ---
Author Organization [facility] Address [address] [place] [address] Phone Care Team Providers Care Laborer Turkey Farm Name Role Phone Physician, No Pcp Primary [...] artery disease CHF (congestive heart failur e) ([facility] V24, [facility] V28) DX:CHF (congestive heart kamran lure) ([facility]) Hypertension DX:Hypertension Hyperlipidemia DX:Hyperlipidemi a Diabetes mellitus ([facility] V 24, [facility] V28) DX:Diabetes mellitus ([facility]) Syncope DX:Syncope Ankle swelling DX:Ankle [...] this topic Medical Devices Implanted Type Area Manager Ui Device Identifier Shelf Expiration Date Model / Serial / Lot Pacemaker Leadless 19.5f 32.2mm Ra - [id number] - [id number] Implanted:Qty : 1 on 03/22/2024 by Mikal Lee MD at [facility] Cardiac Pacemaker N/A: Chest [facility] 12/14/2024 [id number] / [id number] / Procedures Procedure Name Priority Date/Time Associated Diagnosis Comments ANNUAL BMP BLOOD TEST Routine 02/22/2024 from Last 3 Months or Most Recently Relevant to Health Maintenance Results * Annual BMP Blood Test (02/22/2024) Annual BMP Blood Test Abstracted Historical Provider MD HEALTH MAINTENANCE Final Result from Last 3 Months or Most Recently Relevant to Health Maintenance Insurance [place] - [place] [facility] Advance Directives * Full Code - Default [...] currently active code status orders. Care Teams Laborer Turkey Farm Relationship Specialty Start Date End Date Physician, No Pcp PCP - General 03/16/24
--- OUTSIDE RECORDS SUMMARY | 2024-09-22 12:17 | XMS_ITS | Encounter Summary ---
Author Organization [facility] [employer] [facility] Address [address] [place] [address] Care Team Providers Care Senior Water Resources Engineer Name Role Phone Unavailable Primary Care Provider Unavailabl e Reason for Visit * Auth/Cert Inpatient Observation or Outpatient Surgery Specialty Diagnoses / Procedures Referred By Contac t Referred To Contact Diagnoses SSS (sick sinus syndrome) (HCC) Procedures [place] TCAT INSJ PERM 1CHMBR LDLS PACEMAKER R ATRIAL Transcatheter Insertion of Permanent Single-Chamber Leadless Pacemaker, Right Atrial [facility] Electrophysiology [address] [place] [address] Referral ID Status Reason Start Date Expiration Date Visits Re quested Visits Authorized [id number] 1 1 Encounter Details Date Type Department Care Team Description 03/22/2024 10:30 AM [facility] Hospital Encounter Cardiology Services [address] [place] [address] Mikal Lee MD SSS (sick sinus syndrome) [...] and he had his labs drawn at [facility]. Pt said he has three wounds on his right lower leg and is being treated for them at Wound care center at [facility] notified [place]. Spoke with Dr Rothman [...]
--- OUTSIDE RECORDS SUMMARY | 2024-09-22 12:17 | XMS_ITS | Encounter Summary ---
Author Organization [facility], Address [address] [place] [address] Phone Care Team Providers Care Ceramic Engineering Professor Name Role Phone Unavailable Primary Care Provider Unavailabl e Encounter Details Date Type Department Care Team (Late st Contact Info) Description 06/09/2021 Documentation Only [facility], [address] [place] [address] Dino Plascencia MD [address] [place] [address] Social History Tobacco Use Types [...]
--- OUTSIDE RECORDS SUMMARY | 2024-09-22 12:17 | XMS_ITS | Clinical Summary ---
Author Organization [facility] Address [address] [place] [address] Care Team Providers Care Finishing Frame Runner Name Role Phone Unavailable Primary Care Provider [...]
--- OUTSIDE RECORDS SUMMARY | 2024-09-22 12:17 | XMS_ITS | Patient Health Record ---
Author Organization [facility] Address [address] [place] [address] Care Team Providers Care Torch Heater Name Role Phone Hamlet Canseco Primary Care Provider Reason For Referral No Information Plan Of Treatment No Information Insurance Providers Payer Name Payer Address Payer Phone Subscriber Number Group Number Insured Name Patient Relationship to Insured Coverage Start Date Coverage End Date [place] Medicaid [address] [place] [address] [id number] Anthony Yoder Self - patient is the insured
--- OUTSIDE RECORDS SUMMARY | 2024-09-22 12:17 | XMS_ITS | Clinical Summary ---
Author Organization [facility], Address [address] [place] [address] [place] [address] Phone Care Team Providers Care Senior C Web Developer Name Role Phone Unavailable Primary Care Provider Unavailabl e Allergies Active Allergy Reactions Criticality Noted Date Comments Aspirin 03/22/2021 Medications doxycycline (ADOXA) 100 MG tablet doxycycline monohydrate Take 1 tablet 2 times per day for 10 days [id number] tablet 2 times per day No route [...] 1 time per day for 5 days [id number] tablet 1 time per day oral 5 [...] 021 Influenza Vaccine (Season Ended) 2025 Insurance [facility] Medicaid
== END 2024-09-22 10:49 | disposition home or self-care (01) ==
LOC: HO.RESP 10:48
PROVIDERS: Visit Provider Physician Assistant Medical
DX: G47.33 Obstructive sleep apnea (adult) (pediatric) (principal)
CPT/HCPCS: 94010; 94640; 94727; 94729

== ENCOUNTER → 2024-09-22 11:08 | Outpatient (BNV) | payer OTHER, SELFPAY | PROVIDERS: Visit Provider Hospitalist | DX: G47.33 Obstructive sleep apnea (adult) (pediatric) (principal) | CPT/HCPCS: 94060; 94727; 94729 ==

== ENCOUNTER 2024-09-29 13:52 | Outpatient (AMB) | payer OTHER, SELFPAY ==
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
[2024-09-29 14:03] VITALS: BP 126/54; PULSE 54; O2SAT 98; BMI 42.1
[2024-09-29 14:19] LABS: Glucose, Whole Blood 236 mg/dL (60-115)
--- OUTSIDE RECORDS SUMMARY | 2024-09-29 14:33 | XMS_ITS | Encounter Summary ---
Author Organization [facility], Address [address] [place] [address] Phone Care Team Providers Care Quill Machine Tender Name Role Phone Unavailable Primary Care Provider Unavailabl e Encounter Details Date Type Department Care Team (Late st Contact Info) Description 06/09/2021 Documentation Only [facility], [address] [place] [address] Dino Plascencia MD [address] [place] [address] Social History Tobacco Use Types [...]
--- OUTSIDE RECORDS SUMMARY | 2024-09-29 14:33 | XMS_ITS | Clinical Summary ---
Author Organization [facility] Address [address] [place] [address] Care Team Providers Care Wound Care Nurse Name Role Phone Unavailable Primary Care Provider [...]
--- OUTSIDE RECORDS SUMMARY | 2024-09-29 14:33 | XMS_ITS | Encounter Summary ---
Author Organization [facility] [employer] [facility] Address [address] [place] [address] Care Team Providers Care Drying Room Operator Name Role Phone Unavailable Primary Care Provider Unavailabl e Reason for Visit * Auth/Cert Inpatient Observation or Outpatient Surgery Specialty Diagnoses / Procedures Referred By Contac t Referred To Contact Diagnoses SSS (sick sinus syndrome) (HCC) Procedures [place] TCAT INSJ PERM 1CHMBR LDLS PACEMAKER R ATRIAL Transcatheter Insertion of Permanent Single-Chamber Leadless Pacemaker, Right Atrial [facility] Electrophysiology [address] [place] [address] Referral ID Status Reason Start Date Expiration Date Visits Re quested Visits Authorized [id number] 1 1 Encounter Details Date Type Department Care Team Description 03/22/2024 10:30 AM [facility] Hospital Encounter Cardiology Services [address] [place] [address] Mikal Lee MD SSS (sick sinus syndrome) [...] and he had his labs drawn at [facility]. Pt said he has three wounds on his right lower leg and is being treated for them at Wound care center at [facility] notified [place]. Spoke with Dr Rothman and [...]
--- OUTSIDE RECORDS SUMMARY | 2024-09-29 14:33 | XMS_ITS | Clinical Summary ---
Author Organization [facility], Address [address] [place] [address] [place] [address] Phone Care Team Providers Care Quality Assurance Auditor Name Role Phone Unavailable Primary Care Provider Unavailabl e Allergies Active Allergy Reactions Criticality Noted Date Comments Aspirin 03/22/2021 Medications doxycycline (ADOXA) 100 MG tablet doxycycline monohydrate Take 1 tablet 2 times per day for 10 days [id number] tablet 2 times per day No route [...] 1 time per day for 5 days [id number] tablet 1 time per day oral 5 [...] 021 Influenza Vaccine (Season Ended) 2025 Insurance [facility] Medicaid
--- OUTSIDE RECORDS SUMMARY | 2024-09-29 14:33 | XMS_ITS | Clinical Summary ---
Author Organization [facility] Address [address] [place] [address] Phone Care Team Providers Care Oyster Grower Name Role Phone Physician, No Pcp Primary [...] artery disease CHF (congestive heart failur e) ([facility] V24, [facility] V28) DX:CHF (congestive heart kamran lure) ([facility]) Hypertension DX:Hypertension Hyperlipidemia DX:Hyperlipidemi a Diabetes mellitus ([facility] V 24, [facility] V28) DX:Diabetes mellitus ([facility]) Syncope DX:Syncope Ankle swelling DX:Ankle swellin g [...] this topic Medical Devices Implanted Type Area Clinical Data Management Manager Device Identifier Shelf Expiration Date Model / Serial / Lot Pacemaker Leadless 19.5f 32.2mm Ra - [id number] - [id number] Implanted:Qty : 1 on 03/22/2024 by Mikal Lee MD at [facility] Cardiac Pacemaker N/A: Chest [facility] 12/14/2024 [id number] / [id number] / Procedures Procedure Name Priority Date/Time Associated [...] currently active code status orders. Care Teams Oyster Grower Relationship Specialty Start Date End Date Physician, No Pcp PCP - General 03/16/24
--- OUTSIDE RECORDS SUMMARY | 2024-09-29 14:33 | XMS_ITS | Patient Health Record ---
Author Organization [facility] Address [address] [place] [address] Care Team Providers Care Metalizer Field Operation Name Role Phone Hamlet Canseco Primary Care Provider Reason For Referral No Information Plan Of Treatment No Information Insurance Providers Payer Name Payer Address Payer Phone Subscriber Number Group Number Insured Name Patient Relationship to Insured Coverage Start Date Coverage End Date [place] Medicaid [address] [place] [address] [id number] Anthony Yoder Self - patient is the insured
== END 2024-09-29 14:56 | disposition home or self-care (01) ==
LOC: HO.ENCR 13:53
PROVIDERS: Visit Provider Nurse Practitioner Adult Health
DX: E11.9 Type 2 diabetes mellitus without complications (principal)

== ENCOUNTER → 2024-09-29 13:52 | Outpatient (BNVA) | payer OTHER, SELFPAY | PROVIDERS: Visit Provider Nurse Practitioner Adult Health | DX: E11.9 Type 2 diabetes mellitus without complications (principal); R79.89 Other specified abnormal findings of blood chemistry | CPT/HCPCS: 82947; 83036; 99202 ==

== ENCOUNTER 2024-10-03 09:18 | Outpatient (AMB) | payer OTHER, SELFPAY ==
[2024-10-03 09:24] VITALS: BP 128/60; PULSE 80; O2SAT 96; BMI 42.0
--- NOTE | 2024-10-03 09:24 | A.OFFVIS_ITS ---
Vital Signs 10/03/24 09:24 Height 5 ft 10 in Weight 292 lb 8 oz BMI 42.0 BP 128/60 Blood Pressure Location Lt brachial Position Sitting Pulse 80 Pulse Source Pulse Oximeter Pulse Oximetry (%) 96 Oxygen Delivery Method Room Air Intake Visit Reasons: 2 mo follow up Intake Note: Patient presents follow up LYN. Non Compliant PFT done 09/22(results in chart), WM seen 08/04. Patient still waiting on Oxygen. (states need 3L of oxygen) Allergies carbamazepine [From Tegretol] Allergy (Intermediate, Verified 10/03/24 09:28) Agitated aspirin Adverse Reaction (Verified 10/03/24 09:28) Gastrointestinal Upset HPI Comments Details: 54y/o Right handed male with coronary heart disease, and heart failure comes for evaluation of sleep apnea. PSG 04/05/2024 Severe obstructive Sleep Apnea AHI was 65 and Oxygen [place] 73%. 05/24/2024 Titration was completed, with recommendations to start CPAP 10glD50, with 3LPM oxygen. On 22 Mar 2024 he had a pacemaker placed at [facility] d/t bradycardia, and syncope, Ramiro Galan is his Concrete Pipe Machine Operator. He continues to have poor sleep, and c/o being in pain consistently due to fatigue and excessive daytime sleepiness, as he is unable to get a complete night of rest becuase he sits up in a chair to sleep as he has to keep his body in an upright position so he can breath efficiently.. He snores loudly, gasps for air, chokes has trouble getting air in, as he had Covid in May 2024. He was started on methadone 100mg PO with [facility] years ago for a psoas muscle tear, and continues to live in pain. He noticed he was having tremors of his L. hand >R. with abrnormal movements of his entire body, and dropping things from his hands due to exhaustion and he also has a few concusssions due to falls, he feels he is off balance due to lack of sleep and falls over easily. He denies syncope, he has COPD and dyspnea with exertion, along with bilateral pitting edema 2+ to the shins. He ran out of his Lasix 80mg PO daily and his legs are edematous, he follows up with wound care as needed. He recently started using his 's nasal cannula with 2 liters of O2. He did have some relief with additional oxygen therapy. Today he says he mourns the loss of his friend and Octaviano who passed 2 weeks ago. He denies a h/o heavy alcohol use or smoking cigarettes. He smokes marijuana, 3- 4 joints a day. His BMI is 42, weight is 292lbs and asks for a referral to ENT today. His mood is irritable and he stopped Tegretol as it made him very angry. He do esn't go out due to the growth on his face, he feels people stare at him and make stupid comments. [facility] Medical History Hypoglycemia ACS (acute coronary syndrome) Obstructive sleep apnea hypopnea, severe Snoring Congestive heart failure Valverde's palsy Surgical History S/P ACL surgery History of total right knee replacement H/O heart artery stent H/O right knee surgery Family History Mother CHF (congestive heart failure) Social History Housing: Apartment Alcohol intake: never Patient Tobacco Use Status: Former Tobacco user e-Cigarette/Vaping Use: Currently Using Second Hand Smoke Exposure: Yes Substance Use Type: Marijuana service: No Current occupational status: retired Cognitive needs: Yes (Cane, Walker) Hearing needs: No Vision needs: Yes (Glasses) Physical Exam Vital Signs: Last Vital Signs Pulse 80 10/03/24 09:24 BP 128/60 10/03/24 09:24 Pulse Ox 96 10/03/24 09:24 Oxygen Delivery Method Room Air 10/03/24 09:24 BMI result Body Mass Index 42.0 Const General: comfortable and tired appearing Nutritional Appearance: obese Orientation/consciousness: patient oriented x3 HEENT Face and sinus: Yes face symmetric and Yes other (left cheek massive telengectasia and growth like cyst.) Eyes Pupils: Equal, round and reactive pupils present Neck Neck: Yes full ROM Resp Effort & Inspection: normal respiratory effort and able to speak in complete sentences Neuro General: patient oriented x3 and moves all extremities Cranial nerves: Yes Facial sensation intact/muscles of mastication intact, Yes Equal, round and reactive pupils present, Yes Normal facial strength present, Yes Midline tongue present, Yes Ability to bilaterally rotate head present and Yes Ability to bilaterally elevate shoulders present Gait exam (Neuro): Antalgic gait present Motor exam (neuro): 5/5 motor strength present throughout and Normal motor muscle tone present throughout Psych Appearance: well kempt Mental Status: mental status grossly normal Insight: Good insight present (Psych) Judgement: Good judgement present (Psych) Results Reviewed Results Reviewed: Labs reviewed : HDL 30, Testosterone 12, Triglycerides 158, Hg A1c 8.1, Random g lucose 232. PFTs reviewed with patient. psg and Titration results reviewed with patient. start cpap at 42wpU96 and with 3 LPM oxygen and nasal cannula. Assessment & Plan Assessment & Plan (1) Obstructive sleep apnea hypopnea, severe: Code(s): G47.33 - Obstructive sleep apnea (adult) (pediatric) Category: Medical (2) Irritable mood: Comment: Patient declined Tegretol due medication s/e Code(s): R45.4 - Irritability and anger Category: Medical (3) Nasal polyps: Code(s): J33.9 - Nasal polyp, unspecified Category: Medical Plan Severe LYN Start using CPAP at 98wuH07 per titration study along with 3LPM supplemental Oxygen therapy via nasal cannula. PFTs reviewed with patient today, he has COPD, advised to monitor his sleep quality on the [employer] arnold on your phone. Compression Stockings for pitting edema and f/u with wound care. BMI is 42 today, he has lost 25 pounds since last visit, continue f/u with weight management and PT for Aquatherapy with [facility]. f/u ENT Referral for nasal polyps, and difficulty getting air in f/u Endocrine testosterone therapy f/u Cotton Gin Yard Supervisor Gricelda Gen surgery face and back f/u in 4 months for compliance of lyn. Orders: Referrals Ear/Nose/Throat Referral J33.9 - Nasal polyp, unspecified Patient Instructions: Sleep Hygiene provided: set a scheduled bedtime and wake time to help regulate the circadian rhythm and balance the release of pituitary hormones. Sleep in a dark room, temperatures below 68 degrees, and no devices n bed. Limit caffeinated products 6 hours prior to bed, and limit fluids 2-4 hours prior to bed. Gentle night yoga, diffusing essential oils, and playing soft music can be relaxing. Wash mask and hoses daily, change filters as applicable, fill reservoir with distilled water. Call or message us on the portal with any questions. Coding Level of Care Code Est Pt Level 4 (19731) Complex EM visit Add On G2211 Diagnoses Obstructive sleep apnea hypopnea, severe G47.33 Irritable mood R45.4 Nasal polyps J33.9 Time Spent (min) 30
--- OUTSIDE RECORDS SUMMARY | 2024-10-03 09:31 | XMS_ITS | Encounter Summary ---
Author Organization [facility], Address [address] [place] [address] Phone Care Team Providers Care Lumber Tying Machine Operator Name Role Phone Unavailable Primary Care Provider Unavailabl e Encounter Details Date Type Department Care Team (Late st Contact Info) Description 06/09/2021 Documentation Only [facility], [address] [place] [address] Dino Plascencia MD [address] [place] [address] Social History Tobacco Use Types [...]
--- OUTSIDE RECORDS SUMMARY | 2024-10-03 09:31 | XMS_ITS | Patient Health Record ---
Author Organization [facility] Address [address] [place] [address] Care Team Providers Care Ring Making Machine Operator Name Role Phone Hamlet Canseco Primary Care Provider [phone] Reason For Referral No Information Plan Of Treatment No Information Insurance Providers Payer Name Payer Address Payer Phone Subscriber Number Group Number Insured Name Patient Relationship to Insured Coverage Start Date Coverage End Date [place] Medicaid [address] [place] [address] [id number] Anthony Yoder Self - patient is the insured
--- OUTSIDE RECORDS SUMMARY | 2024-10-03 09:31 | XMS_ITS | Clinical Summary ---
Author Organization [facility] Address [address] [place] [address] Phone Care Team Providers Care Metal Polisher And Buffer Apprentice Name Role Phone Physician, No Pcp Primary [...] artery disease CHF (congestive heart failur e) ([facility] V24, [facility] V28) DX:CHF (congestive heart kamran lure) ([facility]) Hypertension DX:Hypertension Hyperlipidemia DX:Hyperlipidemi a Diabetes mellitus ([facility] V 24, [facility] V28) DX:Diabetes mellitus ([facility]) Syncope DX:Syncope Ankle swelling DX:Ankle swellin g [...] this topic Medical Devices Implanted Type Area Filler Shaker Device Identifier Shelf Expiration Date Model / Serial / Lot Pacemaker Leadless 19.5f 32.2mm Ra - [id number] - [id number] Implanted:Qty : 1 on 03/22/2024 by Mikal Lee MD at [facility] Cardiac Pacemaker N/A: Chest [employer] [facility] 12/14/2024 [id number] / [id number] / Procedures Procedure Name Priority Date/Time Associated Diagnosis Comments ANNUAL BMP BLOOD TEST Routine 02/22/2024 from Last 3 Months or Most Recently Relevant to Health Maintenance Results * Annual BMP Blood Test (02/22/2024) Annual BMP Blood Test Abstracted Historical Provider MD HEALTH MAINTENANCE Final Result from Last 3 Months or Most Recently Relevant to Health Maintenance Insurance [place]ICA[place] - [place] [facility] Advance Directives * Full Code - Default [...] currently active code status orders. Care Teams Metal Polisher And Buffer Apprentice Relationship Specialty Start Date End Date Physician, No Pcp PCP - General 03/16/24
--- OUTSIDE RECORDS SUMMARY | 2024-10-03 09:32 | XMS_ITS | Encounter Summary ---
Author Organization [facility] Address [address] [place] [address] Care Team Providers Care Tube Blower Name Role Phone Unavailable Primary Care Provider Unavailabl e Reason for Visit * Auth/Cert Inpatient Observation or Outpatient Surgery Specialty Diagnoses / Procedures Referred By Contac t Referred To Contact Diagnoses SSS (sick sinus syndrome) (HCC) Procedures [place] TCAT INSJ PERM 1CHMBR LDLS PACEMAKER R ATRIAL Transcatheter Insertion of Permanent Single-Chamber Leadless Pacemaker, Right Atrial [facility] Electrophysiology [address] [place] [address] Referral ID Status Reason Start Date Expiration Date Visits Re quested Visits Authorized [id number] 1 1 Encounter Details Date Type Department Care Team Description 03/22/2024 10:30 AM [facility] Hospital Encounter Cardiology Services [address] [place] [address] Mikal Lee MD SSS (sick sinus syndrome) [...] and he had his labs drawn at [facility]. Pt said he has three wounds on his right lower leg and is being treated for them at Wound care center at [facility] notified [place]. Spoke with Dr [...]
--- OUTSIDE RECORDS SUMMARY | 2024-10-03 09:32 | XMS_ITS | Clinical Summary ---
Author Organization [facility] Address [address] [place] [address] Care Team Providers Care Director Blood Bank Name Role Phone Unavailable Primary Care Provider [...]
--- OUTSIDE RECORDS SUMMARY | 2024-10-03 09:32 | XMS_ITS | Clinical Summary ---
Author Organization [facility], Address [address] [place] [address] [place] [address] Phone Care Team Providers Care Substance Abuse Prevention Coordinator Name Role Phone Unavailable Primary Care Provider Unavailabl e Allergies Active Allergy Reactions Criticality Noted Date Comments Aspirin 03/22/2021 Medications doxycycline (ADOXA) 100 MG tablet doxycycline monohydrate Take 1 tablet 2 times per day for 10 days [id number] tablet 2 times per day No route [...] 1 time per day for 5 days [id number] tablet 1 time per day oral 5 [...] 021 Influenza Vaccine (Season Ended) 2025 Insurance [facility] Medicaid
== END 2024-10-03 10:23 | disposition home or self-care (01) ==
LOC: HO.HSMS 09:19
PROVIDERS: Visit Provider Physician Assistant Medical
DX: G47.33 Obstructive sleep apnea (adult) (pediatric) (principal); R45.4 Irritability and anger; J33.9 Nasal polyp, unspecified
CPT/HCPCS: 99214; G2211

== ENCOUNTER → 2024-10-03 09:18 | Outpatient (BNVA) | payer OTHER, SELFPAY | PROVIDERS: Visit Provider Physician Assistant Medical | DX: G47.33 Obstructive sleep apnea (adult) (pediatric) (principal); J33.9 Nasal polyp, unspecified; R45.4 Irritability and anger | CPT/HCPCS: 99212 ==

== ENCOUNTER 2024-10-06 08:28 | Outpatient (REF) | payer OTHER, SELFPAY ==
--- OUTSIDE RECORDS SUMMARY | 2024-10-06 08:43 | XMS_ITS | Clinical Summary ---
Author Organization [facility], Address [address] [place] [address] [place] [address] Phone Care Team Providers Care Cash Reconciliation Specialist Name Role Phone Unavailable Primary Care Provider Unavailabl e Allergies Active Allergy Reactions Criticality Noted Date Comments Aspirin 03/22/2021 Medications doxycycline (ADOXA) 100 MG tablet doxycycline monohydrate Take 1 tablet 2 times per day for 10 days [id number] tablet 2 times per day No route [...] 1 time per day for 5 days [id number] tablet 1 time per day oral 5 [...] 021 Influenza Vaccine (Season Ended) 2025 Insurance [facility] Medicaid
--- OUTSIDE RECORDS SUMMARY | 2024-10-06 08:43 | XMS_ITS | Patient Health Record ---
Author Organization [facility] Address [address] [place] [address] Care Team Providers Care Loop Sewer Name Role Phone Hamlet Canseco Primary Care Provider [phone] Reason For Referral No Information Plan Of Treatment No Information Insurance Providers Payer Name Payer Address Payer Phone Subscriber Number Group Number Insured Name Patient Relationship to Insured Coverage Start Date Coverage End Date [place] Medicaid [address] [place] [address] [id number] Anthony Yoder Self - patient is the insured
--- OUTSIDE RECORDS SUMMARY | 2024-10-06 08:43 | XMS_ITS | Clinical Summary ---
Author Organization [facility] Address [address] [place] [address] Phone Care Team Providers Care Weld Technician Name Role Phone Physician, No Pcp [...] artery disease CHF (congestive heart failur e) ([facility] V24, [facility] V28) DX:CHF (congestive heart kamran lure) ([facility]) Hypertension DX:Hypertension Hyperlipidemia DX:Hyperlipidemi a Diabetes mellitus ([facility] V 24, [facility] V28) DX:Diabetes mellitus ([facility]) Syncope DX:Syncope Ankle swelling DX:Ankle swellin [...] this topic Medical Devices Implanted Type Area Calibration Engineer Device Identifier Shelf Expiration Date Model / Serial / Lot Pacemaker Leadless 19.5f 32.2mm Ra - [id number] - [id number] Implanted:Qty : 1 on 03/22/2024 by Mikal Lee MD at [facility] Cardiac Pacemaker N/A: Chest [employer] [facility] 12/14/2024 [id number] / [id number] / Procedures Procedure Name Priority Date/Time Associated Diagnosis Comments ANNUAL BMP BLOOD TEST Routine 02/22/2024 from Last 3 Months or Most Recently Relevant to Health Maintenance Results * Annual BMP Blood Test (02/22/2024) Annual BMP Blood Test Abstracted Historical Provider MD HEALTH MAINTENANCE Final Result from Last 3 Months or Most Recently Relevant to Health Maintenance Insurance [place]ICA[place] - [place] [facility] Advance Directives * Full Code - [...] currently active code status orders. Care Teams Weld Technician Relationship Specialty Start Date End Date Physician, No Pcp PCP - General 03/16/24
--- OUTSIDE RECORDS SUMMARY | 2024-10-06 08:43 | XMS_ITS | Clinical Summary ---
Author Organization [facility] Address [address] [place] [address] Care Team Providers Care Manager Relationship Name Role Phone Unavailable Primary Care Provider [...]
--- OUTSIDE RECORDS SUMMARY | 2024-10-06 08:43 | XMS_ITS | Encounter Summary ---
Author Organization [facility] Address [address] [place] [address] Care Team Providers Care Honing Job Setter Name Role Phone Unavailable Primary Care Provider Unavailabl e Reason for Visit * Auth/Cert Inpatient Observation or Outpatient Surgery Specialty Diagnoses / Procedures Referred By Contac t Referred To Contact Diagnoses SSS (sick sinus syndrome) (HCC) Procedures [place] TCAT INSJ PERM 1CHMBR LDLS PACEMAKER R ATRIAL Transcatheter Insertion of Permanent Single-Chamber Leadless Pacemaker, Right Atrial [facility] Electrophysiology [address] [place] [address] Referral ID Status Reason Start Date Expiration Date Visits Re quested Visits Authorized [id number] 1 1 Encounter Details Date Type Department Care Team Description 03/22/2024 10:30 AM [facility] Hospital Encounter Cardiology Services [address] [place] [address] Mikal Lee MD SSS (sick sinus syndrome) [...] and he had his labs drawn at [facility]. Pt said he has three wounds on his right lower leg and is being treated for them at Wound care center at [facility] notified [place]. Spoke with Dr [...]
--- OUTSIDE RECORDS SUMMARY | 2024-10-06 08:43 | XMS_ITS | Encounter Summary ---
Author Organization [facility], Address [address] [place] [address] Phone Care Team Providers Care Arranging Funeral Director Name Role Phone Unavailable Primary Care Provider Unavailabl e Encounter Details Date Type Department Care Team (Late st Contact Info) Description 06/09/2021 Documentation Only [facility], [address] [place] [address] Dino Plascencia MD [address] [place] [address] Social History Tobacco Use Types [...]
[2024-10-06 09:20] LABS: Hematocrit 39.6 % (42.0-52.0)
[2024-10-06 11:02] LABS: Anion Gap 16 (12-20); Blood Urea Nitrogen 14 mg/dL (9-16); Calcium 9.2 mg/dL (8.4-10.2); Carbon Dioxide 30 mmol/L (22-29); Chloride 99 mmol/L (96-108); Cholesterol 118 mg/dL (<200); Estimated Glomerular Filt Rate > 60; Glucose Random 130 mg/dL (60-115); HDL Cholesterol 27 mg/dL (>40); Iron 68 mcg/dL (45-160); LDL Cholesterol Calculated 60 mg/dL (<100); Percent Iron Saturation 26 % (15-50); Potassium 3.6 mmol/L (3.3-5.1); Sodium 141 mmol/L (135-145); Total Iron Binding Capacity 264 mcg/dL (228-428); Triglycerides 159 mg/dL (<150); Unsaturated Iron Binding 196 ug/dL
[2024-10-06 12:24] LABS: PSA,Total (Free>4and<10) 0.11 ng/mL (0.00-4.00)
[2024-10-07 04:19] LABS: Follicle Stimulating Hormone 1.5 mIU/mL (1.4-12.8); Prolactin 5.6 ng/mL (2.0-18.0)
[2024-10-12 00:10] LABS: IGF-1 (Somatomedin C) 29 ng/mL (50-317); IGF-1 Z Score (Male) -2.9 SD (-2.0 - +2.0)
[2024-10-13 18:24] LABS: Testosterone, Free 3.1 pg/mL (35.0-155.0); Testosterone, Total 24 ng/dL (250-1100)
== END 2024-10-06 08:29 | disposition home or self-care (01) ==
LOC: HO.LAB 08:28
PROVIDERS: Nurse Practitioner Family; PCP Physician Assistant; Visit Provider Nurse Practitioner Adult Health
DX: R79.89 Other specified abnormal findings of blood chemistry (principal); I10 Essential (primary) hypertension; I25.10 Atherosclerotic heart disease of native coronary artery without angina pectoris
CPT/HCPCS: 36415; 80048; 80061; 83001; 83002; 83540; 84146; 84153; 84305; 84402; 84403; 85014; 85018

== ENCOUNTER 2024-10-13 07:54 | Outpatient (REF) | payer OTHER, SELFPAY ==
[2024-10-13 09:32] LABS: Free T4 (Free Thyroxine) 1.11 ng/dL (0.71-1.85); Thyroid Stimulating Hormone 0.99 uIU/mL (0.32-4.0)
[2024-10-13 09:44] LABS: Cortisol Random 10.5 ug/dL
== END 2024-10-13 07:55 | disposition home or self-care (01) ==
LOC: HO.LAB 07:54
PROVIDERS: PCP Physician Assistant; Referring Provider Internal Medicine Endocrinology, Diabetes & Metabolism; Visit Provider Nurse Practitioner Adult Health
DX: E29.1 Testicular hypofunction (principal); R79.89 Other specified abnormal findings of blood chemistry
CPT/HCPCS: 36415; 82533; 84439; 84443

== ENCOUNTER 2024-10-17 13:14 | Outpatient (AMB) | payer OTHER, SELFPAY ==
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
[2024-10-17 13:19] VITALS: BP 112/60; PULSE 70; O2SAT 92; BMI 42.2
== END 2024-10-17 14:16 | disposition home or self-care (01) ==
LOC: HO.ENCR 13:15
PROVIDERS: Visit Provider Internal Medicine Endocrinology, Diabetes & Metabolism
DX: E29.1 Testicular hypofunction (principal)
CPT/HCPCS: 99204

== ENCOUNTER → 2024-10-17 13:14 | Outpatient (BNVA) | payer OTHER, SELFPAY | PROVIDERS: Visit Provider Internal Medicine Endocrinology, Diabetes & Metabolism | DX: E78.5 Hyperlipidemia, unspecified (principal); E66.9 Obesity, unspecified; G47.33 Obstructive sleep apnea (adult) (pediatric); I25.10 Atherosclerotic heart disease of native coronary artery without angina pectoris; I10 Essential (primary) hypertension; J43.9 Emphysema, unspecified; F32.A Depression, unspecified; R25.2 Cramp and spasm; E11.9 Type 2 diabetes mellitus without complications; Z79.82 Long term (current) use of aspirin; Z79.899 Other long term (current) drug therapy; E29.1 Testicular hypofunction | CPT/HCPCS: 96127; 99202; 99212 ==

== ENCOUNTER 2024-10-17 15:47 | Outpatient (AMB) | payer OTHER, SELFPAY ==
[2024-10-17 16:00] VITALS: BP 140/82; PULSE 64; O2SAT 96; BMI 41.6
--- NOTE | 2024-10-17 16:00 | MHC.PC.OV ---
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: No Accompanied by: Self / Same As Patient Allergies carbamazepine [From Tegretol] Allergy (Intermediate, Verified 10/17/24 16:02) Agitated aspirin Adverse Reaction (Verified 10/17/24 16:02) Gastrointestinal Upset Medication List - Last Reconciled 10/17/24 by Rosa King PA-C aspirin 81 mg PO DAILY atorvastatin 80 mg PO BEDTIME clopidogrel 75 mg PO DAILY ezetimibe (Zetia) 10 mg PO DAILY furosemide (Lasix) 80 mg PO BID 90 days isosorbide mononitrate ER 30 mg PO DAILY lisinopril 10 mg PO DAILY methadone (Methadone Intensol) 100 mg PO DAILY Trulicity (dulaglutide) 0.75 mg (0.5 mL) subcut QWEEK 28 days NS Tobacco use date assessed: 10/17/24 Dental Screening Dental Screen Date: 10/17/24 Did you have a dental visit in the last 12 months?: No Did you have a dental problem in the last 6 months where you did not have access to dental care?: No Was dental information given to patient?: Patient has dentist HPI f/u chronic conditions HPI Details 54-year-old male with past medical history of angina, pulmonary emphysema, hypertension, seizure, NSTEMI, coronary artery disease, obstructive sleep apnea, hyperlipidemia, depression, diabetes mellitus last seen 08/2024 coming in for follow up.?In review of the notes, patient was seen by Neurology 09/2024 advised to continue on CPAP, compression stockings for edema, referral was placed for ENT for nasal polyps.?Seen by endocrinology 09/2024 started on Trulicity for diabetes management, scheduled with Dr. Valdes to evaluate low testosterone. Patient was also seen by endocrinology this afternoon for low testosterone. Plan to initiate testosterone replacement after CPAP can be established. Presenting with persistent muscle cramps and associated symptoms. The cramps have been increasingly problematic over the past several years, commencing initially with a dehydration episode. They intensify with movement and stretching, especially impacting his daily activities and night rest. Persistent use of high-dose diuretics seems to exacerbate these cramps, for which the patient has attempted various solutions including medication adjustments, yet reports consistent discomfort. There is a longstanding history of atorvastatin administration; however, there is no direct report of correlation with the symptoms. The patient further reports episodes of chest pain, typically triggered by stress, yet avoids seeking emergency care unless the chest pain persists. [facility] Medical History Hypogonadism in male Hypoglycemia ACS (acute coronary syndrome) Obstructive sleep apnea hypopnea, severe Snoring Congestive heart failure Valverde's palsy Surgical History S/P ACL surgery History of total right knee replacement H/O heart artery stent H/O right knee surgery Family History Mother CHF (congestive heart failure) Social History Housing: Apartment Alcohol intake: never Patient Tobacco Use Status: Former Tobacco user Tobacco use type: Cigarette e-Cigarette/Vaping Use: Currently Using Second Hand Smoke Exposure: Yes Substance Use Type: Marijuana service: No Current occupational status: retired Cognitive needs: Yes (Cane, Walker) Hearing needs: No Vision needs: Yes (Glasses) Questionnaire PHQ-9 Over the last 2 weeks, how often have you been bothered by any of the following problems? 1. Little interest or pleasure in doing things: nearly every day 2. Feeling down, depressed, or hopeless: nearly every day 3. Trouble falling or staying asleep, or sleeping too much: nearly every day 4. Feeling tired or having little energy: nearly every day 5. Poor appetite or overeating: more than half the days 6. Feeling bad about yourself - or that you are a failure or have let yourself or your family down: not at all 7. Trouble concentrating on things, such as reading the newspaper or watching television: more than half the days 8. Moving or speaking so slowly that other people could have noticed. Or the opposite - being so fidgety or restless that you have been moving around a lot more than usual: not at all 9. Thoughts that you would be better off or of hurting yourself in some way: not at all Total score: 16 Depression Screening Interpretation: Positive (referral for counseling) Depression Screening Done: Yes Source: Developed by Drs. Emilio Randle, Krystle Noland, Jerry Laughlin and colleagues, with an educational catina from [employer]. Thrive Questionnaire Date Thrive assessed: 10/17/24 I am a: Patient What is your living situation today?: I have a steady place to live Within the past 12 months, did the food you bought not last and you didn't have the money to get more?: Never true Within the past 12 months, did you worry whether your food would run out before you got money to buy more?: Never true Do you have trouble paying for medicines?: No Do you have trouble getting transportation to medical appointments?: No Do you have trouble paying your heating and electricity bill?: Yes Do you have trouble taking care of your child, family member or friend?: No Do you have trouble with day-to-day activities such as bathing, preparing meals, shopping, managing finances, etc.?: Yes Are you currently unemployed and looking for a job?: No Are you interested in more education?: No Please select the resources that you would like help with: None Currently or been in a relationship where the following occur: I choose not to answer THRIVE Score: 1 AUDIT C Alcohol Use Questionnaire (AUDIT-C) 1. How often do you have a drink containing alcohol?: Never Total Score: 0 LILIYA-7 AMB Questionnaire LILIYA-7 Date LILIYA - 7 assessed: 10/17/24 Feeling nervous, anxious, or on edge: 3 = Nearly every day Not being able to stop or control worryin = More than half the days Worrying too much about different things: 2 = More than half the days Trouble relaxin = More than half the days Being so restless that it is hard to sit still: 2 = More than half the days Becoming easily annoyed or irritable: 3 = Nearly every day Feeling afraid as if something awful might happen: 0 = Not at all Total LILIYA-7 score (0-4 normal; 5-9 mild; 10-14 moderate; 15-21 severe): 14 Source: Developed by Krystle Choudhury.W. Ludin, Jerry Laughlin and colleagues, with an educational catina from [employer]. LILIYA-7 Assessment Billing LILIYA-7 Assessment Tool: LILIYA-7 Assessment 99524 Review of Systems Const Denies body aches, Denies chills, Denies fever(s), Denies headache(s) and Denies poor appetite Eyes Reports no additional complaints ENT Denies dysphagia, Denies dizziness, Denies headache(s) and Denies odynophagia Card Denies chest pain, Denies syncope, Denies edema, Denies irregular heart rhythm, Denies lightheadedness and Denies dyspnea Resp Denies cough and Denies dyspnea GI Denies abdominal pain, Denies constipation, Denies dysphagia, Denies diarrhea, Denies nausea, Denies odynophagia and Denies vomiting Reports no additional complaints Musc Reports no additional complaints and Denies abnormal gait Skin/Breast Reports system reviewed and no additional complaints, except as documented Neuro Denies abnormal gait, Denies dizziness, Denies syncope and Denies headache(s) Psych Reports no additional complaints Physical exam (Primary Care) Vital Signs: Last Vital Signs Pulse 64 10/17/24 16:00 BP 140/82 H 10/17/24 16:00 Pulse Ox 96 10/17/24 16:00 Oxygen Delivery Method Room Air 10/17/24 16:00 BMI result Body Mass Index 41.6 Tobacco/Smoking Status: Tobacco use Status Tobacco use date assessed 10/17/24 10/17/24 16:04 Patient Tobacco Use Status Former Tobacco user 10/17/24 16:02 Tobacco use type Cigarette 10/17/24 16:11 e-Cigarette/Vaping Use Currently Using 10/17/24 16:02 PHQ-9: PHQ-9 Score PHQ-9: Total score 16 10/17/24 16:07 Depression Screening Interpretation: Positive (referral for counseling) Thrive Assessment: Date of Thrive Assessment Date Thrive assessed 10/17/24 10/17/24 16:04 Currently or been in a relationship where the following occur: I choose not to answer Const General: cooperative, healthy appearing, comfortable and no acute distress Orientation/consciousness: patient oriented x3 HENMT Head: Yes normocephalic Ears: hearing grossly normal bilaterally General nose exam: Normal external nose present Eyes General: appearance normal, both eyes and all related structures Conjunctivae: conjunctivae normal Neck Neck: Yes full ROM and Yes no lymphadenopathy Resp Effort & Inspection: normal respiratory effort Auscultation: clear to auscultation bilaterally, no crackles, no rales, no rhonchi and no wheezes Cardio Rate: regular rate Rhythm: regular rhythm Skin General skin exam: no rashes or lesions noted Neuro General: patient oriented x3 Gait exam (Neuro): Normal gait present Extrem General: Yes normal to inspection, Yes full ROM and No edema Psych Affect: normal affect Attitude: cooperative Insight: Good insight present (Psych) Judgement: Good judgement present (Psych) Coding Level of Care Code Est Pt Level 4 (90223) Diagnoses Hyperlipidemia E78.5 Obesity E66.9 Body mass index: BMI 40.0-44.9 Obesity type: due to excess calories Serious obesity comorbidity presence: with serious comorbidity Obstructive sleep apnea hypopnea, severe G47.33 CAD (coronary artery disease) I25.10 Hypertension I10 Pulmonary emphysema J43.9 Depression F32.A Muscle cramps R25.2 Diabetes mellitus E11.9 Additional Codes LILIYA-7 Assessment Billing - LILIYA-7 Assessment Tool: LILIYA-7 Assessment 22117 ([id number]) Assessment & Plan Assessment & Plan (1) Hyperlipidemia: Code(s): E78.5 - Hyperlipidemia, unspecified Category: Medical Plan: Avoid foods that are high in cholesterol such as red meat, fried foods, eggs and baked goods. Triglyceride goal of less than 150 and LDL goal of less than 70. Continue on atorvastatin (2) Obesity: Code(s): E66.9 - Obesity, unspecified Category: Medical Qualifiers: Body mass index: BMI 40.0-44.9 Obesity type: due to excess calories Serious obesity comorbidity presence: with serious comorbidity Plan: Healthy diet and regular exercise is encouraged. (3) Obstructive sleep apnea hypopnea, severe: Code(s): G47.33 - Obstructive sleep apnea (adult) (pediatric) Category: Medical Plan: Patient is currently working with Neurology to established on CPAP. Awaiting on oxygen company and advised to follow up with neurology. (4) CAD (coronary artery disease): Code(s): I25.10 - Atherosclerotic heart disease of [place] coronary artery without angina pectoris Category: Medical Plan: Patient had cardiac cath 10/2023 and has been seeing cardiology. Continue on dual antiplatelet therapy with aspirin and clopidogrel until October 2024 unless otherwise instructed by Cardiology. Advised good control of blood pressure, cholesterol with LDL < 70 and blood sugars. Reminded patient to reschedule cardiology appointment. Discussed with patient red flag symptoms of chest pain and when to present for re-evaluation. (5) Hypertension: Code(s): I10 - Essential (primary) hypertension Category: Medical Plan: Continue on current blood pressure medication. Avoid salt intake and encourage healthy diet and regular exercise. (6) Pulmonary emphysema: Code(s): J43.9 - Emphysema, unspecified Category: Medical Plan: Per neurology patient to see pulmonology. Patient is seeing pulmonology later this month. (7) Depression: Code(s): F32.A - Depression, unspecified Category: Medical Plan: Referral was placed to counseling at last visit. 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 Plan to add magnesium for muscles cramping and ordered for additional blood work. (9) Diabetes mellitus: Code(s): E11.9 - Type 2 diabetes mellitus without complications Category: Medical Plan: Patient was seen by endocrinology and started on Trulicity. He does have mild side effects and the plan is to eventually switch to something more effective for him like Wegovy or Zepbound. Continue to follow with endocrinology Plan During this visit, several jamil issues were addressed for the patient. Muscle cramps, exacerbated by dehydration and high-dose diuretics, will be managed with enhanced hydration strategies and a magnesium supplement to alleviate symptoms. Monitoring the electrolyte panel, including magnesium levels, is planned. Atorvastatin therapy, associated with possible adverse effects, warrants cardiology follow-up for medication evaluation and adjustment. Restless sleep patterns may benefit from magnesium supplementation, which could improve both sleep and cramp relief. The patient's self-managed chest pain will require further cardiological consultation due to his risk factors and prior heart attack history. Given intolerance, trazodone use was ceased for sleep. Constipation issues are addressed with increased hydration and potentially magnesium supplementation. Coordination with neurology is advised to ensure timely receipt of CPAP oxygen to support sleep apnea management. Diabetes requires consistent blood glucose monitoring and routine follow-up to ensure optimal control. I have ensured coordination with specialists and advised follow-up for continued symptom monitoring and management. This note was constructed using voice recognition software. While every effort has been made to ensure accuracy and shipping order clerk, still areas may have been included sometimes these areas may affect the content or meeting of the given symptoms. Total time spent caring for the patient today was 20 minutes. This includes time spent before the visit reviewing the chart, time spent during the visit, and time spent after the visit and documentation. Patient was informed and verbally consented to the use of an ambient scribe for clinic note documentation during this visit. Orders: Orders Magnesium 10/17/24 R25.2 - Cramp and spasm Medications: New lancets (OneTouch Delica Plus Lancet) As directed; TID 100 ea 0RF E11.9 - Type 2 diabetes mellitus without complications blood sugar diagnostic (OneTouch Ultra Test strips) As directed;TID 100 ea 0RF E11.9 - Type 2 diabetes mellitus without complications blood-glucose meter (OneTouch Ultra2 Meter) As directed 1 ea 0RF E11.9 - Type 2 diabetes mellitus without complications
== END 2024-10-17 16:46 | disposition home or self-care (01) ==
LOC: HO.HMCH 15:47
PROVIDERS: PCP Physician Assistant
DX: J43.9 Emphysema, unspecified (principal); E11.9 Type 2 diabetes mellitus without complications; E66.9 Obesity, unspecified; Z68.41 Body mass index [BMI] 40.0-44.9, adult; E78.5 Hyperlipidemia, unspecified; G47.33 Obstructive sleep apnea (adult) (pediatric); I25.10 Atherosclerotic heart disease of native coronary artery without angina pectoris; I10 Essential (primary) hypertension; F32.A Depression, unspecified; R25.2 Cramp and spasm

== ENCOUNTER 2024-10-27 15:24 | Outpatient (AMB) | payer OTHER, SELFPAY ==
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
[2024-10-27 15:35] VITALS: BP 118/56; PULSE 73; BMI 40.5
--- OUTSIDE RECORDS SUMMARY | 2024-10-27 17:57 | XMS_ITS | Patient Health Record ---
Author Organization [facility] Address [address] [place] [address] Care Team Providers Care Seafood Preparer Name Role Phone Hamlet Canseco Primary Care Provider [phone] Reason For Referral No Information Plan Of Treatment No Information Insurance Providers Payer Name Payer Address Payer Phone Subscriber Number Group Number Insured Name Patient Relationship to Insured Coverage Start Date Coverage End Date [place] Medicaid [address] [place] [address] [id number] Anthony Yoder Self - patient is the insured
== END 2024-10-27 15:50 | disposition home or self-care (01) ==
LOC: HO.HGS 15:25
PROVIDERS: Visit Provider Surgery
DX: R22.0 Localized swelling, mass and lump, head (principal); L98.9 Disorder of the skin and subcutaneous tissue, unspecified
CPT/HCPCS: 99203

== ENCOUNTER → 2024-10-27 15:24 | Outpatient (BNVA) | payer OTHER, SELFPAY | PROVIDERS: Visit Provider Surgery | DX: R22.0 Localized swelling, mass and lump, head (principal); L98.9 Disorder of the skin and subcutaneous tissue, unspecified | CPT/HCPCS: 99202 ==

== ENCOUNTER 2024-11-08 08:21 | Outpatient (AMB) | payer OTHER, SELFPAY ==
--- NOTE | 2024-11-08 08:22 | MHC.OFFVIS ---
Vital Signs 11/08/24 08:23 Height 5 ft 10 in Weight 281 lb 4.957 oz BMI 40.4 BP 128/52 L Blood Pressure Location Lt brachial Position Sitting Pulse 89 Pulse Source Monitor Intake Visit Reasons: 3mo follow-up Therapeutic Specialist Required: No Allergies carbamazepine (From Tegretol) Allergy (Intermediate, Verified 11/08/24 08:25) Agitated aspirin Adverse Reaction (Verified 11/08/24 08:25) Gastrointestinal Upset Medication List - Last Reconciled 11/08/24 by DEENA Chahal aspirin 81 mg PO DAILY atorvastatin 80 mg PO BEDTIME blood sugar diagnostic (FreeStyle Lite Strips) As directed; to check sugars TID blood-glucose meter (FreeStyle Lite Meter kit) As directed; to check sugars TID clopidogrel 75 mg PO DAILY ezetimibe 10 mg PO DAILY furosemide (Lasix) 80 mg PO BID 90 days isosorbide mononitrate ER 30 mg PO DAILY lancets (FreeStyle Lancets) As directed; to check sugars TID lisinopril 10 mg PO DAILY methadone (Methadone Intensol) 100 mg PO DAILY Trulicity (dulaglutide) 0.75 mg (0.5 mL) subcut QWEEK 28 days NS HPI HPI 3mo follow-up: Details: Anthony is a 54-year-old male with past medical history of hypertension, DM, HLD, COPD, chronic back pain, CAD, RCA stent 11/2023, Sinus pauses as seen on ANABEL, Sleep apnea and following with sleep medicine, Syncope/ seizures and being evaluated by neurology who recently had a leadless pacemaker inserted and now presents for follow up and preop clearance for facial mass removal. Today he reports that he has been doing about the same overall. He says he is still having episodes of loss of consciousness like previously described. He said Neurology told him it is not seizures. He now wonders if he is falling asleep at times. He tried to use CPAP and was not able to tolerate it. He is still getting random sharp pains in his chest. He is not having symptoms clearly brought on by activity. No palpitations, lightheadedness, PND, orthopnea. Leg edema is currently down and leg wounds all healed. He is mostly sedentary due to issues with chronic low back pain. He continues to sleep in an upright position due to his back pain. Established with his new PCP. Has seen the surgeon for facial mass removal. [facility] Medical History Skin lesion of back Hypogonadism in male Hypoglycemia ACS (acute coronary syndrome) Obstructive sleep apnea hypopnea, severe Snoring Congestive heart failure Valverde's palsy Surgical History S/P ACL surgery History of total right knee replacement H/O heart artery stent H/O right knee surgery Family History Mother CHF (congestive heart failure) Social History Housing: Apartment Alcohol intake: never Patient Tobacco Use Status: Former Tobacco user Tobacco use type: Cigarette e-Cigarette/Vaping Use: Currently Using Second Hand Smoke Exposure: Yes Substance Use Type: Marijuana service: No Current occupational status: retired Cognitive needs: Yes (Cane, Walker) Hearing needs: No Vision needs: Yes (Glasses) Review of Systems Const All systems reviewed & are unremarkable except as noted in HPI and below ENT Denies dizziness Card Details: random sharp pains in chest Reports chest pain, Reports chest pain at rest, Reports chest pain with activity, Denies rapid heart rate, Denies pedal edema, Denies edema, Reports leg edema, Denies lightheadedness, Denies palpitations, Denies dyspnea, Reports dyspnea on exertion and Denies orthopnea Resp Denies cough, Denies dyspnea and Reports dyspnea on exertion GI Denies hematochezia and Denies change in stool character Musc Details: using cane Denies abnormal gait, Reports limited range of motion (left knee pain today), Reports muscle cramps, Denies muscle weakness, Denies numbness, Denies radiating pain into limb, Denies stiffness and Denies tingling Neuro Denies abnormal gait, Denies dizziness, Denies numbness and Denies tingling Endo Denies palpitations Physical Exam Vital Signs: Last Vital Signs Pulse 89 11/08/24 08:23 BP 128/52 L 11/08/24 08:23 BMI result Body Mass Index 40.4 Const Other: Morbidly obese General: cooperative and no acute distress Orientation/consciousness: patient oriented x3 HEENT Other: Mass left cheek - likely cyst Neck Neck: Yes normal visual inspection and Yes no JVD Carotids: normal carotid upstroke Resp Effort & Inspection: normal respiratory effort Auscultation: clear to auscultation bilaterally, no crackles, no rales, no rhonchi and no wheezes Cardio Rate: regular rate Rhythm: regular rhythm Heart sounds: S1 normal heart sound present, S2 normal heart sound present, no murmurs and no rubs Neuro General: patient oriented x3 Extrem Other: Pitting edema each lower leg - skin intact Psych Appearance: grossly normal Mental Status: mental status grossly normal Speech and movement: Normal speech and movement present Office Procedures EKG Details: Today, read by me, normal sinus rhythm, nonspecific ST abnormality rate 89, manual QT 402ms [id number], Complete Assessment & Plan Assessment & Plan (1) CAD (coronary artery disease): Code(s): I25.10 - Atherosclerotic heart disease of [place] coronary artery without angina pectoris Category: Medical Plan: CAD with NSTEMI 10/18/23 with cardiac catheterization showing mid RCA 99% stenosis, angioplasty, arthrectomy and RINA placed. He does have residual PDA stenosis and ostial circumflex/ OM1 stenosis- these lesions were noted to be not ideal for PCI and recommendation was for medical therapy. Last echo in our system 02/12/23 was normal study. He does get atypical sharp pains in his chest occurring randomly. Nuclear stress test 08/03/2024 showing normal myocardial perfusion imaging. Continue aspirin indefinitely. Will check with nurse ldr regarding Plavix use. Continue high dose atorvastatin and Zetia with ideal LDL goal less than 70. Continue metoprolol and isosorbide. Signs and symptoms of angina reviewed. Emergency care if ever needed for symptoms. Cardiology follow-up 3 months, sooner if needed. (2) S/P cardiac cath: Comment: 10/19/2023 left main minimal irregularities, lad mild diffuse disease, left circumflex proximal ostial 85% stenosis, 1st OM mid subsection 70% stenosis, mid RCA 99% stenosis, culprit lesion, right PDA ostial 75% stenosis, angioplasty and arthrectomy to the RCA, RINA placed, significant ostial PDA stenosis, severe ostial circumflex stenosis and OM 1 disease lesions are not ideal for PCI, recommend medical therapy and optimizing antianginal. Code(s): Z98.890 - Other specified postprocedural states Category: Surgical Plan: As above. (3) Syncope: Comment: Likely cardiac ? seizure Code(s): R55 - Syncope and collapse Category: Medical Qualifiers: Encounter type: initial encounter Plan: Patient describes multiple fainting events in the last year+. He states the 1st episode of a symptom is a strong urge to urinate, his feels like he can not take a breath in and then he goes out . His events have been witnessed and no seizure like movements reported. While unconscious he does have urinary incontinence at times and He does report being out of it for approximately 30 minutes after each event. He previously said could bring on an episode by walking and talking at the same time. More recently he has been able to control the symptoms somewhat if he sits and fully relaxes. Prior Holter monitor did not show arrhythmia. Echocardiogram was normal. He has not had significant hypotension. A cardiac event monitor was done on 09/09/2023 for 30 days, patient wore it for 20 days and there were 5 cardiac pauses ranging from 3-5.8 seconds during daytime hours. No clear correlation to a syncopal event at this time of these pauses. He had been referred to Dr Romo for evaluation ( syncope vs seizures) and sleep study. Based on her last note it is unclear if seizure activity was suspected. He has been confirmed to have sleep apnea and now has a new CPAP mask but reports noncompliance due to intolerance. He was seen by EP and did have a leadless pacemaker placed on 03/22/24. At this time he tells me that his fainting episodes have improved overall but still occur. Overall unclear cause of his events. Recommended that he not drive. (4) Sinus pause: Code(s): I45.5 - Other specified heart block Category: Medical Plan: As above. Leadless pacemaker in place (5) Obesity: Code(s): E66.9 - Obesity, unspecified Category: Medical Qualifiers: Body mass index: BMI 40.0-44.9 Obesity type: due to excess calories Serious obesity comorbidity presence: with serious comorbidity Plan: Morbidly obese. Previously referred to the bariatric program, no longer following with them. (6) Obstructive sleep apnea hypopnea, severe: Code(s): G47.33 - Obstructive sleep apnea (adult) (pediatric) Category: Medical Plan: Known sleep apnea, has CPAP but reports intolerance to it. Recommend that he speak with his sleep provider regarding this due to the importance of sleep apnea treatment. (7) NSTEMI (non-ST elevated myocardial infarction): Code(s): I21.4 - Non-ST elevation (NSTEMI) myocardial infarction Category: Medical Plan: As above (8) Lower extremity edema: Code(s): R60.0 - Localized edema Category: Medical Plan: Patient has issues with chronic edema in his lower extremities, right greater than left. In the past he has had issues with cellulitis, currently under control. Previously seen by [facility] however no longer needing to as he has no skin breaks. He has Marco Antonio wraps to use on his legs daily as needed. Labs 10/06/2024 show potassium 3.6, creatinine 0.8. Continue Lasix. (9) Pacemaker: Code(s): Z95.0 - Presence of cardiac pacemaker Category: Medical Plan: [place] Leadless pacemaker placed on 03/22/24. Office interrogation last visit shows device is functioning normally. Will arrange a device check at next clinic day. His current device is not capable of having remote monitoring. (10) Hyperlipidemia: Code(s): E78.5 - Hyperlipidemia, unspecified Category: Medical Plan: LDL goal <70. Labs done 10/06/2024 showed LDL 60. Continue atorvastatin and Zetia. (11) Preop cardiovascular exam: Code(s): Z01.810 - Encounter for preprocedural cardiovascular examination Category: Medical Plan: Preop for facial mass removal in the near future. He may proceed with intermediate risk. He is currently optimized for his cardiac conditions. Aspirin and Plavix can be held as needed and plan restart when cleared by surgeon to do so. Call/consult Cardiology if needed. Plan Time spent on chart review, documentation, interviewed assessment Coding Level of Care Code Est Pt Level 4 (23429) Complex EM visit Add On G2211 Diagnoses CAD (coronary artery disease) I25.10 S/P cardiac cath Z98.890 Syncope R55 Encounter type: initial encounter Sinus pause I45.5 Obesity E66.9 Body mass index: BMI 40.0-44.9 Obesity type: due to excess calories Serious obesity comorbidity presence: with serious comorbidity Obstructive sleep apnea hypopnea, severe G47.33 NSTEMI (non-ST elevated myocardial infarction) I21.4 Lower extremity edema R60.0 Pacemaker Z95.0 Hyperlipidemia E78.5 Preop cardiovascular exam Z01.810 CPT Codes EKG - CPT: [id number], Complete ([id number]) Time Spent (min) 36
[2024-11-08 08:23] VITALS: BP 128/52; PULSE 89; BMI 40.4
--- OUTSIDE RECORDS SUMMARY | 2024-11-08 08:31 | XMS_ITS | Encounter Summary ---
Author Organization [facility], Address [address] [place] [address] Phone Care Team Providers Care Yarn Examiner Name Role Phone Unavailable Primary Care Provider Unavailabl e Encounter Details Date Type Department Care Team (Late st Contact Info) Description 06/09/2021 Documentation Only [facility], [address] [place] [address] Dino Plascencia MD [address] [place] [address] Social History Tobacco Use Types [...]
== END 2024-11-08 09:06 | disposition home or self-care (01) ==
LOC: HO.HCS 08:22
PROVIDERS: Visit Provider Nurse Practitioner Family
DX: I25.10 Atherosclerotic heart disease of native coronary artery without angina pectoris (principal); Z98.890 Other specified postprocedural states; R55 Syncope and collapse; I45.5 Other specified heart block; E66.9 Obesity, unspecified; G47.33 Obstructive sleep apnea (adult) (pediatric); I21.4 Non-ST elevation (NSTEMI) myocardial infarction; R60.0 Localized edema; Z95.0 Presence of cardiac pacemaker; E78.5 Hyperlipidemia, unspecified; Z01.810 Encounter for preprocedural cardiovascular examination
CPT/HCPCS: 93010; 99214; G2211

== ENCOUNTER → 2024-11-08 08:21 | Outpatient (BNVA) | payer OTHER, SELFPAY | PROVIDERS: Visit Provider Nurse Practitioner Family | DX: Z01.810 Encounter for preprocedural cardiovascular examination (principal); I25.10 Atherosclerotic heart disease of native coronary artery without angina pectoris; R55 Syncope and collapse; I45.5 Other specified heart block; E66.9 Obesity, unspecified; G47.33 Obstructive sleep apnea (adult) (pediatric); I21.4 Non-ST elevation (NSTEMI) myocardial infarction; Z95.0 Presence of cardiac pacemaker; E78.5 Hyperlipidemia, unspecified | CPT/HCPCS: 93005; 99212 ==

== ENCOUNTER 2024-11-21 12:46 | Outpatient (AMB) | payer OTHER, SELFPAY ==
[2024-11-21 13:02] VITALS: BP 124/56; PULSE 60; O2SAT 93; BMI 41.0
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
--- OUTSIDE RECORDS SUMMARY | 2024-11-21 13:19 | XMS_ITS | Encounter Summary ---
Author Organization [facility], Address [address] [place] [address] Phone Care Team Providers Care Hook And Eye Machine Operator Name Role Phone Unavailable Primary Care Provider Unavailabl e Encounter Details Date Type Department Care Team (Late st Contact Info) Description 06/09/2021 Documentation Only [facility], [address] [place] [address] Dino Plascencia MD [address] [place] [address] Social History Tobacco Use Types [...]
--- OUTSIDE RECORDS SUMMARY | 2024-11-21 13:19 | XMS_ITS | Patient Health Record ---
Author Organization [facility] Address [address] [place] [address] Care Team Providers Care Cutter Barrel Drum Name Role Phone Hamlet Canseco Primary Care Provider Reason For Referral No Information Plan Of Treatment No Information Insurance Providers Payer Name Payer Address Payer Phone Subscriber Number Group Number Insured Name Patient Relationship to Insured Coverage Start Date Coverage End Date [place] Medicaid [address] [place] [address] [id number] Anthony Yoder Self - patient is the insured
--- OUTSIDE RECORDS SUMMARY | 2024-11-21 13:19 | XMS_ITS ---
Author Name [facility] Organization Unknown Results Test Name/Text Value Interpretation Date Range Source Glucose Bld-mCnc 133.0 mg/dL Normal 03/22/2024 70 - 199 [facility] History of Medication Use Medication Directions Dispensed Refills Start Date End Date Stat us diphenhydrAMINE (BENADRYL) injection 25 mg 25 mg, intravenous, Every 15 min PRN, itching, Starting on Thu03/22/24 at 1109, Recovery (only) 03/22/2024 active ondansetron ODT (ZOFRAN-ODT) disintegrating tablet 4 mg [Order 1 Start] Name: ondansetron ODT (ZOFRAN-ODT) disintegrating tablet 4 mg Signed Summary: 4 mg, oral, Every 8 hours PRN, vomiting, nausea, Starting on Thu03/22/24 at 1109, Recovery (only), -Give IV if patient is unable to take orally. -If inadequate response within 30 minutes, proceed to next-li 03/22/2024 active oxyCODONE (ROXICODONE) immediate release tablet 5 mg 5 mg, oral, Every 4 hours PRN, moderate pain or when therapies for mild pain were not effective, Starting on Thu03/22/24 at 1109, For 2 doses, Recovery (only) 03/22/2024 active aspirin 81 mg EC tablet Take 1 tablet (81 mg total) by mouth 1 (one) time. active atorvastatin (LIPITOR) 40 mg tablet Take 2 tablets (80 mg total) by mouth at bedtime. active metFORMIN (GLUCOPHAGE) 500 mg tablet Take 1 tablet (500 mg total) by mouth 2 (two) times a day with meals. active Allergies Allergen Reaction Severity Comment Documented Date Source Statu s ASPIRIN 03/22/2021 [facility] active Problems Problem Status Onset Date Problem Type Date of Resoluti on Source SSS (sick sinus syndrome) active 2024-02-22 [address] [facility] Encounters Encounter Type Encounter Reason Primary Diagnosis Location Date Ambulatory Syncope and collapse Syncope and collapse [facility] 03/22/2024 Ambulatory Sick sinus syndrome Sick sinus syndrome [facility] 02/22/2024 Care Team Organization Name Specialty Phone Email Start Date End Da te [facility] PHYSICIAN Primary Care 03/24/2024 [facility] NO PHYSICIAN Primary Care 03/22/2024 [facility] 4 [facility] 4
--- OUTSIDE RECORDS SUMMARY | 2024-11-21 13:19 | XMS_ITS | Clinical Summary ---
Author Organization [facility] Address [address] [place] [address] Phone Care Team Providers Care Chartered Wealth Manager Name Role Phone Physician, No Pcp Primary [...] artery disease CHF (congestive heart failur e) ([facility] V24, [facility] V28) DX:CHF (congestive heart kamran lure) ([facility]) Hypertension DX:Hypertension Hyperlipidemia DX:Hyperlipidemi a Diabetes mellitus ([facility] V 24, [facility] V28) DX:Diabetes mellitus ([facility]) Syncope DX:Syncope Ankle swelling DX:Ankle swellin [...] 61 03/22/2024 2:30 PM EST Temperature 36 C (96.8 F) 03/22/2024 11:03 AM EST Respiratory Rate 12 [...] Influencers of Health Screening 02/23/2024 Influenza Vaccine (#1) 2025 Hypertension/CHF/CAD Annual BMP Blood Test 02/21/2025 [...] 5 Years) and At-Risk Patients (6 to 49 Years) Aged Out No longer eligi ble based on patient's age to complete this topic RSV Immunization Patients Un anneliese 20 months Aged Out No longer eligible b ased on patient's age to complete this topic Varicella Vaccines Aged Out No longer eligible based on patient's age to complete this topic Medical Devices Implanted Type Area Tool Room Attendant Device Identifier Shelf Expiration Date Model / Serial / Lot Pacemaker Leadless 19.5f 32.2mm Ra - [id number] - [id number] Implanted:Qty : 1 on 03/22/2024 by Mikal Lee MD at [facility] Cardiac Pacemaker N/A: Chest [employer] [facility] 12/14/2024 [id number] / [id number] / Procedures Procedure Name Priority Date/Time Associated Diagnosis Comments ANNUAL BMP BLOOD TEST Routine 02/22/2024 from Last 3 Months or Most Recently Relevant to Health Maintenance Results * Annual BMP Blood Test (02/22/2024) Annual BMP Blood Test Abstracted Historical Provider HEALTH MAINTENANCE Final Result from Last 3 Months or Most Recently Relevant to Health Maintenance Insurance MEDICAID - [place] [facility] Advance Directives * Full Code - Default [...] currently active code status orders. Care Teams Chartered Wealth Manager Relationship Specialty Start Date End Date Physician, No Pcp PCP - General 03/16/24
--- OUTSIDE RECORDS SUMMARY | 2024-11-21 13:19 | XMS_ITS | Clinical Summary ---
Author Organization [facility] Address [address] [place] [address] Care Team Providers Care Hand Paster Name Role Phone Unavailable Primary Care Provider [...] (1 of 2) 2021 Influenza Vaccine (#1) 2025 Pneumococcal Vaccine Aged Out No long er eligible based on patient's age to complete this topic RSV Ped < 20 months Aged Out No longe r eligible based on patient's age to complete this topic
== END 2024-11-21 13:44 | disposition home or self-care (01) ==
LOC: HO.ENCR 12:47
PROVIDERS: Visit Provider Internal Medicine Endocrinology, Diabetes & Metabolism
DX: E29.1 Testicular hypofunction (principal)
CPT/HCPCS: 99213

== ENCOUNTER → 2024-11-21 12:46 | Outpatient (BNVA) | payer OTHER, SELFPAY | PROVIDERS: Visit Provider Internal Medicine Endocrinology, Diabetes & Metabolism | DX: E29.1 Testicular hypofunction (principal) | CPT/HCPCS: 99212 ==

== ENCOUNTER 2024-11-28 14:23 | Outpatient (REF) | payer OTHER, SELFPAY ==
--- NOTE | ~2024-11-28 | US_ITS ---
CLINICAL HISTORY: R22.0 - Localized swelling, mass and lump, head --- Additional Notes or Special Instructions: Left cheek mass Targeted ultrasound of left cheek mass Comparison: None provided Technique: Targeted sonographic imaging, including color Doppler imaging to the area of interest of left face/cheek was performed by the horse show judge. Multiple bank representative static and cine images were saved for review. Findings: Well-defined ovoid hypodermal mass, heterogeneous and mildly hyperechoic, multiple intralesional cleft-like anechoic areas likely cystic component, multiple punctate and few linear hyperechogenicity may reflect keratin aggregates or cholesterol deposits, moderately increased through transmission, no intralesional vascular flow, 4.9 x 4.5 x 2.4 cm. 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 This document has been electronically signed by: Rosalva Ramirez MD on 11/29/2024 12:00:13
--- OUTSIDE RECORDS SUMMARY | 2024-11-28 15:46 | XMS_ITS | Clinical Summary ---
Author Organization [facility] Address [address] [place] [address] Care Team Providers Care Diesel Machinist Name Role Phone Unavailable Primary Care Provider [...]
--- OUTSIDE RECORDS SUMMARY | 2024-11-28 15:46 | XMS_ITS | Clinical Summary ---
Author Organization [facility] Address [address] [place] [address] Phone Care Team Providers Care Supervisor Border Department Name Role Phone Physician, No Pcp Primary [...] artery disease CHF (congestive heart failur e) ([facility] V24, [facility] V28) DX:CHF (congestive heart kamran lure) ([facility]) Hypertension DX:Hypertension Hyperlipidemia DX:Hyperlipidemi a Diabetes mellitus ([facility] V 24, [facility] V28) DX:Diabetes mellitus ([facility]) Syncope DX:Syncope Ankle swelling DX:Ankle [...] this topic Medical Devices Implanted Type Area Intake Worker Device Identifier Shelf Expiration Date Model / Serial / Lot Pacemaker Leadless 19.5f 32.2mm - [id number] - [id number] Implanted:Qty : 1 on 03/22/2024 by Mikal Lee MD at [facility] Cardiac Pacemaker N/A: Chest [employer] [facility] 12/14/2024 [id number] / [id number] / Procedures Procedure Name Priority Date/Time Associated Diagnosis Comments ANNUAL BMP BLOOD TEST Routine 02/22/2024 from Last 3 Months or Most Recently Relevant to Health Maintenance Results * Annual BMP Blood Test (02/22/2024) Annual BMP Blood Test Abstracted us Historical Provider HEALTH MAINTENANCE Final Result from Last 3 Months or Most Recently Relevant to Health Maintenance Insurance MEDICAID - [place] [facility] PLAN Advance Directives * Full Code - [...] currently active code status orders. Care Teams Supervisor Border Department Relationship Specialty Start Date End Date Physician, No Pcp PCP - General 03/16/24
--- OUTSIDE RECORDS SUMMARY | 2024-11-28 15:46 | XMS_ITS | Encounter Summary ---
Author Organization [facility], Address [address] [place] [address] Phone Care Team Providers Care Rn Clinical Resource Name Role Phone Unavailable Primary Care Provider Unavailabl e Encounter Details Date Type Department Care Team (Late st Contact Info) Description 06/09/2021 Documentation Only [facility], [address] [place] [address] Dino Plascencia MD [address] [place] [address] Social History Tobacco Use Types [...]
--- OUTSIDE RECORDS SUMMARY | 2024-11-28 15:46 | XMS_ITS | Patient Health Record ---
Author Organization [facility] Address [address] [place] [address] Care Team Providers Care Superintendent Power Name Role Phone Hamlet Canseco Primary Care Provider [phone] Reason For Referral No Information Plan Of Treatment No Information Insurance Providers Payer Name Payer Address Payer Phone Subscriber Number Group Number Insured Name Patient Relationship to Insured Coverage Start Date Coverage End Date [place] Medicaid [address] [place] [address] [id number] Anthony Yoder Self - patient is the insured
== END 2024-11-28 14:24 | disposition home or self-care (01) ==
LOC: HO.HMGCX 14:23
PROVIDERS: Visit Provider Surgery
DX: R22.0 Localized swelling, mass and lump, head (principal)
CPT/HCPCS: 76536

== ENCOUNTER → 2024-11-28 14:27 | Outpatient (BNV) | payer OTHER, SELFPAY | PROVIDERS: Visit Provider Radiology Diagnostic Radiology | DX: R22.0 Localized swelling, mass and lump, head (principal) | CPT/HCPCS: 76536 ==

== ENCOUNTER 2024-12-19 12:54 | Outpatient (AMB) | payer OTHER, SELFPAY ==
--- OUTSIDE RECORDS SUMMARY | 2024-12-19 13:15 | XMS_ITS | Patient Health Record ---
Author Organization [facility] Address [address] [place] [address] Care Team Providers Care Surgical Orderly Name Role Phone Hamlet Canseco Primary Care Provider [phone] Reason For Referral No Information Plan Of Treatment No Information Insurance Providers Payer Name Payer Address Payer Phone Subscriber Number Group Number Insured Name Patient Relationship to Insured Coverage Start Date Coverage End Date [place] Medicaid [address] [place] [address] [id number] Anthony Yoder Self - patient is the insured
--- OUTSIDE RECORDS SUMMARY | 2024-12-19 13:15 | XMS_ITS | Clinical Summary ---
Author Organization [facility] Address [address] [place] [address] Care Team Providers Care Rivet Hole Machine Operator Name Role Phone Unavailable Primary [...]
--- OUTSIDE RECORDS SUMMARY | 2024-12-19 13:15 | XMS_ITS | Clinical Summary ---
Author Organization [facility] Address [address] [place] [address] Phone Care Team Providers Care Editor Department Name Role Phone Physician, No Pcp [...] artery disease CHF (congestive heart failur e) ([facility] V24, [facility] V28) DX:CHF (congestive heart kamran lure) ([facility]) Hypertension DX:Hypertension Hyperlipidemia DX:Hyperlipidemi a Diabetes mellitus ([facility] V 24, [facility] V28) DX:Diabetes mellitus ([facility]) Syncope DX:Syncope Ankle swelling DX:Ankle [...] Panel) 02/23/2024 Colorectal Cancer Screening: Colonoscopy 02/23/2024 HIV Screening 02/23/2024 Hepatitis C Screening 02/23/2024 Social Influencers of Health Screening 02/23/2024 Depression Screening 05/18/2024 Influenza Vaccine (#1) 2025 Hypertension/CHF/CAD Annual BMP [...] this topic Medical Devices Implanted Type Area Central Supply Technician Supervisor Device Identifier Shelf Expiration Date Model / Serial / Lot Pacemaker Leadless 19.5f 32.2mm - [id number] - [id number] Implanted:Qty : 1 on 03/22/2024 by Mikal Lee MD at [facility] Cardiac Pacemaker N/A: Chest [employer] [facility] 12/14/2024 [id number] / [id number] / Procedures Procedure Name Priority Date/Time Associated Diagnosis Comments ANNUAL BMP BLOOD TEST Routine 02/22/2024 from Last 3 Months or Most Recently Relevant to Health Maintenance Results * Annual BMP Blood Test (02/22/2024) Annual BMP Blood Test Abstracted us Historical Provider HEALTH MAINTENANCE Final Result from Last 3 Months or Most Recently Relevant to Health Maintenance Insurance MEDICAID - [place] [facility] PLAN Advance Directives * Full Code - [...] currently active code status orders. Care Teams Editor Department Relationship Specialty Start Date End Date Physician, No Pcp PCP - General 03/16/24
--- OUTSIDE RECORDS SUMMARY | 2024-12-19 13:15 | XMS_ITS | Encounter Summary ---
Author Organization [facility], Address [address] [place] [address] Phone Care Team Providers Care Pest Control Technician Name Role Phone Unavailable Primary Care Provider Unavailabl e Encounter Details Date Type Department Care Team (Late st Contact Info) Description 06/09/2021 Documentation Only [facility], [address] [place] [address] Dino Plascencia MD [address] [place] [address] Social History Tobacco Use Types [...]
--- NOTE | 2024-12-20 08:05 | MHC.OFFVIS ---
Intake Visit Reasons: [facility] chk only (rs) Allergies carbamazepine (From Tegretol) Allergy (Intermediate, Verified 11/21/24 13:02) Agitated aspirin Adverse Reaction (Verified 11/21/24 13:02) Gastrointestinal Upset PFSH Medical History Skin lesion of back Hypogonadism in male Hypoglycemia ACS (acute coronary syndrome) Obstructive sleep apnea hypopnea, severe Snoring Congestive heart failure Valverde's palsy Surgical History S/P ACL surgery History of total right knee replacement H/O heart artery stent H/O right knee surgery Family History Mother CHF (congestive heart failure) Social History Housing: Apartment Alcohol intake: never Patient Tobacco Use Status: Former Tobacco user Tobacco use type: Cigarette e-Cigarette/Vaping Use: Currently Using Second Hand Smoke Exposure: Yes Substance Use Type: Marijuana service: No Current occupational status: retired Cognitive needs: Yes (Cane, Walker) Hearing needs: No Vision needs: Yes (Glasses) Office Procedures Cardiac Device Check Cardiac Device Check Details: [facility] leadless AV our pacemaker AAI mode low rate 50 are a threshold 0.75 volts at 0.2 milliseconds, output increased from 1.5-2 milliseconds for battery longevity, battery status 15.5 years, atrial pace 4% [id number]-TK Cardiac Device Check, leadless/single lead pacemaker Procedure code (CPT) selection complete Assessment & Plan Assessment & Plan (1) Pacemaker: Code(s): Z95.0 - Presence of cardiac pacemaker Category: Medical Plan: office interrogation, not able to do remote monitoring Coding Level of Care Code Procedure Only Diagnoses Pacemaker Z95.0 CPT Codes Cardiac Device Check - Cardiac Device 1: 66117-IJ Cardiac Device Check, leadless/single lead pacemaker ([id number])
== END 2024-12-19 14:12 | disposition home or self-care (01) ==
LOC: HO.HCS 12:55
PROVIDERS: Visit Provider Internal Medicine
DX: Z45.018 Encounter for adjustment and management of other part of cardiac pacemaker (principal)
CPT/HCPCS: 93279

== ENCOUNTER 2024-12-22 11:14 | Outpatient (AMB) | payer OTHER, SELFPAY ==
--- NOTE | 2024-12-22 11:17 | MHC.OFFVIS ---
Vital Signs 12/22/24 11:21 Height 5 ft 10 in Weight 279 lb BMI 40.0 BP 123/60 Blood Pressure Location Rt brachial Position Sitting Pulse 60 Intake Visit Reasons: s/p 11/28 US head and neck Intake Note: Patient here today to discuss Head and neck US. Patient c/o: no changes to lt cheek mass. Compacting Machine Operator/Tender Required: No Accompanied by: Self / Same As Patient Allergies carbamazepine (From Tegretol) Allergy (Intermediate, Verified 12/22/24 11:20) Agitated aspirin Adverse Reaction (Verified 12/22/24 11:20) Gastrointestinal Upset HPI HPI s/p 11/28 US head and neck: Details: 54-year-old male he is here for follow-up for a large mass on the the left cheek. He says he has he has this mass on the left cheek for about 5 years now. This has been increasing in size. He says he has not been able to take care of this because of many reasons and he says at some point, his was ill and then he had a heart attack last year. He says that the masses gone bigger and he says that this has bothering him so much that he gets depressed and does not want to leave the house on some days. He is being seen and followed by the shellfish harvester here at [facility]. He is on Plavix because of the presence of stents. He said also has a wireless pacemaker. I had sent him for an ultrasound prior to scheduling him for his excision. [facility] Medical History Skin lesion of back Hypogonadism in male Hypoglycemia ACS (acute coronary syndrome) Obstructive sleep apnea hypopnea, severe Snoring Congestive heart failure Valverde's palsy Surgical History S/P ACL surgery History of total right knee replacement H/O heart artery stent H/O right knee surgery Family History Mother CHF (congestive heart failure) Social History Housing: Apartment Alcohol intake: never Patient Tobacco Use Status: Former Tobacco user Tobacco use type: Cigarette e-Cigarette/Vaping Use: Currently Using Second Hand Smoke Exposure: Yes Substance Use Type: Marijuana service: No Current occupational status: retired Cognitive needs: Yes (Cane, Walker) Hearing needs: No Vision needs: Yes (Glasses) Review of Systems Const Denies chills and Denies fever(s) Card Denies chest pain, Denies dyspnea and Denies dyspnea on exertion Resp Denies cough, Denies dyspnea and Denies dyspnea on exertion GI Denies hematochezia and Denies change in bowel habits Denies hematuria and Denies difficulty urinating Musc Denies back pain and Denies limited range of motion Neuro Denies focal weakness and Denies convulsions Psych Denies depression and Denies mood swings Physical Exam Vital Signs: Last Vital Signs Pulse 60 12/22/24 11:21 BP 123/60 12/22/24 11:21 BMI result Body Mass Index 40.0 Const General: comfortable and no acute distress Orientation/consciousness: patient oriented x3 HEENT Other: Large mass on the left cheek, well-defined, smooth and mobile about 5 cm Neck Neck: Yes no lymphadenopathy Resp Auscultation: clear to auscultation bilaterally Cardio Rhythm: regular rhythm GI Palpation (GI): Soft to palpation, nontender and no guarding Neuro General: patient oriented x3 Assessment & Plan Assessment & Plan (1) Facial mass: Code(s): R22.0 - Localized swelling, mass and lump, head Category: Medical Plan: He has this large mass on the left cheek area. His ultrasound suggested this may be an epidermal cyst. I explained to him the technique of excision under anesthesia because of the large size. I reviewed the risks including but not limited to bleeding, infections, poor healing, scar formation, as well as the benefits and alternatives. He says he understands and really wants to proceed. He understands he needs to hold his Plavix and Mounjaro for 5 days prior to the surgery. He also understands what to expect postoperatively. Coding Level of Care Code Est Pt Level 3 (47241) Diagnoses Facial mass R22.0
[2024-12-22 11:21] VITALS: BP 123/60; PULSE 60; BMI 40.0
--- OUTSIDE RECORDS SUMMARY | 2024-12-22 11:56 | XMS_ITS | Clinical Summary ---
Author Organization [facility] Address [address] [place] [address] Care Team Providers Care Registered Nurse Bone Marrow Transplant Name Role Phone Unavailable Primary Care Provider [...]
--- OUTSIDE RECORDS SUMMARY | 2024-12-22 11:56 | XMS_ITS | Clinical Summary ---
Author Organization [facility] Address [address] [place] [address] Phone Care Team Providers Care Immigration Specialist Name Role Phone Physician, No Pcp Primary [...] artery disease CHF (congestive heart failur e) ([facility] V24, [facility] V28) DX:CHF (congestive heart kamran lure) ([facility]) Hypertension DX:Hypertension Hyperlipidemia DX:Hyperlipidemi a Diabetes mellitus ([facility] V 24, [facility] V28) DX:Diabetes mellitus ([facility]) Syncope DX:Syncope Ankle swelling DX:Ankle swellin g [...] this topic Medical Devices Implanted Type Area Lens Grinding Machine Operator Device Identifier Shelf Expiration Date Model / Serial / Lot Pacemaker Leadless 19.5f 32.2mm - [id number] - [id number] Implanted:Qty : 1 on 03/22/2024 by Mikal Lee MD at [facility] Cardiac Pacemaker N/A: Chest [employer] 12/14/2024 [id number] / [id number] / Procedures Procedure Name Priority Date/Time Associated Diagnosis Comments ANNUAL BMP BLOOD TEST Routine 02/22/2024 from Last 3 Months or Most Recently Relevant to Health Maintenance Results * Annual BMP Blood Test (02/22/2024) Annual BMP Blood Test Abstracted us Historical Provider HEALTH MAINTENANCE Final Result from Last 3 Months or Most Recently Relevant to Health Maintenance Insurance MEDICAID - [place] [facility] Advance Directives * Full Code - [...] currently active code status orders. Care Teams Immigration Specialist Relationship Specialty Start Date End Date Physician, No Pcp PCP - General 03/16/24
--- OUTSIDE RECORDS SUMMARY | 2024-12-22 11:56 | XMS_ITS | Encounter Summary ---
Author Organization [facility], Address [address] [place] [address] Phone Care Team Providers Care Russian Language Professor Name Role Phone Unavailable Primary Care Provider Unavailabl e Encounter Details Date Type Department Care Team (Late st Contact Info) Description 06/09/2021 Documentation Only [facility], [address] [place] [address] Dino Plascencia MD [address] [place] [address] Social History Tobacco Use Types [...]
--- OUTSIDE RECORDS SUMMARY | 2024-12-22 11:56 | XMS_ITS | Patient Health Record ---
Author Organization [facility] Address [address] [place] [address] Care Team Providers Care Internist Name Role Phone Hamlet Canseco Primary Care Provider [phone] Reason For Referral No Information Plan Of Treatment No Information Insurance Providers Payer Name Payer Address Payer Phone Subscriber Number Group Number Insured Name Patient Relationship to Insured Coverage Start Date Coverage End Date [place] Medicaid [address] [place] [phone] [id number] Anthony Yoder Self - patient is the insured
== END 2024-12-22 11:23 | disposition home or self-care (01) ==
LOC: HO.HGS 11:15
PROVIDERS: Visit Provider Surgery
DX: R22.0 Localized swelling, mass and lump, head (principal)
CPT/HCPCS: 99213

== ENCOUNTER → 2024-12-22 11:14 | Outpatient (BNVA) | payer OTHER, SELFPAY | PROVIDERS: Visit Provider Surgery | DX: Z71.2 Person consulting for explanation of examination or test findings (principal); R22.0 Localized swelling, mass and lump, head | CPT/HCPCS: 99212 ==

== ENCOUNTER 2025-04-17 12:57 | Outpatient (AMB) | payer OTHER, SELFPAY ==
[2025-04-17 13:17] VITALS: BP 128/52; PULSE 65; BMI 39.0
--- NOTE | 2025-04-17 13:17 | A.OFFVIS_ITS ---
Vital Signs 04/17/25 13:17 Height 5 ft 10 in Weight 271 lb 8.341 oz BMI 39.0 BP 128/52 L Blood Pressure Location Lt brachial Position Sitting Pulse 65 Pulse Source Pulse Oximeter Intake Visit Reasons: 6 mth f/up and [facility] ck Allergies carbamazepine (From Tegretol) Allergy (Intermediate, Verified 04/17/25 13:18) Agitated aspirin Adverse Reaction (Verified 04/17/25 13:18) Gastrointestinal Upset Medication List - Last Reconciled 04/17/25 by DEENA Chahal aspirin 81 mg PO DAILY atorvastatin 80 mg PO BEDTIME blood sugar diagnostic (FreeStyle Lite Strips) As directed; to check sugars TID blood-glucose meter (FreeStyle Lite Meter kit) As directed; to check sugars TID clopidogrel 75 mg PO DAILY ezetimibe 10 mg PO DAILY furosemide 80 mg PO BID isosorbide mononitrate ER 30 mg PO DAILY lancets (FreeStyle Lancets) As directed; to check sugars TID lisinopril 10 mg PO DAILY methadone (Methadone Intensol) 100 mg PO DAILY metoprolol succinate ER 50 mg PO DAILY testosterone (AndroGel) 4 pumps topical DAILY tirzepatide (Mounjaro) 2.5 mg subcut QWEEK HPI HPI 6 mth f/up and [facility] ck: Details: Anthony is a 54-year-old male with past medical history of hypertension, DM, HLD, COPD, chronic back pain, CAD, RCA stent 11/2023, Sinus pauses s/p [facility] leadness pacemaker, Sleep apnea and following with sleep medicine, Syncope/ seizures and being evaluated by neurology who presents for follow up. Today he reports being upset that he has not been scheduled for his facial mass removal. He said it was scheduled on 4 occasions and canceled each time. Having that on his cheek makes him not want to leave the house and talk to people as they just stare at him. It also causes discomfort. He has not been having any cardiac concerns. He says he is still having occasional episodes where he now believes he is falling asleep and not actually fainting or losing consciousness. He tried to use CPAP and was not able to tolerate it, especially with current facial mass. Leg edema is currently much improved from what it has been in the past. He is mostly sedentary due to issues with chronic low back pain. He continues to sleep in an upright position due to his back pain. Taking meds as directed. [facility] Medical History Skin lesion of back Hypogonadism in male Hypoglycemia ACS (acute coronary syndrome) Obstructive sleep apnea hypopnea, severe Snoring Congestive heart failure Valverde's palsy Surgical History S/P ACL surgery History of total right knee replacement H/O heart artery stent H/O right knee surgery Family History Mother CHF (congestive heart failure) Social History Housing: Apartment Alcohol intake: never Patient Tobacco Use Status: Former Tobacco user Tobacco use type: Cigarette e-Cigarette/Vaping Use: Currently Using Second Hand Smoke Exposure: Yes Substance Use Type: Marijuana service: No Current occupational status: retired Cognitive needs: Yes (Cane, Walker) Hearing needs: No Vision needs: Yes (Glasses) Review of Systems Const All systems reviewed & are unremarkable except as noted in HPI and below ENT Denies dizziness Card Denies chest pain, Denies chest pain at rest, Denies chest pain with activity, Denies rapid heart rate, Denies pedal edema, Denies edema, Denies leg edema, Denies lightheadedness, Denies palpitations, Denies dyspnea, Denies dyspnea on exertion and Denies orthopnea Resp Denies cough, Denies dyspnea and Denies dyspnea on exertion GI Denies hematochezia and Denies change in stool character Musc Denies abnormal gait, Denies limited range of motion, Denies muscle cramps, Denies muscle weakness, Denies numbness, Denies radiating pain into limb, Denies stiffness and Denies tingling Neuro Denies abnormal gait, Denies dizziness, Denies numbness and Denies tingling Endo Denies palpitations Physical Exam Vital Signs: Last Vital Signs Pulse 65 04/17/25 13:17 BP 128/52 L 04/17/25 13:17 BMI result Body Mass Index 39.0 Const Other: Morbidly obese General: cooperative and no acute distress Orientation/consciousness: patient oriented x3 HEENT Other: Mass left cheek - likely cyst Neck Neck: Yes normal visual inspection and Yes no JVD Carotids: normal carotid upstroke Resp Effort & Inspection: normal respiratory effort Auscultation: clear to auscultation bilaterally, no crackles, no rales, no rhonchi and no wheezes Cardio Rate: regular rate Rhythm: regular rhythm Heart sounds: S1 normal heart sound present, S2 normal heart sound present, no murmurs and no rubs Neuro General: patient oriented x3 Extrem Other: Pitting edema each lower leg - skin intact Psych Appearance: grossly normal Mental Status: mental status grossly normal Speech and movement: Normal speech and movement present Office Procedures Cardiac Device Check Cardiac Device Check Details: [facility] leadless pacemaker interrogation today shows battery 15.1 years, AAI mode, base rate 50, no alerts, RA threshold 0.5 volts at 0.2 milliseconds a paced 13% since 12/19/2024. [id number]-PI Cardiac Device Check, leadless/single lead pacemaker Procedure code (CPT) selection complete Assessment & Plan Assessment & Plan (1) CAD (coronary artery disease): Code(s): I25.10 - Atherosclerotic heart disease of [place] coronary artery without angina pectoris Category: Medical Plan: CAD with NSTEMI 10/18/23 with cardiac catheterization showing mid RCA 99% stenosis, angioplasty, arthrectomy and RINA placed. He does have residual PDA stenosis and ostial circumflex/ OM1 stenosis- these lesions were noted to be not ideal for PCI and recommendation was for medical therapy. Last echo in our system 02/12/23 was normal study. He was getting atypical chest pains and a Nuclear stress test 08/03/2024 showing normal myocardial perfusion imaging. Continue aspirin indefinitely. Continue Plavix at the recommendation of his primary integration developer. Continue high dose atorvastatin and Zetia with ideal LDL goal less than 70. Continue metoprolol and isosorbide. Signs and symptoms of angina reviewed. Emergency care if ever needed for symptoms. Cardiology follow-up 6 months, sooner if needed. (2) S/P cardiac cath: Comment: 10/19/2023 left main minimal irregularities, lad mild diffuse disease, left circumflex proximal ostial 85% stenosis, 1st OM mid subsection 70% stenosis, mid RCA 99% stenosis, culprit lesion, right PDA ostial 75% stenosis, angioplasty and arthrectomy to the RCA, RINA placed, significant ostial PDA stenosis, severe os tial circumflex stenosis and OM 1 disease lesions are not ideal for PCI, recommend medical therapy and optimizing antianginal. Code(s): Z98.890 - Other specified postprocedural states Category: Surgical Plan: As above. (3) Syncope: Comment: Likely cardiac ? seizure Code(s): R55 - Syncope and collapse Category: Medical Qualifiers: Encounter type: initial encounter Plan: Patient describes multiple fainting events in the last year+. He states the 1st episode of a symptom is a strong urge to urinate, his feels like he can not take a breath in and then he goes out . His events have been witnessed and no seizure like movements reported. While unconscious he does have urinary incontinence at times and He does report being out of it for approximately 30 minutes after each event. He previously said could bring on an episode by walking and talking at the same time. More recently he has been able to control the symptoms somewhat if he sits and fully relaxes. Prior Holter monitor did not show arrhythmia. Echocardiogram was normal. He has not had significant hypotension. A cardiac event monitor was done on 09/09/2023 for 30 days, patient wore it for 20 days and there were 5 cardiac pauses ranging from 3-5.8 seconds during daytime hours. No clear correlation to a syncopal event at this time of these pauses. He had been referred to Dr Romo for evaluation ( syncope vs seizures) and sleep study. Patient reports he was told that he was not having seizures. He has been confirmed to have sleep apnea and was unable to tolerate CPAP. He was seen by EP and did have a leadless pacemaker placed on 03/22/24. At this time he tells me that his fainting episodes have improved overall but still occur. Overall unclear cause of his events. He he tells me today that he believes he is falling asleep and not actually fainting. Recommended that he not drive. Hopefully going forward he will be able to tolerate CPAP mask once his facial mass has been removed. (4) Sinus pause: Code(s): I45.5 - Other specified heart block Category: Medical Plan: As above. Leadless pacemaker in place (5) Obesity: Code(s): E66.9 - Obesity, unspecified Category: Medical Qualifiers: Body mass index: BMI 40.0-44.9 Obesity type: due to excess calories Serious obesity comorbidity presence: with serious comorbidity Plan: Morbidly obese. Previously referred to the bariatric program, no longer following with them. (6) Obstructive sleep apnea hypopnea, severe: Code(s): G47.33 - Obstructive sleep apnea (adult) (pediatric) Category: Medical Plan: Known sleep apnea, has CPAP but reports intolerance to it. Recommend that he speak with his sleep provider regarding this due to the importance of sleep apnea treatment. (7) NSTEMI (non-ST elevated myocardial infarction): Code(s): I21.4 - Non-ST elevation (NSTEMI) myocardial infarction Category: Medical Plan: As above (8) Lower extremity edema: Code(s): R60.0 - Localized edema Category: Medical Plan: Patient has issues with chronic edema in his lower extremities, right greater than left. In the past he has had issues with cellulitis, currently under control. Previously [facility] however no longer needing to as he has no skin breaks. He has Marco Antonio wraps to use on his legs daily as needed. Labs 10/06/2024 show potassium 3.6, creatinine 0.8. He has been on Lasix with improvement in his swelling. Continue Lasix. Recommend biannual BMP. (9) Pacemaker: Code(s): Z95.0 - Presence of cardiac pacemaker Category: Medical Plan: [facility] Sanchez Leadless pacemaker placed on 03/22/24. Office interrogation today shows device is functioning normally. His current device is not capable of having remote monitoring. (10) Hyperlipidemia: Code(s): E78.5 - Hyperlipidemia, unspecified Category: Medical Plan: LDL goal <70. Labs done 10/06/2024 showed LDL 60. Continue atorvastatin and Zetia. (11) Preop cardiovascular exam: Code(s): Z01.810 - Encounter for preprocedural cardiovascular examination Category: Medical Plan: Preop for facial mass removal in the near future. He may proceed with intermediate risk. He is currently optimized for his cardiac conditions. Aspirin and Plavix can be held as needed and plan restart when cleared by surgeon to do so. Call/consult Cardiology if needed. Plan Time spent on chart review, documentation, interviewed assessment Coding Level of Care Code Est Pt Level 4 (46401) Complex visit Add On G2211 Diagnoses CAD (coronary artery disease) I25.10 S/P cardiac cath Z98.890 Syncope R55 Encounter type: initial encounter Sinus pause I45.5 Obesity E66.9 Body mass index: BMI 40.0-44.9 Obesity type: due to excess calories Serious obesity comorbidity presence: with serious comorbidity Obstructive sleep apnea hypopnea, severe G47.33 NSTEMI (non-ST elevated myocardial infarction) I21.4 Lower extremity edema R60.0 Pacemaker Z95.0 Hyperlipidemia E78.5 Preop cardiovascular exam Z01.810 CPT Codes Cardiac Device Check - Cardiac Device 1: 90455-CG Cardiac Device Check, leadless/single lead pacemaker ([id number]) Time Spent (min) 28
--- OUTSIDE RECORDS SUMMARY | 2025-04-17 16:34 | XMS_ITS | Encounter Summary ---
Author Organization [facility], Address [address] [place] [address] Phone Care Team Providers Care Satellite Project Site Monitor Name Role Phone Unavailable Primary Care Provider Unavailabl e Encounter Details Date Type Department Care Team (Late st Contact Info) Description 06/09/2021 Documentation Only [facility], [address] [place] [address] Dino Plascencia MD [address] [place] [address] Social History Tobacco Use Types [...]
--- OUTSIDE RECORDS SUMMARY | 2025-04-17 16:34 | XMS_ITS | Clinical Summary ---
Author Organization [facility] Address [address] [place] [address] Phone Care Team Providers Care Game And Fish Protector Name Role Phone Physician, No Pcp Primary [...] artery disease CHF (congestive heart failur e) ([facility] V24, [facility] V28) DX:CHF (congestive heart kamran lure) ([facility]) Hypertension DX:Hypertension Hyperlipidemia DX:Hyperlipidemi a Diabetes mellitus ([facility] V 24, [facility] V28) DX:Diabetes mellitus ([facility]) Syncope DX:Syncope Ankle swelling DX:Ankle swellin g [...] Health Maintenance Due Date Last Done Comments Colorectal Cancer Screening: Colonoscopy 1971 DTaP,Tdap,and Td Vaccines (1 - Tdap) 1990 Hepatitis A Vaccines (1 of 2 - Risk 2-dose series) 1990 Hepatitis B Vaccines (1 of 3 - 19+ 3-dose series) 1990 Pneumococcal Vaccine: 50+ Ye ars (1 of 1 - PCV) 2021 RSV Immunization Adult Patie nts (1 - Risk 50-74 years 1-dose series) 2021 Zoster Vaccines (1 of 2) 2021 Cholesterol Screening (Lipid Panel) 02/23/2024 HIV Screening 02/23/2024 Hepatitis C Screening 02/23/2024 Social Influencers of Health Screening 02/23/2024 Depression Screening 05/18/2024 COVID-19 Vaccine (2024-2 6 season) 2025 Influenza Vaccine (#1) 2025 Hypertension/CHF/CAD Annual BMP [...] this topic Medical Devices Implanted Type Area Cash Accountant Device Identifier Shelf Expiration Date Model / Serial / Lot Pacemaker Leadless 19.5f 32.2mm Ra - [id number] - [id number] Implanted:Qty : 1 on 03/22/2024 by Mikal Lee MD at [facility] Cardiac Pacemaker N/A: Chest [employer] [facility] 12/14/2024 [id number] / [id number] / Procedures Procedure Name Priority Date/Time Associated Diagnosis Comments ANNUAL BMP BLOOD TEST Routine 02/22/2024 from Last 3 Months or Most Recently Relevant to Health Maintenance Results * Annual BMP Blood Test (02/22/2024) Annual BMP Blood Test Abstracted us Historical Provider HEALTH MAINTENANCE Final Result from Last 3 Months or Most Recently Relevant to Health Maintenance Insurance MEDICAID - [place] [facility] Advance Directives * Full Code [...] currently active code status orders. Care Teams Game And Fish Protector Relationship Specialty Start Date End Date Physician, No Pcp PCP - General 03/16/24
--- OUTSIDE RECORDS SUMMARY | 2025-04-17 16:34 | XMS_ITS | Clinical Summary ---
Author Organization [facility] Address [address] [place] [address] Care Team Providers Care Instrumentation Specialist Name Role Phone Unavailable Primary Care [...]
--- OUTSIDE RECORDS SUMMARY | 2025-04-17 16:34 | XMS_ITS | Clinical Summary ---
Author Organization [facility], Address [address] [place] [address] [place] [address] Phone Care Team Providers Care Insurance Premium Auditor Name Role Phone Unavailable Primary Care Provider Unavailabl e Allergies Active Allergy Reactions Criticality Noted Date Comments Aspirin 03/22/2021 Medications doxycycline (ADOXA) 100 MG tablet doxycycline monohydrate Take 1 tablet 2 times per day for 10 days [id number] tablet 2 times per day No route [...] 1 time per day for 5 days [id number] tablet 1 time per day oral 5 [...] of 1 - PCV) 021 Influenza Vaccine (#1) 2025 Insurance [facility] Medicaid
== END 2025-04-17 13:46 | disposition home or self-care (01) ==
LOC: HO.HCS 12:58
PROVIDERS: Visit Provider Nurse Practitioner Family
DX: I25.10 Atherosclerotic heart disease of native coronary artery without angina pectoris (principal); Z98.890 Other specified postprocedural states; R55 Syncope and collapse; I45.5 Other specified heart block; E66.9 Obesity, unspecified; G47.33 Obstructive sleep apnea (adult) (pediatric); I21.4 Non-ST elevation (NSTEMI) myocardial infarction; R60.0 Localized edema; Z95.0 Presence of cardiac pacemaker; E78.5 Hyperlipidemia, unspecified; Z01.810 Encounter for preprocedural cardiovascular examination
CPT/HCPCS: 93279; 99214

== ENCOUNTER → 2025-04-17 12:57 | Outpatient (BNVA) | payer OTHER, SELFPAY | PROVIDERS: Visit Provider Nurse Practitioner Family | DX: Z01.810 Encounter for preprocedural cardiovascular examination (principal); I25.10 Atherosclerotic heart disease of native coronary artery without angina pectoris; R55 Syncope and collapse; I45.5 Other specified heart block; E66.01 Morbid (severe) obesity due to excess calories; G47.33 Obstructive sleep apnea (adult) (pediatric); Z99.89 Dependence on other enabling machines and devices; I21.4 Non-ST elevation (NSTEMI) myocardial infarction; R60.0 Localized edema; E78.5 Hyperlipidemia, unspecified; G89.29 Other chronic pain; M54.50 Low back pain, unspecified; I10 Essential (primary) hypertension; Z68.39 Body mass index [BMI] 39.0-39.9, adult; Z98.890 Other specified postprocedural states; Z95.0 Presence of cardiac pacemaker; Z79.82 Long term (current) use of aspirin; Z79.899 Other long term (current) drug therapy; Z87.891 Personal history of nicotine dependence | CPT/HCPCS: 99212 ==

== ENCOUNTER 2025-05-03 08:29 | Outpatient (REF) | payer OTHER, SELFPAY ==
--- OUTSIDE RECORDS SUMMARY | 2025-05-03 08:42 | XMS_ITS | Patient Health Record ---
Author Organization [facility] Address [address] [place] [address] Care Team Providers Care Home Health Caregiver Name Role Phone Hamlet Canseco Primary Care Provider Reason For Referral No Information Plan Of Treatment No Information Insurance Providers Payer Name Payer Address Payer Phone Subscriber Number Group Number Insured Name Patient Relationship to Insured Coverage Start Date Coverage End Date [place] Medicaid [address] [place] [address] [phone] [id number] Atnhony Yoder Self - patient is the insured
--- OUTSIDE RECORDS SUMMARY | 2025-05-03 08:42 | XMS_ITS | Clinical Summary ---
Author Organization [facility] Address [address] [place] [address] Phone Care Team Providers Care Tissue Recovery Technician Name Role Phone Physician, No Pcp [...] artery disease CHF (congestive heart failur e) ([facility] V24, [facility] V28) DX:CHF (congestive heart kamran lure) ([facility]) Hypertension DX:Hypertension Hyperlipidemia DX:Hyperlipidemi a Diabetes mellitus ([facility] V 24, [facility] V28) DX:Diabetes mellitus ([facility]) Syncope DX:Syncope Ankle swelling DX:Ankle swellin g [...] Screening 02/23/2024 Depression Screening 05/18/2024 COVID-19 Vaccine ( - 2024-2 6 season) 2025 Influenza Vaccine (#1) 2025 [...] this topic Medical Devices Implanted Type Area Metal Stud Framer Device Identifier Shelf Expiration Date Model / Serial / Lot Pacemaker Leadless 19.5f 32.2mm - [id number] - [id number] Implanted:Qty : 1 on 03/22/2024 by Mikal Lee MD at [facility] Cardiac Pacemaker N/A: Chest [employer] [facility] 12/14/2024 [id number] / [id number] / Procedures Procedure Name Priority Date/Time Associated Diagnosis Comments ANNUAL BMP BLOOD TEST Routine 02/22/2024 from Last 3 Months or Most Recently Relevant to Health Maintenance Results * Annual BMP Blood Test (02/22/2024) Annual BMP Blood Test Abstracted us Historical Provider HEALTH MAINTENANCE Final Result from Last 3 Months or Most Recently Relevant to Health Maintenance Insurance MEDICAID - [place] [facility] Advance Directives * Full Code - [...] currently active code status orders. Care Teams Tissue Recovery Technician Relationship Specialty Start Date End Date Physician, No Pcp PCP - General 03/16/24
--- OUTSIDE RECORDS SUMMARY | 2025-05-03 08:42 | XMS_ITS | Clinical Summary ---
Author Organization [facility] Prior to 10/15/24 Address [address] [place] [address] Care Team Providers Care Jail Officer Name Role Phone Unavailable Primary Care Provider [...]
[2025-05-03 09:20] LABS: Potassium 3.4 mmol/L (3.3-5.1)
== END 2025-05-03 08:30 ==
LOC: HO.LAB 08:29
DX: E87.6 Hypokalemia (principal)
CPT/HCPCS: 36415; 84132

== ENCOUNTER 2025-05-05 11:56 | Day surgery (SDC) | payer OTHER, SELFPAY ==
--- OUTSIDE RECORDS SUMMARY | 2025-04-21 17:34 | XMS_ITS | Clinical Summary ---
Author Organization [facility] Address [address] [place] [address] Phone Care Team Providers Care Insurance Agency Manager Name Role Phone Physician, No Pcp [...] artery disease CHF (congestive heart failur e) ([facility] V24, [facility] V28) DX:CHF (congestive heart kamran lure) ([facility]) Hypertension DX:Hypertension Hyperlipidemia DX:Hyperlipidemi a Diabetes mellitus ([facility] V 24, [facility] V28) DX:Diabetes mellitus ([facility]) Syncope DX:Syncope Ankle swelling DX:Ankle swellin [...] this topic Medical Devices Implanted Type Area Land Acquisition Manager Device Identifier Shelf Expiration Date Model / Serial / Lot Pacemaker Leadless 19.5f 32.2mm Ra - [id number] - [id number] Implanted:Qty : 1 on 03/22/2024 by Mikal Lee MD at [facility] Cardiac Pacemaker N/A: Chest [employer] 12/14/2024 [id number] / [id number] / Procedures Procedure Name Priority Date/Time Associated Diagnosis Comments ANNUAL BMP BLOOD TEST Routine 02/22/2024 from Last 3 Months or Most Recently Relevant to Health Maintenance Results * Annual BMP Blood Test (02/22/2024) Annual BMP Blood Test Abstracted us Historical Provider HEALTH MAINTENANCE Final Result from Last 3 Months or Most Recently Relevant to Health Maintenance Insurance MEDICAID - [facility] Advance Directives * Full Code - [...] currently active code status orders. Care Teams Insurance Agency Manager Relationship Specialty Start Date End Date Physician, No Pcp PCP - General 03/16/24
--- OUTSIDE RECORDS SUMMARY | 2025-04-21 17:34 | XMS_ITS | Clinical Summary ---
Author Organization [facility] Prior to 10/15/24 Address [address] [place] [address] Care Team Providers Care Food Inspector Name Role Phone Unavailable Primary Care Provider [...]
[2025-04-25 12:19] VITALS: BP 134/63; PULSE 70; RESP 20; O2SAT 96; BMI 39.2
--- NOTE | 2025-04-25 12:33 | HO.ANESPROP2 ---
Documented by User: Mone Bonilla NP 05/03/25 12:59 HPI - Anesthesia Eval Consult details Narrative: 55yo M for Left Excision Mass on Cheek, 05/05/25 Cardiac optimized. Follows [facility] Cardiology for: CAD s/p NSTEMI/Stent 10/2023 - plavix Leadless Pacer for sinus pauses 03/2024 No recent illness. Some mild nasal congestion with seasonal/enviromental allergies No CP/SOB with walking yard. Activity limited d/t social anxieties r/t active problem Previous episodes of syncope - resolved with pacer 2023. Also had w/u with neuro - no seizure activity Daily marijuana, instructed 3 day hold preop LYN: unable to use CPAP d/t facial mass, follows [facility] neuro. Possible candidate for inspire LE edema: +1 or less on exam at [facility]. Pt reports has improved from previous with weight loss, compliance with lasix and change in sleeping position (previously legs were dependant during sleep d/t psoas injury) Chronic opiates: lifelong hx of opiate use d/t multiple injuries, now methadone daily (115mg) Preop labs with low K @ 2.9 on . PCP started with PO replacement and repeat K nml @ 3.4 on 05/03/25 Anesthesia Pre-Procedure Meds Is the patient on any of the following meds?: GLP1/DPP4 PMFSH Active Problems Active Problems: All Active Problems Preop cardiovascular exam (Acute) Skin lesion of back (Acute) Muscle cramps (Acute) Nasal polyps (Acute) Low testosterone (Acute) Diabetes mellitus (Acute) Depression (Acute) Decreased libido (Acute) Mass on back (Acute) Facial mass (Acute) Screening for diabetes mellitus (Acute) Irritable mood (Acute) Pitting edema (Acute) Hyperlipidemia (Acute) Obesity (Acute) Pacemaker (Acute) Snoring (Acute) Wound of lower extremity (Acute) CAD (coronary artery disease) (Acute) NSTEMI (non-ST elevated myocardial infarction) (Acute) S/P cardiac cath (Acute) Seizure (Acute) Hypersomnia (Acute) Syncope (Acute) Angina pectoris, unstable (Acute) Lower extremity edema (Acute) Pulmonary nodules (Acute) Pulmonary emphysema (Acute) Dyspnea on exertion (Acute) Hypertension (Acute) Hypogonadism in male (Acute) Hypoglycemia (Acute) Obstructive sleep apnea hypopnea, severe (Acute) Past Medical History Medical History Crushing injury of face Pulmonary emphysema CAD (coronary artery disease) Pulmonary nodule HTN (hypertension) Hyperlipidemia Diabetes Depression NSTEMI (non-ST elevated myocardial infarction) Hypogonadism in male Hypoglycemia ACS (acute coronary syndrome) Obstructive sleep apnea hypopnea, severe Congestive heart failure Valverde's palsy Family History Family History Mother CHF (congestive heart failure) Family history of problems with anesthesia: No Surgical History Surgical History History of tonsillectomy H/O left knee surgery S/P cardiac pacemaker procedure S/P ACL surgery History of total right knee replacement H/O heart artery stent H/O right knee surgery History of Problems with Anesthesia: No Social History Social History Household Members Other:: has housemates Housing: Apartment Are you a primary child care centre director to a significant other at home: No Do you presently have visiting nurse or other home services: No Alcohol intake: never Patient Tobacco Use Status: Former Tobacco user Tobacco use type: Cigarette Years Smoked: 30 e-Cigarette/Vaping Use: Currently Using Second Hand Smoke Exposure: Yes Use of substances other than those prescribed or required for medical reasons: Yes Substance Use Type: Marijuana Substance Use Type Other:: smokes marijuana/takes methadone daily for pain control-has take home doses Substance Use Frequency: Daily Have you been hit, kicked, punched, or otherwise hurt by someone within the past year? If so, by whom?: No Spiritual Healthcare Practices: no Roman Catholic Healthcare Practices: no Cultural Healthcare Practices: no Are you DNR?: No Advance Directives: No Advance Directives Information Provided: Yes Advance Directives on File: No service: No Current occupational status: retired Cognitive needs: Yes (Cane, Walker) Hearing needs: No Vision needs: Yes (Glasses) Meds Allergies Allergy/AdvReac Type Severity Reaction Status Date / Time No Known Allergies Allergy Verified 05/05/25 12:11 Home Medications ?Medication ?Instructions ?Recorded ?Confirmed ?Last Taken ?Type methadone 10 mg/mL oral 115 mg PO DAILY pain control 07/04/25/25 05/05/25 History concentrate (Methadone Intensol) aspirin 81 mg tablet,delayed 81 mg PO DAILY 12/03/23 04/24/25 05/03/25 History release lisinopril 10 mg tablet 10 mg PO DAILY 05/23/24 04/24/25 Unknown History tirzepatide 2.5 mg/0.5 mL 2.5 mg subcut QWEEK 04/17/25 04/24/25 04/21/25 History subcutaneous pen injector (Mounjaro) furosemide 80 mg tablet 80 mg PO TID 04/25/25 04/25/25 Unknown History Exam Height,Weight and Vital Signs: Height 5 ft 10 in Weight 123.831 kg Last Vital Signs Pulse 70 04/25/25 12:19 Resp 20 04/25/25 12:19 BP 134/63 04/25/25 12:19 Pulse Ox 96 04/25/25 12:19 O2 Del Method Room Air 04/25/25 12:19 Narrative Narrative: Cardiac Device Check 04/2025 Details: [employer] leadless pacemaker interrogation today shows battery 15.1 years, AAI mode, base rate 50, no alerts, RA threshold 0.5 volts at 0.2 milliseconds a paced 13% since 12/19/2024. [id number] Cardiac Device Check, leadless/single lead pacemaker EKG 10/2024 normal sinus rhythm, nonspecific ST abnormality rate 89, manual QT 402ms NM cardiolite stress test 07/2024 Impression: 1. Myocardial perfusion imaging study shows likely normal myocardial perfusion 2. Gated LVEF is 58% with stress 3. Transient ischemic dilatation not present Nondiagnostic changes on EKG. Cardiac cath 10/19/2023 left main minimal irregularities, lad mild diffuse disease, left circumflex proximal ostial 85% stenosis, 1st OM mid subsection 70% stenosis, mid RCA 99% stenosis, culprit lesion, right PDA ostial 75% stenosis, angioplasty and arthrectomy to the RCA, RIAN placed, significant ostial PDA stenosis, severe ostial circumflex stenosis and OM 1 disease lesions are not ideal for PCI, recommend medical therapy and optimizing antianginal. ECHO 2022 Conclusions: - Essentially normal study Airway Mallampati Class: III TM Dist: <=3cm Neck ROM: Limited (herniated disc in cspine, no treatment) Denture: Upper Loose/Missing/Broken Teeth: Yes (only few bottom teeth, none loose or broken per pt) Heart: RRR Lungs: CTAB Assessment and Plan Assessment Anesthesia Assessment: Anesthesia Plan Discussed and PAT Visit Final Anesthetic Review Family History of Problems with Anesthesia: No History of Problems with Anesthesia: No Documented by User: Dennis Cooper MD 05/05/25 13:35 [facility] Past Medical History Medical History Crushing injury of face Pulmonary emphysema CAD (coronary artery disease) Pulmonary nodule HTN (hypertension) Hyperlipidemia Diabetes Depression NSTEMI (non-ST elevated myocardial infarction) Hypogonadism in male Hypoglycemia ACS (acute coronary syndrome) Obstructive sleep apnea hypopnea, severe Congestive heart failure Valverde's palsy Family History Family History Mother CHF (congestive heart failure) Surgical History Surgical History History of tonsillectomy H/O left knee surgery S/P cardiac pacemaker procedure S/P ACL surgery History of total right knee replacement H/O heart artery stent H/O right knee surgery Social History Social History Household Members Other:: has housemates Housing: Apartment Are you a primary child care centre director to a significant other at home: No Do you presently have visiting nurse or other home services: No Alcohol intake: never Patient Tobacco Use Status: Former Tobacco user Tobacco use type: Cigarette Years Smoked: 30 e-Cigarette/Vaping Use: Currently Using Second Hand Smoke Exposure: Yes Use of substances other than those prescribed or required for medical reasons: Yes Substance Use Type: Marijuana Substance Use Type Other:: smokes marijuana/takes methadone daily for pain control-has take home doses Substance Use Frequency: Daily Have you been hit, kicked, punched, or otherwise hurt by someone within the past year? If so, by whom?: No Spiritual Healthcare Practices: no Roman Catholic Healthcare Practices: no Cultural Healthcare Practices: no Are you DNR?: No Advance Directives: No Advance Directives Information Provided: Yes Advance Directives on File: No service: No Current occupational status: retired Cognitive needs: Yes (Cane, Walker) Hearing needs: No Vision needs: Yes (Glasses) Meds Allergies Allergy/AdvReac Type Severity Reaction Status Date / Time No Known Allergies Allergy Verified 05/05/25 12:11 Home Medications ?Medication ?Instructions ?Recorded ?Confirmed ?Last Taken ?Type methadone 10 mg/mL oral 115 mg PO DAILY pain control 12/03/22 04/25/25 05/05/25 History concentrate (Methadone Intensol) aspirin 81 mg tablet,delayed 81 mg PO DAILY 12/03/23 04/24/25 05/03/25 History release lisinopril 10 mg tablet 10 mg PO DAILY 05/23/24 04/24/25 Unknown History tirzepatide 2.5 mg/0.5 mL 2.5 mg subcut QWEEK 04/17/25 04/24/25 04/21/25 History subcutaneous pen injector (Mounjaro) furosemide 80 mg tablet 80 mg PO TID 04/25/25 04/25/25 Unknown History Exam Exam Date and Time: 05/05/25 Assessment and Plan Assessment Anesthesia Assessment: Chart Reviewed Final Anesthetic Review NPO: Yes ASA Class: III Final Preanesthetic Review: No Changes in Pt Med Stat, Meds/Allgs Chart Reviewed, Consent Obtained/Reviewed and Anes Risks/Benef Reviewed Patient Risk: Intermediate Anesthetic Plan Anesthetic Plan: GA Disposition: Standard PACU
[2025-04-25 14:40] LABS: Hematocrit 40.0 % (42.0-52.0); Hemoglobin 13.2 g/dl (14.0-18.0); Mean Corpuscular HGB Conc 33.0 g/dl (31.0-36.0); Mean Corpuscular Hemoglobin 27.8 pg (27.0-33.0); Mean Corpuscular Volume 84.2 fL (80.0-98.0); NRBC Abs Auto 0.000 X10*3/uL (0.0-0.012); NRBC Pct Auto 0.0 /100WBC (0.0-0.2); Platelet Count 298 X10*3/uL (160-400); Red Blood Count 4.75 X10*6/uL (4.60-5.80); White Blood Count 9.8 X10*3/uL (4.8-10.8)
[2025-04-25 15:28] LABS: Anion Gap 14 (12-20); Blood Urea Nitrogen 16 mg/dL (9-16); Calcium 9.2 mg/dL (8.4-10.2); Carbon Dioxide 28 mmol/L (22-29); Chloride 102 mmol/L (96-108); Creatinine Clr Calc Pharmacy 123.8; Estimated Glomerular Filt Rate > 60; Potassium 2.9 mmol/L (3.3-5.1); Sodium 141 mmol/L (135-145)
[2025-05-05 12:28] VITALS: BP 141/68; PULSE 71; RESP 16; TEMP 37.2; O2SAT 95
[2025-05-05] MEDS: Lactated Ringers 1,000 ML 100 ML IVCONT (12:34)
--- NOTE | 2025-05-05 13:21 | MHC.SHP ---
Pre-Procedural Eval Section A - 24 Hr Update-Section A only Date of Service: 05/05/25 Section B - Complete if H&P > 30 days Chief Complaint: Localized swelling, mass and lump, head Details of Present Illness: Has a large subcutaneous mass in the left cheek, well-defined Relevant Family History (Specify if Yes): No Relevant Social History: None Present Medications: see Short Stay Collaborative assessment Medical History: Significant History (DM, depression, history of [place] with coronary artery disease, hyperlipidemia, pacemaker in place) Allergies: Allergies Allergy/AdvReac Type Severity Reaction Status Date / Time No Known Allergies Allergy Verified 05/05/25 12:11 Review of Systems Sugical H&P ROS: Negative: Constitution, Cardiovascular and Respiratory Exam Surgical H&P Exam: Normal: HEENT and Normal: Heart Exam Comment: Large well-defined mass left cheek, mobile, about 4-5 cm Plan Diagnosis/Plan: Unchanged I have reviewed the history and physical and performed a pertinent physical examination on my patient. No changes have occurred unless specified. Time Spent With Patient Time: Total time managing care of this patient today ____ minutes.
[2025-05-05 13:35] LABS: Glucose, Whole Blood 129 mg/dL (60-115)
--- NOTE | 2025-05-05 14:32 | P.OP_ITS ---
Operative Note Operative Note Date of Service: 05/05/25 Narrative: Preop diagnosis: Left cheek mass Postop diagnosis: Large epidermal inclusion cyst, left cheek, about 5 cm in widest dimension Procedure: Excision of a large epidermal inclusion cyst, left cheek, under anesthesia Surgeon: Hermelindo Alston MD 1st instructional assistant: IMELDA Souza The patient is a 55-year-old male with a large mass, well-defined of the left cheek. He wanted to proceed with the excision. He understood the technique of the planned procedure and he was aware of the risks, benefits, and alternatives. He was brought to the operating room. He was placed in reclining position with the head turned to the right under general anesthesia via laryngeal mask airway. The left cheek was prepped and draped in the usual sterile fashion. A surgical time-out was done. The patient received cefazolin 2 g IV preoperatively I infiltrated the planned line of incision with lidocaine 1%. I then made an incision on the cheek overlying this large mass with a blade 15 following the Britta's lines. This was carried down sharply with the blade through the full- thickness of the skin and part of the subcutaneous layer until was able to visualize the cyst capsule. I sharply dissected this has cyst capsule off of the rest of the subcutaneous layer using fine scissors. We proceeded the circumferentially with care being taken so as to stay just along the plane of the capsule itself. We continued slowly all the way until the entire this was excised. This measured about 5 cm. This had sebaceous contents consistent with a epidermal inclusion cyst I irrigated. I used bipolar electrocautery to achieve hemostasis in the subcutaneous layer in view of the patient's pacemaker Once hemostasis confirmed, I closed the skin with full-thickness nylon 5 0 simple interrupted sutures. Thick dressings were applied. The procedure was completed The patient tolerated procedure well. There were no immediate complications initial and final counts of sponges and instruments were correct. Estimated blood loss was 25 cc. The patient is extubated without difficulty and transferred to the recovery room with stable vital signs.
[2025-05-05 14:38] VITALS: BP 106/65; PULSE 64; RESP 12; TEMP 36.7; O2SAT 98
[2025-05-05 14:43] VITALS: BP 121/61; PULSE 60; RESP 19; O2SAT 98
[2025-05-05 14:48] VITALS: BP 130/64; PULSE 61; RESP 13; O2SAT 98
[2025-05-05 14:53] VITALS: BP 134/68; PULSE 67; RESP 18; O2SAT 94
[2025-05-05 15:08] VITALS: BP 144/78; PULSE 68; RESP 18; TEMP 36.7; O2SAT 94
== END 2025-05-05 15:28 | disposition home or self-care (01) ==
PROVIDERS: Nurse Practitioner; Visit Provider Surgery
PROC: (CPT 11446; principal; 2025-05-05 14:00)
DX: L72.0 Epidermal cyst (principal); R22.0 Localized swelling, mass and lump, head; I24.9 Acute ischemic heart disease, unspecified; I11.0 Hypertensive heart disease with heart failure; I50.9 Heart failure, unspecified; I25.10 Atherosclerotic heart disease of native coronary artery without angina pectoris; Z95.5 Presence of coronary angioplasty implant and graft; I25.2 Old myocardial infarction; E11.9 Type 2 diabetes mellitus without complications; G51.0 Bell's palsy; J44.9 Chronic obstructive pulmonary disease, unspecified; G47.33 Obstructive sleep apnea (adult) (pediatric); Z79.02 Long term (current) use of antithrombotics/antiplatelets; Z79.82 Long term (current) use of aspirin; Z79.85 Long-term (current) use of injectable non-insulin antidiabetic drugs; Z79.899 Other long term (current) drug therapy; Z99.89 Dependence on other enabling machines and devices; Z88.6 Allergy status to analgesic agent; Z88.8 Allergy status to other drugs, medicaments and biological substances; Z87.891 Personal history of nicotine dependence; Z98.890 Other specified postprocedural states
CPT/HCPCS: 11446; 36415; 80048; 82947; 83036; 85027; 88304; J0690; J1100; J2003; J2405; J2704; J2795; J3010

== ENCOUNTER → 2025-05-05 11:56 | Outpatient (BNV) | payer OTHER, SELFPAY | PROVIDERS: Visit Provider Surgery | DX: R22.0 Localized swelling, mass and lump, head (principal); L98.9 Disorder of the skin and subcutaneous tissue, unspecified | CPT/HCPCS: 11446 ==